=== PATIENT | male | born 1955 | race Caucasian/White ===

== ENCOUNTER 2018-01-20 14:50 | Inpatient (IN) | payer BC ==
[2018-01-20] MEDS ORDERED: Diatrizoate Meglumine/Diatri 30 mL Sol ONE (16:25)
[2018-01-20 17:00] LABS: % BASOPHILS 3.2 % (0.0-2.0); % EOSINOPHILS 1.3 % (0.0-5.0); % LYMPHOCYTES 7.3 % (20.0-50.0); % MONOCYTES 4.5 % (2.0-10.0); % NEUTROPHILS 83.7 % (40.0-80.0); BASOPHILE ABSOLUTE 0.5 Th/cumm (0-0.2); EOSINOPHILE ABSOLUTE 0.2 Th/cmm (0.1-0.4); HEMATOCRIT 27.6 % (41.0-60); HEMOGLOBIN 9.4 gm/dL (12-16); LYMPHOCYTE ABSOLUTE 1.1 Th/cmm (1.5-3.0); MEAN CELL VOLUME 89.1 fl (80-99); MEAN CORPUSCULAR HEMOGLOBIN 30.3 pg (26.0-30.0); MEAN PLATELET VOLUME 8.5 fl; MONOCYTE ABSOLUTE 0.7 Th/cmm (0.3-1.0); NEUTROPHILE ABSOLUTE 13.1 Th/cmm (1.8-8.0); PLATELET COUNT 320 Th/cmm (150-400); RED BLOOD COUNT 3.09 Mil/cmm (4.30-5.70); RED CELL DISTRIBUTION WIDTH 14.7 % (11.5-20.0)
[2018-01-20 17:07] LABS: ALB/GLOB RATIO 1.1 (1.0-1.8); ALBUMIN 3.3 gm/dL (4.2-5.5); ALKALINE PHOSPHATASE 104 U/L (34-104); ANION GAP 10.9 (7.0-16.0); BILIRUBIN,TOTAL 0.4 mg/dL (0.3-1.0); BUN - UREA NITROGEN 15 mg/dL (7-25); CALCIUM SERUM 8.9 mg/dL (8.6-10.3); CARBON DIOXIDE 26.5 mEq/L (21.0-31.0); CHLORIDE 105 mEq/L (98-107); CREATININE - SERUM 0.9 mg/dL (0.7-1.3); CREATININE KINASE 32 U/L (30-223); GFR AFRICAN-AMERICAN > 60.0 ml/min (>90); GFR NON AFRICAN-AMERICAN > 60.0 ml/min; GLUCOSE 123 mg/dL (70-105); POTASSIUM SERUM 3.4 mEq/L (3.5-5.1); SGOT 9 U/L (13-39); SGPT/ALT 12 U/L (7-52); SODIUM SERUM 139 mEq/L (136-145); TOTAL PROTEIN,SERUM 6.3 gm/dL (6.0-8.3); WHITE BLOOD COUNT 15.6 Th/cmm (4.8-10.8)
[2018-01-20 17:09] LABS: TROP I 0.01 ng/mL (0.01-0.05)
[2018-01-20 17:21] LABS: INR 1.4 (0.5-1.4); PROTHROMBIN TIME (TEST) 14.8 SECONDS (9.5-11.5)
[2018-01-20] MEDS ORDERED: Levofloxacin 500mg/100mL 500 MG/100 ML BAG IV ONE ×2 (17:39→19:21)
--- NOTE | 2018-01-20 17:39 | ED Physician Chart ---
ED Chief Complaint/HPI - Patient Information Date Seen:: 01/20/18 Time Seen:: 15:15 Chief Complaint:: Cough History of Present Illness:: onset x 2 days of fever, cough, and congestion; pt denies trauma, H/As, S/T, neck pain, C/P, SOB, Abd. Pain, A/N/V/D/C, chills, or urinary s/s Allergies:: Allergies Allergy/AdvReac Type Severity Reaction Status Date / Time No Known Allergies Allergy Verified 01/20/18 15:03 Vitals:: Vital Signs - 8 hr 01/20/18 01/20/18 15:18 16:45 Temp 98.2 F HR 84 80 RR 17 20 BP 103/69 O2 Sat % 98 98 Historian:: Patient Review:: Nurse's Note Reviewed ED Review of Systems - Review of Systems General/Constitutional: Fever, No chills, No weight loss, No weakness, No diaphoresis, No edema, No loss of appetite Skin: No skin lesions, No rash, No bruising Head: No headache, No light-headedness Eyes: No loss of vision, No pain, No diplopia ENT: No earache, Nasal drainage, No sore throat, No tinnitus Neck: No neck pain, No swelling, No thyromegaly, No stiffness, No mass noted Cardio Vascular: No chest pain, No palpitations, No PND, No orthopnea, No edema Pulmonary: No SOB, Cough, No sputum, No wheezing GI: No nausea, No vomiting, No diarrhea, No pain, No melena, No hematochezia, No constipation, No hematemesis G/U: No dysuria, No frequency, No hematuria, No nacturia Musculoskeletal: No bone or joint pain, No back pain, No muscle pain Endocrine: No polyuria, No polydipsia Psychiatric: No prior psych history, No depression, No anxiety, No suicidal ideation, No homicidal ideation, No auditory hallucination, No visual hallucination Hematopoietic: No bruising, No lymphadenopathy Allergic/Immuno: No urticaria, No angioedema Neurological: No syncope, No focal symptoms, No weakness, No paresthesia, No headache, No seizure, No dizziness, No confusion, No vertigo ED Past Medical History - Past Medical History Obtainable: Yes Past Medical History: HTN, Dyslipidemia, ESRD Family History: HTN Social History: Non Smoker, No Alcohol, No Drug Use, , Care Facility Surgical History: PEG/GTube, other (Aneurysm Repair Surgery) Psychiatricy History: None Medication: Reviewed ED Physical Exam - Physical Examination General/Constitutional: Awake, Well-developed, well-nourished, Alert, No distress, GCS 15, Non-toxic appearing, Ambulatory Head: Atraumatic Eyes: Lids, conjuctiva normal, PERRL, EOMI Skin: Nl inspection, No rash, No skin lesions, No ecchymosis, Well hydrated, No lymphadenopathy ENMT: External ears, nose nl, TM canals nl, Nasal exam nl, Lips, teeth, gums nl , Oropharynx nl, Tonsils nl Neck: Nontender, Full ROM w/o pain, No JVD, No nuchal rigidity, No bruit, No mass, No stridor Respiratory: Nl effort/Exclusion Other Respiratory comments:: Lungs: + Rales and Rhonchi Cardio Vascular: RRR, No murmur, gallop, rubs, NL S1 S2, Carotid/Femoral/Distal pulses equal bilaterally GI: No tenderness/rebounding/guarding, No organomegaly, No hernia, Normal BS's, Nondistended, No mass/bruits, No McBurney tenderness : No CVA tenderness Extremities: No tenderness or effusion, Full ROM, normal strength in all extremities, No edema, Normal digits & nails Neuro/Psych: Alert/oriented, DTR's symmetric, Normal sensory exam, Normal motor strength, Judgement/insight normal, Mood normal, Normal gait, No focal deficits Misc: Normal back, No paraspinal tenderness ED Labs/Radiology/EKG Results - Lab Results Results: Laboratory Tests 01/20/18 01/20/18 01/20/18 16:40 16:40 16:40 WBC 15.6 H RBC 3.09 L Hgb 9.4 L Hct 27.6 L MCV 89.1 MCH 30.3 H MCHC Differential 34.0 RDW 14.7 Plt Count 320 MPV 8.5 Neutrophils % 83.7 H Lymphocytes % 7.3 L Monocytes % 4.5 Eosinophils % 1.3 Basophils % 3.2 H PT 14.8 H INR 1.40 PTT (Actin FS) 32.5 Sodium 139 Potassium 3.4 L Chloride 105 Carbon Dioxide 26.5 Anion Gap 10.9 BUN 15 Creatinine 0.9 Est GFR ( Amer) > 60.0 Est GFR (Non-Af Amer) > 60.0 BUN/Creatinine Ratio 16.7 Glucose 123 H Whole Bld Lactic Acid Calcium 8.9 Total Bilirubin 0.4 AST 9 L ALT 12 Alkaline Phosphatase 104 Creatine Kinase 32 Troponin I Total Protein 6.3 Albumin 3.3 L Globulin 3.0 Albumin/Globulin Ratio 1.1 01/20/18 16:40 WBC RBC Hgb Hct MCV MCH MCHC Differential RDW Plt Count MPV Neutrophils % Lymphocytes % Monocytes % Eosinophils % Basophils % PT INR PTT (Actin FS) Sodium Potassium Chloride Carbon Dioxide Anion Gap BUN Creatinine Est GFR ( Amer) Est GFR (Non-Af Amer) BUN/Creatinine Ratio Glucose Whole Bld Lactic Acid 1.32 Calcium Total Bilirubin AST ALT Alkaline Phosphatase Creatine Kinase Troponin I 0.01 Total Protein Albumin Globulin Albumin/Globulin Ratio Comments:: H/H: 9.4/27.6; WBC: 15.6; K+: 3.4 - Radiology Results Comments:: + Infiltrate - EKG Interpretations EKG Time:: 17:24 Rate & Rhythm: 76; NSR Comments:: st-t depression in V4, V5, and V6 ED Septic Shock - . Is Septic Shock (SBP<90, OR Lactate>4 mmol\L) present?: No - <6hrs of presentation: Vital Signs: Vital Signs - 8 hr 18 01/20/18 15:18 16:45 Temp 98.2 F HR 84 80 RR 17 20 BP 103/69 O2 Sat % 98 98 ED Reassessment (Disposition) - Reassessment Reassessment Condition:: Improved - Diagnosis Diagnosis:: Dx: Myocardial Ischemia; Leukocytosis; Anemia; Hypokalemia; PNA - Aftercare/Follow up Instructions Aftercare/Follow-Up Instructions:: Counseled pt regarding lab results/diagnosis & need follow up, Counseled pt & family regarding lab results/diagnosis & need follow up - Patient Disposition Discharge/Transfer:: Acute Care w/in this hosp Accepting Physician:: Dr. Claudio Time Called:: 1700 Time Responded:: 17:00 Admitted to:: Telemetry Spoke to:: Dr. Claudio Admitting Medical Physician:: Dr. Claudio Condition at Disposition:: Stable, Improved
[2018-01-20] MEDS ORDERED: Potassium Chloride 20 mEq ER Tab PO ONE ×2 (17:40→19:21)
[2018-01-20] MEDS ORDERED: Potassium Chloride 40 MEQ, Lidocaine 1% 20mL Vial 25 MG in Sodium Chloride 0.9% 250 ML IV PRN (19:08)
[2018-01-20] MEDS ORDERED: Mag Sulfate 2gm/50mL Premix 2 GM/50 ML BAG IV PRN (19:08)
[2018-01-20] MEDS: Albuterol/Ipratropium Neb 3 ML AERS HHN SCH ×2 (20:00→22:30)
[2018-01-20] MEDS ORDERED: Non-Formulary Item 1 EA (Atorvastatin Calcium [Lipitor] 40 MG) GT SCH (21:00)
[2018-01-20 21:05] LABS: URINE MICROSCOPIC INDICATED? YES; URINE SOURCE MIDSTREAM
[2018-01-20 21:06] LABS: URINE BILIRUBIN NEGATIVE (NEGATIVE); URINE BLOOD SMALL (NEGATIVE); URINE GLUCOSE (UA) NEGATIVE (NEGATIVE); URINE KETONE NEGATIVE (NEGATIVE); URINE LEUKOCYTE ESTERASE SMALL (NEGATIVE); URINE NITRATE NEGATIVE (NEGATIVE); URINE PH 5.5 (4.6 - 8.0); URINE PROTEIN NEGATIVE (NEGATIVE); URINE UROBILINOGEN 0.2 E.U./dL (0.2 - 1.0)
[2018-01-20 21:11] LABS: URINE CLARITY HAZY (CLEAR); URINE COLOR YELLOW
[2018-01-20 21:23] LABS: URINE BACTERIA NONE SEEN /hpf (NONE SEEN); URINE EPITHELIAL CELLS NONE SEEN /lpf (FEW)
[2018-01-20] MEDS ORDERED: Piperacillin Sodium/Tazobact 3.375 gm Vial IV ONE (23:07)
[2018-01-21] MEDS: Albuterol/Ipratropium Neb 3 ML AERS HHN SCH ×6 (02:09→23:00)
[2018-01-21] MEDS ORDERED: Piperacillin Sodium/Tazobact 3.375 gm Vial IV ONE (03:47)
[2018-01-21 06:38] LABS: EOSINOPHILE ABSOLUTE 0.1 Th/cmm (0.1-0.4); HEMATOCRIT 27.8 % (41.0-60); HEMOGLOBIN 9.8 gm/dL (12-16); LYMPHOCYTE ABSOLUTE 1.9 Th/cmm (1.5-3.0); MANUAL DIFF REQUIRED? YES; MEAN CELL VOLUME 89.5 fl (80-99); MEAN CORPUSCULAR HEMOGLOBIN 31.6 pg (26.0-30.0); MEAN CORPUSCULAR HGB CONC 35.3 pg (28.0-36.0); MEAN PLATELET VOLUME 8.1 fl; MONOCYTE ABSOLUTE 1.3 Th/cmm (0.3-1.0); NEUTROPHILE ABSOLUTE 17.5 Th/cmm (1.8-8.0); PLATELET COUNT 350 Th/cmm (150-400); RED CELL DISTRIBUTION WIDTH 14.8 % (11.5-20.0)
[2018-01-21 06:55] LABS: WHITE BLOOD COUNT 20.8 Th/cmm (4.8-10.8)
[2018-01-21 07:14] LABS: BAND NEUTROPHILE 7 % (0-10); LYMPHOCYTE 8 % (20-50); MONOCYTE 2 % (2-10); NEUTROPHILS 83 % (40-80); TOTAL CELLS COUNTED 100
[2018-01-21 07:30] LABS: ANION GAP 11.6 (7.0-16.0); BUN - UREA NITROGEN 11 mg/dL (7-25); CALCIUM SERUM 8.9 mg/dL (8.6-10.3); CARBON DIOXIDE 26.2 mEq/L (21.0-31.0); CHLORIDE 106 mEq/L (98-107); CREATININE - SERUM 0.8 mg/dL (0.7-1.3); GFR AFRICAN-AMERICAN > 60.0 ml/min (>90); GFR NON AFRICAN-AMERICAN > 60.0 ml/min; GLUCOSE 98 mg/dL (70-105); POTASSIUM SERUM 3.8 mEq/L (3.5-5.1); SODIUM SERUM 140 mEq/L (136-145)
--- NOTE | 2018-01-21 07:36 | Diagnostic Imaging Report ---
Upper GI with Gastrografin HISTORY: G-tube confirmation COMPARISON: None FINDINGS: Bladder Trimmer view demonstrates diffuse postsurgical changes. Moderate stool is noted with nonspecific gas-filled loops of bowel. A percutaneous gastric feeding tube is noted. The second image demonstrates contrast opacification of the stomach and small bowel loops. IMPRESSION: Intraluminal confirmation of patient's percutaneous gastric feeding tube. Diffuse postsurgical changes.
--- NOTE | 2018-01-21 07:39 | Diagnostic Imaging Report ---
CHEST X-RAY: AP view INDICATION: Cough COMPARISON: None FINDINGS: Left dialysis catheter is seen with tip in the SVC. Postsurgical changes are seen with evidence of median sternotomy and aortic stent placement. There is elevation of the right hemidiaphragm with increased right basal lung markings. Left basal pleural thickening is suspected. Mild cardiomegaly is noted. Degenerative changes of the spine are noted. IMPRESSION: Elevation of the right hemidiaphragm increased right basal lung markings which may be due to atelectasis versus infiltrate. Mild cardiomegaly Diffuse postsurgical changes.
[2018-01-21] MEDS ORDERED: AZELASTINE HCL 0.1% NS SCH (09:00)
[2018-01-21 09:25] LABS: INR 1.53 (0.5-1.4); PROTHROMBIN TIME (TEST) 16.2 SECONDS (9.5-11.5)
[2018-01-21] MEDS: Aspirin 81mg Chewable Tab GT SCH (09:50)
[2018-01-21] MEDS ORDERED: Probiotic Screen MC PRN (10:00)
--- NOTE | 2018-01-21 10:03 | Diagnostic Imaging Report ---
Bilateral lower extremity Doppler venous ultrasound exam HISTORY: Pain/swelling Sonographic sector images were obtained through the deep venous systems of both legs. Associated Doppler data was obtained. The exam demonstrates patency of the common femoral, superficial femoral, popliteal, and posterior tibial veins bilaterally. Specifically, no thrombus is seen. There are normal compressibility and augmentation responses. IMPRESSION: Negative exam for deep vein thrombophlebitis.
--- NOTE | 2018-01-21 11:14 | History & Physical ---
ADMIT DATE: 01/20/2018 CHIEF COMPLAINT: Removal of dialysis access and G-tube. HISTORY OF PRESENT ILLNESS: The patient is a pleasant 61-year-old male. He has an extensive history. In 10/2017, he was found to have aortic dissection. He is status post repair [facility] that was complicated by cardiac tamponade, acute renal failure requiring dialysis. He has been off the dialysis for about a month now. He was also found to have dysphagia, right axillary and right internal jugular DVT along with respiratory failure as well. After that, he was transferred to [facility]. He presents to the ER for the removal of G-tube and dialysis access. He has been eating for a month without any issues. He is taking all his pills orally as well. He is also not required dialysis for a month. Renal function is normal; however, in the ER, he was found to have sepsis and aspiration pneumonia. He was admitted for further workup and treatment. PAST MEDICAL HISTORY: See above. PAST SURGICAL HISTORY: As mentioned above, he has history of cardiac tamponade, status post surgery. He has a history of aortic dissection, after which his stay was complicated with cardiac tamponade. ALLERGIES: No known drug allergies. SOCIAL HISTORY: The patient denies any alcohol, tobacco, or drug abuse. FAMILY HISTORY: Noncontributory. MEDICATIONS: All medications reviewed. REVIEW OF SYSTEMS: GENERAL: Positive recent fatigue and a slightly decreased appetite. HEENT: No recent head trauma, change in vision, taste, hearing, or smell. HEME/ONC: Positive for right axillary and right internal jugular vein DVT and hematoma and history of drainage as well. ABDOMEN: No recent pain or distention. GASTROINTESTINAL: Denies any nausea, vomiting. RESPIRATORY: Positive for respiratory failure and he is status post extubation. NEPHRO: He has history of end-stage renal disease. His renal function has normalized. CARDIOVASCULAR: Positive for aortic dissection and cardiac tamponade, status post surgery in 10/2017 as mentioned above. MUSCULOSKELETAL: Positive for muscle weakness. PSYCHIATRIC: No history of psychosis or hallucinations. NEUROLOGIC: No history of stroke or seizure. PHYSICAL EXAMINATION: VITAL SIGNS: Temperature 97.9 degrees, heart rate is 80, respirations 14, blood pressure 113/65. Currently, no pain. GENERAL: No acute distress, awake, alert, pleasant. HEENT: No acute issues. NECK: Trachea is midline. CARDIOVASCULAR: Regular rate and rhythm. ABDOMEN: Nontender, nondistended. SKIN: No rashes. RESPIRATORY: Decreased breath sounds bilaterally with some rales and congestion. EXTREMITIES: No edema. He does have mild edema in the right upper extremity, but no edema in the lower extremities. NEUROLOGIC: Stable. GENITOURINARY: No hematuria is noted. LABORATORY DATA: Sodium 139, potassium 3.4, chloride 105, bicarbonate 26.5, BUN 15, creatinine 0.9, albumin is 3.3. White count is 20.8, hemoglobin is 9.8, platelet count 350,000. Chest x-ray shows infiltrates. Lower extremity venous Doppler ultrasound is negative. Upper GI study was done in the ER as well, which shows an intraluminal confirmation of the patient's percutaneous gastric feeding tube. ASSESSMENT: 1. Sepsis. 2. Aspiration pneumonia. 3. Right upper extremity deep vein thrombosis/right axillary and internal jugular vein deep vein thrombosis. 4. Atrial fibrillation. 5. Anemia of chronic illness. 6. Moderate malnutrition. 7. Hyponatremia. PLAN: The patient is on IV Zosyn. The white count is still trending up. ID has been consulted. Also, he has a cardiac arrhythmia on the telemetry. Cardiology has been consulted. We will continue the warfarin. Pharmacy will be dosing it. He will have a followup ultrasound of the bilateral upper extremities to evaluate for the DVT. It was diagnosed originally in 10/2017. Also, Dr. Parks has been consulted for surgery for removal of dialysis access and G-tube removal as well. I have discussed care plan with the patient in detail. JOB# [id number]
--- NOTE | 2018-01-21 11:35 | General Progress Note ---
Subjective - Review of Systems Service Date: 01/21/18 Events since last encounter: for removal of permcath and gastrostomy in AM Objective - Results Result Diagrams: 01/21/18 06:24 01/21/18 06:24 Recent Labs: Laboratory Last Values WBC 20.8 Th/cmm (4.8-10.8) H* 01/21/18 06:24 RBC 3.10 Mil/cmm (4.30-5.70) L 01/21/18 06:24 Hgb 9.8 gm/dL (12-16) L 01/21/18 06:24 Hct 27.8 % (41.0-60) L 01/21/18 06:24 MCV 89.5 fl (80-99) 01/21/18 06:24 MCH 31.6 pg (26.0-30.0) H 01/21/18 06:24 MCHC Differential 35.3 pg (28.0-36.0) 01/21/18 06:24 RDW 14.8 % (11.5-20.0) 01/21/18 06:24 Plt Count 350 Th/cmm (150-400) 01/21/18 06:24 MPV 8.1 fl 01/21/18 06:24 Neutrophils % 83.7 % (40.0-80.0) H 01/20/18 16:40 Band Neutrophils % 7 % (0-10) 01/21/18 06:24 Lymphocytes % 7.3 % (20.0-50.0) L 01/20/18 16:40 Monocytes % 4.5 % (2.0-10.0) 01/20/18 16:40 Eosinophils % 1.3 % (0.0-5.0) 01/20/18 16:40 Basophils % 3.2 % (0.0-2.0) H 01/20/18 16:40 Neutrophils (Manual) 83 % (40-80) H 01/21/18 06:24 Lymphocytes 8 % (20-50) L 01/21/18 06:24 Monocytes 2 % (2-10) 01/21/18 06:24 PT 16.2 SECONDS (9.5-11.5) H 01/21/18 06:24 INR 1.53 (0.5-1.4) H 01/21/18 06:24 PTT (Actin FS) 32.5 SECONDS (26.0-38.0) 01/20/18 16:40 Sodium 140 mEq/L (136-145) 01/21/18 06:24 Potassium 3.8 mEq/L (3.5-5.1) 01/21/18 06:24 Chloride 106 mEq/L (98-107) 01/21/18 06:24 Carbon Dioxide 26.2 mEq/L (21.0-31.0) 01/21/18 06:24 Anion Gap 11.6 (7.0-16.0) 01/21/18 06:24 BUN 11 mg/dL (7-25) 01/21/18 06:24 Creatinine 0.8 mg/dL (0.7-1.3) 01/21/18 06:24 Est GFR ( Amer) > 60.0 ml/min (>90) 01/21/18 06:24 Est GFR (Non-Af Amer) > 60.0 ml/min 01/21/18 06:24 BUN/Creatinine Ratio 13.8 01/21/18 06:24 Glucose 98 mg/dL (70-105) 01/21/18 06:24 Whole Bld Lactic Acid 1.32 mmol/L (0.60-1.99) 01/20/18 16:40 Calcium 8.9 mg/dL (8.6-10.3) 01/21/18 06:24 Total Bilirubin 0.4 mg/dL (0.3-1.0) 01/20/18 16:40 AST 9 U/L (13-39) L 01/20/18 16:40 ALT 12 U/L (7-52) 01/20/18 16:40 Alkaline Phosphatase 104 U/L (34-104) 01/20/18 16:40 Creatine Kinase 32 U/L (30-223) 01/20/18 16:40 Troponin I 0.01 ng/mL (0.01-0.05) 01/20/18 16:40 Total Protein 6.3 gm/dL (6.0-8.3) 01/20/18 16:40 Albumin 3.3 gm/dL (4.2-5.5) L 01/20/18 16:40 Globulin 3.0 gm/dL 01/20/18 16:40 Albumin/Globulin Ratio 1.1 (1.0-1.8) 01/20/18 16:40 Urine Source MIDSTREAM 01/20/18 20:20 Urine Color YELLOW 01/20/18 20:20 Urine Clarity HAZY (CLEAR) 01/20/18 20:20 Urine pH 5.5 (4.6 - 8.0) 01/20/18 20:20 Ur Specific [place] 1.020 (1.005-1.030) 01/20/18 20:20 Urine Protein NEGATIVE mg/dL (NEGATIVE) 01/20/18 20:20 Urine Glucose (UA) NEGATIVE mg/dL (NEGATIVE) 01/20/18 20:20 Urine Ketones NEGATIVE mg/dL (NEGATIVE) 01/20/18 20:20 Urine Blood SMALL (NEGATIVE) H 01/20/18 20:20 Urine Nitrate NEGATIVE (NEGATIVE) 01/20/18 20:20 Urine Bilirubin NEGATIVE (NEGATIVE) 01/20/18 20:20 Urine Urobilinogen 0.2 E.U./dL (0.2 - 1.0) 01/20/18 20:20 Ur Leukocyte Esterase SMALL (NEGATIVE) H 01/20/18 20:20 Urine RBC 5-10 /hpf (0-5) H 01/20/18 20:20 Urine WBC 10-25 /hpf (0-5) H 01/20/18 20:20 Ur Epithelial Cells NONE SEEN /lpf (FEW) 01/20/18 20:20 Urine Bacteria NONE SEEN /hpf (NONE SEEN) 01/20/18 20:20 - Physical Exam Vitals and I&O: Vital Signs Temp 97.9 F 01/21/18 08:00 Pulse 78 01/21/18 10:59 Resp 18 01/21/18 10:59 BP 113/65 01/21/18 09:52 Pulse Ox 98 01/21/18 10:59 Intake & Output 01/20/18 01/21/18 01/21/18 18:59 06:59 18:59 Intake Total 200 Balance 200 Intake: Intake, IV Amount 200 Piperacillin Sodium/ 200 Tazobact 3.375 gm In Dextrose 5% 100 ml @ 200 mls/hr IV Q6H [facility] Rx#: [id number] Active Medications: Current Medications Acetaminophen (Tylenol) 650 mg PO Q6H PRN PRN Reason: HEADACHE/TEMP ABOVE 100F Stop: 03/21/18 19:07 Last Admin: 01/20/18 23:17 Dose: 650 mg Acetaminophen/Hydrocodone Bitart ([place] 10 Mg/325 Mg) 1 tab PO Q6H PRN PRN Reason: mod pain Stop: 03/22/18 10:31 Albuterol/Ipratropium (Duoneb Neb) 3 ml HHN Q4HRT [facility] Stop: 03/21/18 19:59 Last Admin: 01/21/18 10:59 Dose: Not Given Amiodarone HCl (Cordarone) 100 mg GT DAILY [facility] Stop: 03/22/18 08:59 Last Admin: 01/21/18 09:48 Dose: 100 mg Amlodipine Besylate (Norvasc) 10 mg GT DAILY [facility] Stop: 03/22/18 08:59 Last Admin: 01/21/18 09:52 Dose: 10 mg Aspirin (Aspirin Chewable) 81 mg GT DAILY [facility] Stop: 03/22/18 08:59 Last Admin: 01/21/18 09:50 Dose: 81 mg Atorvastatin Calcium (Lipitor) 40 mg GT HS [facility] Stop: 03/21/18 20:59 Docusate Sodium (Colace) 100 mg PO BID PRN PRN Reason: Constipation Stop: 03/21/18 19:07 Potassium Chloride 40 meq/Lidocaine HCl 25 mg/ Sodium Chloride 272.5 mls @ 68 mls/hr IV DAILY PRN PRN Reason: k level less than 3.2 Stop: 03/21/18 19:07 Magnesium Sulfate (Magnesium Sulfate Premix) 2 gm in 50 mls @ 25 mls/hr IV DAILY PRN PRN Reason: Magnesium level less than 1.6 Stop: 03/21/18 19:07 Piperacillin Sod/Tazobactam (Sod 4.5 gm/ Sodium Chloride) 100 mls @ 100 mls/hr IV Q8H [facility] Stop: 03/22/18 08:59 Last Admin: 01/21/18 10:49 Dose: 100 mls/hr Lactobacillus Rhamnosus (Culturelle 15b) 1 each PO DAILY [facility] Stop: 03/23/18 08:59 Lorazepam (Ativan) 1 mg IVP Q4H PRN; Protocol PRN Reason: Anxiety Stop: 03/21/18 19:07 Magnesium Oxide (Mag-Oxide) 400 mg PO BID PRN PRN Reason: Mg less than 1.9 Stop: 03/21/18 19:07 Metoprolol Tartrate (Lopressor) 50 mg GT Q8H [facility] Stop: 03/21/18 19:14 Last Admin: 01/21/18 02:52 Dose: Not Given Miscellaneous (Zosyn Iv Per Pharmacy) 1 [facility] PRN PRN PRN Reason: PROTOCOL Stop: 03/21/18 19:03 Miscellaneous (Azelastine Hcl [Azelastine Hcl]) 0.1 % NS BID [facility] Stop: 03/22/18 08:59 Miscellaneous (Probiotic Screen) 1 [facility] PRN PRN PRN Reason: PROTOCOL Stop: 03/22/18 09:59 Morphine Sulfate (Morphine) 1 mg IVP Q4HR PRN PRN Reason: Severe Pain Stop: 03/21/18 19:07 Ondansetron HCl (Zofran) 4 mg IVP Q6H PRN PRN Reason: Nausea / Vomiting Stop: 03/21/18 19:07 Potassium Chloride (Klor-Con) 40 meq PO DAILY PRN PRN Reason: k level less than 3.5 Stop: 03/21/18 19:07 Warfarin Sodium (Coumadin Per Pharmacy) 1 [facility] PRN PRN; Protocol PRN Reason: RX MONITORING Stop: 03/21/18 19:10 Warfarin Sodium (Coumadin) 2.5 mg PO 1300 ONE Stop: 01/21/18 13:01 Zolpidem Tartrate (Ambien) 10 mg PO HS PRN PRN Reason: Insomnia Stop: 03/21/18 19:07 Assessment/Plan - Problem List Patient Problems: All Active Problems GASTRIC TUBE AND CORAL REMOVAL (Acute)
--- NOTE | 2018-01-21 12:42 | Diagnostic Imaging Report ---
Bilateral upper extremity Doppler venous ultrasound exam HISTORY: Pain, swelling Sonographic sector images were obtained through the venous systems of both arms. Associated Doppler data was obtained. The exam demonstrates patency of the right internal jugular, subclavian, brachial, basilic, cephalic veins. No thrombus is seen. Normal compressibility and augmentation responses. Exam the left arm demonstrates eighth CVA of the left internal jugular, axillary, brachial, basilic, cephalic veins. No thrombus. There is suboptimal visualization of the left subclavian vein due to the presence of an indwelling vascular catheter. IMPRESSION: 1. Suboptimal visualization of the left subclavian vein due to an intraluminal vascular catheter. No other definite abnormalities or evidence of thrombophlebitis.
[2018-01-21] MEDS: Hydrocodone/APAP 10 mg/325 mg Tab PO PRN ×2 (13:12→19:53)
[2018-01-21 18:47] LABS: A1C % 4.9 % (4.0-6.0)
[2018-01-21] MEDS: Atorvastatin Calcium 10 MG TAB GT SCH (20:11)
--- NOTE | 2018-01-21 21:59 | Consultation ---
Consult Note - Consult Note Service Date: 01/21/18 Referring Physician: Fito Claudio Consult Note: PHYSICIAN Consultation Note: Date of Admission: 01/20/18 Purpose of Consultation: Sepsis. UTI. Chief Complaint: Patient GWEN RAMIREZ was admitted to [facility] with ASPIRATION PNEUMONIA. History of Present Illness: 62-year-old male with a past medical history of hypertension, hyperlipidemia, aortic dissection which was repaired at [facility]. He was complicated by acute renal failure requiring hemodialysis. He developed dysphagia suggestive was placed in. Currently he is doing well. He was transferred to [place] . He was doing well. When he came to the ER for the removal of G-tube and dialysis access. On initial evaluation patient was afebrile, his WBC count of 15,000. Sepsis workup was performed, lactic acid was 1.32. Chest x-ray right lower lobe infiltrate versus atelectasis. Urinalysis showed pyuria and bacteriuria. Patient was admitted with diagnosis of aspiration pneumonia and sepsis. Zosyn was started. His WC count went up to 20,000. ID consult for further antibiotic. Past Medical History: Hypertension, hyperlipidemia, aortic dissection, repair of aortic dissection recently at [facility]. Acute renal failure requiring hemodialysis. Currently, he is off hemodialysis for almost one month. His dysphagia is resolved. Diagnoses HYPERLIPIDEMIA, UNSPECIFIED (01/20/18) ESSENTIAL (PRIMARY) HYPERTENSION (01/20/18) HYP CHR KIDNEY DISEASE W STAGE 5 CHR KIDNEY DISEASE OR ESRD (01/20/18) END STAGE RENAL DISEASE (01/20/18) COUGH (01/20/18) Allergies Allergy/AdvReac Type Severity Reaction Status Date / Time No Known Allergies Allergy Verified 01/20/18 15:03 Vital Signs Temp 97.4 F 01/21/18 16:00 Pulse 72 01/21/18 20:12 Resp 18 01/21/18 16:00 BP 121/71 01/21/18 20:12 Pulse Ox 97 01/21/18 16:00 Intake & Output 01/21/18 01/21/18 01/22/18 06:59 18:59 06:59 Intake Total 200 100 850 Output Total 950 Balance 200 100 -100 Weight (lbs) 88.451 kg Intake: Intake, IV Amount 200 100 100 Piperacillin Sodium/ 200 Tazobact 3.375 gm In Dextrose 5% 100 ml @ 200 mls/hr IV Q6H [facility] Rx#: [id number] Piperacillin Sodium/ 100 100 Tazobact 4.5 gm In Sodium Chloride 0.9% 100 ml @ 100 mls/hr IV Q8H [facility] Rx# :[id number] Oral 750 Output: Urine 950 Stool 0 Other: Stool Characteristics Soft Brown Weight Source [facility] Laboratory Results - last 24 hr 01/21/18 01/21/18 01/21/18 06:24 06:24 06:24 WBC 20.8 H* RBC 3.10 L Hgb 9.8 L Hct 27.8 L MCV 89.5 MCH 31.6 H MCHC Differential 35.3 RDW 14.8 Plt Count 350 MPV 8.1 Band Neutrophils % 7 Neutrophils (Manual) 83 H Lymphocytes 8 L Monocytes 2 PT 16.2 H INR 1.53 H Sodium 140 Potassium 3.8 Chloride 106 Carbon Dioxide 26.2 Anion Gap 11.6 BUN 11 Creatinine 0.8 Est GFR ( Amer) > 60.0 Est GFR (Non-Af Amer) > 60.0 BUN/Creatinine Ratio 13.8 Glucose 98 Calcium 8.9 Home Medication Medication Instructions Recorded Type Albuterol/Ipratropium Neb [Duoneb 3 ml HHN Q4HR 01/20/18 History Neb] Amiodarone HCl [Amiodarone HCl*] 100 mg GT DAILY 01/20/18 History Amlodipine Besylate 10 mg GT DAILY 01/20/18 History Aspirin [Aspirin Chewable] 81 mg GT DAILY 01/20/18 History Atorvastatin Calcium [Lipitor] 40 mg GT HS 01/20/18 History Azelastine HCl 0.1 % NS BID 01/20/18 History Bisacodyl 10 mg RC Q24H PRN 01/20/18 History Bismuth Subsalicylate 15 ml PO Q8H PRN 01/20/18 History [Pepto-Bismol] Dronabinol 2.5 mg GT BID 01/20/18 History Hydrocodone/APAP 5mg/325mg [[place] 1 tab GT Q4H PRN 01/20/18 History 5mg/325mg] Hydrocodone/APAP 5mg/325mg [[place] 2 tab GT Q6H PRN 01/20/18 History 5mg/325mg] Metoprolol Tartrate 50 mg GT Q8H 01/20/18 History Multivitamin w/ Minerals 1 tab GT DAILY 01/20/18 History [Theragran M] Pantoprazole [Protonix] 40 mg PO DAILY 01/20/18 History Scopolamine [Transderm-Scop] 1 each TD Q72H 01/20/18 History Sertraline [Zoloft] 50 mg GT DAILY 01/20/18 History Simethicone [Mylicon] 80 mg GT Q8H PRN 01/20/18 History Tamsulosin HCl [Flomax] 0.8 mg PO HS 01/20/18 History Temazepam [Restoril*] 7.5 mg GT Q24H PRN 01/20/18 History Warfarin Sodium [Coumadin*] 2.5 mg GT DAILY 01/20/18 History Warfarin Sodium [Coumadin] 2.5 mg GT DAILY 01/20/18 History Current Medications Generic Name Dose Route Start Last Admin Trade Name Freq PRN Reason Stop Dose Admin Acetaminophen 650 mg 01/20/18 19:08 01/20/18 23:17 Tylenol PO 03/21/18 19:07 650 mg Q6H PRN Administration HEADACHE/TEMP ABOVE 100F Acetaminophen/Hydrocodone Bitart 1 tab 01/21/18 10:32 01/21/18 19:53 [place] 10 Mg/325 Mg PO 03/22/18 10:31 1 tab Q6H PRN Administration mod pain Albuterol/Ipratropium 3 ml 01/20/18 20:00 01/21/18 15:09 Duoneb Neb HHN 03/21/18 19:59 Not Given Q4HRT [facility] Amiodarone HCl 100 mg 01/21/18 09:00 01/21/18 09:48 Cordarone GT 03/22/18 08:59 100 mg DAILY SH[facility]E Administration Amlodipine Besylate 10 mg 01/21/18 09:00 01/21/18 09:52 Norvasc GT 03/22/18 08:59 10 mg DAILY [facility]E Administration Aspirin 81 mg 01/21/18 09:00 01/21/18 09:50 Aspirin Chewable GT 03/22/18 08:59 81 mg DAILY [facility] Administration Atorvastatin Calcium 40 mg 01/21/18 08:10 01/21/18 20:11 Lipitor GT 03/21/18 20:59 40 mg HS [facility] Administration Docusate Sodium 100 mg 01/20/18 19:08 Colace PO 03/21/18 19:07 BID PRN Constipation Potassium Chloride 40 meq/ 272.5 mls @ 68 mls/hr 01/20/18 19:08 Lidocaine HCl 25 mg/ Sodium IV 03/21/18 19:07 Chloride DAILY PRN k level less than 3.2 Magnesium Sulfate 2 gm in 50 mls @ 25 mls/hr 01/20/18 19:08 Magnesium Sulfate Premix IV 03/21/18 19:07 DAILY PRN Magnesium level less than 1.6 Piperacillin Sod/Tazobactam 100 mls @ 100 mls/hr 01/21/18 09:00 01/21/18 19: 37 Sod 4.5 gm/ Sodium Chloride IV 03/22/18 08:59 Infused Q8H [facility] Infusion Lactobacillus Rhamnosus 1 each 01/22/18 09:00 Culturelle 15b PO 03/23/18 08:59 DAILY [facility] Lorazepam 1 mg 01/20/18 19:08 Ativan IVP 03/21/18 19:07 Q4H PRN Anxiety Protocol Magnesium Oxide 400 mg 01/20/18 19:08 Mag-Oxide PO 03/21/18 19:07 BID PRN Mg less than 1.9 Metoprolol Tartrate 50 mg 01/20/18 19:15 01/21/18 20:12 Lopressor GT 03/21/18 19:14 50 mg Q8H [facility] Administration Miscellaneous 1 ea 01/20/18 19:04 Zosyn Iv Per Pharmacy 03/21/18 19:03 PRN PRN PROTOCOL Miscellaneous 0.1 % 01/21/18 09:00 Azelastine Hcl [Azelastine Hcl] NS 03/22/18 08:59 BID [facility] Miscellaneous 1 ea 01/21/18 10:00 Probiotic Screen 03/22/18 09:59 PRN PRN PROTOCOL Morphine Sulfate 1 mg 01/20/18 19:08 Morphine IVP 03/21/18 19:07 Q4HR PRN Severe Pain Mupirocin 1 appl 01/22/18 09:00 Bactroban Oint NS 01/26/18 17:01 BID [facility] Ondansetron HCl 4 mg 01/20/18 19:08 01/21/18 16:40 Zofran IVP 03/21/18 19:07 4 mg Q6H PRN Administration Nausea / Vomiting Potassium Chloride 40 meq 01/20/18 19:08 Klor-Con PO 03/21/18 19:07 DAILY PRN k level less than 3.5 Warfarin Sodium 1 ea 01/20/18 19:11 Coumadin Per Pharmacy 03/21/18 19:10 PRN PRN RX MONITORING Protocol Zolpidem Tartrate 10 mg 01/20/18 19:08 Ambien PO 03/21/18 19:07 HS PRN Insomnia Review of Systems: A 12 point ROS was reviewed with the pertinent positive and negatives noted in the HPI. Social History Smoking Status Never smoker Drug Use No Alcohol Use No Family Medical History Unknown. Physical Exam: General: Comfortable, well-nourished well-developed. Not in acute distress. HEENT: Head: Normocytic, atraumatic. Oral cavity: Moist, pink tongue. Eyes: No pallor and icterus. PERRLA. EOMI. Neck: Supple, no JVD no cavity. No use of accessory neck muscles. Cardio: S1 and S2 within normal limits regular rhythm no murmur no gallop. Respiratory: Vesicular breath sound no crackles no wheezing. Chest: Patient has a surgical incision and middle chest has healed completely. Face and other transverse surgical incision healed completely on her right upper chest. These permacath on left upper chest. Site is clean. Abdominal: Soft, nontender nondistended bowel sounds present. G-tube site is clear. Genital/Urinary: Deferred. Extremities: No cyanosis, no clubbing, no edema. Neurological: Alert and awake oriented 3. No focal neuro deficits. Assessment: 1. Leukocytosis suspect sepsis. 2. Right lower lobe infiltrate, suspect aspiration pneumonia. 3. UTI. 4. MRSA colonization. 5. Hypertension. 6. Hyperlipidemia. 7. Aortic dissection, repair of aortic dissection at [facility]. 8. Acute kidney injury. Resolved. 9. Dysphagia resolved. He is taking his medication by mouth. Plan: Continue Zosyn. Start vancomycin IV. Discussed with the patient in detail. Discussed with RN. Thank you, Dr. Claudio, for involving me in taking care of this patient. Signed, Caesar Elias M.D. [id number]
--- NOTE | 2018-01-21 23:17 | Consultation ---
DATE OF CONSULTATION: 01/20/[address] Claudio. HISTORY AND PHYSICAL: This is a 62-year-old male patient who had a dissection of the ascending aorta, which was repaired at [facility]. The patient also had complication with cardiac tamponade, acute renal failure with dialysis. The patient was admitted to [facility] at the present time, the patient is off dialysis. The patient has a PEG placement. The patient apparently is eating and has PEG as well as Perm-A-Cath needs to be removed. The patient had chest x-ray consistent with aspiration pneumonia and hence the patient is admitted. PAST MEDICAL HISTORY: The patient has a history of DVT of the right upper extremity, atrial fibrillation, iron deficiency anemia, hyponatremia. FAMILY HISTORY: Unremarkable. SOCIAL HISTORY: No history of smoking, alcohol abuse. ALLERGIES: None. PHYSICAL EXAMINATION: VITAL SIGNS: Blood pressure 142/80, pulse 70, respirations 20. HEAD: Normocephalic. No lumps or bumps. EYES: Pupils equal, reactive to light. Fundi show AV nicking, sclerae white, conjunctivae pink. NECK: Carotid 2+. Normal upstroke. JVD flat. Thyroid not palpable. Lymph nodes not palpable. CHEST: Shows increased AP diameter. No kyphosis, scoliosis. LUNGS: Bilateral bronchovesicular breath sounds. HEART: PMI fifth intercostal space with lateral to midclavicular line. S1, S2, S3, S4. S1 irregular. Systolic murmur. ABDOMEN: Soft. Liver, spleen not palpable. The patient has a PEG in place. NEUROLOGIC: Unremarkable. EXTREMITIES: Peripheral pulses 2+. No pedal edema. CLINICAL IMPRESSION: Atrial fibrillation, aspiration pneumonia, sepsis, DVT of the right upper extremity, iron deficiency anemia, hyponatremia. PLAN: We will continue present management. We will hold anticoagulation in view of removal of Perm-A-Cath as well as PEG. Following this, the patient will be continued on IV antibiotics for sepsis as well as pneumonia. JOB# [id number]
[2018-01-22] MEDS: Albuterol/Ipratropium Neb 3 ML AERS HHN SCH ×7 (03:00→23:01)
--- NOTE | 2018-01-22 07:28 | General Progress Note ---
Subjective - Review of Systems Service Date: 01/22/18 Subjective: Pt seen and eval. Has some congestion. No fevers or chills. Now on Vanco and Zosyn. Seen by ID, Cardio, and Sx. Scheduled to have Perm-A-Cath and GT removed today by Dr. Parks. No n,v,d or cp. Feels weak. Objective - Results Result Diagrams: 01/21/18 06:24 01/21/18 06:24 Recent Labs: Laboratory Last Values WBC 20.8 Th/cmm (4.8-10.8) H* 01/21/18 06:24 RBC 3.10 Mil/cmm (4.30-5.70) L 01/21/18 06:24 Hgb 9.8 gm/dL (12-16) L 01/21/18 06:24 Hct 27.8 % (41.0-60) L 01/21/18 06:24 MCV 89.5 fl (80-99) 01/21/18 06:24 MCH 31.6 pg (26.0-30.0) H 01/21/18 06:24 MCHC Differential 35.3 pg (28.0-36.0) 01/21/18 06:24 RDW 14.8 % (11.5-20.0) 01/21/18 06:24 Plt Count 350 Th/cmm (150-400) 01/21/18 06:24 MPV 8.1 fl 01/21/18 06:24 Neutrophils % 83.7 % (40.0-80.0) H 01/20/18 16:40 Band Neutrophils % 7 % (0-10) 01/21/18 06:24 Lymphocytes % 7.3 % (20.0-50.0) L 01/20/18 16:40 Monocytes % 4.5 % (2.0-10.0) 01/20/18 16:40 Eosinophils % 1.3 % (0.0-5.0) 01/20/18 16:40 Basophils % 3.2 % (0.0-2.0) H 01/20/18 16:40 Neutrophils (Manual) 83 % (40-80) H 01/21/18 06:24 Lymphocytes 8 % (20-50) L 01/21/18 06:24 Monocytes 2 % (2-10) 01/21/18 06:24 PT 16.2 SECONDS (9.5-11.5) H 01/21/18 06:24 INR 1.53 (0.5-1.4) H 01/21/18 06:24 PTT (Actin FS) 32.5 SECONDS (26.0-38.0) 01/20/18 16:40 Sodium 140 mEq/L (136-145) 01/21/18 06:24 Potassium 3.8 mEq/L (3.5-5.1) 01/21/18 06:24 Chloride 106 mEq/L (98-107) 01/21/18 06:24 Carbon Dioxide 26.2 mEq/L (21.0-31.0) 01/21/18 06:24 Anion Gap 11.6 (7.0-16.0) 01/21/18 06:24 BUN 11 mg/dL (7-25) 01/21/18 06:24 Creatinine 0.8 mg/dL (0.7-1.3) 01/21/18 06:24 Est GFR ( Amer) > 60.0 ml/min (>90) 01/21/18 06:24 Est GFR (Non-Af Amer) > 60.0 ml/min 01/21/18 06:24 BUN/Creatinine Ratio 13.8 01/21/18 06:24 Glucose 98 mg/dL (70-105) 01/21/18 06:24 POC Glucose 87 MG/DL (70 - 105) 01/22/18 06:17 Hemoglobin A1c % 4.9 % (4.0-6.0) 01/20/18 16:40 Whole Bld Lactic Acid 1.32 mmol/L (0.60-1.99) 01/20/18 16:40 Calcium 8.9 mg/dL (8.6-10.3) 01/21/18 06:24 Total Bilirubin 0.4 mg/dL (0.3-1.0) 01/20/18 16:40 AST 9 U/L (13-39) L 01/20/18 16:40 ALT 12 U/L (7-52) 01/20/18 16:40 Alkaline Phosphatase 104 U/L (34-104) 01/20/18 16:40 Creatine Kinase 32 U/L (30-223) 01/20/18 16:40 Troponin I 0.01 ng/mL (0.01-0.05) 01/20/18 16:40 Total Protein 6.3 gm/dL (6.0-8.3) 01/20/18 16:40 Albumin 3.3 gm/dL (4.2-5.5) L 01/20/18 16:40 Globulin 3.0 gm/dL 01/20/18 16:40 Albumin/Globulin Ratio 1.1 (1.0-1.8) 01/20/18 16:40 Urine Source MIDSTREAM 01/20/18 20:20 Urine Color YELLOW 01/20/18 20:20 Urine Clarity HAZY (CLEAR) 01/20/18 20:20 Urine pH 5.5 (4.6 - 8.0) 01/20/18 20:20 Ur Specific Mineral 1.020 (1.005-1.030) 01/20/18 20:20 Urine Protein NEGATIVE mg/dL (NEGATIVE) 01/20/18 20:20 Urine Glucose (UA) NEGATIVE mg/dL (NEGATIVE) 01/20/18 20:20 Urine Ketones NEGATIVE mg/dL (NEGATIVE) 01/20/18 20:20 Urine Blood SMALL (NEGATIVE) H 01/20/18 20:20 Urine Nitrate NEGATIVE (NEGATIVE) 01/20/18 20:20 Urine Bilirubin NEGATIVE (NEGATIVE) 01/20/18 20:20 Urine Urobilinogen 0.2 E.U./dL (0.2 - 1.0) 01/20/18 20:20 Ur Leukocyte Esterase SMALL (NEGATIVE) H 01/20/18 20:20 Urine RBC 5-10 /hpf (0-5) H 01/20/18 20:20 Urine WBC 10-25 /hpf (0-5) H 01/20/18 20:20 Ur Epithelial Cells NONE SEEN /lpf (FEW) 01/20/18 20:20 Urine Bacteria NONE SEEN /hpf (NONE SEEN) 01/20/18 20:20 - Physical Exam Vitals and I&O: Vital Signs Temp 97.1 F 01/22/18 04:00 Pulse 70 01/22/18 06:12 Resp 19 01/22/18 04:00 BP 95/62 01/22/18 06:12 Pulse Ox 95 01/22/18 04:00 Intake & Output 01/21/18 01/22/18 01/22/18 18:59 06:59 18:59 Intake Total 100 1310 Output Total 1330 Balance 100 -20 Weight (lbs) 90.718 kg Intake: Intake, IV Amount 100 200 Piperacillin Sodium/ 100 200 Tazobact 4.5 gm In Sodium Chloride 0.9% 100 ml @ 100 mls/hr IV Q8H [facility] Rx# :[id number] Oral 1110 Output: Urine 1330 Stool 0 Other: Stool Characteristics Soft Brown Weight Source Bedscale Active Medications: Current Medications Acetaminophen (Tylenol) 650 mg PO Q6H PRN PRN Reason: HEADACHE/TEMP ABOVE 100F Stop: 03/21/18 19:07 Last Admin: 01/20/18 23:17 Dose: 650 mg Acetaminophen/Hydrocodone Bitart ([place] 10 Mg/325 Mg) 1 tab PO Q6H PRN PRN Reason: mod pain Stop: 03/22/18 10:31 Last Admin: 01/21/18 19:53 Dose: 1 tab Albuterol/Ipratropium (Duoneb Neb) 3 ml HHN Q4HRT [facility] Stop: 03/21/18 19:59 Last Admin: 01/22/18 03:00 Dose: Not Given Amiodarone HCl (Cordarone) 100 mg GT DAILY [facility] Stop: 03/22/18 08:59 Last Admin: 01/21/18 09:48 Dose: 100 mg Amlodipine Besylate (Norvasc) 10 mg GT DAILY [facility] Stop: 03/22/18 08:59 Last Admin: 01/21/18 09:52 Dose: 10 mg Aspirin (Aspirin Chewable) 81 mg GT DAILY [facility] Stop: 03/22/18 08:59 Last Admin: 01/21/18 09:50 Dose: 81 mg Atorvastatin Calcium (Lipitor) 40 mg GT HS [facility] Stop: 03/21/18 20:59 Last Admin: 01/21/18 20:11 Dose: 40 mg Docusate Sodium (Colace) 100 mg PO BID PRN PRN Reason: Constipation Stop: 03/21/18 19:07 Potassium Chloride 40 meq/Lidocaine HCl 25 mg/ Sodium Chloride 272.5 mls @ 68 mls/hr IV DAILY PRN PRN Reason: k level less than 3.2 Stop: 03/21/18 19:07 Magnesium Sulfate (Magnesium Sulfate Premix) 2 gm in 50 mls @ 25 mls/hr IV DAILY PRN PRN Reason: Magnesium level less than 1.6 Stop: 03/21/18 19:07 Piperacillin Sod/Tazobactam (Sod 4.5 gm/ Sodium Chloride) 100 mls @ 100 mls/hr IV Q8H [facility] Stop: 03/22/18 08:59 Last Infusion: 01/22/18 01:25 Dose: Infused Lactobacillus Rhamnosus (Culturelle 15b) 1 each PO DAILY [facility] Stop: 03/23/18 08:59 Lorazepam (Ativan) 1 mg IVP Q4H PRN; Protocol PRN Reason: Anxiety Stop: 03/21/18 19:07 Last Admin: 01/22/18 00:32 Dose: 1 mg Magnesium Oxide (Mag-Oxide) 400 mg PO BID PRN PRN Reason: Mg less than 1.9 Stop: 03/21/18 19:07 Metoprolol Tartrate (Lopressor) 50 mg GT Q8H [facility] Stop: 03/21/18 19:14 Last Admin: 01/22/18 06:12 Dose: Not Given Miscellaneous (Zosyn Iv Per Pharmacy) 1 ea PRN PRN PRN Reason: PROTOCOL Stop: 03/21/18 19:03 Miscellaneous (Azelastine Hcl [Azelastine Hcl]) 0.1 % NS BID [facility] Stop: 03/22/18 08:59 Miscellaneous (Probiotic Screen) 1 ea PRN PRN PRN Reason: PROTOCOL Stop: 03/22/18 09:59 Morphine Sulfate (Morphine) 1 mg IVP Q4HR PRN PRN Reason: Severe Pain Stop: 03/21/18 19:07 Mupirocin (Bactroban Oint) 1 appl NS BID [facility] Stop: 01/26/18 17:01 Ondansetron HCl (Zofran) 4 mg IVP Q6H PRN PRN Reason: Nausea / Vomiting Stop: 03/21/18 19:07 Last Admin: 01/21/18 16:40 Dose: 4 mg Potassium Chloride (Klor-Con) 40 meq PO DAILY PRN PRN Reason: k level less than 3.5 Stop: 03/21/18 19:07 Warfarin Sodium (Coumadin Per Pharmacy) 1 ea PRN PRN; Protocol PRN Reason: RX MONITORING Stop: 03/21/18 19:10 Zolpidem Tartrate (Ambien) 10 mg PO HS PRN PRN Reason: Insomnia Stop: 03/21/18 19:07 General: Alert, Oriented x3, Cooperative HEENT: Atraumatic, PERRLA, EOMI Neck: Supple, no JVD Cardiovascular: Regular rate Lungs: Other (has rales and congestion) Abdomen: Bowel sounds, Soft Extremities: no Cyanosis Neurological: Normal speech Skin: no Rash Assessment/Plan - Problem List Patient Problems: All Active Problems GASTRIC TUBE AND CORAL REMOVAL (Acute) - Assessment Assessment: Sepsis Asp PNA Hx of RUE DVT (now resolved) Dysphagia (resolved) A Fib Anemia of Ch Ill Mod [place] Hyponatremia Hx of Aortic Dissection and Cardiac Tamponade-s/p sx at [facility] in October 2017 - Plan Plan: Pt's venous doppler US or LE and UE is negative. Warfarin held by Cardio in light of procedures scheduled for this am. Dr. Parks to remove GT and Perm-A-Cath today. On tele. On Zosyn and Vanco. Afebrile. FU on cbc and chem 7.
[2018-01-22 07:35] LABS: INR 1.7 (0.5-1.4); PROTHROMBIN TIME (TEST) 18.2 SECONDS (9.5-11.5)
[2018-01-22] MEDS ORDERED: fentaNYL Citrate 100 mcg/2mL Vial ONE (07:36)
[2018-01-22 07:41] LABS: ANION GAP 12.5 (7.0-16.0); BUN - UREA NITROGEN 11 mg/dL (7-25); CALCIUM SERUM 8.5 mg/dL (8.6-10.3); CHLORIDE 103 mEq/L (98-107); GFR AFRICAN-AMERICAN > 60.0 ml/min (>90); GFR NON AFRICAN-AMERICAN > 60.0 ml/min; GLUCOSE 78 mg/dL (70-105); POTASSIUM SERUM 3.5 mEq/L (3.5-5.1); SODIUM SERUM 140 mEq/L (136-145)
[2018-01-22] MEDS ORDERED: Midazolam 1mg/ml 2 ml vial IV ONE (07:41)
[2018-01-22 07:50] LABS: % BASOPHILS 0.7 % (0.0-2.0); % EOSINOPHILS 3.1 % (0.0-5.0); % LYMPHOCYTES 13.4 % (20.0-50.0); % MONOCYTES 9.8 % (2.0-10.0); BASOPHILE ABSOLUTE 0.1 Th/cumm (0-0.2); EOSINOPHILE ABSOLUTE 0.5 Th/cmm (0.1-0.4); HEMATOCRIT 25.8 % (41.0-60); HEMOGLOBIN 9.2 gm/dL (12-16); LYMPHOCYTE ABSOLUTE 2.1 Th/cmm (1.5-3.0); MEAN CELL VOLUME 91.9 fl (80-99); MEAN CORPUSCULAR HEMOGLOBIN 32.9 pg (26.0-30.0); MEAN CORPUSCULAR HGB CONC 35.8 pg (28.0-36.0); MONOCYTE ABSOLUTE 1.5 Th/cmm (0.3-1.0); NEUTROPHILE ABSOLUTE 11.4 Th/cmm (1.8-8.0); PLATELET COUNT 310 Th/cmm (150-400); RED CELL DISTRIBUTION WIDTH 14.6 % (11.5-20.0)
[2018-01-22 07:59] LABS: WHITE BLOOD COUNT 15.6 Th/cmm (4.8-10.8)
[2018-01-22] MEDS ORDERED: Propofol **SURGERY USE ONLY** 20 ML IV ONE (08:07)
[2018-01-22] MEDS: Aspirin 81mg Chewable Tab GT SCH (08:18)
[2018-01-22] MEDS: Lactobacillus Rhamnosus GG 15 Billion CFU CAP.SPRINK PO SCH (08:24)
[2018-01-22] MEDS: Hydrocodone/APAP 10 mg/325 mg Tab PO PRN ×3 (09:32→21:21)
[2018-01-22] MEDS: Vancomycin HCl 1.5 GM in Sodium Chloride 0.9% 500 ML IV SCH ×2 (11:27→22:53)
--- NOTE | 2018-01-22 11:43 | Operative Report ---
DATE OF SURGERY: 01/22/2018 PREOPERATIVE DIAGNOSES: 1. Leukocytosis, etiology? 2. Status post repair of dissecting ascending aortic aneurysm. POSTOPERATIVE DIAGNOSES: 1. Leukocytosis, etiology? 2. Status post repair of dissecting ascending aortic aneurysm. OPERATION DONE: 1. Removal of Perm-A-Cath, left internal jugular vein. 2. Removal of gastrostomy tube. 3. Culture and sensitivity of Perm-A-Cath catheter tip. SURGEON: Jairon Parks MD. ANESTHESIA: MAC. ANESTHESIOLOGIST: Dr. Roa. ESTIMATED BLOOD LOSS: None. DESCRIPTION OF PROCEDURE: The patient was given IV sedation. The chest and abdomen at the exit site of the catheter were prepped with Betadine and draped. A 1% lidocaine was used to infiltrate the exit site of the Perm-A-Cath in the left chest. An incision was made and with blunt and sharp dissection with scissors, the cuff of the catheter was freed from its surrounding attachments. The catheter was then removed and the tip cultured for possible source of infection. The gastrostomy tube balloon was deflated and following infiltration of the exit site with 1% lidocaine. The catheter was pulled out without difficulty. The sutures in the right upper chest were removed. Sterile dressing was placed over these. The patient tolerated the procedure well. [facility]# [id number]
--- NOTE | 2018-01-22 12:17 | Consultation ---
DATE OF CONSULTATION: 01/22/2018 REFERRING PHYSICIAN: Fito Claudio D.O. REASON FOR CONSULTATION: Leukocytosis. Thank you for referring this patient to me. HISTORY OF PRESENT ILLNESS: This is a 62-year-old male who underwent repair of thoracic ascending aortic aneurysm at [facility] 2 months ago. Thoracotomy was done and subsequently patient did well. Cardiac ___. He was on dialysis for about a month and has been discontinued a month ago. He has atrial fibrillation and was on medication for this. He continued to have leukocytosis for which he was admitted and question of infected source of the Perm-A-Cath is raised and removal of this has been recommended. He also has a G-tube in place, which has not been used since the patient has been eating normally. LABORATORY STUDIES: Showed the WBC 20,800 with 83% neutrophils. PT is 16.2 seconds and vitamin K has been ordered. PHYSICAL EXAMINATION: Large incision in the mid sternum, which is healed. Sutures in the right upper chest. The G-tube is in place and a Perm-A-Cath in the left subclavian location. PLAN: We will remove both Perm-A-Cath and G-tube. Informed consent discussed with the patient about possible complications. JOB# [id number]
--- NOTE | 2018-01-22 14:25 | Pathology Report ---
[id number] Collection date: 01/22/2018 Surgeon: Dr. Miguelina Parks Specimen Description: Perm-A-Cath tip Gross Description: Received in formalin is a 3.1 cm in length x 0.4 cm in diameter white plastic catheter tip. There are no tissue fragments attached to the catheter. Gross description only. Gross Pathologic Diagnosis: Tip of Perm-A-Cath, for gross identification. [facility]# [id number] [facility]
--- NOTE | 2018-01-22 16:16 | Infectious Disease Prog Note ---
Infectious Disease Subjective - Review of Systems Service Date: 01/22/18 Events since last encounter: permacath and G tube were removed. Subjective: Doing well, no fever. Infectious Disease Objective - Results Result Diagrams: 01/22/18 06:06 01/22/18 06:56 Recent Labs: Laboratory Last Values WBC 15.6 Th/cmm (4.8-10.8) H D 01/22/18 06:06 RBC 2.80 Mil/cmm (4.30-5.70) L 01/22/18 06:06 Hgb 9.2 gm/dL (12-16) L 01/22/18 06:06 Hct 25.8 % (41.0-60) L 01/22/18 06:06 MCV 91.9 fl (80-99) 01/22/18 06:06 MCH 32.9 pg (26.0-30.0) H 01/22/18 06:06 MCHC Differential 35.8 pg (28.0-36.0) 01/22/18 06:06 RDW 14.6 % (11.5-20.0) 01/22/18 06:06 Plt Count 310 Th/cmm (150-400) 01/22/18 06:06 MPV 9.0 fl 01/22/18 06:06 Neutrophils % 73.0 % (40.0-80.0) 01/22/18 06:06 Band Neutrophils % 7 % (0-10) 01/21/18 06:24 Lymphocytes % 13.4 % (20.0-50.0) L 01/22/18 06:06 Monocytes % 9.8 % (2.0-10.0) 01/22/18 06:06 Eosinophils % 3.1 % (0.0-5.0) 01/22/18 06:06 Basophils % 0.7 % (0.0-2.0) 01/22/18 06:06 Neutrophils (Manual) 83 % (40-80) H 01/21/18 06:24 Lymphocytes 8 % (20-50) L 01/21/18 06:24 Monocytes 2 % (2-10) 01/21/18 06:24 PT 18.2 SECONDS (9.5-11.5) H 01/22/18 06:06 INR 1.70 (0.5-1.4) H 01/22/18 06:06 PTT (Actin FS) 38.3 SECONDS (26.0-38.0) H 01/22/18 06:06 Sodium 140 mEq/L (136-145) 01/22/18 06:56 Potassium 3.5 mEq/L (3.5-5.1) 01/22/18 06:56 Chloride 103 mEq/L (98-107) 01/22/18 06:56 Carbon Dioxide 28.0 mEq/L (21.0-31.0) 01/22/18 06:56 Anion Gap 12.5 (7.0-16.0) 01/22/18 06:56 BUN 11 mg/dL (7-25) 01/22/18 06:56 Creatinine 1.0 mg/dL (0.7-1.3) 01/22/18 06:56 Est GFR ( Amer) > 60.0 ml/min (>90) 01/22/18 06:56 Est GFR (Non-Af Amer) > 60.0 ml/min 01/22/18 06:56 BUN/Creatinine Ratio 11.0 01/22/18 06:56 Glucose 78 mg/dL (70-105) 01/22/18 06:56 POC Glucose 87 MG/DL (70 - 105) 01/22/18 06:17 Hemoglobin A1c % 4.9 % (4.0-6.0) 01/20/18 16:40 Whole Bld Lactic Acid 1.32 mmol/L (0.60-1.99) 01/20/18 16:40 Calcium 8.5 mg/dL (8.6-10.3) L 01/22/18 06:56 Total Bilirubin 0.4 mg/dL (0.3-1.0) 01/20/18 16:40 AST 9 U/L (13-39) L 01/20/18 16:40 ALT 12 U/L (7-52) 01/20/18 16:40 Alkaline Phosphatase 104 U/L (34-104) 01/20/18 16:40 Creatine Kinase 32 U/L (30-223) 01/20/18 16:40 Troponin I 0.01 ng/mL (0.01-0.05) 01/20/18 16:40 Total Protein 6.3 gm/dL (6.0-8.3) 01/20/18 16:40 Albumin 3.3 gm/dL (4.2-5.5) L 01/20/18 16:40 Globulin 3.0 gm/dL 01/20/18 16:40 Albumin/Globulin Ratio 1.1 (1.0-1.8) 01/20/18 16:40 Urine Source MIDSTREAM 01/20/18 20:20 Urine Color YELLOW 01/20/18 20:20 Urine Clarity HAZY (CLEAR) 01/20/18 20:20 Urine pH 5.5 (4.6 - 8.0) 01/20/18 20:20 Ur Specific [place] 1.020 (1.005-1.030) 01/20/18 20:20 Urine Protein NEGATIVE mg/dL (NEGATIVE) 01/20/18 20:20 Urine Glucose (UA) NEGATIVE mg/dL (NEGATIVE) 01/20/18 20:20 Urine Ketones NEGATIVE mg/dL (NEGATIVE) 01/20/18 20:20 Urine Blood SMALL (NEGATIVE) H 01/20/18 20:20 Urine Nitrate NEGATIVE (NEGATIVE) 01/20/18 20:20 Urine Bilirubin NEGATIVE (NEGATIVE) 01/20/18 20:20 Urine Urobilinogen 0.2 E.U./dL (0.2 - 1.0) 01/20/18 20:20 Ur Leukocyte Esterase SMALL (NEGATIVE) H 01/20/18 20:20 Urine RBC 5-10 /hpf (0-5) H 01/20/18 20:20 Urine WBC 10-25 /hpf (0-5) H 01/20/18 20:20 Ur Epithelial Cells NONE SEEN /lpf (FEW) 01/20/18 20:20 Urine Bacteria NONE SEEN /hpf (NONE SEEN) 01/20/18 20:20 - Physical Exam Vitals and I&O: Vital Signs Temp 98.0 F 01/22/18 11:48 Pulse 84 01/22/18 15:21 Resp 18 01/22/18 15:21 BP 120/69 01/22/18 13:48 Pulse Ox 97 01/22/18 15:21 Intake & Output 01/21/18 01/22/18 01/22/18 18:59 06:59 18:59 Intake Total 100 1310 Output Total 1330 Balance 100 -20 Weight (lbs) 90.718 kg Intake: Intake, IV Amount 100 200 Piperacillin Sodium/ 100 200 Tazobact 4.5 gm In Sodium Chloride 0.9% 100 ml @ 100 mls/hr IV Q8H [facility] Rx# :[id number] Oral 1110 Output: Urine 1330 Stool 0 Other: Stool Characteristics Soft Brown Weight Source Bedscale Active Medications: Current Medications Acetaminophen (Tylenol) 650 mg PO Q6H PRN PRN Reason: HEADACHE/TEMP ABOVE 100F Stop: 03/21/18 19:07 Last Admin: 01/20/18 23:17 Dose: 650 mg Acetaminophen/Hydrocodone Bitart ([place] 10 Mg/325 Mg) 1 tab PO Q6H PRN PRN Reason: mod pain Stop: 03/22/18 10:31 Last Admin: 01/22/18 15:06 Dose: 1 tab Albuterol/Ipratropium (Duoneb Neb) 3 ml HHN Q4HRT [facility] Stop: 03/21/18 19:59 Last Admin: 01/22/18 15:21 Dose: Not Given Amiodarone HCl (Cordarone) 100 mg GT DAILY [facility] Stop: 03/22/18 08:59 Last Admin: 01/22/18 08:18 Dose: Not Given Amlodipine Besylate (Norvasc) 10 mg GT DAILY [facility] Stop: 03/22/18 08:59 Last Admin: 01/22/18 08:18 Dose: Not Given Aspirin (Aspirin Chewable) 81 mg GT DAILY [facility] Stop: 03/22/18 08:59 Last Admin: 01/22/18 08:18 Dose: Not Given Atorvastatin Calcium (Lipitor) 40 mg GT HS [facility] Stop: 03/21/18 20:59 Last Admin: 01/21/18 20:11 Dose: 40 mg Docusate Sodium (Colace) 100 mg PO BID PRN PRN Reason: Constipation Stop: 03/21/18 19:07 Potassium Chloride 40 meq/Lidocaine HCl 25 mg/ Sodium Chloride 272.5 mls @ 68 mls/hr IV DAILY PRN PRN Reason: k level less than 3.2 Stop: 03/21/18 19:07 Magnesium Sulfate (Magnesium Sulfate Premix) 2 gm in 50 mls @ 25 mls/hr IV DAILY PRN PRN Reason: Magnesium level less than 1.6 Stop: 03/21/18 19:07 Piperacillin Sod/Tazobactam (Sod 4.5 gm/ Sodium Chloride) 100 mls @ 100 mls/hr IV Q8H [facility] Stop: 03/22/18 08:59 Last Admin: 01/22/18 09:32 Dose: 100 mls/hr Vancomycin HCl 1.5 gm/ Sodium (Chloride) 500 mls @ 250 mls/hr IV Q12H [facility] Stop: 03/23/18 09:59 Last Admin: 01/22/18 11:27 Dose: 250 mls/hr Lactobacillus Rhamnosus (Culturelle 15b) 1 each PO DAILY [facility] Stop: 03/23/18 08:59 Last Admin: 01/22/18 08:24 Dose: Not Given Lorazepam (Ativan) 1 mg IVP Q4H PRN; Protocol PRN Reason: Anxiety Stop: 03/21/18 19:07 Last Admin: 01/22/18 00:32 Dose: 1 mg Magnesium Oxide (Mag-Oxide) 400 mg PO BID PRN PRN Reason: Mg less than 1.9 Stop: 03/21/18 19:07 Metoprolol Tartrate (Lopressor) 50 mg GT Q8H [facility] Stop: 03/21/18 19:14 Last Admin: 01/22/18 13:48 Dose: 50 mg Miscellaneous (Zosyn Iv Per Pharmacy) 1 ea MC PRN PRN PRN Reason: PROTOCOL Stop: 03/21/18 19:03 Miscellaneous (Azelastine Hcl [Azelastine Hcl]) 0.1 % NS BID [facility] Stop: 03/22/18 08:59 Miscellaneous (Probiotic Screen) 1 ea MC PRN PRN PRN Reason: PROTOCOL Stop: 03/22/18 09:59 Miscellaneous (Vancomycin Iv Per Pharmacy) 1 ea PRN PRN PRN Reason: PROTOCOL Stop: 03/23/18 07:29 Morphine Sulfate (Morphine) 1 mg IVP Q4HR PRN PRN Reason: Severe Pain Stop: 03/21/18 19:07 Mupirocin (Bactroban Oint) 1 appl NS BID [facility] Stop: 01/26/18 17:01 Last Admin: 01/22/18 08:23 Dose: Not Given Ondansetron HCl (Zofran) 4 mg IVP Q6H PRN PRN Reason: Nausea / Vomiting Stop: 03/21/18 19:07 Last Admin: 01/21/18 16:40 Dose: 4 mg Potassium Chloride (Klor-Con) 40 meq PO DAILY PRN PRN Reason: k level less than 3.5 Stop: 03/21/18 19:07 Warfarin Sodium (Coumadin Per Pharmacy) 1 ea MC PRN PRN; Protocol PRN Reason: RX MONITORING Stop: 03/21/18 19:10 Zolpidem Tartrate (Ambien) 10 mg PO HS PRN PRN Reason: Insomnia Stop: 03/21/18 19:07 General: no acute distress, well developed, well nourished HEENT: atraumatic, normocephalic, PERRLA Neck: supple, no thyromegaly, no lymphadenopathy Cardiovascular: S1S2, regular Lungs: clear to auscultation bilaterally, clear to percussion Abdomen: soft, no tender, no distended, no mass, no hepatomegaly, no splenomegaly Extremities: no cyanosis, no clubbing, no edema Neurological: awake, alert, oriented Skin: intact Infectious Disease Assmt/Plan - Problem List Patient Problems: All Active Problems GASTRIC TUBE AND CORAL REMOVAL (Acute) - Assessment Assessment: 1. Leukocytosis suspect sepsis. 2. Right lower lobe infiltrate, suspect aspiration pneumonia. 3. UTI. 4. MRSA colonization. 5. Hypertension. 6. Hyperlipidemia. 7. Aortic dissection, repair of aortic dissection at [facility]. 8. Acute kidney injury. Resolved. 9. Dysphagia resolved. He is taking his medication by mouth. - Plan Plan: cpm.
[2018-01-22] MEDS: Atorvastatin Calcium 10 MG TAB GT SCH (21:20)
[2018-01-23] MEDS: Albuterol/Ipratropium Neb 3 ML AERS HHN SCH ×5 (07:45→23:45)
--- NOTE | 2018-01-23 08:16 | General Progress Note ---
Subjective - Review of Systems Service Date: 01/23/18 Subjective: Pt seen and eval. Has some congestion. No fevers or chills. Now on Vanco and Zosyn. Seen by ID, Cardio, and Sx. Status post removal of Perm-A-Cath and GT by Dr. Parks on 01/22/18. No n,v,d or cp. Feels weak. WBC trending back down today. Objective - Results Result Diagrams: 01/22/18 06:06 01/22/18 06:56 Recent Labs: Laboratory Last Values WBC 15.6 Th/cmm (4.8-10.8) H D 01/22/18 06:06 RBC 2.80 Mil/cmm (4.30-5.70) L 01/22/18 06:06 Hgb 9.2 gm/dL (12-16) L 01/22/18 06:06 Hct 25.8 % (41.0-60) L 01/22/18 06:06 MCV 91.9 fl (80-99) 01/22/18 06:06 MCH 32.9 pg (26.0-30.0) H 01/22/18 06:06 MCHC Differential 35.8 pg (28.0-36.0) 01/22/18 06:06 RDW 14.6 % (11.5-20.0) 01/22/18 06:06 Plt Count 310 Th/cmm (150-400) 01/22/18 06:06 MPV 9.0 fl 01/22/18 06:06 Neutrophils % 73.0 % (40.0-80.0) 01/22/18 06:06 Band Neutrophils % 7 % (0-10) 01/21/18 06:24 Lymphocytes % 13.4 % (20.0-50.0) L 01/22/18 06:06 Monocytes % 9.8 % (2.0-10.0) 01/22/18 06:06 Eosinophils % 3.1 % (0.0-5.0) 01/22/18 06:06 Basophils % 0.7 % (0.0-2.0) 01/22/18 06:06 Neutrophils (Manual) 83 % (40-80) H 01/21/18 06:24 Lymphocytes 8 % (20-50) L 01/21/18 06:24 Monocytes 2 % (2-10) 01/21/18 06:24 PT 18.2 SECONDS (9.5-11.5) H 01/22/18 06:06 INR 1.70 (0.5-1.4) H 01/22/18 06:06 PTT (Actin FS) 38.3 SECONDS (26.0-38.0) H 01/22/18 06:06 Sodium 140 mEq/L (136-145) 01/22/18 06:56 Potassium 3.5 mEq/L (3.5-5.1) 01/22/18 06:56 Chloride 103 mEq/L (98-107) 01/22/18 06:56 Carbon Dioxide 28.0 mEq/L (21.0-31.0) 01/22/18 06:56 Anion Gap 12.5 (7.0-16.0) 01/22/18 06:56 BUN 11 mg/dL (7-25) 01/22/18 06:56 Creatinine 1.0 mg/dL (0.7-1.3) 01/22/18 06:56 Est GFR ( Amer) > 60.0 ml/min (>90) 01/22/18 06:56 Est GFR (Non-Af Amer) > 60.0 ml/min 01/22/18 06:56 BUN/Creatinine Ratio 11.0 01/22/18 06:56 Glucose 78 mg/dL (70-105) 01/22/18 06:56 POC Glucose 87 MG/DL (70 - 105) 01/22/18 06:17 Hemoglobin A1c % 4.9 % (4.0-6.0) 01/20/18 16:40 Whole Bld Lactic Acid 1.32 mmol/L (0.60-1.99) 01/20/18 16:40 Calcium 8.5 mg/dL (8.6-10.3) L 01/22/18 06:56 Total Bilirubin 0.4 mg/dL (0.3-1.0) 01/20/18 16:40 AST 9 U/L (13-39) L 01/20/18 16:40 ALT 12 U/L (7-52) 01/20/18 16:40 Alkaline Phosphatase 104 U/L (34-104) 01/20/18 16:40 Creatine Kinase 32 U/L (30-223) 01/20/18 16:40 Troponin I 0.01 ng/mL (0.01-0.05) 01/20/18 16:40 Total Protein 6.3 gm/dL (6.0-8.3) 01/20/18 16:40 Albumin 3.3 gm/dL (4.2-5.5) L 01/20/18 16:40 Globulin 3.0 gm/dL 01/20/18 16:40 Albumin/Globulin Ratio 1.1 (1.0-1.8) 01/20/18 16:40 Urine Source MIDSTREAM 01/20/18 20:20 Urine Color YELLOW 01/20/18 20:20 Urine Clarity HAZY (CLEAR) 01/20/18 20:20 Urine pH 5.5 (4.6 - 8.0) 01/20/18 20:20 Ur Specific [place] 1.020 (1.005-1.030) 01/20/18 20:20 Urine Protein NEGATIVE mg/dL (NEGATIVE) 01/20/18 20:20 Urine Glucose (UA) NEGATIVE mg/dL (NEGATIVE) 01/20/18 20:20 Urine Ketones NEGATIVE mg/dL (NEGATIVE) 01/20/18 20:20 Urine Blood SMALL (NEGATIVE) H 01/20/18 20:20 Urine Nitrate NEGATIVE (NEGATIVE) 01/20/18 20:20 Urine Bilirubin NEGATIVE (NEGATIVE) 01/20/18 20:20 Urine Urobilinogen 0.2 E.U./dL (0.2 - 1.0) 01/20/18 20:20 Ur Leukocyte Esterase SMALL (NEGATIVE) H 01/20/18 20:20 Urine RBC 5-10 /hpf (0-5) H 01/20/18 20:20 Urine WBC 10-25 /hpf (0-5) H 01/20/18 20:20 Ur Epithelial Cells NONE SEEN /lpf (FEW) 01/20/18 20:20 Urine Bacteria NONE SEEN /hpf (NONE SEEN) 01/20/18 20:20 - Physical Exam Vitals and I&O: Vital Signs Temp 97 F 01/23/18 00:00 Pulse 65 01/23/18 04:40 Resp 18 01/23/18 03:28 BP 107/33 01/23/18 04:40 Pulse Ox 95 01/23/18 03:28 Intake & Output 01/22/18 01/23/18 01/23/18 18:59 06:59 18:59 Intake Total 1100 Output Total 750 1100 Balance 350 -1100 Weight (lbs) 90.718 kg 90.265 kg Intake: Intake, IV Amount 700 Piperacillin Sodium/ 200 Tazobact 4.5 gm In Sodium Chloride 0.9% 100 ml @ 100 mls/hr IV Q8H [facility] Rx# :[id number] Vancomycin HCl 1.5 gm In 500 Sodium Chloride 0.9% 500 ml @ 250 mls/hr IV Q12H [facility] Rx#:[id number] Oral 400 Output: Urine 750 1100 Other: # Bowel Movements 2 0 Weight Source Bedscale Bedscale Active Medications: Current Medications Acetaminophen (Tylenol) 650 mg PO Q6H PRN PRN Reason: HEADACHE/TEMP ABOVE 100F Stop: 03/21/18 19:07 Last Admin: 01/20/18 23:17 Dose: 650 mg Acetaminophen/Hydrocodone Bitart ([place] 10 Mg/325 Mg) 1 tab PO Q6H PRN PRN Reason: mod pain Stop: 03/22/18 10:31 Last Admin: 01/22/18 21:21 Dose: 1 tab Albuterol/Ipratropium (Duoneb Neb) 3 ml HHN Q4HRT [facility] Stop: 03/21/18 19:59 Last Admin: 01/23/18 07:45 Dose: Not Given Amiodarone HCl (Cordarone) 100 mg GT DAILY [facility] Stop: 03/22/18 08:59 Last Admin: 01/22/18 08:18 Dose: Not Given Amlodipine Besylate (Norvasc) 10 mg GT DAILY [facility] Stop: 03/22/18 08:59 Last Admin: 01/22/18 08:18 Dose: Not Given Aspirin (Aspirin Chewable) 81 mg GT DAILY [facility] Stop: 03/22/18 08:59 Last Admin: 01/22/18 08:18 Dose: Not Given Atorvastatin Calcium (Lipitor) 40 mg GT HS [facility] Stop: 03/21/18 20:59 Last Admin: 01/22/18 21:20 Dose: 40 mg Docusate Sodium (Colace) 100 mg PO BID PRN PRN Reason: Constipation Stop: 03/21/18 19:07 Potassium Chloride 40 meq/Lidocaine HCl 25 mg/ Sodium Chloride 272.5 mls @ 68 mls/hr IV DAILY PRN PRN Reason: k level less than 3.2 Stop: 03/21/18 19:07 Magnesium Sulfate (Magnesium Sulfate Premix) 2 gm in 50 mls @ 25 mls/hr IV DAILY PRN PRN Reason: Magnesium level less than 1.6 Stop: 03/21/18 19:07 Piperacillin Sod/Tazobactam (Sod 4.5 gm/ Sodium Chloride) 100 mls @ 100 mls/hr IV Q8H [facility] Stop: 03/22/18 08:59 Last Admin: 01/23/18 02:36 Dose: 100 mls/hr Vancomycin HCl 1.5 gm/ Sodium (Chloride) 500 mls @ 250 mls/hr IV Q12H [facility] Stop: 03/23/18 09:59 Last Admin: 01/22/18 22:53 Dose: 250 mls/hr Lactobacillus Rhamnosus (Culturelle 15b) 1 each PO DAILY [facility] Stop: 03/23/18 08:59 Last Admin: 01/22/18 08:24 Dose: Not Given Lorazepam (Ativan) 1 mg IVP Q4H PRN; Protocol PRN Reason: Anxiety Stop: 03/21/18 19:07 Last Admin: 01/22/18 23:03 Dose: 1 mg Magnesium Oxide (Mag-Oxide) 400 mg PO BID PRN PRN Reason: Mg less than 1.9 Stop: 03/21/18 19:07 Metoprolol Tartrate (Lopressor) 50 mg GT Q8H [facility] Stop: 03/21/18 19:14 Last Admin: 01/23/18 04:40 Dose: Not Given Miscellaneous (Zosyn Iv Per Pharmacy) 1 ea PRN PRN PRN Reason: PROTOCOL Stop: 03/21/18 19:03 Miscellaneous (Azelastine Hcl [Azelastine Hcl]) 0.1 % NS BID [facility] Stop: 03/22/18 08:59 Miscellaneous (Probiotic Screen) 1 ea PRN PRN PRN Reason: PROTOCOL Stop: 03/22/18 09:59 Miscellaneous (Vancomycin Iv Per Pharmacy) 1 ea PRN PRN PRN Reason: PROTOCOL Stop: 03/23/18 07:29 Morphine Sulfate (Morphine) 1 mg IVP Q4HR PRN PRN Reason: Severe Pain Stop: 03/21/18 19:07 Mupirocin (Bactroban Oint) 1 appl NS BID [facility] Stop: 01/26/18 17:01 Last Admin: 01/22/18 16:52 Dose: Not Given Ondansetron HCl (Zofran) 4 mg IVP Q6H PRN PRN Reason: Nausea / Vomiting Stop: 03/21/18 19:07 Last Admin: 01/21/18 16:40 Dose: 4 mg Potassium Chloride (Klor-Con) 40 meq PO DAILY PRN PRN Reason: k level less than 3.5 Stop: 03/21/18 19:07 Warfarin Sodium (Coumadin Per Pharmacy) 1 ea MC PRN PRN; Protocol PRN Reason: RX MONITORING Stop: 03/21/18 19:10 Zolpidem Tartrate (Ambien) 10 mg PO HS PRN PRN Reason: Insomnia Stop: 03/21/18 19:07 General: Alert, Oriented x3, Cooperative HEENT: Atraumatic, PERRLA, EOMI Neck: Supple, no JVD Cardiovascular: Regular rate Lungs: Other (has rales and congestion) Abdomen: Bowel sounds, Soft Extremities: no Cyanosis Neurological: Normal speech Skin: no Rash Assessment/Plan - Problem List Patient Problems: All Active Problems GASTRIC TUBE AND CORAL REMOVAL (Acute) - Assessment Assessment: Sepsis Asp PNA Hx of RUE DVT (now resolved) Dysphagia (resolved) A Fib Anemia of Ch Ill Mod [place] Hyponatremia Hx of Aortic Dissection and Cardiac Tamponade-s/p sx at [facility] in October 2017 - Plan Plan: Pt's venous doppler US or LE and UE is negative. Warfarin held by Cardio in light of procedures scheduled on 01/22/18. Dr. Parks removed GT and Perm-A-Cath on 01/22/18. On tele. On Zosyn and Vanco. Afebrile. FU on cbc and chem 7. WBC trending down. 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
[2018-01-23 08:52] LABS: % BASOPHILS 0.4 % (0.0-2.0); % EOSINOPHILS 3.1 % (0.0-5.0); % LYMPHOCYTES 12.3 % (20.0-50.0); % MONOCYTES 9.7 % (2.0-10.0); % NEUTROPHILS 74.5 % (40.0-80.0); BASOPHILE ABSOLUTE 0.1 Th/cumm (0-0.2); EOSINOPHILE ABSOLUTE 0.4 Th/cmm (0.1-0.4); HEMATOCRIT 31.6 % (41.0-60); HEMOGLOBIN 10.6 gm/dL (12-16); LYMPHOCYTE ABSOLUTE 1.6 Th/cmm (1.5-3.0); MEAN CELL VOLUME 90.5 fl (80-99); MEAN CORPUSCULAR HEMOGLOBIN 30.4 pg (26.0-30.0); MEAN CORPUSCULAR HGB CONC 33.6 pg (28.0-36.0); MEAN PLATELET VOLUME 8.4 fl; MONOCYTE ABSOLUTE 1.3 Th/cmm (0.3-1.0); NEUTROPHILE ABSOLUTE 9.9 Th/cmm (1.8-8.0); PLATELET COUNT 355 Th/cmm (150-400); RED BLOOD COUNT 3.49 Mil/cmm (4.30-5.70); RED CELL DISTRIBUTION WIDTH 15.1 % (11.5-20.0)
[2018-01-23 08:55] LABS: INR 1.97 (0.5-1.4); PROTHROMBIN TIME (TEST) 21.2 SECONDS (9.5-11.5)
[2018-01-23 09:03] LABS: WHITE BLOOD COUNT 13.3 Th/cmm (4.8-10.8)
[2018-01-23 09:04] LABS: ANION GAP 11.8 (7.0-16.0); BUN - UREA NITROGEN 10 mg/dL (7-25); CALCIUM SERUM 8.9 mg/dL (8.6-10.3); CARBON DIOXIDE 26.1 mEq/L (21.0-31.0); CHLORIDE 106 mEq/L (98-107); GFR AFRICAN-AMERICAN > 60.0 ml/min (>90); GFR NON AFRICAN-AMERICAN > 60.0 ml/min; GLUCOSE 82 mg/dL (70-105); POTASSIUM SERUM 3.9 mEq/L (3.5-5.1); SODIUM SERUM 140 mEq/L (136-145)
[2018-01-23] MEDS: Aspirin 81mg Chewable Tab GT SCH (10:22)
[2018-01-23] MEDS: Lactobacillus Rhamnosus GG 15 Billion CFU CAP.SPRINK PO SCH (10:23)
[2018-01-23] MEDS: Atorvastatin Calcium 10 MG TAB GT SCH (20:16)
--- NOTE | 2018-01-23 23:33 | Infectious Disease Prog Note ---
Infectious Disease Subjective - Review of Systems Service Date: 01/23/18 Subjective: Doing well, no fever. Infectious Disease Objective - Results Result Diagrams: 01/23/18 08:30 01/23/18 08:30 Recent Labs: Laboratory Last Values WBC 13.3 Th/cmm (4.8-10.8) H 01/23/18 08:30 RBC 3.49 Mil/cmm (4.30-5.70) L 01/23/18 08:30 Hgb 10.6 gm/dL (12-16) L 01/23/18 08:30 Hct 31.6 % (41.0-60) L 01/23/18 08:30 MCV 90.5 fl (80-99) 01/23/18 08:30 MCH 30.4 pg (26.0-30.0) H 01/23/18 08:30 MCHC Differential 33.6 pg (28.0-36.0) 01/23/18 08:30 RDW 15.1 % (11.5-20.0) 01/23/18 08:30 Plt Count 355 Th/cmm (150-400) 01/23/18 08:30 MPV 8.4 fl 01/23/18 08:30 Neutrophils % 74.5 % (40.0-80.0) 01/23/18 08:30 Band Neutrophils % 7 % (0-10) 01/21/18 06:24 Lymphocytes % 12.3 % (20.0-50.0) L 01/23/18 08:30 Monocytes % 9.7 % (2.0-10.0) 01/23/18 08:30 Eosinophils % 3.1 % (0.0-5.0) 01/23/18 08:30 Basophils % 0.4 % (0.0-2.0) 01/23/18 08:30 Neutrophils (Manual) 83 % (40-80) H 01/21/18:24 Lymphocytes 8 % (20-50) L 01/21/18 06:24 Monocytes 2 % (2-10) 01/21/18 06:24 PT 21.2 SECONDS (9.5-11.5) H 01/23/18 08:30 INR 1.97 (0.5-1.4) H 01/23/18 08:30 PTT (Actin FS) 38.3 SECONDS (26.0-38.0) H 01/22/18 06:06 Sodium 140 mEq/L (136-145) 01/23/18 08:30 Potassium 3.9 mEq/L (3.5-5.1) 01/23/18 08:30 Chloride 106 mEq/L (98-107) 01/23/18 08:30 Carbon Dioxide 26.1 mEq/L (21.0-31.0) 01/23/18 08:30 Anion Gap 11.8 (7.0-16.0) 01/23/18 08:30 BUN 10 mg/dL (7-25) 01/23/18 08:30 Creatinine 1.0 mg/dL (0.7-1.3) 01/23/18 08:30 Est GFR ( Amer) > 60.0 ml/min (>90) 01/23/18 08:30 Est GFR (Non-Af Amer) > 60.0 ml/min 01/23/18 08:30 BUN/Creatinine Ratio 10.0 01/23/18 08:30 Glucose 82 mg/dL (70-105) 01/23/18 08:30 POC Glucose 87 MG/DL (70 - 105) 01/22/18 06:17 Hemoglobin A1c % 4.9 % (4.0-6.0) 01/20/18 16:40 Whole Bld Lactic Acid 1.32 mmol/L (0.60-1.99) 01/20/18 16:40 Calcium 8.9 mg/dL (8.6-10.3) 01/23/18 08:30 Total Bilirubin 0.4 mg/dL (0.3-1.0) 01/20/18 16:40 AST 9 U/L (13-39) L 01/20/18 16:40 ALT 12 U/L (7-52) 01/20/18 16:40 Alkaline Phosphatase 104 U/L (34-104) 01/20/18 16:40 Creatine Kinase 32 U/L (30-223) 01/20/18 16:40 Troponin I 0.01 ng/mL (0.01-0.05) 01/20/18 16:40 Total Protein 6.3 gm/dL (6.0-8.3) 01/20/18 16:40 Albumin 3.3 gm/dL (4.2-5.5) L 01/20/18 16:40 Globulin 3.0 gm/dL 01/20/18 16:40 Albumin/Globulin Ratio 1.1 (1.0-1.8) 01/20/18 16:40 Urine Source MIDSTREAM 01/20/18 20:20 Urine Color YELLOW 01/20/18 20:20 Urine Clarity HAZY (CLEAR) 01/20/18 20:20 Urine pH 5.5 (4.6 - 8.0) 01/20/18 20:20 Ur Specific [place] 1.020 (1.005-1.030) 01/20/18 20:20 Urine Protein NEGATIVE mg/dL (NEGATIVE) 01/20/18 20:20 Urine Glucose (UA) NEGATIVE mg/dL (NEGATIVE) 01/20/18 20:20 Urine Ketones NEGATIVE mg/dL (NEGATIVE) 01/20/18 20:20 Urine Blood SMALL (NEGATIVE) H 01/20/18 20:20 Urine Nitrate NEGATIVE (NEGATIVE) 01/20/18 20:20 Urine Bilirubin NEGATIVE (NEGATIVE) 01/20/18 20:20 Urine Urobilinogen 0.2 E.U./dL (0.2 - 1.0) 01/20/18 20:20 Ur Leukocyte Esterase SMALL (NEGATIVE) H 01/20/18 20:20 Urine RBC 5-10 /hpf (0-5) H 01/20/18 20:20 Urine WBC 10-25 /hpf (0-5) H 01/20/18 20:20 Ur Epithelial Cells NONE SEEN /lpf (FEW) 01/20/18 20:20 Urine Bacteria NONE SEEN /hpf (NONE SEEN) 01/20/18 20:20 Vancomycin Trough 23.5 ug/mL (5-10) H 01/23/18 08:30 - Physical Exam Vitals and I&O: Vital Signs Temp 98.2 F 01/23/18 20:00 Pulse 71 01/23/18 20:16 Resp 18 01/23/18 21:00 BP 109/48 01/23/18 20:16 Pulse Ox 96 01/23/18 20:00 Intake & Output 01/23/18 01/23/18 01/24/18 06:59 18:59 06:59 Intake Total 850 800 Output Total 1100 1850 Balance -250 -1050 Weight (lbs) 90.265 kg 90.265 kg Intake: Intake, IV Amount 600 350 Piperacillin Sodium/ 100 100 Tazobact 4.5 gm In Sodium Chloride 0.9% 100 ml @ 100 mls/hr IV Q8H [facility] Rx# :[id number] Vancomycin HCl 1.25 gm In 250 Sodium Chloride 0.9% 250 ml @ 165 mls/hr IV Q12H [facility] Rx#:[id number] Vancomycin HCl 1.5 gm In 500 Sodium Chloride 0.9% 500 ml @ 250 mls/hr IV Q12H [facility] Rx#:[id number] Oral 250 450 Output: Urine 1100 1850 Other: # Bowel Movements 0 2 Weight Source Bedscale Bedscale Active Medications: Current Medications Acetaminophen (Tylenol) 650 mg PO Q6H PRN PRN Reason: HEADACHE/TEMP ABOVE 100F Stop: 03/21/18 19:07 Last Admin: 01/20/18 23:17 Dose: 650 mg Acetaminophen/Hydrocodone Bitart ([place] 10 Mg/325 Mg) 1 tab PO Q6H PRN PRN Reason: mod pain Stop: 03/22/18 10:31 Last Admin: 01/22/18 21:21 Dose: 1 tab Albuterol/Ipratropium (Duoneb Neb) 3 ml HHN Q4HRT [facility] Stop: 03/21/18 19:59 Last Admin: 01/23/18 19:30 Dose: Not Given Amiodarone HCl (Cordarone) 100 mg GT DAILY [facility] Stop: 03/22/18 08:59 Last Admin: 01/23/18 10:22 Dose: 100 mg Amlodipine Besylate (Norvasc) 10 mg GT DAILY [facility] Stop: 03/22/18 08:59 Last Admin: 01/23/18 10:21 Dose: 10 mg Aspirin (Aspirin Chewable) 81 mg GT DAILY [facility] Stop: 03/22/18 08:59 Last Admin: 01/23/18 10:22 Dose: 81 mg Atorvastatin Calcium (Lipitor) 40 mg GT HS [facility] Stop: 03/21/18 20:59 Last Admin: 01/23/18 20:16 Dose: 40 mg Docusate Sodium (Colace) 100 mg PO BID PRN PRN Reason: Constipation Stop: 03/21/18 19:07 Last Admin: 01/23/18 10:21 Dose: 100 mg Potassium Chloride 40 meq/Lidocaine HCl 25 mg/ Sodium Chloride 272.5 mls @ 68 mls/hr IV DAILY PRN PRN Reason: k level less than 3.2 Stop: 03/21/18 19:07 Magnesium Sulfate (Magnesium Sulfate Premix) 2 gm in 50 mls @ 25 mls/hr IV DAILY PRN PRN Reason: Magnesium level less than 1.6 Stop: 03/21/18 19:07 Piperacillin Sod/Tazobactam (Sod 4.5 gm/ Sodium Chloride) 100 mls @ 100 mls/hr IV Q8H [facility] Stop: 03/22/18 08:59 Last Admin: 01/23/18 16:47 Dose: 100 mls/hr Vancomycin HCl 1.25 gm/ Sodium (Chloride) 250 mls @ 165 mls/hr IV Q12H [facility] Stop: 03/24/18 09:59 Last Admin: 01/23/18 21:02 Dose: 165 mls/hr Lactobacillus Rhamnosus (Culturelle 15b) 1 each PO DAILY [facility] Stop: 03/23/18 08:59 Last Admin: 01/23/18 10:23 Dose: 1 each Lorazepam (Ativan) 1 mg IVP Q4H PRN; Protocol PRN Reason: Anxiety Stop: 03/21/18 19:07 Last Admin: 01/22/18 23:03 Dose: 1 mg Magnesium Oxide (Mag-Oxide) 400 mg PO BID PRN PRN Reason: Mg less than 1.9 Stop: 03/21/18 19:07 Metoprolol Tartrate (Lopressor) 50 mg GT Q8H [facility] Stop: 03/21/18 19:14 Last Admin: 01/23/18 20:16 Dose: 50 mg Miscellaneous (Zosyn Iv Per Pharmacy) 1 ea MC PRN PRN PRN Reason: PROTOCOL Stop: 03/21/18 19:03 Miscellaneous (Azelastine Hcl [Azelastine Hcl]) 0.1 % NS BID [facility] Stop: 03/22/18 08:59 Miscellaneous (Probiotic Screen) 1 ea PRN PRN PRN Reason: PROTOCOL Stop: 03/22/18 09:59 Miscellaneous (Vancomycin Iv Per Pharmacy) 1 ea PRN PRN PRN Reason: PROTOCOL Stop: 03/23/18 07:29 Morphine Sulfate (Morphine) 1 mg IVP Q4HR PRN PRN Reason: Severe Pain Stop: 03/21/18 19:07 Mupirocin (Bactroban Oint) 1 appl NS BID [facility] Stop: 01/26/18 17:01 Last Admin: 01/23/18 16:47 Dose: 1 appl Ondansetron HCl (Zofran) 4 mg IVP Q6H PRN PRN Reason: Nausea / Vomiting Stop: 03/21/18 19:07 Last Admin: 01/23/18 21:48 Dose: 4 mg Potassium Chloride (Klor-Con) 40 meq PO DAILY PRN PRN Reason: k level less than 3.5 Stop: 03/21/18 19:07 Rivaroxaban (Xarelto) 20 mg PO DAILY [facility] Stop: 03/25/18 08:59 Zolpidem Tartrate (Ambien) 10 mg PO HS PRN PRN Reason: Insomnia Stop: 03/21/18 19:07 General: no acute distress, well developed, well nourished HEENT: atraumatic, normocephalic, PERRLA, EOMI Neck: supple, no thyromegaly Cardiovascular: S1S2, regular Lungs: clear to auscultation bilaterally, clear to percussion Abdomen: soft, no tender, no distended, no rebound Extremities: no cyanosis, no clubbing, no edema Neurological: awake, alert, oriented Skin: intact Infectious Disease Assmt/Plan - Problem List Patient Problems: All Active Problems GASTRIC TUBE AND CORAL REMOVAL (Acute) - Assessment Assessment: 1. Leukocytosis suspect sepsis. Improving. 2. Right lower lobe infiltrate, suspect aspiration pneumonia. 3. UTI. 4. MRSA colonization. 5. Hypertension. 6. Hyperlipidemia. 7. Aortic dissection, repair of aortic dissection at [facility]. 8. Acute kidney injury. Resolved. 9. Dysphagia resolved. He is taking his medication by mouth. - Plan Plan: cpm.
[2018-01-24] MEDS: Hydrocodone/APAP 10 mg/325 mg Tab PO PRN ×4 (00:40→21:56)
[2018-01-24] MEDS: Albuterol/Ipratropium Neb 3 ML AERS HHN SCH ×6 (02:35→22:32)
[2018-01-24 06:39] LABS: % BASOPHILS 0.7 % (0.0-2.0); % EOSINOPHILS 1.9 % (0.0-5.0); % LYMPHOCYTES 6.9 % (20.0-50.0); % MONOCYTES 8.6 % (2.0-10.0); % NEUTROPHILS 81.9 % (40.0-80.0); BASOPHILE ABSOLUTE 0.1 Th/cumm (0-0.2); EOSINOPHILE ABSOLUTE 0.4 Th/cmm (0.1-0.4); HEMATOCRIT 27.9 % (41.0-60); HEMOGLOBIN 9.6 gm/dL (12-16); LYMPHOCYTE ABSOLUTE 1.3 Th/cmm (1.5-3.0); MEAN CELL VOLUME 89.8 fl (80-99); MEAN CORPUSCULAR HGB CONC 34.5 pg (28.0-36.0); MEAN PLATELET VOLUME 9.4 fl; MONOCYTE ABSOLUTE 1.6 Th/cmm (0.3-1.0); NEUTROPHILE ABSOLUTE 15.3 Th/cmm (1.8-8.0); RED BLOOD COUNT 3.11 Mil/cmm (4.30-5.70); RED CELL DISTRIBUTION WIDTH 15.2 % (11.5-20.0)
[2018-01-24 06:41] LABS: WHITE BLOOD COUNT 18.7 Th/cmm (4.8-10.8)
[2018-01-24 06:42] LABS: PLATELET COUNT 268 Th/cmm (150-400)
[2018-01-24 06:43] LABS: BUN - UREA NITROGEN 7 mg/dL (7-25); CALCIUM SERUM 8.4 mg/dL (8.6-10.3); CARBON DIOXIDE 22.5 mEq/L (21.0-31.0); CHLORIDE 108 mEq/L (98-107); GFR AFRICAN-AMERICAN > 60.0 ml/min (>90); GFR NON AFRICAN-AMERICAN > 60.0 ml/min; GLUCOSE 76 mg/dL (70-105); POTASSIUM SERUM 3.5 mEq/L (3.5-5.1); SODIUM SERUM 141 mEq/L (136-145)
[2018-01-24 08:57] LABS: INR 1.71 (0.5-1.4); PROTHROMBIN TIME (TEST) 18.3 SECONDS (9.5-11.5)
--- NOTE | 2018-01-24 09:05 | Progress Notes ---
DATE: 01/24/2018 SUBJECTIVE: The patient is resting comfortably in bed. He does not complain of any pain at this time. He is status post removal of Perm-A-Cath from the left internal jugular vein, removal of the gastrostomy tube and a culture and sensitivity of Perm-A-Cath was sent to the lab for analysis. The patient complains of diarrhea since having the G-tube removed and is requesting Imodium and Pepto-Bismol at this time. He is tolerating oral intake without abdominal pain, nausea or vomiting. OBJECTIVE: VITAL SIGNS: 97.2, 72, 135/66, and 18. GENERAL: NAD. HEENT: PERRLA, EOMI. NECK: Supple. Trachea midline. CARDIOVASCULAR: Regular rate and rhythm. RESPIRATORY: CTA bilaterally. No wheeze, rales or rhonchi. ABDOMEN: Soft, nontender, nondistended. The gastrostomy tube site is nonerythematous and there is no drainage. Bowel sounds positive in all 4 quadrants. SKIN: No rashes or open wounds. MUSCULOSKELETAL: Muscle strength testing in bilateral upper and lower extremities is 4/5. LABORATORY DATA: White blood cell count 18.7, hemoglobin is 9.6. Sodium is 141, potassium is 3.5, calcium is 8.4. ASSESSMENT: Sepsis; aspiration pneumonia; history of right upper extremity deep venous thrombosis, resolved; dysphagia, resolved; atrial fibrillation; anemia of chronic illness; moderate malnutrition; hyponatremia; history of aortic dissection and cardiac tamponade status post surgery at [facility] in 10/2017. PLAN: Continue Zosyn and vancomycin. Dr. Parks had successfully removed the G-tube and Perm-A-Cath on 01/22/2018 without complication. The patient complains of loose stools and has requested Pepto-Bismol and Imodium at this time. White blood cell count continues to trend down, Tylenol as needed for mild pain or fever. Zofran as needed for nausea or vomiting. JOB# [id number]
[2018-01-24] MEDS: Lactobacillus Rhamnosus GG 15 Billion CFU CAP.SPRINK PO SCH (09:47)
[2018-01-24] MEDS: Aspirin 81mg Chewable Tab GT SCH (09:48)
--- NOTE | 2018-01-24 14:04 | Infectious Disease Prog Note ---
Infectious Disease Subjective - Review of Systems Service Date: 01/24/18 Subjective: Doing well, no fever. Diarrhea last night. Infectious Disease Objective - Results Result Diagrams: 01/24/18 05:00 01/24/18 05:00 Recent Labs: Laboratory Last Values WBC 18.7 Th/cmm (4.8-10.8) H D 01/24/18 05:00 RBC 3.11 Mil/cmm (4.30-5.70) L 01/24/18 05:00 Hgb 9.6 gm/dL (12-16) L 01/24/18 05:00 Hct 27.9 % (41.0-60) L 01/24/18 05:00 MCV 89.8 fl (80-99) 01/24/18 05:00 MCH 31.0 pg (26.0-30.0) H 01/24/18 05:00 MCHC Differential 34.5 pg (28.0-36.0) 01/24/18 05:00 RDW 15.2 % (11.5-20.0) 01/24/18 05:00 Plt Count 268 Th/cmm (150-400) D 01/24/18 05:00 MPV 9.4 fl 01/24/18 05:00 Neutrophils % 81.9 % (40.0-80.0) H 01/24/18 05:00 Band Neutrophils % 7 % (0-10) 01/21/18 06:24 Lymphocytes % 6.9 % (20.0-50.0) L 01/24/18 05:00 Monocytes % 8.6 % (2.0-10.0) 01/24/18 05:00 Eosinophils % 1.9 % (0.0-5.0) 01/24/18 05:00 Basophils % 0.7 % (0.0-2.0) 01/24/18 05:00 Neutrophils (Manual) 83 % (40-80) H 01/21/18 06:24 Lymphocytes 8 % (20-50) L 01/21/18 06:24 Monocytes 2 % (2-10) 01/21/18 06:24 PT 18.3 SECONDS (9.5-11.5) H 01/24/18 08:35 INR 1.71 (0.5-1.4) H 01/24/18 08:35 PTT (Actin FS) 38.3 SECONDS (26.0-38.0) H 01/22/18 06:06 Sodium 141 mEq/L (136-145) 01/24/18 05:00 Potassium 3.5 mEq/L (3.5-5.1) 01/24/18 05:00 Chloride 108 mEq/L (98-107) H 01/24/18 05:00 Carbon Dioxide 22.5 mEq/L (21.0-31.0) 01/24/18 05:00 Anion Gap 14.0 (7.0-16.0) 01/24/18 05:00 BUN 7 mg/dL (7-25) 01/24/18 05:00 Creatinine 1.0 mg/dL (0.7-1.3) 01/24/18 05:00 Est GFR ( Amer) > 60.0 ml/min (>90) 01/24/18 05:00 Est GFR (Non-Af Amer) > 60.0 ml/min 01/24/18 05:00 BUN/Creatinine Ratio 7.0 01/24/18 05:00 Glucose 76 mg/dL (70-105) 01/24/18 05:00 POC Glucose 87 MG/DL (70 - 105) 01/22/18 06:17 Hemoglobin A1c % 4.9 % (4.0-6.0) 01/20/18 16:40 Whole Bld Lactic Acid 1.32 mmol/L (0.60-1.99) 01/20/18 16:40 Calcium 8.4 mg/dL (8.6-10.3) L 01/24/18 05:00 Total Bilirubin 0.4 mg/dL (0.3-1.0) 01/20/18 16:40 AST 9 U/L (13-39) L 01/20/18 16:40 ALT 12 U/L (7-52) 01/20/18 16:40 Alkaline Phosphatase 104 U/L (34-104) 01/20/18 16:40 Creatine Kinase 32 U/L (30-223) 01/20/18 16:40 Troponin I 0.01 ng/mL (0.01-0.05) 01/20/18 16:40 Total Protein 6.3 gm/dL (6.0-8.3) 01/20/18 16:40 Albumin 3.3 gm/dL (4.2-5.5) L 01/20/18 16:40 Globulin 3.0 gm/dL 01/20/18 16:40 Albumin/Globulin Ratio 1.1 (1.0-1.8) 01/20/18 16:40 Urine Source MIDSTREAM 01/20/18 20:20 Urine Color YELLOW 01/20/18 20:20 Urine Clarity HAZY (CLEAR) 01/20/18 20:20 Urine pH 5.5 (4.6 - 8.0) 01/20/18 20:20 Ur Specific [place] 1.020 (1.005-1.030) 01/20/18 20:20 Urine Protein NEGATIVE mg/dL (NEGATIVE) 01/20/18 20:20 Urine Glucose (UA) NEGATIVE mg/dL (NEGATIVE) 01/20/18 20:20 Urine Ketones NEGATIVE mg/dL (NEGATIVE) 01/20/18 20:20 Urine Blood SMALL (NEGATIVE) H 01/20/18 20:20 Urine Nitrate NEGATIVE (NEGATIVE) 01/20/18 20:20 Urine Bilirubin NEGATIVE (NEGATIVE) 01/20/18 20:20 Urine Urobilinogen 0.2 E.U./dL (0.2 - 1.0) 01/20/18 20:20 Ur Leukocyte Esterase SMALL (NEGATIVE) H 01/20/18 20:20 Urine RBC 5-10 /hpf (0-5) H 01/20/18 20:20 Urine WBC 10-25 /hpf (0-5) H 01/20/18 20:20 Ur Epithelial Cells NONE SEEN /lpf (FEW) 01/20/18 20:20 Urine Bacteria NONE SEEN /hpf (NONE SEEN) 01/20/18 20:20 Vancomycin Trough 23.5 ug/mL (5-10) H 01/23/18 08:30 - Physical Exam Vitals and I&O: Vital Signs Temp 97 F 01/24/18 11:00 Pulse 70 01/24/18 12:05 Resp 17 01/24/18 13:00 BP 110/58 01/24/18 12:05 Pulse Ox 98 01/24/18 11:22 Intake & Output 01/23/18 01/24/18 01/24/18 18:59 06:59 18:59 Intake Total 900 350 350 Output Total 1850 1650 Balance -950 -1300 350 Weight (lbs) 90.265 kg 91.989 kg Intake: Intake, IV Amount 450 350 350 Piperacillin Sodium/ 200 100 100 Tazobact 4.5 gm In Sodium Chloride 0.9% 100 ml @ 100 mls/hr IV Q8H [facility] Rx# :[id number] Vancomycin HCl 1.25 gm In 250 250 250 Sodium Chloride 0.9% 250 ml @ 165 mls/hr IV Q12H [facility] Rx#:[id number] Oral 450 Output: Urine 1850 1650 Other: # Bowel Movements 2 1 Stool Characteristics Liquid Brown Weight Source Bedscale Bedscale Active Medications: Current Medications Acetaminophen (Tylenol) 650 mg PO Q6H PRN PRN Reason: HEADACHE/TEMP ABOVE 100F Stop: 03/21/18 19:07 Last Admin: 01/20/18 23:17 Dose: 650 mg Acetaminophen/Hydrocodone Bitart ([place] 10 Mg/325 Mg) 1 tab PO Q6H PRN PRN Reason: mod pain Stop: 03/22/18 10:31 Last Admin: 01/24/18 09:54 Dose: 1 tab Albuterol/Ipratropium (Duoneb Neb) 3 ml HHN Q4HRT [facility] Stop: 03/21/18 19:59 Last Admin: 01/24/18 11:21 Dose: Not Given Amiodarone HCl (Cordarone) 100 mg GT DAILY [facility] Stop: 03/22/18 08:59 Last Admin: 01/24/18 09:47 Dose: 100 mg Amlodipine Besylate (Norvasc) 10 mg GT DAILY [facility] Stop: 03/22/18 08:59 Last Admin: 01/24/18 09:47 Dose: 10 mg Aspirin (Aspirin Chewable) 81 mg GT DAILY [facility] Stop: 03/22/18 08:59 Last Admin: 01/24/18 09:48 Dose: 81 mg Atorvastatin Calcium (Lipitor) 40 mg GT HS [facility] Stop: 03/25/18 20:59 Docusate Sodium (Colace) 100 mg PO BID PRN PRN Reason: Constipation Stop: 03/21/18 19:07 Last Admin: 01/23/18 10:21 Dose: 100 mg Potassium Chloride 40 meq/Lidocaine HCl 25 mg/ Sodium Chloride 272.5 mls @ 68 mls/hr IV DAILY PRN PRN Reason: k level less than 3.2 Stop: 03/21/18 19:07 Magnesium Sulfate (Magnesium Sulfate Premix) 2 gm in 50 mls @ 25 mls/hr IV DAILY PRN PRN Reason: Magnesium level less than 1.6 Stop: 03/21/18 19:07 Piperacillin Sod/Tazobactam (Sod 4.5 gm/ Sodium Chloride) 100 mls @ 100 mls/hr IV Q8H [facility] Stop: 03/22/18 08:59 Last Infusion: 01/24/18 10:00 Dose: Infused Vancomycin HCl 1.25 gm/ Sodium (Chloride) 250 mls @ 165 mls/hr IV Q12H [facility] Stop: 03/24/18 09:59 Last Infusion: 01/24/18 11:20 Dose: Infused Lactobacillus Rhamnosus (Culturelle 15b) 1 each PO DAILY [facility] Stop: 03/23/18 08:59 Last Admin: 01/24/18 09:47 Dose: 1 each Loperamide HCl (Imodium) 2 mg GT DAILY [facility] Stop: 03/25/18 08:59 Last Admin: 01/24/18 09:54 Dose: 2 mg Lorazepam (Ativan) 1 mg IVP Q4H PRN; Protocol PRN Reason: Anxiety Stop: 03/21/18 19:07 Last Admin: 01/22/18 23:03 Dose: 1 mg Magnesium Oxide (Mag-Oxide) 400 mg PO BID PRN PRN Reason: Mg less than 1.9 Stop: 03/21/18 19:07 Metoprolol Tartrate (Lopressor) 50 mg GT Q8H [facility] Stop: 03/21/18 19:14 Last Admin: 01/24/18 12:05 Dose: Not Given Miscellaneous (Zosyn Iv Per Pharmacy) 1 ea MC PRN PRN PRN Reason: PROTOCOL Stop: 03/21/18 19:03 Miscellaneous (Azelastine Hcl [Azelastine Hcl]) 0.1 % NS BID [facility] Stop: 03/22/18 08:59 Miscellaneous (Probiotic Screen) 1 ea MC PRN PRN PRN Reason: PROTOCOL Stop: 03/22/18 09:59 Miscellaneous (Vancomycin Iv Per Pharmacy) 1 ea MC PRN PRN PRN Reason: PROTOCOL Stop: 07/22/18 07:29 Morphine Sulfate (Morphine) 1 mg IVP Q4HR PRN PRN Reason: Severe Pain Stop: 03/21/18 19:07 Mupirocin (Bactroban Oint) 1 appl NS BID [facility] Stop: 01/26/18 17:01 Last Admin: 01/24/18 09:47 Dose: 1 appl Ondansetron HCl (Zofran) 4 mg IVP Q6H PRN PRN Reason: Nausea / Vomiting Stop: 03/21/18 19:07 Last Admin: 01/23/18 21:48 Dose: 4 mg Potassium Chloride (Klor-Con) 40 meq PO DAILY PRN PRN Reason: k level less than 3.5 Stop: 03/21/18 19:07 Rivaroxaban (Xarelto) 20 mg PO DAILY [facility] Stop: 03/25/18 08:59 Last Admin: 01/24/18 09:47 Dose: 20 mg Zolpidem Tartrate (Ambien) 10 mg PO HS PRN PRN Reason: Insomnia Stop: 03/21/18 19:07 General: no acute distress, well developed, well nourished HEENT: atraumatic, normocephalic, PERRLA Neck: supple, no thyromegaly Cardiovascular: S1S2, regular Lungs: clear to auscultation bilaterally, clear to percussion Abdomen: soft, no tender, no distended, no mass Extremities: no cyanosis, no clubbing, no edema Neurological: awake, alert, oriented Skin: intact Infectious Disease Assmt/Plan - Problem List Patient Problems: All Active Problems GASTRIC TUBE AND CORAL REMOVAL (Acute) - Assessment Assessment: 1. Leukocytosis suspect sepsis. Improving. 2. Right lower lobe infiltrate, suspect aspiration pneumonia. 3. UTI. 4. MRSA colonization. 5. Hypertension. 6. Hyperlipidemia. 7. Aortic dissection, repair of aortic dissection at [facility]. 8. Acute kidney injury. Resolved. 9. Dysphagia resolved. He is taking his medication by mouth. - Plan Plan: start flagyl. continue zosyn and vancomycin.
[2018-01-25] MEDS: Albuterol/Ipratropium Neb 3 ML AERS HHN SCH ×6 (03:08→23:19)
[2018-01-25 06:43] LABS: BASOPHILE ABSOLUTE 0.1 Th/cumm (0-0.2); EOSINOPHILE ABSOLUTE 0.3 Th/cmm (0.1-0.4); HEMATOCRIT 29.1 % (41.0-60); HEMOGLOBIN 9.9 gm/dL (12-16); LYMPHOCYTE ABSOLUTE 0.8 Th/cmm (1.5-3.0); MANUAL DIFF REQUIRED? YES; MEAN CELL VOLUME 89.5 fl (80-99); MEAN CORPUSCULAR HEMOGLOBIN 30.3 pg (26.0-30.0); MEAN CORPUSCULAR HGB CONC 33.8 pg (28.0-36.0); MONOCYTE ABSOLUTE 1.6 Th/cmm (0.3-1.0); NEUTROPHILE ABSOLUTE 20.2 Th/cmm (1.8-8.0); PLATELET COUNT 311 Th/cmm (150-400); RED BLOOD COUNT 3.25 Mil/cmm (4.30-5.70); RED CELL DISTRIBUTION WIDTH 14.7 % (11.5-20.0)
[2018-01-25 07:25] LABS: ANION GAP 10.8 (7.0-16.0); BUN - UREA NITROGEN 6 mg/dL (7-25); CALCIUM SERUM 8.3 mg/dL (8.6-10.3); CARBON DIOXIDE 27.3 mEq/L (21.0-31.0); CHLORIDE 107 mEq/L (98-107); CREATININE - SERUM 0.9 mg/dL (0.7-1.3); GFR AFRICAN-AMERICAN > 60.0 ml/min (>90); GFR NON AFRICAN-AMERICAN > 60.0 ml/min; POTASSIUM SERUM 3.1 mEq/L (3.5-5.1); SODIUM SERUM 142 mEq/L (136-145)
[2018-01-25 07:38] LABS: INR 2.23 (0.5-1.4); PROTHROMBIN TIME (TEST) 24.2 SECONDS (9.5-11.5)
[2018-01-25 08:27] LABS: TOTAL CELLS COUNTED 100
[2018-01-25 08:28] LABS: ANISOCYTOSIS 1+; BAND NEUTROPHILE 7 % (0-10); EOSINOPHIL 1 % (0-5); LYMPHOCYTE 2 % (20-50); MONOCYTE 7 % (2-10); NEUTROPHILS 83 % (40-80); PLATELET ESTIMATE ADEQUATE (NORMAL); POIKILOCYTOSIS 1+
[2018-01-25] MEDS ORDERED: Sodium Chloride 0.9% 1,000 ML IV SCH (09:00)
[2018-01-25 09:10] LABS: GLUCOSE 93 mg/dL (70-105)
[2018-01-25] MEDS: Lactobacillus Rhamnosus GG 15 Billion CFU CAP.SPRINK PO SCH (10:29)
[2018-01-25] MEDS: Aspirin 81mg Chewable Tab GT SCH (11:49)
[2018-01-25] MEDS ORDERED: Vancomycin HCl 1.5 GM in Sodium Chloride 0.9% 500 ML IV SCH (14:00)
[2018-01-25] MEDS: Sodium Chloride 0.9% 1,000 ML IV SCH (18:59)
--- NOTE | 2018-01-25 20:37 | Progress Notes ---
DATE: 01/25/2018 SUBJECTIVE: The patient is resting comfortably in bed. He does not appear in any acute pain or distress. The patient is currently experiencing nausea and vomiting and vomited at bedside. We are awaiting stool culture. The patient admits he has not had a bowel movement since last night. Pain is currently well controlled. OBJECTIVE: VITAL SIGNS: 98.6, 68, 111/58, and 18. GENERAL: The patient is usually vomiting. HEENT: PERRLA, EOMI. NECK: Supple. Trachea midline. CARDIOVASCULAR: Regular rate and rhythm. RESPIRATORY: CTA bilaterally. No wheezes, rales or rhonchi. ABDOMEN: Soft, nontender. Hypoactive bowel sounds. SKIN: Warm and dry. No rash. MUSCULOSKELETAL: Muscle strength testing, bilateral upper and lower extremities 4/5. LABORATORY DATA: White blood cell count is 23, hemoglobin is 9.9. Potassium is 3.1. ASSESSMENT AND PLAN: Sepsis; aspiration pneumonia; history of right upper extremity deep venous thrombosis, resolved; dysphagia, resolved; atrial fibrillation; anemia of chronic illness; moderate malnutrition; hyponatremia, resolved; history of aortic dissection, cardiac tamponade status post surgery at in [facility] in 10/2017; hypokalemia, status post G-tube removal, status post Perm-A-Cath removal. PLAN: Continue Zosyn. Dr. Parks successfully removed G-tube and PermCath without complication. The patient's pain is currently well controlled. He has been experiencing more nausea and vomiting. KUB has been ordered. Continue IV fluids for hydration, Zofran as needed for nausea and vomiting and Tylenol as needed for mild pain or fevers. JOB# [id number]
[2018-01-25] MEDS: Morphine Sulfate 4 mg/mL 1mL Syr IVP PRN (21:58)
--- NOTE | 2018-01-26 02:43 | Infectious Disease Prog Note ---
Infectious Disease Subjective - Review of Systems Service Date: 01/26/18 Subjective: Doing well, no fever. had nausea and vomiting. Infectious Disease Objective - Results Result Diagrams: 01/25/18 05:57 01/25/18 05:57 Recent Labs: Laboratory Last Values WBC 23.0 Th/cmm (4.8-10.8) H* 01/25/18 05:57 RBC 3.25 Mil/cmm (4.30-5.70) L 01/25/18 05:57 Hgb 9.9 gm/dL (12-16) L 01/25/18 05:57 Hct 29.1 % (41.0-60) L 01/25/18 05:57 MCV 89.5 fl (80-99) 01/25/18 05:57 MCH 30.3 pg (26.0-30.0) H 01/25/18 05:57 MCHC Differential 33.8 pg (28.0-36.0) 01/25/18 05:57 RDW 14.7 % (11.5-20.0) 01/25/18 05:57 Plt Count 311 Th/cmm (150-400) 01/25/18 05:57 MPV 9.0 fl 01/25/18 05:57 Neutrophils % 81.9 % (40.0-80.0) H 01/24/18 05:00 Band Neutrophils % 7 % (0-10) 01/25/18 05:57 Lymphocytes % 6.9 % (20.0-50.0) L 01/24/18 05:00 Monocytes % 8.6 % (2.0-10.0) 01/24/18 05:00 Eosinophils % 1.9 % (0.0-5.0) 01/24/18 05:00 Basophils % 0.7 % (0.0-2.0) 01/24/18 05:00 Neutrophils (Manual) 83 % (40-80) H 01/25/18 05:57 Lymphocytes 2 % (20-50) L 01/25/18 05:57 Monocytes 7 % (2-10) 01/25/18 05:57 Eosinophils 1 % (0-5) 01/25/18 05:57 Platelet Estimate ADEQUATE (NORMAL) 01/25/18 05:57 Poikilocytosis 1+ 01/25/18 05:57 Anisocytosis 1+ 01/25/18 05:57 PT 24.2 SECONDS (9.5-11.5) H 01/25/18 05:57 INR 2.23 (0.5-1.4) H 01/25/18 05:57 PTT (Actin FS) 38.3 SECONDS (26.0-38.0) H 01/22/18 06:06 Sodium 142 mEq/L (136-145) 01/25/18 05:57 Potassium 3.1 mEq/L (3.5-5.1) L 01/25/18 05:57 Chloride 107 mEq/L (98-107) 01/25/18 05:57 Carbon Dioxide 27.3 mEq/L (21.0-31.0) 01/25/18 05:57 Anion Gap 10.8 (7.0-16.0) 01/25/18 05:57 BUN 6 mg/dL (7-25) L 01/25/18 05:57 Creatinine 0.9 mg/dL (0.7-1.3) 01/25/18 05:57 Est GFR ( Amer) > 60.0 ml/min (>90) 01/25/18 05:57 Est GFR (Non-Af Amer) > 60.0 ml/min 01/25/18 05:57 BUN/Creatinine Ratio 6.7 01/25/18 05:57 Glucose 93 mg/dL (70-105) 01/25/18 05:57 POC Glucose 87 MG/DL (70 - 105) 01/22/18 06:17 Hemoglobin A1c % 4.9 % (4.0-6.0) 01/20/18 16:40 Whole Bld Lactic Acid 1.32 mmol/L (0.60-1.99) 01/20/18 16:40 Calcium 8.3 mg/dL (8.6-10.3) L 01/25/18 05:57 Total Bilirubin 0.4 mg/dL (0.3-1.0) 01/20/18 16:40 AST 9 U/L (13-39) L 01/20/18 16:40 ALT 12 U/L (7-52) 01/20/18 16:40 Alkaline Phosphatase 104 U/L (34-104) 05/21/18 16:40 Creatine Kinase 32 U/L (30-223) 01/20/18 16:40 Troponin I 0.01 ng/mL (0.01-0.05) 01/20/18 16:40 Total Protein 6.3 gm/dL (6.0-8.3) 01/20/18 16:40 Albumin 3.3 gm/dL (4.2-5.5) L 01/20/18 16:40 Globulin 3.0 gm/dL 01/20/18 16:40 Albumin/Globulin Ratio 1.1 (1.0-1.8) 01/20/18 16:40 Urine Source MIDSTREAM 01/20/18 20:20 Urine Color YELLOW 01/20/18 20:20 Urine Clarity HAZY (CLEAR) 01/20/18 20:20 Urine pH 5.5 (4.6 - 8.0) 01/20/18 20:20 Ur Specific [place] 1.020 (1.005-1.030) 01/20/18 20:20 Urine Protein NEGATIVE mg/dL (NEGATIVE) 01/20/18 20:20 Urine Glucose (UA) NEGATIVE mg/dL (NEGATIVE) 01/20/18 20:20 Urine Ketones NEGATIVE mg/dL (NEGATIVE) 01/20/18 20:20 Urine Blood SMALL (NEGATIVE) H 01/20/18 20:20 Urine Nitrate NEGATIVE (NEGATIVE) 01/20/18 20:20 Urine Bilirubin NEGATIVE (NEGATIVE) 01/20/18 20:20 Urine Urobilinogen 0.2 E.U./dL (0.2 - 1.0) 01/20/18 20:20 Ur Leukocyte Esterase SMALL (NEGATIVE) H 01/20/18 20:20 Urine RBC 5-10 /hpf (0-5) H 01/20/18 20:20 Urine WBC 10-25 /hpf (0-5) H 01/20/18 20:20 Ur Epithelial Cells NONE SEEN /lpf (FEW) 01/20/18 20:20 Urine Bacteria NONE SEEN /hpf (NONE SEEN) 01/20/18 20:20 Vancomycin Trough 28.2 ug/mL (5-10) H 01/25/18 09:00 - Physical Exam Vitals and I&O: Vital Signs Temp 98 F 01/26/18 00:00 Pulse 81 01/26/18 00:00 Resp 18 01/26/18 00:00 BP 111/60 01/26/18 00:00 Pulse Ox 97 01/26/18 00:00 Intake & Output 01/25/18 01/25/18 01/26/18 06:59 18:59 06:59 Intake Total 300 1000 546 Output Total 1700 951 Balance -1400 49 546 Weight (lbs) 93.894 kg 93.894 kg Intake: Intake, IV Amount 100 700 546 Piperacillin Sodium/ 100 200 Tazobact 4.5 gm In Sodium Chloride 0.9% 100 ml @ 100 mls/hr IV Q8H [facility] Rx# :[id number] Sodium Chloride 0.9% 1, 546 000 ml @ 120 mls/hr IV . Q8H20M [facility] Rx#:[id number] Vancomycin HCl 1.5 gm In 500 Sodium Chloride 0.9% 500 ml @ 250 mls/hr IV Q24H [facility] Rx#:[id number] Oral 200 300 Output: Urine 1700 950 Stool 1 Other: # Bowel Movements 0 1 Weight Source Bedscale Bedscale Active Medications: Current Medications Acetaminophen (Tylenol) 650 mg PO Q6H PRN PRN Reason: HEADACHE/TEMP ABOVE 100F Stop: 03/21/18 19:07 Last Admin: 01/20/18 23:17 Dose: 650 mg Acetaminophen/Hydrocodone Bitart ([place] 10 Mg/325 Mg) 1 tab PO Q6H PRN PRN Reason: mod pain Stop: 03/22/18 10:31 Last Admin: 01/24/18 21:56 Dose: 1 tab Albuterol/Ipratropium (Duoneb Neb) 3 ml HHN Q4HRT [facility] Stop: 03/21/18 19:59 Last Admin: 01/25/18 23:19 Dose: Not Given Amiodarone HCl (Cordarone) 100 mg GT DAILY [facility] Stop: 03/22/18 08:59 Last Admin: 01/25/18 10:28 Dose: 100 mg Amlodipine Besylate (Norvasc) 10 mg GT DAILY [facility] Stop: 03/22/18 08:59 Last Admin: 01/25/18 10:27 Dose: 10 mg Aspirin (Aspirin Chewable) 81 mg GT DAILY [facility] Stop: 03/22/18 08:59 Last Admin: 01/25/18 11:49 Dose: 81 mg Atorvastatin Calcium (Lipitor) 40 mg GT HS [facility] Stop: 03/25/18 20:59 Last Admin: 01/25/18 23:55 Dose: Not Given Docusate Sodium (Colace) 100 mg PO BID PRN PRN Reason: Constipation Stop: 03/21/18 19:07 Last Admin: 01/23/18 10:21 Dose: 100 mg Potassium Chloride 40 meq/Lidocaine HCl 25 mg/ Sodium Chloride 272.5 mls @ 68 mls/hr IV DAILY PRN PRN Reason: k level less than 3.2 Stop: 03/21/18 19:07 Magnesium Sulfate (Magnesium Sulfate Premix) 2 gm in 50 mls @ 25 mls/hr IV DAILY PRN PRN Reason: Magnesium level less than 1.6 Stop: 03/21/18 19:07 Piperacillin Sod/Tazobactam (Sod 4.5 gm/ Sodium Chloride) 100 mls @ 100 mls/hr IV Q8H [facility] Stop: 03/22/18 08:59 Last Admin: 01/26/18 02:17 Dose: 100 mls/hr Vancomycin HCl 1.5 gm/ Sodium (Chloride) 500 mls @ 250 mls/hr IV Q24H [facility] Stop: 03/26/18 13:59 Last Infusion: 01/25/18 17:02 Dose: Infused Sodium Chloride (Nacl 0.9%) 1,000 mls @ 120 mls/hr IV .Q8H20M [facility] Stop: 03/26/18 17:29 Last Infusion: 01/25/18 23:32 Dose: 120 mls/hr Lactobacillus Rhamnosus (Culturelle 15b) 1 each PO DAILY [facility] Stop: 03/23/18 08:59 Last Admin: 01/25/18 10:29 Dose: 1 each Loperamide HCl (Imodium) 2 mg GT DAILY [facility] Stop: 03/25/18 08:59 Last Admin: 01/25/18 11:22 Dose: Not Given Lorazepam (Ativan) 1 mg IVP Q4H PRN; Protocol PRN Reason: Anxiety Stop: 03/21/18 19:07 Last Admin: 01/22/18 23:03 Dose: 1 mg Magnesium Oxide (Mag-Oxide) 400 mg PO BID PRN PRN Reason: Mg less than 1.9 Stop: 03/21/18 19:07 Metoprolol Tartrate (Lopressor) 50 mg GT Q8H [facility] Stop: 03/21/18 19:14 Last Admin: 01/25/18 11:49 Dose: 50 mg Metronidazole (Flagyl) 500 mg PO TID [facility] Stop: 01/31/18 09:01 Last Admin: 01/25/18 23:56 Dose: Not Given Miscellaneous (Zosyn Iv Per Pharmacy) 1 ea PRN PRN PRN Reason: PROTOCOL Stop: 03/21/18 19:03 Miscellaneous (Probiotic Screen) 1 ea PRN PRN PRN Reason: PROTOCOL Stop: 03/22/18 09:59 Miscellaneous (Vancomycin Iv Per Pharmacy) 1 ea PRN PRN PRN Reason: PROTOCOL Stop: 03/23/18 07:29 Morphine Sulfate (Morphine) 1 mg IVP Q4HR PRN PRN Reason: Severe Pain Stop: 03/21/18 19:07 Last Admin: 01/25/18 21:58 Dose: 1 mg Mupirocin (Bactroban Oint) 1 appl NS BID [facility] Stop: 01/26/18 17:01 Last Admin: 01/25/18 18:58 Dose: 1 appl Ondansetron HCl (Zofran) 4 mg IVP Q6H PRN PRN Reason: Nausea / Vomiting Stop: 03/21/18 19:07 Last Admin: 01/25/18 23:31 Dose: 4 mg Potassium Chloride (Klor-Con) 40 meq PO DAILY PRN PRN Reason: k level less than 3.5 Stop: 03/21/18 19:07 Rivaroxaban (Xarelto) 20 mg PO DAILY [facility] Stop: 03/25/18 08:59 Last Admin: 01/25/18 10:26 Dose: 20 mg Tamsulosin HCl (Flomax) 0.4 mg PO HS [facility] Stop: 03/25/18 20:59 Last Admin: 01/25/18 23:56 Dose: Not Given Zolpidem Tartrate (Ambien) 10 mg PO HS PRN PRN Reason: Insomnia Stop: 03/21/18 19:07 General: no acute distress, well developed, well nourished HEENT: atraumatic, normocephalic, PERRLA Neck: supple, no thyromegaly, no lymphadenopathy Cardiovascular: S1S2, regular Lungs: clear to auscultation bilaterally, clear to percussion Abdomen: soft, no tender Extremities: no cyanosis, no clubbing, no edema Neurological: awake, alert, oriented Skin: intact Infectious Disease Assmt/Plan - Problem List Patient Problems: All Active Problems GASTRIC TUBE AND CORAL REMOVAL (Acute) - Assessment Assessment: 1. Leukocytosis suspect sepsis. Worse for last two days. 2. Right lower lobe infiltrate, suspect aspiration pneumonia. 3. UTI. 4. MRSA colonization. 5. Hypertension. 6. Hyperlipidemia. 7. Aortic dissection, repair of aortic dissection at [email or web address] 8. Acute kidney injury. Resolved. 9. Dysphagia resolved. He is taking his medication by mouth. - Plan Plan: Continue flagyl. dc zosyn and vancomycin. Start levaquin. Nutritional Asmnt/Malnutr-PDOC - Dietary Evaluation Malnutrition Findings (Please click <Entered> for more info): Nutritional Asmnt/Malnutrition Start: 01/24/18 17: 29 Text: Status: Complete Freq: Document 01/24/18 17:29 [email or web address] (Rec: 01/24/18 17:38 [facility] [email or web address]) Nutritional Asmnt/Malnutrition Patient General Information Nutritional Screening Moderate Risk Diagnosis aspiration PNA Pertinent Medical Hx/Surgical Hx cardiac tampondade s/p surgery , aortic dissection, Gtube ( now removed) Subjective Information Per H&P pt had Gtube removed and started oral diet for about one month. Pt stated he still have some stomach issue, vomiting. Pt consumed cream of wheat and ceream for breakfast this morning, not very comfortable with solid food at this time.Per nurse note, pt had loose stool last night. Per EMR, PO intake 50- 75%. Current Diet Order/ Nutrition Support cardiac Pertinent Medications colace, culturelle, zofran, piperacillin, vancomycin Pertinent Labs 01/24 cl 108, glucose 76 01/20 A1c 4.9 Nutritional Hx/Data Height 1.91 m Height (Calculated Centimeters) 190.5 Current Weight (lbs) 92.079 kg Weight (Calculated Kilograms) 92.1 Weight (Calculated Grams) 47110.3 [place] Body Weight 196 Body Mass Index (BMI) 25.3 Weight Status Overweight GI Symptoms GI Symptoms None Last BM 01/24 Difficult in: None Skin Integrity/Comment: intact Current %PO Fair (50-74%) Estimated Nutritional Goals BEE in Kcals: Using Current wt Calories/Kcals/Kg 25-30 Kcals Calculated 5455-8754 Protein: Using Current wt Protein g/k Protein Calculated 92 Fluid: ml 2300-2760ml (1ml/kcal) Nutritional Problem No current Nutrition Prob Problem N/A Malnutrition Alert Is there a minimum of two criteria No selected? Query Text:Check all the applicable criteria. A minimum of two criteria are recommended for diagnosis of either severe or non-severe malnutrition. Malnutrition Related to Morbid Obesity Malnutrition related to morbid obesity No Intervention/Recommendation Comments 1. Continue with current diet as ordered. Offered food alternatives if pt not able to take his meals. 2. Monitor PO intake, GI function, wt, labs and skin integrity 3. F/U as moderate risk in 3-5 days, 01/27-01/29 Expected Outcomes/Goals Expected Outcomes/Goals 1. PO intake to meet at least 75% of nutritional needs. 2. Wt stability, GI function to improve, skin to remain intact, labs to approach WNL.
--- NOTE | 2018-01-26 02:54 | Infectious Disease Prog Note ---
Infectious Disease Subjective - Review of Systems Service Date: 01/25/18 Subjective: Doing well, no fever. had nausea and vomiting. Infectious Disease Objective - Results Result Diagrams: 01/25/18 05:57 01/25/18 05:57 Recent Labs: Laboratory Last Values WBC 23.0 Th/cmm (4.8-10.8) H* 01/25/18 05:57 RBC 3.25 Mil/cmm (4.30-5.70) L 01/25/18 05:57 Hgb 9.9 gm/dL (12-16) L 01/25/18 05:57 Hct 29.1 % (41.0-60) L 01/25/18 05:57 MCV 89.5 fl (80-99) 01/25/18 05:57 MCH 30.3 pg (26.0-30.0) H 01/25/18 05:57 MCHC Differential 33.8 pg (28.0-36.0) 01/25/18 05:57 RDW 14.7 % (11.5-20.0) 01/25/18 05:57 Plt Count 311 Th/cmm (150-400) 01/25/18 05:57 MPV 9.0 fl 01/25/18 05:57 Neutrophils % 81.9 % (40.0-80.0) H 01/24/18 05:00 Band Neutrophils % 7 % (0-10) 01/25/18 05:57 Lymphocytes % 6.9 % (20.0-50.0) L 01/24/18 05:00 Monocytes % 8.6 % (2.0-10.0) 01/24/18 05:00 Eosinophils % 1.9 % (0.0-5.0) 01/24/18 05:00 Basophils % 0.7 % (0.0-2.0) 01/24/18 05:00 Neutrophils (Manual) 83 % (40-80) H 01/25/18 05:57 Lymphocytes 2 % (20-50) L 01/25/18 05:57 Monocytes 7 % (2-10) 01/25/18 05:57 Eosinophils 1 % (0-5) 01/25/18 05:57 Platelet Estimate ADEQUATE (NORMAL) 01/25/18 05:57 Poikilocytosis 1+ 01/25/18 05:57 Anisocytosis 1+ 01/25/18 05:57 PT 24.2 SECONDS (9.5-11.5) H 01/25/18 05:57 INR 2.23 (0.5-1.4) H 01/25/18 05:57 PTT (Actin FS) 38.3 SECONDS (26.0-38.0) H 01/22/18 06:06 Sodium 142 mEq/L (136-145) 01/25/18 05:57 Potassium 3.1 mEq/L (3.5-5.1) L 01/25/18 05:57 Chloride 107 mEq/L (98-107) 01/25/18 05:57 Carbon Dioxide 27.3 mEq/L (21.0-31.0) 01/25/18 05:57 Anion Gap 10.8 (7.0-16.0) 01/25/18 05:57 BUN 6 mg/dL (7-25) L 01/25/18 05:57 Creatinine 0.9 mg/dL (0.7-1.3) 01/25/18 05:57 Est GFR ( Amer) > 60.0 ml/min (>90) 01/25/18 05:57 Est GFR (Non-Af Amer) > 60.0 ml/min 01/25/18 05:57 BUN/Creatinine Ratio 6.7 01/25/18 05:57 Glucose 93 mg/dL (70-105) 01/25/18 05:57 POC Glucose 87 MG/DL (70 - 105) 01/22/18 06:17 Hemoglobin A1c % 4.9 % (4.0-6.0) 01/20/18 16:40 Whole Bld Lactic Acid 1.32 mmol/L (0.60-1.99) 01/20/18 16:40 Calcium 8.3 mg/dL (8.6-10.3) L 01/25/18 05:57 Total Bilirubin 0.4 mg/dL (0.3-1.0) 01/20/18 16:40 AST 9 U/L (13-39) L 01/20/18 16:40 ALT 12 U/L (7-52) 01/20/18 16:40 Alkaline Phosphatase 104 U/L (34-104) 05/21/18 16:40 Creatine Kinase 32 U/L (30-223) 01/20/18 16:40 Troponin I 0.01 ng/mL (0.01-0.05) 01/20/18 16:40 Total Protein 6.3 gm/dL (6.0-8.3) 01/20/18 16:40 Albumin 3.3 gm/dL (4.2-5.5) L 01/20/18 16:40 Globulin 3.0 gm/dL 01/20/18 16:40 Albumin/Globulin Ratio 1.1 (1.0-1.8) 01/20/18 16:40 Urine Source MIDSTREAM 01/20/18 20:20 Urine Color YELLOW 01/20/18 20:20 Urine Clarity HAZY (CLEAR) 01/20/18 20:20 Urine pH 5.5 (4.6 - 8.0) 01/20/18 20:20 Ur Specific [place] 1.020 (1.005-1.030) 01/20/18 20:20 Urine Protein NEGATIVE mg/dL (NEGATIVE) 01/20/18 20:20 Urine Glucose (UA) NEGATIVE mg/dL (NEGATIVE) 01/20/18 20:20 Urine Ketones NEGATIVE mg/dL (NEGATIVE) 01/20/18 20:20 Urine Blood SMALL (NEGATIVE) H 01/20/18 20:20 Urine Nitrate NEGATIVE (NEGATIVE) 01/20/18 20:20 Urine Bilirubin NEGATIVE (NEGATIVE) 01/20/18 20:20 Urine Urobilinogen 0.2 E.U./dL (0.2 - 1.0) 01/20/18 20:20 Ur Leukocyte Esterase SMALL (NEGATIVE) H 01/20/18 20:20 Urine RBC 5-10 /hpf (0-5) H 01/20/18 20:20 Urine WBC 10-25 /hpf (0-5) H 01/20/18 20:20 Ur Epithelial Cells NONE SEEN /lpf (FEW) 01/20/18 20:20 Urine Bacteria NONE SEEN /hpf (NONE SEEN) 01/20/18 20:20 Vancomycin Trough 28.2 ug/mL (5-10) H 01/25/18 09:00 - Physical Exam Vitals and I&O: Vital Signs Temp 98 F 01/26/18 00:00 Pulse 81 01/26/18 00:00 Resp 18 01/26/18 00:00 BP 111/60 01/26/18 00:00 Pulse Ox 97 01/26/18 00:00 Intake & Output 01/25/18 01/25/18 01/26/18 06:59 18:59 06:59 Intake Total 300 1000 546 Output Total 1700 951 Balance -1400 49 546 Weight (lbs) 93.894 kg 93.894 kg Intake: Intake, IV Amount 100 700 546 Piperacillin Sodium/ 100 200 Tazobact 4.5 gm In Sodium Chloride 0.9% 100 ml @ 100 mls/hr IV Q8H [facility] Rx# :[id number] Sodium Chloride 0.9% 1, 546 000 ml @ 120 mls/hr IV . Q8H20M [facility] Rx#:[id number] Vancomycin HCl 1.5 gm In 500 Sodium Chloride 0.9% 500 ml @ 250 mls/hr IV Q24H [facility] Rx#:[id number] Oral 200 300 Output: Urine 1700 950 Stool 1 Other: # Bowel Movements 0 1 Weight Source Bedscale Bedscale Active Medications: Current Medications Acetaminophen (Tylenol) 650 mg PO Q6H PRN PRN Reason: HEADACHE/TEMP ABOVE 100F Stop: 03/21/18 19:07 Last Admin: 01/20/18 23:17 Dose: 650 mg Acetaminophen/Hydrocodone Bitart ([place] 10 Mg/325 Mg) 1 tab PO Q6H PRN PRN Reason: mod pain Stop: 03/22/18 10:31 Last Admin: 01/24/18 21:56 Dose: 1 tab Albuterol/Ipratropium (Duoneb Neb) 3 ml HHN Q4HRT [facility] Stop: 03/21/18 19:59 Last Admin: 01/25/18 23:19 Dose: Not Given Amiodarone HCl (Cordarone) 100 mg GT DAILY [facility] Stop: 03/22/18 08:59 Last Admin: 01/25/18 10:28 Dose: 100 mg Amlodipine Besylate (Norvasc) 10 mg GT DAILY [facility] Stop: 03/22/18 08:59 Last Admin: 01/25/18 10:27 Dose: 10 mg Aspirin (Aspirin Chewable) 81 mg GT DAILY [facility] Stop: 03/22/18 08:59 Last Admin: 01/25/18 11:49 Dose: 81 mg Atorvastatin Calcium (Lipitor) 40 mg GT HS [facility] Stop: 03/25/18 20:59 Last Admin: 01/25/18 23:55 Dose: Not Given Docusate Sodium (Colace) 100 mg PO BID PRN PRN Reason: Constipation Stop: 03/21/18 19:07 Last Admin: 01/23/18 10:21 Dose: 100 mg Potassium Chloride 40 meq/Lidocaine HCl 25 mg/ Sodium Chloride 272.5 mls @ 68 mls/hr IV DAILY PRN PRN Reason: k level less than 3.2 Stop: 03/21/18 19:07 Magnesium Sulfate (Magnesium Sulfate Premix) 2 gm in 50 mls @ 25 mls/hr IV DAILY PRN PRN Reason: Magnesium level less than 1.6 Stop: 03/21/18 19:07 Piperacillin Sod/Tazobactam (Sod 4.5 gm/ Sodium Chloride) 100 mls @ 100 mls/hr IV Q8H [facility] Stop: 03/22/18 08:59 Last Admin: 01/26/18 02:17 Dose: 100 mls/hr Sodium Chloride (Nacl 0.9%) 1,000 mls @ 120 mls/hr IV .Q8H20M [facility] Stop: 03/26/18 17:29 Last Infusion: 01/25/18 23:32 Dose: 120 mls/hr Levofloxacin (Levaquin Pb) 500 mg in 100 mls @ 100 mls/hr IV Q24HR [facility] Stop: 03/27/18 02:59 Lactobacillus Rhamnosus (Culturelle 15b) 1 each PO DAILY [facility] Stop: 03/23/18 08:59 Last Admin: 01/25/18 10:29 Dose: 1 each Loperamide HCl (Imodium) 2 mg GT DAILY [facility] Stop: 03/25/18 08:59 Last Admin: 01/25/18 11:22 Dose: Not Given Lorazepam (Ativan) 1 mg IVP Q4H PRN; Protocol PRN Reason: Anxiety Stop: 03/21/18 19:07 Last Admin: 01/22/18 23:03 Dose: 1 mg Magnesium Oxide (Mag-Oxide) 400 mg PO BID PRN PRN Reason: Mg less than 1.9 Stop: 03/21/18 19:07 Metoprolol Tartrate (Lopressor) 50 mg GT Q8H [facility] Stop: 03/21/18 19:14 Last Admin: 01/25/18 11:49 Dose: 50 mg Metronidazole (Flagyl) 500 mg PO TID [facility] Stop: 01/31/18 09:01 Last Admin: 01/25/18 23:56 Dose: Not Given Miscellaneous (Probiotic Screen) 1 ea PRN PRN PRN Reason: PROTOCOL Stop: 03/22/18 09:59 Miscellaneous (Vancomycin Iv Per Pharmacy) 1 ea PRN PRN PRN Reason: PROTOCOL Stop: 03/23/18 07:29 Morphine Sulfate (Morphine) 1 mg IVP Q4HR PRN PRN Reason: Severe Pain Stop: 03/21/18 19:07 Last Admin: 01/25/18 21:58 Dose: 1 mg Mupirocin (Bactroban Oint) 1 appl NS BID [facility] Stop: 01/26/18 17:01 Last Admin: 01/25/18 18:58 Dose: 1 appl Ondansetron HCl (Zofran) 4 mg IVP Q6H PRN PRN Reason: Nausea / Vomiting Stop: 03/21/18 19:07 Last Admin: 01/25/18 23:31 Dose: 4 mg Potassium Chloride (Klor-Con) 40 meq PO DAILY PRN PRN Reason: k level less than 3.5 Stop: 03/21/18 19:07 Rivaroxaban (Xarelto) 20 mg PO DAILY [facility] Stop: 03/25/18 08:59 Last Admin: 01/25/18 10:26 Dose: 20 mg Tamsulosin HCl (Flomax) 0.4 mg PO HS [facility] Stop: 03/25/18 20:59 Last Admin: 01/25/18 23:56 Dose: Not Given Zolpidem Tartrate (Ambien) 10 mg PO HS PRN PRN Reason: Insomnia Stop: 03/21/18 19:07 General: no acute distress, well developed, well nourished HEENT: atraumatic, normocephalic, PERRLA, EOMI Neck: supple, no thyromegaly Cardiovascular: S1S2, regular Lungs: clear to auscultation bilaterally, clear to percussion, no crackles Abdomen: soft, no tender, no distended Extremities: no cyanosis, no clubbing, no edema Neurological: awake, alert, oriented Skin: intact Infectious Disease Assmt/Plan - Problem List Patient Problems: All Active Problems GASTRIC TUBE AND CORAL REMOVAL (Acute) - Assessment Assessment: 1. Leukocytosis suspect sepsis. Worse for last two days. 2. Right lower lobe infiltrate, suspect aspiration pneumonia. 3. UTI. 4. MRSA colonization. 5. Hypertension. 6. Hyperlipidemia. 7. Aortic dissection, repair of aortic dissection at [facility]. 8. Acute kidney injury. Resolved. 9. Dysphagia resolved. He is taking his medication by mouth. - Plan Plan: Continue flagyl. dc zosyn and vancomycin. Start levaquin. Nutritional Asmnt/Malnutr-PDOC - Dietary Evaluation Malnutrition Findings (Please click <Entered> for more info): Nutritional Asmnt/Malnutrition Start: 01/24/18 17: 29 Text: Status: Complete Freq: Document 01/24/18 17:29 [facility] (Rec: 01/24/18 17:38 [facility] [id number]) Nutritional Asmnt/Malnutrition Patient General Information Nutritional Screening Moderate Risk Diagnosis aspiration PNA Pertinent Medical Hx/Surgical Hx cardiac tampondade s/p surgery , aortic dissection, Gtube ( now removed) Subjective Information Per H&P pt had Gtube removed and started oral diet for about one month. Pt stated he still have some stomach issue, vomiting. Pt consumed cream of wheat and ceream for breakfast this morning, not very comfortable with solid food at this time.Per nurse note, pt had loose stool last night. Per EMR, PO intake 50- 75%. Current Diet Order/ Nutrition Support cardiac Pertinent Medications colace, culturelle, zofran, piperacillin, vancomycin Pertinent Labs 01/24 cl 108, glucose 76 01/20 A1c 4.9 Nutritional Hx/Data Height 1.91 m Height (Calculated Centimeters) 190.5 Current Weight (lbs) 92.079 kg Weight (Calculated Kilograms) 92.1 Weight (Calculated Grams) 38670.3 [place] Body Weight 196 Body Mass Index (BMI) 25.3 Weight Status Overweight GI Symptoms GI Symptoms None Last BM 01/24 Difficult in: None Skin Integrity/Comment: intact Current %PO Fair (50-74%) Estimated Nutritional Goals BEE in Kcals: Using Current wt Calories/Kcals/Kg 25-30 Kcals Calculated 8625-7614 Protein: Using Current wt Protein g/k Protein Calculated 92 Fluid: ml 2300-2760ml (1ml/kcal) Nutritional Problem No current Nutrition Prob Problem N/A Malnutrition Alert Is there a minimum of two criteria No selected? Query Text:Check all the applicable criteria. A minimum of two criteria are recommended for diagnosis of either severe or non-severe malnutrition. Malnutrition Related to Morbid Obesity Malnutrition related to morbid obesity No Intervention/Recommendation Comments 1. Continue with current diet as ordered. Offered food alternatives if pt not able to take his meals. 2. Monitor PO intake, GI function, wt, labs and skin integrity 3. F/U as moderate risk in 3-5 days, 01/27-01/29 Expected Outcomes/Goals Expected Outcomes/Goals 1. PO intake to meet at least 75% of nutritional needs. 2. Wt stability, GI function to improve, skin to remain intact, labs to approach WNL.
[2018-01-26] MEDS: Levofloxacin 500mg/100mL 500 MG/100 ML BAG IV SCH (03:25)
[2018-01-26] MEDS: Morphine Sulfate 4 mg/mL 1mL Syr IVP PRN ×4 (04:58→20:33)
[2018-01-26 06:52] LABS: BASOPHILE ABSOLUTE 0.2 Th/cumm (0-0.2); EOSINOPHILE ABSOLUTE 0.1 Th/cmm (0.1-0.4); HEMATOCRIT 30.9 % (41.0-60); HEMOGLOBIN 10.9 gm/dL (12-16); LYMPHOCYTE ABSOLUTE 1.5 Th/cmm (1.5-3.0); MANUAL DIFF REQUIRED? YES; MEAN CELL VOLUME 92.8 fl (80-99); MEAN CORPUSCULAR HEMOGLOBIN 32.6 pg (26.0-30.0); MEAN CORPUSCULAR HGB CONC 35.2 pg (28.0-36.0); MONOCYTE ABSOLUTE 1.8 Th/cmm (0.3-1.0); NEUTROPHILE ABSOLUTE 19.8 Th/cmm (1.8-8.0); PLATELET COUNT 355 Th/cmm (150-400); RED BLOOD COUNT 3.33 Mil/cmm (4.30-5.70); RED CELL DISTRIBUTION WIDTH 15.7 % (11.5-20.0)
[2018-01-26 07:05] LABS: CALCIUM SERUM 8.9 mg/dL (8.6-10.3); CREATININE - SERUM 1.7 mg/dL (0.7-1.3); GFR NON AFRICAN-AMERICAN 43.8 ml/min
[2018-01-26 07:06] LABS: WHITE BLOOD COUNT 23.4 Th/cmm (4.8-10.8)
[2018-01-26] MEDS: Albuterol/Ipratropium Neb 3 ML AERS HHN SCH ×5 (07:45→22:32)
[2018-01-26 08:17] LABS: BAND NEUTROPHILE 2 % (0-10); LYMPHOCYTE 10 % (20-50); MONOCYTE 5 % (2-10); NEUTROPHILS 83 % (40-80); PLATELET ESTIMATE ADEQUATE (NORMAL); TOTAL CELLS COUNTED 100
--- NOTE | 2018-01-26 08:48 | Diagnostic Imaging Report ---
CT scan of the chest without intravenous contrast HISTORY: Shortness of breath Total DLP equals 926 CTDI equals 11.8 Axial sections were obtained from a level above the clavicles down to level below the diaphragm. Exam demonstrates asymmetric increased soft tissue density within the tissues anterior to the right clavicle and along the upper right anterior chest. Significance and etiology uncertain. Clinical correlation and correlation with physical examination needed. Findings may be related to prior surgery. Surgical clips noted near the right axillary area. An intravascular stent is noted within the thoracic aorta. No abnormal mediastinal masses. Mild pleural thickening noted in the right left lower hemithoracic regions along with nonspecific parenchymal changes which appear chronic. No free pleural fluid. Atherosclerotic vascular changes noted. IMPRESSION: 1. Asymmetric increased density within the soft tissues anterior to the right clavicle along the right upper anterior chest. Significance and etiology uncertain. The finding should be correlated clinically and with physical examination. Changes may be associated with prior surgery. 2. Vascular stent within the thoracic aorta 3. Mild pleural thickening a nonspecific parenchymal changes within the lower lobes of the lung probably chronic.
--- NOTE | 2018-01-26 08:50 | Diagnostic Imaging Report ---
CT scan abdomen and pelvis without intravenous contrast HISTORY: Pain Total DLP equals 637 CTDI equals 11.3 Axial sections were obtained from the xiphoid process down to the pubic symphysis. The liver exhibits a homogeneous parenchyma. No focal lesions. The spleen appears normal. Vascular calcification noted. No focal abnormality seen within the pancreas. Intraluminal hyperdensity seen in the gallbladder consistent with cholelithiasis. Multiple left renal cysts are noted. No significant bowel dilatation. The exam of the pelvis demonstrates preservation of normal fat planes. No abnormal soft tissue masses or abnormal fluid collections. Colonic diverticula are seen. No definite evidence of inflammatory change. A Partida catheter is noted within a contracted urinary bladder. IMPRESSION: 1. No definite acute abnormalities 2. Cholelithiasis 3. Diverticulosis 4. Atherosclerotic vascular changes
[2018-01-26] MEDS: Sodium Chloride 0.9% 1,000 ML IV SCH ×2 (10:10→18:44)
[2018-01-26] MEDS: Aspirin 81mg Chewable Tab GT SCH (11:20)
[2018-01-26] MEDS: Lactobacillus Rhamnosus GG 15 Billion CFU CAP.SPRINK PO SCH (11:20)
[2018-01-26 11:53] LABS: ALB/GLOB RATIO 1.1 (1.0-1.8); ALBUMIN 3.5 gm/dL (4.2-5.5); BILIRUBIN,TOTAL 0.6 mg/dL (0.3-1.0); CALCIUM SERUM 8.9 mg/dL (8.6-10.3); CREATININE - SERUM 1.8 mg/dL (0.7-1.3); GFR AFRICAN-AMERICAN 49.6 ml/min (>90); TOTAL PROTEIN,SERUM 6.7 gm/dL (6.0-8.3)
[2018-01-26] MEDS ORDERED: metroNIDAZOLE 500mg/NS 100mL 500 MG/100 ML BAG IV SCH (13:00)
[2018-01-26] MEDS: KCL 20mEq/100mL Premix Bag IV SCH ×2 (13:11→15:31)
--- NOTE | 2018-01-26 14:11 | Infectious Disease Prog Note ---
Infectious Disease Subjective - Review of Systems Service Date: 01/26/18 Subjective: Doing well, no fever. had nausea and vomiting. Infectious Disease Objective - Results Result Diagrams: 01/26/18 06:04 01/26/18 06:32 Recent Labs: Laboratory Last Values WBC 23.4 Th/cmm (4.8-10.8) H* 01/26/18 06:04 RBC 3.33 Mil/cmm (4.30-5.70) L 01/26/18 06:04 Hgb 10.9 gm/dL (12-16) L 01/26/18 06:04 Hct 30.9 % (41.0-60) L 01/26/18 06:04 MCV 92.8 fl (80-99) 01/26/18 06:04 MCH 32.6 pg (26.0-30.0) H 01/26/18 06:04 MCHC Differential 35.2 pg (28.0-36.0) 01/26/18 06:04 RDW 15.7 % (11.5-20.0) 01/26/18 06:04 Plt Count 355 Th/cmm (150-400) 01/26/18 06:04 MPV 9.0 fl 01/26/18 06:04 Neutrophils % 81.9 % (40.0-80.0) H 01/24/18 05:00 Band Neutrophils % 2 % (0-10) 01/26/18 06:04 Lymphocytes % 6.9 % (20.0-50.0) L 01/24/18 05:00 Monocytes % 8.6 % (2.0-10.0) 01/24/18 05:00 Eosinophils % 1.9 % (0.0-5.0) 01/24/18 05:00 Basophils % 0.7 % (0.0-2.0) 01/24/18 05:00 Neutrophils (Manual) 83 % (40-80) H 01/26/18 06:04 Lymphocytes 10 % (20-50) L 01/26/18 06:04 Monocytes 5 % (2-10) 01/26/18 06:04 Eosinophils 1 % (0-5) 01/25/18 05:57 Platelet Estimate ADEQUATE (NORMAL) 01/26/18 06:04 Poikilocytosis 1+ 01/25/18 05:57 Anisocytosis 1+ 01/25/18 05:57 PT 24.2 SECONDS (9.5-11.5) H 01/25/18 05:57 INR 2.23 (0.5-1.4) H 01/25/18 05:57 PTT (Actin FS) 38.3 SECONDS (26.0-38.0) H 01/22/18 06:06 Sodium 142 mEq/L (136-145) 01/26/18 06:32 Potassium 3.0 mEq/L (3.5-5.1) L 01/26/18 06:32 Chloride 104 mEq/L (98-107) 01/26/18 06:32 Carbon Dioxide 23.0 mEq/L (21.0-31.0) 01/26/18 06:32 Anion Gap 18.0 (7.0-16.0) H 01/26/18 06:32 BUN 10 mg/dL (7-25) 01/26/18 06:32 Creatinine 1.8 mg/dL (0.7-1.3) H 01/26/18 06:32 Est GFR ( Amer) 49.6 ml/min (>90) 01/26/18 06:32 Est GFR (Non-Af Amer) 41.0 ml/min 01/26/18 06:32 BUN/Creatinine Ratio 5.6 01/26/18 06:32 Glucose 103 mg/dL (70-105) 01/26/18 06:32 POC Glucose 87 MG/DL (70 - 105) 01/22/18 06:17 Hemoglobin A1c % 4.9 % (4.0-6.0) 01/20/18 16:40 Whole Bld Lactic Acid 1.32 mmol/L (0.60-1.99) 01/20/18 16:40 Calcium 8.9 mg/dL (8.6-10.3) 01/26/18 06:32 Total Bilirubin 0.6 mg/dL (0.3-1.0) 01/26/18 06:32 AST 14 U/L (13-39) 01/26/18 06:32 ALT 15 U/L (7-52) 01/26/18 06:32 Alkaline Phosphatase 96 U/L (34-104) 01/26/18 06:32 Creatine Kinase 32 U/L (30-223) 01/20/18 16:40 Troponin I 0.01 ng/mL (0.01-0.05) 01/20/18 16:40 Total Protein 6.7 gm/dL (6.0-8.3) 01/26/18 06:32 Albumin 3.5 gm/dL (4.2-5.5) L 01/26/18 06:32 Globulin 3.2 gm/dL 01/26/18 06:32 Albumin/Globulin Ratio 1.1 (1.0-1.8) 01/26/18 06:32 Urine Source MIDSTREAM 01/20/18 20:20 Urine Color YELLOW 01/20/18 20:20 Urine Clarity HAZY (CLEAR) 01/20/18 20:20 Urine pH 5.5 (4.6 - 8.0) 01/20/18 20:20 Ur Specific [place] 1.020 (1.005-1.030) 01/20/18 20:20 Urine Protein NEGATIVE mg/dL (NEGATIVE) 01/20/18 20:20 Urine Glucose (UA) NEGATIVE mg/dL (NEGATIVE) 01/20/18 20:20 Urine Ketones NEGATIVE mg/dL (NEGATIVE) 01/20/18 20:20 Urine Blood SMALL (NEGATIVE) H 01/20/18 20:20 Urine Nitrate NEGATIVE (NEGATIVE) 01/20/18 20:20 Urine Bilirubin NEGATIVE (NEGATIVE) 01/20/18 20:20 Urine Urobilinogen 0.2 E.U./dL (0.2 - 1.0) 01/20/18 20:20 Ur Leukocyte Esterase SMALL (NEGATIVE) H 01/20/18 20:20 Urine RBC 5-10 /hpf (0-5) H 01/20/18 20:20 Urine WBC 10-25 /hpf (0-5) H 01/20/18 20:20 Ur Epithelial Cells NONE SEEN /lpf (FEW) 01/20/18 20:20 Urine Bacteria NONE SEEN /hpf (NONE SEEN) 01/20/18 20:20 Vancomycin Trough 28.2 ug/mL (5-10) H 01/25/18 09:00 Random Vancomycin 30.6 ug/mL (5.0-40.0) 01/26/18 06:00 - Physical Exam Vitals and I&O: Vital Signs Temp 97.0 F 01/26/18 11:48 Pulse 76 01/26/18 11:48 Resp 20 01/26/18 11:48 BP 132/67 01/26/18 11:48 Pulse Ox 98 01/26/18 11:48 Intake & Output 01/25/18 01/26/18 01/26/18 18:59 06:59 18:59 Intake Total 1000 1000 Output Total 951 1000 Balance 49 0 Weight (lbs) 93.894 kg 93.894 kg Intake: Intake, IV Amount 700 1000 Piperacillin Sodium/ 200 Tazobact 4.5 gm In Sodium Chloride 0.9% 100 ml @ 100 mls/hr IV Q8H [facility] Rx# :[id number] Sodium Chloride 0.9% 1, 1000 000 ml @ 120 mls/hr IV . Q8H20M [facility] Rx#:[id number] Vancomycin HCl 1.5 gm In 500 Sodium Chloride 0.9% 500 ml @ 250 mls/hr IV Q24H [facility] Rx#:[id number] Oral 300 Output: Urine 950 1000 Stool 1 Other: # Bowel Movements 1 Weight Source Bedscale Bedscale Active Medications: Current Medications Acetaminophen (Tylenol) 650 mg PO Q6H PRN PRN Reason: HEADACHE/TEMP ABOVE 100F Stop: 03/21/18 19:07 Last Admin: 01/20/18 23:17 Dose: 650 mg Acetaminophen/Hydrocodone Bitart (Mchenry 10 Mg/325 Mg) 1 tab PO Q6H PRN PRN Reason: mod pain Stop: 03/22/18 10:31 Last Admin: 01/24/18 21:56 Dose: 1 tab Albuterol/Ipratropium (Duoneb Neb) 3 ml HHN Q4HRT [facility] Stop: 03/21/18 19:59 Last Admin: 01/26/18 11:33 Dose: 3 ml Amiodarone HCl (Cordarone) 100 mg GT DAILY [facility] Stop: 03/22/18 08:59 Last Admin: 01/25/18 10:28 Dose: 100 mg Amlodipine Besylate (Norvasc) 10 mg GT DAILY [facility] Stop: 03/22/18 08:59 Last Admin: 01/25/18 10:27 Dose: 10 mg Aspirin (Aspirin Chewable) 81 mg GT DAILY [facility] Stop: 03/22/18 08:59 Last Admin: 01/26/18 11:20 Dose: Not Given Atorvastatin Calcium (Lipitor) 40 mg GT HS [facility] Stop: 03/25/18 20:59 Last Admin: 01/25/18 23:55 Dose: Not Given Docusate Sodium (Colace) 100 mg PO BID PRN PRN Reason: Constipation Stop: 03/21/18 19:07 Last Admin: 01/23/18 10:21 Dose: 100 mg Potassium Chloride 40 meq/Lidocaine HCl 25 mg/ Sodium Chloride 272.5 mls @ 68 mls/hr IV DAILY PRN PRN Reason: k level less than 3.2 Stop: 03/21/18 19:07 Magnesium Sulfate (Magnesium Sulfate Premix) 2 gm in 50 mls @ 25 mls/hr IV DAILY PRN PRN Reason: Magnesium level less than 1.6 Stop: 03/21/18 19:07 Sodium Chloride (Nacl 0.9%) 1,000 mls @ 120 mls/hr IV .Q8H20M [facility] Stop: 03/26/18 17:29 Last Admin: 01/26/18 10:10 Dose: 120 mls/hr Levofloxacin (Levaquin Pb) 500 mg in 100 mls @ 100 mls/hr IV Q24HR [facility] Stop: 03/27/18 02:59 Last Admin: 01/26/18 03:25 Dose: 100 mls/hr Metronidazole (Flagyl) 500 mg in 100 mls @ 100 mls/hr IV Q8HR [facility] Stop: 03/27/18 12:59 Potassium Chloride (Potassium Chloride) 20 meq in 100 mls @ 50 mls/hr IV Q2H [facility] Stop: 01/26/18 16:59 Last Admin: 01/26/18 13:11 Dose: 50 mls/hr Lactobacillus Rhamnosus (Culturelle 15b) 1 each PO DAILY [facility] Stop: 03/23/18 08:59 Last Admin: 01/26/18 11:20 Dose: Not Given Lorazepam (Ativan) 1 mg IVP Q4H PRN; Protocol PRN Reason: Anxiety Stop: 03/21/18 19:07 Last Admin: 01/22/18 23:03 Dose: 1 mg Magnesium Oxide (Mag-Oxide) 400 mg PO BID PRN PRN Reason: Mg less than 1.9 Stop: 03/21/18 19:07 Metoprolol Tartrate (Lopressor) 50 mg GT Q8H [facility] Stop: 03/21/18 19:14 Last Admin: 01/26/18 03:17 Dose: Not Given Miscellaneous (Probiotic Screen) 1 ea MC PRN PRN PRN Reason: PROTOCOL Stop: 03/22/18 09:59 Morphine Sulfate (Morphine) 1 mg IVP Q4HR PRN PRN Reason: Severe Pain Stop: 03/21/18 19:07 Last Admin: 01/26/18 11:10 Dose: 1 mg Mupirocin (Bactroban Oint) 1 appl NS BID [facility] Stop: 01/26/18 17:01 Last Admin: 01/26/18 11:15 Dose: 1 appl Ondansetron HCl (Zofran) 4 mg IV Q4H PRN PRN Reason: Nausea / Vomiting Stop: 03/27/18 09:59 Potassium Chloride (Klor-Con) 40 meq PO DAILY PRN PRN Reason: k level less than 3.5 Stop: 03/21/18 19:07 Rivaroxaban (Xarelto) 20 mg PO DAILY [facility] Stop: 03/25/18 08:59 Last Admin: 01/25/18 10:26 Dose: 20 mg Simethicone (Mylicon) 80 mg PO Q8H [facility] Stop: 03/27/18 10:14 Last Admin: 01/26/18 13:31 Dose: 80 mg Tamsulosin HCl (Flomax) 0.4 mg PO HS [facility] Stop: 03/25/18 20:59 Last Admin: 01/25/18 23:56 Dose: Not Given Tamsulosin HCl (Flomax) 0.4 mg PO DAILY [facility] Stop: 03/28/18 08:59 Zolpidem Tartrate (Ambien) 10 mg PO HS PRN PRN Reason: Insomnia Stop: 03/21/18 19:07 General: no acute distress, well developed, well nourished HEENT: atraumatic, normocephalic, PERRLA Neck: supple, no thyromegaly Cardiovascular: S1S2, regular Lungs: clear to auscultation bilaterally, clear to percussion Abdomen: soft, no tender, no distended Extremities: no cyanosis, no clubbing, no edema Neurological: awake, alert, oriented Skin: intact Infectious Disease Assmt/Plan - Problem List Patient Problems: All Active Problems GASTRIC TUBE AND CORAL REMOVAL (Acute) - Assessment Assessment: 1. Leukocytosis suspect sepsis. Worse for last two days. 2. Right lower lobe infiltrate, suspect aspiration pneumonia. 3. UTI. 4. MRSA colonization. 5. Hypertension. 6. Hyperlipidemia. 7. Aortic dissection, repair of aortic dissection at [facility]. 8. Acute kidney injury. Resolved. 9. Dysphagia resolved. He is taking his medication by mouth. 10. Vomiting. 11. Cholelithiasis. - Plan Plan: Change flagyl 500 mg iv twice/day, Continue levaquin. Nutritional Asmnt/Malnutr-PDOC - Dietary Evaluation Malnutrition Findings (Please click <Entered> for more info): Nutritional Asmnt/Malnutrition Start: 01/24/18 17: 29 Text: Status: Complete Freq: Document 01/24/18 17:29 [email or web address] (Rec: 01/24/18 17:38 [id number] [id number]) Nutritional Asmnt/Malnutrition Patient General Information Nutritional Screening Moderate Risk Diagnosis aspiration PNA Pertinent Medical Hx/Surgical Hx cardiac tampondade s/p surgery , aortic dissection, Gtube ( now removed) Subjective Information Per H&P pt had Gtube removed and started oral diet for about one month. Pt stated he still have some stomach issue, vomiting. Pt consumed cream of wheat and ceream for breakfast this morning, not very comfortable with solid food at this time.Per nurse note, pt had loose stool last night. Per EMR, PO intake 50- 75%. Current Diet Order/ Nutrition Support cardiac Pertinent Medications colace, culturelle, zofran, piperacillin, vancomycin Pertinent Labs 01/24 cl 108, glucose 76 01/20 A1c 4.9 Nutritional Hx/Data Height 1.91 m Height (Calculated Centimeters) 190.5 Current Weight (lbs) 92.079 kg Weight (Calculated Kilograms) 92.1 Weight (Calculated Grams) 45933.3 [place] Body Weight 196 Body Mass Index (BMI) 25.3 Weight Status Overweight GI Symptoms GI Symptoms None Last BM 01/24 Difficult in: None Skin Integrity/Comment: intact Current %PO Fair (50-74%) Estimated Nutritional Goals BEE in Kcals: Using Current wt Calories/Kcals/Kg 25-30 Kcals Calculated 1150-9703 Protein: Using Current wt Protein g/k Protein Calculated 92 Fluid: ml 2300-2760ml (1ml/kcal) Nutritional Problem No current Nutrition Prob Problem N/A Malnutrition Alert Is there a minimum of two criteria No selected? Query Text:Check all the applicable criteria. A minimum of two criteria are recommended for diagnosis of either severe or non-severe malnutrition. Malnutrition Related to Morbid Obesity Malnutrition related to morbid obesity No Intervention/Recommendation Comments 1. Continue with current diet as ordered. Offered food alternatives if pt not able to take his meals. 2. Monitor PO intake, GI function, wt, labs and skin integrity 3. F/U as moderate risk in 3-5 days, 01/27-01/29 Expected Outcomes/Goals Expected Outcomes/Goals 1. PO intake to meet at least 75% of nutritional needs. 2. Wt stability, GI function to improve, skin to remain intact, labs to approach WNL.
[2018-01-26] MEDS: metroNIDAZOLE 500mg/NS 100mL 500 MG/100 ML BAG IV SCH (14:41)
--- NOTE | 2018-01-26 22:19 | Progress Notes ---
DATE: 01/26/2018 INTERVAL HISTORY: The patient is complaining of continued abdominal pain, nausea and vomiting. A CT of the abdomen and pelvis was performed and revealed cholelithiasis. An ultrasound of the abdomen was ordered to rule out acute cholecystitis. Pending the results, Dr. Parks will be consulted. He is continuing to have urinary retention and Partida had to be replaced and the patient was started on Flomax again. PHYSICAL EXAMINATION: VITAL SIGNS: Temperature 97.7, 81, 133/72, and 18. GENERAL: The patient appears to be in pain. HEENT: PERRLA, EOMI. NECK: Supple. Trachea midline. CARDIOVASCULAR: Regular rate and rhythm. RESPIRATORY: CTA bilaterally. No wheezes or rhonchi. ABDOMEN: Soft, tender to palpation diffusely, is nondistended. Bowel sounds are normoactive. G-tube site is clean, dry. There is no drainage. SKIN: Warm and dry. No open wounds. LABORATORY DATA: White blood cell count is 22.4, hemoglobin is 10.9, potassium is 3.0. Sodium is 143. ASSESSMENT AND PLAN: Sepsis, aspiration pneumonia, history of right upper extremity DVT, resolved; dysphagia, improving; AFib, anemia of chronic illness, moderate malnutrition, hyponatremia, history of aortic dissection, chronic pain and cardiac status post surgery at [facility] in 10/2017, hypokalemia, status post G-tube removal, status post Perm-A-Cath removal. Continue IV antibiotics. Infectious disease is following. An ultrasound of the abdomen was ordered due to cholelithiasis to rule out acute cholecystitis. The patient has a lot of nausea and vomiting. Denies abdominal pain at this time. He is refusing to take all of his medications. He wants to wait until he stops vomiting to take his meds. Zofran as needed for nausea or vomiting and Tylenol as needed for mild pain or fevers. Follow up ultrasound abdomen results. JOB# [id number]
[2018-01-27] MEDS: Levofloxacin 500mg/100mL 500 MG/100 ML BAG IV SCH (02:42)
[2018-01-27] MEDS: Albuterol/Ipratropium Neb 3 ML AERS HHN SCH ×5 (02:49→19:15)
[2018-01-27] MEDS: Sodium Chloride 0.9% 1,000 ML IV SCH ×2 (02:49→18:47)
[2018-01-27] MEDS: metroNIDAZOLE 500mg/NS 100mL 500 MG/100 ML BAG IV SCH ×2 (03:52→15:16)
[2018-01-27 06:07] LABS: % BASOPHILS 0.3 % (0.0-2.0); % LYMPHOCYTES 7.5 % (20.0-50.0); % MONOCYTES 11.4 % (2.0-10.0); % NEUTROPHILS 78.8 % (40.0-80.0); BASOPHILE ABSOLUTE 0.1 Th/cumm (0-0.2); EOSINOPHILE ABSOLUTE 0.4 Th/cmm (0.1-0.4); HEMATOCRIT 27.4 % (41.0-60); HEMOGLOBIN 9.1 gm/dL (12-16); LYMPHOCYTE ABSOLUTE 1.3 Th/cmm (1.5-3.0); MEAN CELL VOLUME 87.8 fl (80-99); MEAN CORPUSCULAR HGB CONC 33.1 pg (28.0-36.0); MEAN PLATELET VOLUME 8.5 fl; NEUTROPHILE ABSOLUTE 13.9 Th/cmm (1.8-8.0); RED BLOOD COUNT 3.12 Mil/cmm (4.30-5.70); RED CELL DISTRIBUTION WIDTH 15.6 % (11.5-20.0)
[2018-01-27 06:14] LABS: ANION GAP 11.1 (7.0-16.0); CARBON DIOXIDE 23.6 mEq/L (21.0-31.0); CREATININE - SERUM 2.2 mg/dL (0.7-1.3); GFR AFRICAN-AMERICAN 39.3 ml/min (>90); GFR NON AFRICAN-AMERICAN 32.5 ml/min
[2018-01-27 06:19] LABS: WHITE BLOOD COUNT 17.7 Th/cmm (4.8-10.8)
[2018-01-27 06:22] LABS: PLATELET COUNT 280 Th/cmm (150-400); POTASSIUM SERUM 2.7 mEq/L (3.5-5.1)
[2018-01-27] MEDS: Aspirin 81mg Chewable Tab GT SCH (09:40)
[2018-01-27] MEDS: Lactobacillus Rhamnosus GG 15 Billion CFU CAP.SPRINK PO SCH (09:40)
[2018-01-27] MEDS: KCL 20mEq/100mL Premix 20 MEQ/100 ML PIGGYBACK IV SCH ×2 (09:41→12:20)
--- NOTE | 2018-01-27 10:28 | General Progress Note ---
Subjective - Review of Systems Service Date: 01/27/18 Events since last encounter: has abdominal pain and vomiting CT shows cholelithiasis, LFT normal US awaited Plan: julieta [place], labs in AM discussed cholecystectomy with patient and brother, likely open due to multiple midline incisions recheck labs in AM Objective - Results Result Diagrams: 01/27/18 05:45 01/27/18 05:45 Recent Labs: Laboratory Last Values WBC 17.7 Th/cmm (4.8-10.8) H D 01/27/18 05:45 RBC 3.12 Mil/cmm (4.30-5.70) L 01/27/18 05:45 Hgb 9.1 gm/dL (12-16) L 01/27/18 05:45 Hct 27.4 % (41.0-60) L 01/27/18 05:45 MCV 87.8 fl (80-99) 01/27/18 05:45 MCH 29.0 pg (26.0-30.0) 01/27/18 05:45 MCHC Differential 33.1 pg (28.0-36.0) 01/27/18 05:45 RDW 15.6 % (11.5-20.0) 01/27/18 05:45 Plt Count 280 Th/cmm (150-400) D 01/27/18 05:45 MPV 8.5 fl 01/27/18 05:45 Neutrophils % 78.8 % (40.0-80.0) 01/27/18 05:45 Band Neutrophils % 2 % (0-10) 01/26/18 06:04 Lymphocytes % 7.5 % (20.0-50.0) L 01/27/18 05:45 Monocytes % 11.4 % (2.0-10.0) H 01/27/18 05:45 Eosinophils % 2.0 % (0.0-5.0) 01/27/18 05:45 Basophils % 0.3 % (0.0-2.0) 01/27/18 05:45 Neutrophils (Manual) 83 % (40-80) H 01/26/18 06:04 Lymphocytes 10 % (20-50) L 01/26/18 06:04 Monocytes 5 % (2-10) 01/26/18 06:04 Eosinophils 1 % (0-5) 01/25/18 05:57 Platelet Estimate ADEQUATE (NORMAL) 01/26/18 06:04 Poikilocytosis 1+ 01/25/18 05:57 Anisocytosis 1+ 01/25/18 05:57 PT 24.2 SECONDS (9.5-11.5) H 01/25/18 05:57 INR 2.23 (0.5-1.4) H 01/25/18 05:57 PTT (Actin FS) 38.3 SECONDS (26.0-38.0) H 01/22/18 06:06 Sodium 144 mEq/L (136-145) 01/27/18 05:45 Potassium 2.7 mEq/L (3.5-5.1) L* 01/27/18 05:45 Chloride 112 mEq/L (98-107) H 01/27/18 05:45 Carbon Dioxide 23.6 mEq/L (21.0-31.0) 01/27/18 05:45 Anion Gap 11.1 (7.0-16.0) 01/27/18 05:45 BUN 10 mg/dL (7-25) 01/27/18 05:45 Creatinine 2.2 mg/dL (0.7-1.3) H 01/27/18 05:45 Est GFR ( Amer) 39.3 ml/min (>90) 01/27/18 05:45 Est GFR (Non-Af Amer) 32.5 ml/min 01/27/18 05:45 BUN/Creatinine Ratio 4.5 01/27/18 05:45 Glucose 98 mg/dL (70-105) 01/27/18 05:45 POC Glucose 87 MG/DL (70 - 105) 01/22/18 06:17 Hemoglobin A1c % 4.9 % (4.0-6.0) 01/20/18 16:40 Whole Bld Lactic Acid 1.32 mmol/L (0.60-1.99) 01/20/18 16:40 Calcium 8.0 mg/dL (8.6-10.3) L 01/27/18 05:45 Total Bilirubin 0.6 mg/dL (0.3-1.0) 01/26/18 06:32 AST 14 U/L (13-39) 01/26/18 06:32 ALT 15 U/L (7-52) 01/26/18 06:32 Alkaline Phosphatase 96 U/L (34-104) 01/26/18 06:32 Creatine Kinase 32 U/L (30-223) 01/20/18 16:40 Troponin I 0.01 ng/mL (0.01-0.05) 01/20/18 16:40 Total Protein 6.7 gm/dL (6.0-8.3) 01/26/18 06:32 Albumin 3.5 gm/dL (4.2-5.5) L 01/26/18 06:32 Globulin 3.2 gm/dL 01/26/18 06:32 Albumin/Globulin Ratio 1.1 (1.0-1.8) 01/26/18 06:32 Urine Source MIDSTREAM 01/20/18 20:20 Urine Color YELLOW 01/20/18 20:20 Urine Clarity HAZY (CLEAR) 01/20/18 20:20 Urine pH 5.5 (4.6 - 8.0) 01/20/18 20:20 Ur Specific [place] 1.020 (1.005-1.030) 01/20/18 20:20 Urine Protein NEGATIVE mg/dL (NEGATIVE) 01/20/18 20:20 Urine Glucose (UA) NEGATIVE mg/dL (NEGATIVE) 01/20/18 20:20 Urine Ketones NEGATIVE mg/dL (NEGATIVE) 01/20/18 20:20 Urine Blood SMALL (NEGATIVE) H 01/20/18 20:20 Urine Nitrate NEGATIVE (NEGATIVE) 01/20/18 20:20 Urine Bilirubin NEGATIVE (NEGATIVE) 01/20/18 20:20 Urine Urobilinogen 0.2 E.U./dL (0.2 - 1.0) 01/20/18 20:20 Ur Leukocyte Esterase SMALL (NEGATIVE) H 01/20/18 20:20 Urine RBC 5-10 /hpf (0-5) H 01/20/18 20:20 Urine WBC 10-25 /hpf (0-5) H 01/20/18 20:20 Ur Epithelial Cells NONE SEEN /lpf (FEW) 01/20/18 20:20 Urine Bacteria NONE SEEN /hpf (NONE SEEN) 01/20/18 20:20 Vancomycin Trough 28.2 ug/mL (5-10) H 01/25/18 09:00 Random Vancomycin 30.6 ug/mL (5.0-40.0) 01/26/18 06:00 - Physical Exam Vitals and I&O: Vital Signs Temp 97.5 F 01/27/18 07:58 Pulse 86 01/27/18 09:38 Resp 18 01/27/18 09:46 BP 100/47 01/27/18 09:22 Pulse Ox 98 01/27/18 07:58 Intake & Output 01/26/18 01/27/18 01/27/18 18:59 06:59 18:59 Intake Total 1300 1520 Output Total 2610 Balance 1300 -1090 Weight (lbs) 93.894 kg 91.263 kg Intake: Intake, IV Amount 1200 970 KCL 20mEq/100mL Premix 20 100 meq In 100 ml @ 50 mls/ hr IV Q2H [facility] Rx#: [id number] Sodium Chloride 0.9% 1, 1000 970 000 ml @ 120 mls/hr IV . Q8H20M [facility] Rx#:[id number] metroNIDAZOLE 500mg/NS 100 100mL 500 mg In 100 ml @ 100 mls/hr IV Q12H [facility] Rx #:[id number] Oral 100 550 Output: Urine 2609 Stool 1 Other: # Bowel Movements 1 Weight Source Bedscale Bedscale Active Medications: Current Medications Acetaminophen (Tylenol) 650 mg PO Q6H PRN PRN Reason: HEADACHE/TEMP ABOVE 100F Stop: 03/21/18 19:07 Last Admin: 01/20/18 23:17 Dose: 650 mg Acetaminophen/Hydrocodone Bitart ([place] 10 Mg/325 Mg) 1 tab PO Q6H PRN PRN Reason: mod pain Stop: 03/22/18 10:31 Last Admin: 01/24/18 21:56 Dose: 1 tab Albuterol/Ipratropium (Duoneb Neb) 3 ml HHN Q4HRT [facility] Stop: 03/21/18 19:59 Last Admin: 01/27/18 07:45 Dose: 3 ml Amiodarone HCl (Cordarone) 100 mg GT DAILY [facility] Stop: 03/22/18 08:59 Last Admin: 01/27/18 09:38 Dose: Not Given Amlodipine Besylate (Norvasc) 10 mg GT DAILY [facility] Stop: 03/22/18 08:59 Last Admin: 01/27/18 09:22 Dose: Not Given Aspirin (Aspirin Chewable) 81 mg GT DAILY [facility] Stop: 03/22/18 08:59 Last Admin: 01/27/18 09:40 Dose: Not Given Atorvastatin Calcium (Lipitor) 40 mg GT HS [facility] Stop: 03/25/18 20:59 Last Admin: 01/26/18 21:24 Dose: 40 mg Docusate Sodium (Colace) 100 mg PO BID PRN PRN Reason: Constipation Stop: 03/21/18 19:07 Last Admin: 01/23/18 10:21 Dose: 100 mg Potassium Chloride 40 meq/Lidocaine HCl 25 mg/ Sodium Chloride 272.5 mls @ 68 mls/hr IV DAILY PRN PRN Reason: k level less than 3.2 Stop: 03/21/18 19:07 Magnesium Sulfate (Magnesium Sulfate Premix) 2 gm in 50 mls @ 25 mls/hr IV DAILY PRN PRN Reason: Magnesium level less than 1.6 Stop: 03/21/18 19:07 Sodium Chloride (Nacl 0.9%) 1,000 mls @ 120 mls/hr IV .Q8H20M [facility] Stop: 03/26/18 17:29 Last Admin: 01/27/18 02:49 Dose: 120 mls/hr Levofloxacin (Levaquin Pb) 500 mg in 100 mls @ 100 mls/hr IV Q24HR [facility] Stop: 03/27/18 02:59 Last Admin: 01/27/18 02:42 Dose: 100 mls/hr Metronidazole (Flagyl) 500 mg in 100 mls @ 100 mls/hr IV Q12H [facility] Stop: 03/27/18 14:59 Last Admin: 01/27/18 03:52 Dose: 100 mls/hr Potassium Chloride (Potassium Chloride) 20 meq in 100 mls @ 50 mls/hr IV Q2H [facility] Stop: 01/27/18 12:14 Last Admin: 01/27/18 09:41 Dose: 50 mls/hr Lactobacillus Rhamnosus (Culturelle 15b) 1 each PO DAILY [facility] Stop: 03/23/18 08:59 Last Admin: 01/27/18 09:40 Dose: Not Given Lorazepam (Ativan) 1 mg IVP Q4H PRN; Protocol PRN Reason: Anxiety Stop: 03/21/18 19:07 Last Admin: 01/22/18 23:03 Dose: 1 mg Magnesium Oxide (Mag-Oxide) 400 mg PO BID PRN PRN Reason: Mg less than 1.9 Stop: 03/21/18 19:07 Metoprolol Tartrate (Lopressor) 50 mg GT Q8H [facility] Stop: 03/21/18 19:14 Last Admin: 01/27/18 04:50 Dose: Not Given Miscellaneous (Probiotic Screen) 1 ea MC PRN PRN PRN Reason: PROTOCOL Stop: 03/22/18 09:59 Morphine Sulfate (Morphine) 1 mg IVP Q4HR PRN PRN Reason: Severe Pain Stop: 03/21/18 19:07 Last Admin: 01/26/18 20:33 Dose: 1 mg Ondansetron HCl (Zofran) 4 mg IV Q4H PRN PRN Reason: Nausea / Vomiting Stop: 03/27/18 09:59 Last Admin: 01/27/18 09:42 Dose: 4 mg Potassium Chloride (Klor-Con) 40 meq PO DAILY PRN PRN Reason: k level less than 3.5 Stop: 03/21/18 19:07 Rivaroxaban (Xarelto) 20 mg PO DAILY [facility] Stop: 03/25/18 08:59 Last Admin: 01/26/18 14:53 Dose: 20 mg Simethicone (Mylicon) 80 mg PO Q8H [facility] Stop: 03/27/18 10:14 Last Admin: 01/27/18 02:42 Dose: 80 mg Tamsulosin HCl (Flomax) 0.4 mg PO HS [facility] Stop: 03/25/18 20:59 Last Admin: 01/26/18 21:25 Dose: 0.4 mg Tamsulosin HCl (Flomax) 0.4 mg PO DAILY [facility] Stop: 03/28/18 08:59 Last Admin: 01/27/18 09:40 Dose: Not Given Zolpidem Tartrate (Ambien) 10 mg PO HS PRN PRN Reason: Insomnia Stop: 03/21/18 19:07 General: Alert, Oriented x3, Cooperative HEENT: Atraumatic, PERRLA, EOMI Neck: Supple, no JVD Cardiovascular: Regular rate Lungs: Other (has rales and congestion) Abdomen: Bowel sounds, Soft Extremities: no Cyanosis Neurological: Normal speech Skin: no Rash Assessment/Plan - Problem List Patient Problems: All Active Problems GASTRIC TUBE AND CORAL REMOVAL (Acute) Nutritional Asmnt/Malnutr-PDOC - Dietary Evaluation Malnutrition Findings (Please click <Entered> for more info): Nutritional Asmnt/Malnutrition Start: 01/24/18 17: 29 Text: Status: Complete Freq: Document 01/24/18 17:29 LCHENG (Rec: 01/24/18 17:38 [id number]) Nutritional Asmnt/Malnutrition Patient General Information Nutritional Screening Moderate Risk Diagnosis aspiration PNA Pertinent Medical Hx/Surgical Hx cardiac tampondade s/p surgery , aortic dissection, Gtube ( now removed) Subjective Information Per H&P pt had Gtube removed and started oral diet for about one month. Pt stated he still have some stomach issue, vomiting. Pt consumed cream of wheat and ceream for breakfast this morning, not very comfortable with solid food at this time.Per nurse note, pt had loose stool last night. Per EMR, PO intake 50- 75%. Current Diet Order/ Nutrition Support cardiac Pertinent Medications colace, culturelle, zofran, piperacillin, vancomycin Pertinent Labs 01/24 cl 108, glucose 76 01/20 A1c 4.9 Nutritional Hx/Data Height 1.91 m Height (Calculated Centimeters) 190.5 Current Weight (lbs) 92.079 kg Weight (Calculated Kilograms) 92.1 Weight (Calculated Grams) 67067.3 [place] Body Weight 196 Body Mass Index (BMI) 25.3 Weight Status Overweight GI Symptoms GI Symptoms None Last BM 01/24 Difficult in: None Skin Integrity/Comment: intact Current %PO Fair (50-74%) Estimated Nutritional Goals BEE in Kcals: Using Current wt Calories/Kcals/Kg 25-30 Kcals Calculated 9520-3147 Protein: Using Current wt Protein g/k Protein Calculated 92 Fluid: ml 2300-2760ml (1ml/kcal) Nutritional Problem No current Nutrition Prob Problem N/A Malnutrition Alert Is there a minimum of two criteria No selected? Query Text:Check all the applicable criteria. A minimum of two criteria are recommended for diagnosis of either severe or non-severe malnutrition. Malnutrition Related to Morbid Obesity Malnutrition related to morbid obesity No Intervention/Recommendation Comments 1. Continue with current diet as ordered. Offered food alternatives if pt not able to take his meals. 2. Monitor PO intake, GI function, wt, labs and skin integrity 3. F/U as moderate risk in 3-5 days, 01/27-01/29 Expected Outcomes/Goals Expected Outcomes/Goals 1. PO intake to meet at least 75% of nutritional needs. 2. Wt stability, GI function to improve, skin to remain intact, labs to approach WNL.
--- NOTE | 2018-01-27 10:36 | Diagnostic Imaging Report ---
Exam: Ultrasound summation abdomen. HISTORY: Cholelithiasis. Findings: Real-time ultrasound examination abdomen performed multiple planes. The study was correlated with CT examination of the abdomen 01/25/2018 The study demonstrates hepatomegaly. The gallbladder demonstrates small calculi consistent cholelithiasis. The common bile duct measures 5 mm. The pancreas is not seen. There is no evidence of obstructive uropathy or nephrolithiasis. Left renal cysts appreciated. The spleen is not seen. No free fluid is noted. IMPRESSION: Cholelithiasis.
[2018-01-27 10:47] LABS: CHOLESTEROL 79 mg/dL (<200); HDL -HIGH DENSITY LIPOPROTEIN 32 mg/dL (23-92); TRIGLYCERIDES 69 mg/dL (<150)
[2018-01-27] MEDS: Morphine Sulfate 4 mg/mL 1mL Syr IVP PRN (11:26)
[2018-01-27] MEDS: HYDROmorphone 2 mg/mL 1mL Vial IVP PRN ×2 (15:12→20:08)
[2018-01-27] MEDS: Phytonadione **Oral Compound** 10mg/10mL Soln PO SCH (17:45)
--- NOTE | 2018-01-27 20:11 | Progress Notes ---
DATE: SUBJECTIVE: The patient is lying comfortably in bed. The patient appears to be in pain. He is actively vomiting. Ultrasound revealed cholelithiasis without cholecystitis. Dr. Parks was consulted due to the severe abdominal pain, nausea, vomiting and his white count trended upwards. Dr. Parks will go ahead and perform an attempted laparoscopic cholecystectomy tomorrow; however, the patient has had multiple surgeries in the past and it could potentially have to be converted from laparoscopic to open procedure, so the patient can tolerate it. OBJECTIVE: VITAL SIGNS: 97.7, 80, 115/71, and 18. GENERAL: The patient appears to be in pain. He is actually vomiting. HEENT: PERRLA, EOMI. NECK: Supple. Trachea midline. CARDIOVASCULAR: Regular rate and rhythm. RESPIRATORY: CTA bilaterally. ABDOMEN: Soft, diffusely tender to palpation, nondistended. SKIN: No rashes or open wounds. MUSCULOSKELETAL: Muscle strength testing bilaterally upper and lower extremities 4/5. LABORATORY DATA: White blood cell count is 17.7, hemoglobin is 9.1. The potassium is 2.7 and sodium is 144. Albumin was 3.5. ASSESSMENT AND PLAN: Sepsis, aspiration pneumonia, history of right upper extremity deep venous thrombosis resolved, dysphagia improving, atrial fibrillation, anemia of chronic illness, moderate malnutrition, hyponatremia, history of aortic dissection, chronic pain, hypokalemia, status post gastric tube removal, status post Perm-A-Cath removal. Continue intravenous antibiotics. Zofran for nausea and vomiting, intravenous fluids, clear liquid diet as tolerated. The patient will be n.p.o. in the morning for likely surgery with Dr. Parks. The risks and benefits of the procedure have been discussed with the patient and he is aware that due to his past history of having multiple abdominal surgeries. It is possible that the procedure may have to convert from laparoscopic to an open cholecystectomy. Xarelto has been held due to increased risk of bleeding during the surgical procedure. Continue amlodipine, amiodarone, aspirin, atorvastatin, Levaquin, Flagyl, metoprolol. JOB# [id number]
[2018-01-28] MEDS: Phytonadione **Oral Compound** 10mg/10mL Soln PO SCH ×2 (01:22→13:25)
[2018-01-28] MEDS: Sodium Chloride 0.9% 1,000 ML IV SCH ×3 (01:25→22:02)
[2018-01-28] MEDS: Levofloxacin 500mg/100mL 500 MG/100 ML BAG IV SCH (02:19)
[2018-01-28] MEDS: metroNIDAZOLE 500mg/NS 100mL 500 MG/100 ML BAG IV SCH ×2 (02:20→16:38)
[2018-01-28 04:52] LABS: % BASOPHILS 0.3 % (0.0-2.0); % EOSINOPHILS 2.2 % (0.0-5.0); % LYMPHOCYTES 8.4 % (20.0-50.0); % MONOCYTES 12.2 % (2.0-10.0); % NEUTROPHILS 76.9 % (40.0-80.0); BASOPHILE ABSOLUTE 0.1 Th/cumm (0-0.2); EOSINOPHILE ABSOLUTE 0.4 Th/cmm (0.1-0.4); HEMATOCRIT 26.5 % (41.0-60); LYMPHOCYTE ABSOLUTE 1.5 Th/cmm (1.5-3.0); MEAN CELL VOLUME 89.2 fl (80-99); MEAN CORPUSCULAR HEMOGLOBIN 30.3 pg (26.0-30.0); MEAN CORPUSCULAR HGB CONC 33.9 pg (28.0-36.0); MEAN PLATELET VOLUME 8.6 fl; MONOCYTE ABSOLUTE 2.1 Th/cmm (0.3-1.0); NEUTROPHILE ABSOLUTE 13.3 Th/cmm (1.8-8.0); PLATELET COUNT 284 Th/cmm (150-400); RED BLOOD COUNT 2.97 Mil/cmm (4.30-5.70); RED CELL DISTRIBUTION WIDTH 15.2 % (11.5-20.0)
[2018-01-28 04:58] LABS: WHITE BLOOD COUNT 17.4 Th/cmm (4.8-10.8)
[2018-01-28 05:02] LABS: INR 1.66 (0.5-1.4); PROTHROMBIN TIME (TEST) 17.8 SECONDS (9.5-11.5)
[2018-01-28 05:58] LABS: ALBUMIN 2.8 gm/dL (4.2-5.5); ANION GAP 12.3 (7.0-16.0); BILIRUBIN,TOTAL 0.4 mg/dL (0.3-1.0); CALCIUM SERUM 8.2 mg/dL (8.6-10.3); CARBON DIOXIDE 23.6 mEq/L (21.0-31.0); CREATININE - SERUM 2.3 mg/dL (0.7-1.3); GFR AFRICAN-AMERICAN 37.4 ml/min (>90); GFR NON AFRICAN-AMERICAN 30.9 ml/min; TOTAL PROTEIN,SERUM 5.5 gm/dL (6.0-8.3)
[2018-01-28 05:59] LABS: POTASSIUM SERUM 2.9 mEq/L (3.5-5.1)
[2018-01-28] MEDS ORDERED: KCL 20mEq/100mL Premix 40 MEQ/200 ML PIGGYBACK IV ONE (06:19)
[2018-01-28] MEDS: Albuterol/Ipratropium Neb 3 ML AERS HHN SCH ×5 (07:30→22:24)
[2018-01-28] MEDS ORDERED: Propofol **SURGERY USE ONLY** 20 ML IV ONE ×2 (07:44→08:05)
[2018-01-28] MEDS ORDERED: KCL 20mEq/100mL Premix Bag IV SCH (08:00)
[2018-01-28] MEDS ORDERED: Neostigmine 10mg/10mL Vial ONE (08:28)
[2018-01-28] MEDS ORDERED: HYDROmorphone 2 mg/mL 1mL Vial ONE (08:29)
[2018-01-28] MEDS ORDERED: Metoclopramide 5 mg/mL 2mL Vial ONE (08:43)
[2018-01-28] MEDS ORDERED: HYDROmorphone 1 mg/mL 1mL Syr IVP PRN (09:39)
--- NOTE | 2018-01-28 09:51 | General Progress Note ---
Subjective - Review of Systems Service Date: 01/28/18 Subjective: Pt seen and eval. Has some congestion. No fevers or chills. Now on Levaquin and Flagyl. Seen by ID, Cardio, and Sx. Status post removal of Perm-A-Cath and GT by Dr. Parks on 01/22/18. No n,v,d or cp. Feels weak. WBC trending down overall. Pt is POD # 0 for open cholecystectomy today on 01/28/18. Objective - Results Result Diagrams: 01/28/18 04:20 01/28/18 04:20 Recent Labs: Laboratory Last Values WBC 17.4 Th/cmm (4.8-10.8) H 01/28/18 04:20 RBC 2.97 Mil/cmm (4.30-5.70) L 01/28/18 04:20 Hgb 9.0 gm/dL (12-16) L 01/28/18 04:20 Hct 26.5 % (41.0-60) L 01/28/18 04:20 MCV 89.2 fl (80-99) 01/28/18 04:20 MCH 30.3 pg (26.0-30.0) H 01/28/18 04:20 MCHC Differential 33.9 pg (28.0-36.0) 01/28/18 04:20 RDW 15.2 % (11.5-20.0) 01/28/18 04:20 Plt Count 284 Th/cmm (150-400) 01/28/18 04:20 MPV 8.6 fl 01/28/18 04:20 Neutrophils % 76.9 % (40.0-80.0) 01/28/18 04:20 Band Neutrophils % 2 % (0-10) 01/26/18 06:04 Lymphocytes % 8.4 % (20.0-50.0) L 01/28/18 04:20 Monocytes % 12.2 % (2.0-10.0) H 01/28/18 04:20 Eosinophils % 2.2 % (0.0-5.0) 01/28/18 04:20 Basophils % 0.3 % (0.0-2.0) 01/28/18 04:20 Neutrophils (Manual) 83 % (40-80) H 01/26/18 06:04 Lymphocytes 10 % (20-50) L 01/26/18 06:04 Monocytes 5 % (2-10) 01/26/18 06:04 Eosinophils 1 % (0-5) 01/25/18 05:57 Platelet Estimate ADEQUATE (NORMAL) 01/26/18 06:04 Poikilocytosis 1+ 01/25/18 05:57 Anisocytosis 1+ 01/25/18 05:57 PT 17.8 SECONDS (9.5-11.5) H 01/28/18 04:20 INR 1.66 (0.5-1.4) H 01/28/18 04:20 PTT (Actin FS) 45.6 SECONDS (26.0-38.0) H 01/28/18 04:20 Sodium 145 mEq/L (136-145) 01/28/18 04:20 Potassium 2.9 mEq/L (3.5-5.1) L* 01/28/18 04:20 Chloride 112 mEq/L (98-107) H 01/28/18 04:20 Carbon Dioxide 23.6 mEq/L (21.0-31.0) 01/28/18 04:20 Anion Gap 12.3 (7.0-16.0) 01/28/18 04:20 BUN 9 mg/dL (7-25) 01/28/18 04:20 Creatinine 2.3 mg/dL (0.7-1.3) H 01/28/18 04:20 Est GFR ( Amer) 37.4 ml/min (>90) 01/28/18 04:20 Est GFR (Non-Af Amer) 30.9 ml/min 01/28/18 04:20 BUN/Creatinine Ratio 3.9 01/28/18 04:20 Glucose 94 mg/dL (70-105) 01/28/18 04:20 POC Glucose 87 MG/DL (70 - 105) 01/28/18 05:32 Hemoglobin A1c % 4.9 % (4.0-6.0) 01/20/18 16:40 Whole Bld Lactic Acid 1.32 mmol/L (0.60-1.99) 01/20/18 16:40 Calcium 8.2 mg/dL (8.6-10.3) L 01/28/18 04:20 Total Bilirubin 0.4 mg/dL (0.3-1.0) 01/28/18 04:20 AST 15 U/L (13-39) 01/28/18 04:20 ALT 13 U/L (7-52) 01/28/18 04:20 Alkaline Phosphatase 72 U/L (34-104) 01/28/18 04:20 Creatine Kinase 32 U/L (30-223) 01/20/18 16:40 Troponin I 0.01 ng/mL (0.01-0.05) 01/20/18 16:40 Total Protein 5.5 gm/dL (6.0-8.3) L 01/28/18 04:20 Albumin 2.8 gm/dL (4.2-5.5) L 01/28/18 04:20 Globulin 2.7 gm/dL 01/28/18 04:20 Albumin/Globulin Ratio 1.0 (1.0-1.8) 01/28/18 04:20 Triglycerides 69 mg/dL (<150) 01/27/18 05:45 Cholesterol 79 mg/dL (<200) 01/27/18 05:45 LDL Cholesterol Direct 37 mg/dL (75-193) L 01/27/18 05:45 HDL Cholesterol 32 mg/dL (23-92) 01/27/18 05:45 Urine Source MIDSTREAM 01/20/18 20:20 Urine Color YELLOW 01/20/18 20:20 Urine Clarity HAZY (CLEAR) 01/20/18 20:20 Urine pH 5.5 (4.6 - 8.0) 01/20/18 20:20 Ur Specific [place] 1.020 (1.005-1.030) 01/20/18 20:20 Urine Protein NEGATIVE mg/dL (NEGATIVE) 01/20/18 20:20 Urine Glucose (UA) NEGATIVE mg/dL (NEGATIVE) 01/20/18 20:20 Urine Ketones NEGATIVE mg/dL (NEGATIVE) 01/20/18 20:20 Urine Blood SMALL (NEGATIVE) H 01/20/18 20:20 Urine Nitrate NEGATIVE (NEGATIVE) 01/20/18 20:20 Urine Bilirubin NEGATIVE (NEGATIVE) 01/20/18 20:20 Urine Urobilinogen 0.2 E.U./dL (0.2 - 1.0) 01/20/18 20:20 Ur Leukocyte Esterase SMALL (NEGATIVE) H 01/20/18 20:20 Urine RBC 5-10 /hpf (0-5) H 01/20/18 20:20 Urine WBC 10-25 /hpf (0-5) H 01/20/18 20:20 Ur Epithelial Cells NONE SEEN /lpf (FEW) 01/20/18 20:20 Urine Bacteria NONE SEEN /hpf (NONE SEEN) 01/20/18 20:20 Vancomycin Trough 28.2 ug/mL (5-10) H 01/25/18 09:00 Random Vancomycin 30.6 ug/mL (5.0-40.0) 01/26/18 06:00 - Physical Exam Vitals and I&O: Vital Signs Temp 98.6 F 01/28/18 08:00 Pulse 87 01/28/18 08:00 Resp 18 01/28/18 08:00 BP 136/49 01/28/18 08:00 Pulse Ox 100 01/28/18 08:00 Intake & Output 01/27/18 01/28/18 01/28/18 18:59 06:59 18:59 Intake Total 1920 1356 Output Total 1400 800 Balance 520 556 Weight (lbs) 91.263 kg 91.172 kg Intake: Intake, IV Amount 1200 996 KCL 20mEq/100mL Premix 20 100 meq In 100 ml @ 50 mls/ hr IV Q2H [facility] Rx#: [id number] Levofloxacin 500mg/100mL 100 500 mg In 100 ml @ 100 mls/hr IV Q24HR [facility] Rx#: [id number] Sodium Chloride 0.9% 1, 1000 796 000 ml @ 120 mls/hr IV . Q8H20M [facility] Rx#:[id number] metroNIDAZOLE 500mg/NS 100 100 100mL 500 mg In 100 ml @ 100 mls/hr IV Q12H [facility] Rx #:[id number] Oral 720 360 Output: Urine 1400 800 Other: # Bowel Movements 2 1 Weight Source Estimated Bedscale Active Medications: Current Medications Acetaminophen (Tylenol) 650 mg PO Q6H PRN PRN Reason: HEADACHE/TEMP ABOVE 100F Stop: 03/21/18 19:07 Last Admin: 01/20/18 23:17 Dose: 650 mg Acetaminophen/Hydrocodone Bitart ([place] 10 Mg/325 Mg) 1 tab PO Q6H PRN PRN Reason: mod pain Stop: 03/22/18 10:31 Last Admin: 01/24/18 21:56 Dose: 1 tab Albuterol/Ipratropium (Duoneb Neb) 3 ml HHN Q4HRT [facility] Stop: 03/21/18 19:59 Last Admin: 01/28/18 07:30 Dose: 3 ml Amiodarone HCl (Cordarone) 100 mg GT DAILY [facility] Stop: 03/22/18 08:59 Last Admin: 01/27/18 09:38 Dose: Not Given Amlodipine Besylate (Norvasc) 10 mg GT DAILY [facility] Stop: 03/22/18 08:59 Last Admin: 01/27/18 09:22 Dose: Not Given Aspirin (Aspirin Chewable) 81 mg GT DAILY [facility] Stop: 03/22/18 08:59 Last Admin: 01/27/18 09:40 Dose: Not Given Atorvastatin Calcium (Lipitor) 40 mg GT HS [facility] Stop: 03/25/18 20:59 Last Admin: 01/27/18 20:09 Dose: 40 mg Docusate Sodium (Colace) 100 mg PO BID PRN PRN Reason: Constipation Stop: 03/21/18 19:07 Last Admin: 01/23/18 10:21 Dose: 100 mg Hydromorphone HCl (Dilaudid) 1 mg IVP Q4HR PRN PRN Reason: Pain (Severe) Stop: 03/28/18 12:54 Last Admin: 01/27/18 20:08 Dose: 1 mg Hydromorphone HCl (Dilaudid) 1 mg IVP Q4HR PRN PRN Reason: Pain (Moderate) Stop: 01/29/18 09:38 Potassium Chloride 40 meq/Lidocaine HCl 25 mg/ Sodium Chloride 272.5 mls @ 68 mls/hr IV DAILY PRN PRN Reason: k level less than 3.2 Stop: 03/21/18 19:07 Last Admin: 01/28/18 06:25 Dose: 68 mls/hr Magnesium Sulfate (Magnesium Sulfate Premix) 2 gm in 50 mls @ 25 mls/hr IV DAILY PRN PRN Reason: Magnesium level less than 1.6 Stop: 03/21/18 19:07 Sodium Chloride (Nacl 0.9%) 1,000 mls @ 120 mls/hr IV .Q8H20M [facility] Stop: 03/26/18 17:29 Last Admin: 01/28/18 01:25 Dose: 120 mls/hr Levofloxacin (Levaquin Pb) 500 mg in 100 mls @ 100 mls/hr IV Q24HR [facility] Stop: 03/27/18 02:59 Last Infusion: 01/28/18 03:19 Dose: Infused Metronidazole (Flagyl) 500 mg in 100 mls @ 100 mls/hr IV Q12H [facility] Stop: 03/27/18 14:59 Last Infusion: 01/28/18 03:20 Dose: Infused Lactobacillus Rhamnosus (Culturelle 15b) 1 each PO DAILY [facility] Stop: 03/23/18 08:59 Last Admin: 01/27/18 09:40 Dose: Not Given Lorazepam (Ativan) 1 mg IVP Q4H PRN; Protocol PRN Reason: Anxiety Stop: 03/21/18 19:07 Last Admin: 01/27/18 21:46 Dose: 1 mg Magnesium Oxide (Mag-Oxide) 400 mg PO BID PRN PRN Reason: Mg less than 1.9 Stop: 03/21/18 19:07 Metoprolol Tartrate (Lopressor) 50 mg GT Q8H [facility] Stop: 03/21/18 19:14 Last Admin: 01/28/18 02:21 Dose: Not Given Miscellaneous (Probiotic Screen) 1 ea MC PRN PRN PRN Reason: PROTOCOL Stop: 03/22/18 09:59 Ondansetron HCl (Zofran) 4 mg IV Q4H PRN PRN Reason: Nausea / Vomiting Stop: 03/27/18 09:59 Last Admin: 01/27/18 09:42 Dose: 4 mg Phytonadione (Vitamin K1 Oral Compound) 10 mg PO Q8H [facility] Stop: 01/28/18 16:59 Last Admin: 01/28/18 01:22 Dose: 10 mg Potassium Chloride (Klor-Con) 40 meq PO DAILY PRN PRN Reason: k level less than 3.5 Stop: 03/21/18 19:07 Potassium Chloride (Klor-Con) 40 meq PO DAILY [facility] Stop: 03/29/18 08:59 Simethicone (Mylicon) 80 mg PO Q8H [facility] Stop: 03/27/18 10:14 Last Admin: 01/28/18 02:21 Dose: Not Given Tamsulosin HCl (Flomax) 0.4 mg PO HS [facility] Stop: 03/25/18 20:59 Last Admin: 01/27/18 20:09 Dose: 0.4 mg Tamsulosin HCl (Flomax) 0.4 mg PO DAILY [facility] Stop: 03/28/18 08:59 Last Admin: 01/27/18 09:40 Dose: Not Given Zolpidem Tartrate (Ambien) 10 mg PO HS PRN PRN Reason: Insomnia Stop: 03/21/18 19:07 General: Alert, Oriented x3, Cooperative HEENT: Atraumatic, PERRLA, EOMI Neck: Supple, no JVD Cardiovascular: Regular rate Lungs: Other (has rales and congestion) Abdomen: Bowel sounds, Soft, Tender Extremities: no Cyanosis Neurological: Normal speech Skin: no Rash Assessment/Plan - Problem List Patient Problems: All Active Problems GASTRIC TUBE AND CORAL REMOVAL (Acute) - Assessment Assessment: Symptomatic Cholelithiasis with possible cholecystitis. Sepsis Asp PNA Hypokalemia Hx of RUE DVT (now resolved) Dysphagia (resolved) A Fib Anemia of Ch Ill Mod [place] Hyponatremia Hx of Aortic Dissection and Cardiac Tamponade-s/p sx at [facility] in October 2017 - Plan Plan: Pt is POD # 0 for open cholecystectomy by Dr. Parks. Pt's venous doppler US or LE and UE is negative. Warfarin held by Cardio in light of procedures scheduled on 01/22/18. Dr. Parks removed GT and Perm-A-Cath on 01/22/18. On tele. Now on Levaquin and Flagyl. Afebrile. FU on cbc and chem 7. WBC trending down. Dr. Elias to evaluate need for termite helper anticoagulation. Nutritional Asmnt/Malnutr-PDOC - Dietary Evaluation Malnutrition Findings (Please click <Entered> for more info): Nutritional Asmnt/Malnutrition Start: 01/24/18 17: 29 Text: Status: Complete Freq: Document 01/24/18 17:29 [email or web address] (Rec: 01/24/18 17:38 [id number]) Nutritional Asmnt/Malnutrition Patient General Information Nutritional Screening Moderate Risk Diagnosis aspiration PNA Pertinent Medical Hx/Surgical Hx cardiac tampondade s/p surgery , aortic dissection, Gtube ( now removed) Subjective Information Per H&P pt had Gtube removed and started oral diet for about one month. Pt stated he still have some stomach issue, vomiting. Pt consumed cream of wheat and ceream for breakfast this morning, not very comfortable with solid food at this time.Per nurse note, pt had loose stool last night. Per EMR, PO intake 50- 75%. Current Diet Order/ Nutrition Support cardiac Pertinent Medications colace, culturelle, zofran, piperacillin, vancomycin Pertinent Labs 01/24 cl 108, glucose 76 01/20 A1c 4.9 Nutritional Hx/Data Height 1.91 m Height (Calculated Centimeters) 190.5 Current Weight (lbs) 92.079 kg Weight (Calculated Kilograms) 92.1 Weight (Calculated Grams) 85155.3 [place] Body Weight 196 Body Mass Index (BMI) 25.3 Weight Status Overweight GI Symptoms GI Symptoms None Last BM 01/24 Difficult in: None Skin Integrity/Comment: intact Current %PO Fair (50-74%) Estimated Nutritional Goals BEE in Kcals: Using Current wt Calories/Kcals/Kg 25-30 Kcals Calculated 3141-6753 Protein: Using Current wt Protein g/k Protein Calculated 92 Fluid: ml 2300-2760ml (1ml/kcal) Nutritional Problem No current Nutrition Prob Problem N/A Malnutrition Alert Is there a minimum of two criteria No selected? Query Text:Check all the applicable criteria. A minimum of two criteria are recommended for diagnosis of either severe or non-severe malnutrition. Malnutrition Related to Morbid Obesity Malnutrition related to morbid obesity No Intervention/Recommendation Comments 1. Continue with current diet as ordered. Offered food alternatives if pt not able to take his meals. 2. Monitor PO intake, GI function, wt, labs and skin integrity 3. F/U as moderate risk in 3-5 days, 01/27-01/29 Expected Outcomes/Goals Expected Outcomes/Goals 1. PO intake to meet at least 75% of nutritional needs. 2. Wt stability, GI function to improve, skin to remain intact, labs to approach WNL.
--- NOTE | 2018-01-28 09:54 | Consultation ---
DATE OF CONSULTATION: 01/27/2018 SURGICAL CONSULTATION REFERRING PHYSICIAN: Dr. Mg. REASON FOR CONSULTATION: Abdominal pain with gallstones. Thank you for referring this patient to me. 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 The patient was admitted then because of a PEG tube and a Perm-A-Cath. Perm-A-Cath has not been used for 1 month as the patient recovered from his acute renal failure following the surgery at [facility]. PEG tube also has not been used for feedings as the patient is able to eat well. Two days ago, he started having nausea and vomiting and abdominal pain. CT scan of the abdomen showed gallstones. Ultrasound was ordered and confirmed this with no common bile duct dilatation. Liver function tests are within normal limits. The CBC as high at 17,700. Potassium slightly low at 2.9. The patient was on Xarelto because of atrial fibrillation, this was stopped and slight elevation of the prothrombin time was corrected with vitamin K administered orally. In view of the two surgical procedures in the midline abdomen, possibility of a laparoscopic procedures is decreased and likely an open procedure may have to be done. Informed consent discussed with the patient and the brother and they understand the risks and complications. JOB# [id number]
--- NOTE | 2018-01-28 10:31 | Operative Report ---
DATE OF SURGERY: 01/28/2018 PREOPERATIVE DIAGNOSES: 1. Calculous cholecystitis. 2. Status post repair of dissecting thoracic aneurysm. 3. Hyperlipidemia. POSTOPERATIVE DIAGNOSES: 1. Calculous cholecystitis. 2. Status post repair of dissecting thoracic aneurysm. 3. Hyperlipidemia. OPERATION DONE: 1. Laparoscopic conversion to open cholecystectomy. 2. Lysis of adhesions. SURGEON: Jairon Parks MD CHAIRMAN PRESIDENT AND CHIEF EXECUTIVE OFFICER: Dr. Moreira. ANESTHESIA: General. ANESTHESIOLOGIST: Angel. ESTIMATED BLOOD LOSS: 20 mL. INDICATIONS FOR SURGERY: The patient with onset of abdominal pain and vomiting. CT scan showing gallstones. Liver function tests were normal. Xarelto was stopped and the patient was given a vitamin K orally prior to surgery. OPERATIVE FINDINGS: Attempt to do laparoscopic procedure by going into the infraumbilical scar was made. The mesh in this area from the umbilical hernia repair was incised, but there were dense adhesions and the procedure was abandoned. Repair of the incision was made with running suture of #1 Ethilon and subcutaneous tissues were closed with 3-0 Vicryl and the skin with 4-0 Vicryl. The incision was treated with Dermabond prior to making a Benito incision. A Benito incision was made in the right upper abdomen. Bleeders were coagulated. Anterior fascia was incised. The muscles were transected. The posterior fascia was opened and the abdominal cavity entered. Adhesions were lysed sharply and bluntly. The gallbladder was finally identified and this was found to be distended. Dissection was carried in the cholecystoduodenal area and the cystic duct and cystic arteries, which were together lump at the infundibulum was clamped, transected, and ligated with 2-0 silk. The retrograde removal of the gallbladder was then done with electrocautery for hemostasis. Reggie was then applied at the liver bed following the procedure. A Gerber drain was placed at the subhepatic space. The abdominal incision was closed with running suture of #1 PDS for the posterior and anterior fascia. Subcutaneous tissues were closed with 3-0 Vicryl and the skin with 4-0 Vicryl. Sterile dressing was placed over this. The patient tolerated the procedure well. JOB# [id number]
[2018-01-28] MEDS: Lactobacillus Rhamnosus GG 15 Billion CFU CAP.SPRINK PO SCH (12:01)
[2018-01-28] MEDS: Aspirin 81mg Chewable Tab GT SCH (12:01)
[2018-01-28] MEDS: Hydrocodone/APAP 10 mg/325 mg Tab PO PRN ×2 (12:27→20:30)
[2018-01-28] MEDS: HYDROmorphone 2 mg/mL 1mL Vial IVP PRN ×3 (12:51→23:04)
--- NOTE | 2018-01-28 13:27 | Infectious Disease Prog Note ---
Infectious Disease Subjective - Review of Systems Service Date: 01/28/18 Events since last encounter: Open cholecystectomy performed today. Subjective: c/o pain at the surgical site.. Infectious Disease Objective - Results Result Diagrams: 01/28/18 04:20 01/28/18 04:20 Recent Labs: Laboratory Last Values WBC 17.4 Th/cmm (4.8-10.8) H 01/28/18 04:20 RBC 2.97 Mil/cmm (4.30-5.70) L 01/28/18 04:20 Hgb 9.0 gm/dL (12-16) L 01/28/18 04:20 Hct 26.5 % (41.0-60) L 01/28/18 04:20 MCV 89.2 fl (80-99) 01/28/18 04:20 MCH 30.3 pg (26.0-30.0) H 01/28/18 04:20 MCHC Differential 33.9 pg (28.0-36.0) 01/28/18 04:20 RDW 15.2 % (11.5-20.0) 01/28/18 04:20 Plt Count 284 Th/cmm (150-400) 01/28/18 04:20 MPV 8.6 fl 01/28/18 04:20 Neutrophils % 76.9 % (40.0-80.0) 01/28/18 04:20 Band Neutrophils % 2 % (0-10) 01/26/18 06:04 Lymphocytes % 8.4 % (20.0-50.0) L 01/28/18 04:20 Monocytes % 12.2 % (2.0-10.0) H 01/28/18 04:20 Eosinophils % 2.2 % (0.0-5.0) 01/28/18 04:20 Basophils % 0.3 % (0.0-2.0) 01/28/18 04:20 Neutrophils (Manual) 83 % (40-80) H 01/26/18 06:04 Lymphocytes 10 % (20-50) L 01/26/18 06:04 Monocytes 5 % (2-10) 01/26/18 06:04 Eosinophils 1 % (0-5) 01/25/18 05:57 Platelet Estimate ADEQUATE (NORMAL) 01/26/18 06:04 Poikilocytosis 1+ 05/26/18 05:57 Anisocytosis 1+ 01/25/18 05:57 PT 17.8 SECONDS (9.5-11.5) H 01/28/18 04:20 INR 1.66 (0.5-1.4) H 01/28/18 04:20 PTT (Actin FS) 45.6 SECONDS (26.0-38.0) H 01/28/18 04:20 Plt Function Studies 106 01/28/18 08:05 Sodium 145 mEq/L (136-145) 01/28/18 04:20 Potassium 2.9 mEq/L (3.5-5.1) L* 01/28/18 04:20 Chloride 112 mEq/L (98-107) H 01/28/18 04:20 Carbon Dioxide 23.6 mEq/L (21.0-31.0) 01/28/18 04:20 Anion Gap 12.3 (7.0-16.0) 01/28/18 04:20 BUN 9 mg/dL (7-25) 01/28/18 04:20 Creatinine 2.3 mg/dL (0.7-1.3) H 01/28/18 04:20 Est GFR ( Amer) 37.4 ml/min (>90) 01/28/18 04:20 Est GFR (Non-Af Amer) 30.9 ml/min 01/28/18 04:20 BUN/Creatinine Ratio 3.9 01/28/18 04:20 Glucose 94 mg/dL (70-105) 01/28/18 04:20 POC Glucose 87 MG/DL (70 - 105) 01/28/18 05:32 Hemoglobin A1c % 4.9 % (4.0-6.0) 01/20/18 16:40 Whole Bld Lactic Acid 1.32 mmol/L (0.60-1.99) 01/20/18 16:40 Calcium 8.2 mg/dL (8.6-10.3) L 01/28/18 04:20 Total Bilirubin 0.4 mg/dL (0.3-1.0) 01/28/18 04:20 AST 15 U/L (13-39) 01/28/18 04:20 ALT 13 U/L (7-52) 01/28/18 04:20 Alkaline Phosphatase 72 U/L (34-104) 01/28/18 04:20 Creatine Kinase 32 U/L (30-223) 01/20/18 16:40 Troponin I 0.01 ng/mL (0.01-0.05) 01/20/18 16:40 Total Protein 5.5 gm/dL (6.0-8.3) L 01/28/18 04:20 Albumin 2.8 gm/dL (4.2-5.5) L 01/28/18 04:20 Globulin 2.7 gm/dL 01/28/18 04:20 Albumin/Globulin Ratio 1.0 (1.0-1.8) 01/28/18 04:20 Triglycerides 69 mg/dL (<150) 01/27/18 05:45 Cholesterol 79 mg/dL (<200) 01/27/18 05:45 LDL Cholesterol Direct 37 mg/dL (75-193) L 01/27/18 05:45 HDL Cholesterol 32 mg/dL (23-92) 01/27/18 05:45 Urine Source MIDSTREAM 01/20/18 20:20 Urine Color YELLOW 01/20/18 20:20 Urine Clarity HAZY (CLEAR) 01/20/18 20:20 Urine pH 5.5 (4.6 - 8.0) 01/20/18 20:20 Ur Specific [place] 1.020 (1.005-1.030) 01/20/18 20:20 Urine Protein NEGATIVE mg/dL (NEGATIVE) 01/20/18 20:20 Urine Glucose (UA) NEGATIVE mg/dL (NEGATIVE) 01/20/18 20:20 Urine Ketones NEGATIVE mg/dL (NEGATIVE) 01/20/18 20:20 Urine Blood SMALL (NEGATIVE) H 01/20/18 20:20 Urine Nitrate NEGATIVE (NEGATIVE) 01/20/18 20:20 Urine Bilirubin NEGATIVE (NEGATIVE) 01/20/18 20:20 Urine Urobilinogen 0.2 E.U./dL (0.2 - 1.0) 01/20/18 20:20 Ur Leukocyte Esterase SMALL (NEGATIVE) H 01/20/18 20:20 Urine RBC 5-10 /hpf (0-5) H 01/20/18 20:20 Urine WBC 10-25 /hpf (0-5) H 01/20/18 20:20 Ur Epithelial Cells NONE SEEN /lpf (FEW) 01/20/18 20:20 Urine Bacteria NONE SEEN /hpf (NONE SEEN) 01/20/18 20:20 Vancomycin Trough 28.2 ug/mL (5-10) H 01/25/18 09:00 Random Vancomycin 30.6 ug/mL (5.0-40.0) 01/26/18 06:00 - Physical Exam Vitals and I&O: Vital Signs Temp 98.9 F 01/28/18 12:00 Pulse 87 01/28/18 12:01 Resp 18 01/28/18 12:00 BP 136/49 01/28/18 12:01 Pulse Ox 91 01/28/18 12:00 Intake & Output 01/27/18 01/28/18 01/28/18 18:59 06:59 18:59 Intake Total 1920 1356 1000 Output Total 1400 800 Balance 814 074 0816 Weight (lbs) 91.263 kg 91.172 kg Intake: Intake, IV Amount 4730 880 4110 KCL 20mEq/100mL Premix 20 100 meq In 100 ml @ 50 mls/ hr IV Q2H [facility] Rx#: [id number] Levofloxacin 500mg/100mL 100 500 mg In 100 ml @ 100 mls/hr IV Q24HR [facility] Rx#: [id number] Sodium Chloride 0.9% 1, 5438 454 3274 000 ml @ 120 mls/hr IV . Q8H20M [facility] Rx#:[id number] metroNIDAZOLE 500mg/NS 100 100 100mL 500 mg In 100 ml @ 100 mls/hr IV Q12H [facility] Rx #:[id number] Oral 720 360 Output: Urine 1400 800 Other: # Bowel Movements 2 1 Weight Source Estimated Bedscale Active Medications: Current Medications Acetaminophen (Tylenol) 650 mg PO Q6H PRN PRN Reason: HEADACHE/TEMP ABOVE 100F Stop: 03/21/18 19:07 Last Admin: 01/20/18 23:17 Dose: 650 mg Acetaminophen/Hydrocodone Bitart ([place] 10 Mg/325 Mg) 1 tab PO Q6H PRN PRN Reason: mod pain Stop: 03/22/18 10:31 Last Admin: 01/28/18 12:27 Dose: 1 tab Albuterol/Ipratropium (Duoneb Neb) 3 ml HHN Q4HRT [facility] Stop: 03/21/18 19:59 Last Admin: 01/28/18 10:00 Dose: 3 ml Amiodarone HCl (Cordarone) 100 mg GT DAILY [facility] Stop: 03/22/18 08:59 Last Admin: 01/28/18 11:59 Dose: Not Given Amlodipine Besylate (Norvasc) 10 mg GT DAILY [facility] Stop: 03/22/18 08:59 Last Admin: 01/28/18 12:01 Dose: Not Given Aspirin (Aspirin Chewable) 81 mg GT DAILY [facility] Stop: 03/22/18 08:59 Last Admin: 01/28/18 12:01 Dose: Not Given Atorvastatin Calcium (Lipitor) 40 mg GT HS [facility] Stop: 03/25/18 20:59 Last Admin: 01/27/18 20:09 Dose: 40 mg Docusate Sodium (Colace) 100 mg PO BID PRN PRN Reason: Constipation Stop: 03/21/18 19:07 Last Admin: 01/23/18 10:21 Dose: 100 mg Hydromorphone HCl (Dilaudid) 1 mg IVP Q4HR PRN PRN Reason: Pain (Moderate) Stop: 01/29/18 09:38 Last Admin: 01/28/18 11:01 Dose: 1 mg Hydromorphone HCl (Dilaudid) 4 mg IVP Q4HR PRN PRN Reason: Severe Pain Stop: 03/29/18 12:35 Last Admin: 01/28/18 12:51 Dose: 4 mg Potassium Chloride 40 meq/Lidocaine HCl 25 mg/ Sodium Chloride 272.5 mls @ 68 mls/hr IV DAILY PRN PRN Reason: k level less than 3.2 Stop: 03/21/18 19:07 Last Admin: 01/28/18 06:25 Dose: 68 mls/hr Magnesium Sulfate (Magnesium Sulfate Premix) 2 gm in 50 mls @ 25 mls/hr IV DAILY PRN PRN Reason: Magnesium level less than 1.6 Stop: 03/21/18 19:07 Sodium Chloride (Nacl 0.9%) 1,000 mls @ 120 mls/hr IV .Q8H20M [facility] Stop: 03/26/18 17:29 Last Admin: 01/28/18 11:02 Dose: 120 mls/hr Levofloxacin (Levaquin Pb) 500 mg in 100 mls @ 100 mls/hr IV Q24HR [facility] Stop: 03/27/18 02:59 Last Infusion: 01/28/18 03:19 Dose: Infused Metronidazole (Flagyl) 500 mg in 100 mls @ 100 mls/hr IV Q12H [facility] Stop: 03/27/18 14:59 Last Infusion: 01/28/18 03:20 Dose: Infused Lactobacillus Rhamnosus (Culturelle 15b) 1 each PO DAILY [facility] Stop: 03/23/18 08:59 Last Admin: 01/28/18 12:01 Dose: Not Given Lorazepam (Ativan) 1 mg IVP Q4H PRN; Protocol PRN Reason: Anxiety Stop: 03/21/18 19:07 Last Admin: 01/27/18 21:46 Dose: 1 mg Magnesium Oxide (Mag-Oxide) 400 mg PO BID PRN PRN Reason: Mg less than 1.9 Stop: 03/21/18 19:07 Metoprolol Tartrate (Lopressor) 50 mg GT Q8H [facility] Stop: 03/21/18 19:14 Last Admin: 01/28/18 02:21 Dose: Not Given Miscellaneous (Probiotic Screen) 1 ea MC PRN PRN PRN Reason: PROTOCOL Stop: 03/22/18 09:59 Ondansetron HCl (Zofran) 4 mg IV Q4H PRN PRN Reason: Nausea / Vomiting Stop: 03/27/18 09:59 Last Admin: 01/27/18 09:42 Dose: 4 mg Phytonadione (Vitamin K1 Oral Compound) 10 mg PO Q8H [facility] Stop: 01/28/18 16:59 Last Admin: 01/28/18 01:22 Dose: 10 mg Potassium Chloride (Klor-Con) 40 meq PO DAILY PRN PRN Reason: k level less than 3.5 Stop: 03/21/18 19:07 Potassium Chloride (Klor-Con) 40 meq PO DAILY [facility] Stop: 03/29/18 08:59 Simethicone (Mylicon) 80 mg PO Q8H [facility] Stop: 03/27/18 10:14 Last Admin: 01/28/18 12:02 Dose: Not Given Tamsulosin HCl (Flomax) 0.4 mg PO HS [facility] Stop: 03/25/18 20:59 Last Admin: 01/27/18 20:09 Dose: 0.4 mg Tamsulosin HCl (Flomax) 0.4 mg PO DAILY [facility] Stop: 03/28/18 08:59 Last Admin: 01/28/18 12:01 Dose: Not Given Zolpidem Tartrate (Ambien) 10 mg PO HS PRN PRN Reason: Insomnia Stop: 03/21/18 19:07 General: no acute distress, well developed, well nourished HEENT: atraumatic, normocephalic, PERRLA, EOMI Neck: supple, no thyromegaly Cardiovascular: S1S2, regular Lungs: clear to auscultation bilaterally, clear to percussion Abdomen: soft, tender, no distended Extremities: no cyanosis, no clubbing, no edema Neurological: awake, alert, oriented Skin: intact - Procedures Procedures: Procedures Procedure Code Date INSPECTION OF GALLBLADDER, PERCUTANEOUS ENDOSCOPIC APPROACH [id number] 01/20/18 RELEASE OMENTUM, OPEN APPROACH [id number] 01/20/18 RESECTION OF GALLBLADDER, OPEN APPROACH [id number] 01/20/18 Infectious Disease Assmt/Plan - Problem List Patient Problems: All Active Problems GASTRIC TUBE AND CORAL REMOVAL (Acute) - Assessment Assessment: 1. Leukocytosis suspect sepsis. improving. 2. Right lower lobe infiltrate, suspect aspiration pneumonia. 3. UTI. 4. MRSA colonization. 5. Hypertension. 6. Hyperlipidemia. 7. Aortic dissection, repair of aortic dissection at [facility]. 8. Acute kidney injury. Resolved. 9. Dysphagia resolved. He is taking his medication by mouth. 10. Vomiting. 11. Cholelithiasis. 12. Status post open cholecystectomy, POD#0. - Plan Plan: Change flagyl 500 mg iv twice/day, Continue levaquin. When stable, we discharged the patient on Levaquin 500 mg by mouth daily for 7 days from now. Nutritional Asmnt/Malnutr-PDOC - Dietary Evaluation Malnutrition Findings (Please click <Entered> for more info): Nutritional Asmnt/Malnutrition Start: 01/24/18 17: 29 Text: Status: Complete Freq: Document 01/24/18 17:29 [facility] (Rec: 01/24/18 17:38 [facility] [id number]) Nutritional Asmnt/Malnutrition Patient General Information Nutritional Screening Moderate Risk Diagnosis aspiration PNA Pertinent Medical Hx/Surgical Hx cardiac tampondade s/p surgery , aortic dissection, Gtube ( now removed) Subjective Information Per H&P pt had Gtube removed and started oral diet for about one month. Pt stated he still have some stomach issue, vomiting. Pt consumed cream of wheat and ceream for breakfast this morning, not very comfortable with solid food at this time.Per nurse note, pt had loose stool last night. Per EMR, PO intake 50- 75%. Current Diet Order/ Nutrition Support cardiac Pertinent Medications colace, culturelle, zofran, piperacillin, vancomycin Pertinent Labs 01/24 cl 108, glucose 76 01/20 A1c 4.9 Nutritional Hx/Data Height 1.91 m Height (Calculated Centimeters) 190.5 Current Weight (lbs) 92.079 kg Weight (Calculated Kilograms) 92.1 Weight (Calculated Grams) 74054.3 [place] Body Weight 196 Body Mass Index (BMI) 25.3 Weight Status Overweight GI Symptoms GI Symptoms None Last BM 01/24 Difficult in: None Skin Integrity/Comment: intact Current %PO Fair (50-74%) Estimated Nutritional Goals BEE in Kcals: Using Current wt Calories/Kcals/Kg 25-30 Kcals Calculated 8927-8042 Protein: Using Current wt Protein g/k Protein Calculated 92 Fluid: ml 2300-2760ml (1ml/kcal) Nutritional Problem No current Nutrition Prob Problem N/A Malnutrition Alert Is there a minimum of two criteria No selected? Query Text:Check all the applicable criteria. A minimum of two criteria are recommended for diagnosis of either severe or non-severe malnutrition. Malnutrition Related to Morbid Obesity Malnutrition related to morbid obesity No Intervention/Recommendation Comments 1. Continue with current diet as ordered. Offered food alternatives if pt not able to take his meals. 2. Monitor PO intake, GI function, wt, labs and skin integrity 3. F/U as moderate risk in 3-5 days, 01/27-01/29 Expected Outcomes/Goals Expected Outcomes/Goals 1. PO intake to meet at least 75% of nutritional needs. 2. Wt stability, GI function to improve, skin to remain intact, labs to approach WNL.
[2018-01-28] MEDS ORDERED: KCL 20mEq/100mL Premix 40 MEQ/200 ML PIGGYBACK IV PRN (15:00)
[2018-01-28] MEDS: Potassium Chloride 20 mEq ER Tab PO SCH (17:20)
[2018-01-29] MEDS: Albuterol/Ipratropium Neb 3 ML AERS HHN SCH ×6 (03:20→22:21)
[2018-01-29] MEDS: HYDROmorphone 2 mg/mL 1mL Vial IVP PRN ×4 (05:45→21:04)
[2018-01-29 05:55] LABS: HEMATOCRIT 28.6 % (41.0-60); HEMOGLOBIN 9.8 gm/dL (12-16); MANUAL DIFF REQUIRED? YES; MEAN CELL VOLUME 87.7 fl (80-99); MEAN CORPUSCULAR HGB CONC 34.2 pg (28.0-36.0); MEAN PLATELET VOLUME 9.4 fl; PLATELET COUNT 285 Th/cmm (150-400); RED BLOOD COUNT 3.26 Mil/cmm (4.30-5.70); RED CELL DISTRIBUTION WIDTH 15.5 % (11.5-20.0)
[2018-01-29 05:58] LABS: ANION GAP 17.1 (7.0-16.0); BILIRUBIN,TOTAL 0.6 mg/dL (0.3-1.0); CALCIUM SERUM 8.1 mg/dL (8.6-10.3); CARBON DIOXIDE 18.4 mEq/L (21.0-31.0); CREATININE - SERUM 2.6 mg/dL (0.7-1.3); GFR AFRICAN-AMERICAN 32.4 ml/min (>90); GFR NON AFRICAN-AMERICAN 26.8 ml/min; POTASSIUM SERUM 4.5 mEq/L (3.5-5.1)
[2018-01-29 06:04] LABS: WHITE BLOOD COUNT 44.3 Th/cmm (4.8-10.8)
[2018-01-29 07:23] LABS: BAND NEUTROPHILE 10 % (0-10); EOSINOPHIL 2 % (0-5); LYMPHOCYTE 5 % (20-50); MONOCYTE 4 % (2-10); NEUTROPHILS 79 % (40-80); TOTAL CELLS COUNTED 100
[2018-01-29] MEDS: Lactobacillus Rhamnosus GG 15 Billion CFU CAP.SPRINK PO SCH (08:22)
[2018-01-29] MEDS: Aspirin 81mg Chewable Tab GT SCH (08:23)
[2018-01-29] MEDS: Potassium Chloride 20 mEq ER Tab PO SCH (08:23)
[2018-01-29] MEDS: Sodium Chloride 0.9% 1,000 ML IV SCH (08:32)
--- NOTE | 2018-01-29 08:40 | General Progress Note ---
Subjective - Review of Systems Service Date: 01/29/18 Subjective: Pt seen and eval. Has some congestion. No fevers or chills. Now on Levaquin and Flagyl. Seen by ID, Cardio, and Sx. Status post removal of Perm-A-Cath and GT by Dr. Parks on 01/22/18. No n,v,d or cp. Feels weak. WBC sig elevated today. Pt is POD # 2 for open cholecystectomy today on 01/28/18. Objective - Results Result Diagrams: 01/29/18 04:20 01/29/18 04:20 Recent Labs: Laboratory Last Values WBC 44.3 Th/cmm (4.8-10.8) H* D 01/29/18 04:20 RBC 3.26 Mil/cmm (4.30-5.70) L 01/29/18 04:20 Hgb 9.8 gm/dL (12-16) L 01/29/18 04:20 Hct 28.6 % (41.0-60) L 01/29/18 04:20 MCV 87.7 fl (80-99) 01/29/18 04:20 MCH 30.0 pg (26.0-30.0) 01/29/18 04:20 MCHC Differential 34.2 pg (28.0-36.0) 01/29/18 04:20 RDW 15.5 % (11.5-20.0) 01/29/18 04:20 Plt Count 285 Th/cmm (150-400) 01/29/18 04:20 MPV 9.4 fl 01/29/18 04:20 Neutrophils % 76.9 % (40.0-80.0) 01/28/18 04:20 Band Neutrophils % 10 % (0-10) 01/29/18 04:20 Lymphocytes % 8.4 % (20.0-50.0) L 01/28/18 04:20 Monocytes % 12.2 % (2.0-10.0) H 01/28/18 04:20 Eosinophils % 2.2 % (0.0-5.0) 01/28/18 04:20 Basophils % 0.3 % (0.0-2.0) 01/28/18 04:20 Neutrophils (Manual) 79 % (40-80) 01/29/18 04:20 Lymphocytes 5 % (20-50) L 01/29/18 04:20 Monocytes 4 % (2-10) 01/29/18 04:20 Eosinophils 2 % (0-5) 01/29/18 04:20 Platelet Estimate ADEQUATE (NORMAL) 01/26/18 06:04 Poikilocytosis 1+ 01/25/18 05:57 Anisocytosis 1+ 01/25/18 05:57 PT 17.8 SECONDS (9.5-11.5) H 01/28/18 04:20 INR 1.66 (0.5-1.4) H 01/28/18 04:20 PTT (Actin FS) 45.6 SECONDS (26.0-38.0) H 01/28/18 04:20 Plt Function Studies 106 01/28/18 08:05 Sodium 144 mEq/L (136-145) 01/29/18 04:20 Potassium 4.5 mEq/L (3.5-5.1) 01/29/18 04:20 Chloride 113 mEq/L (98-107) H 01/29/18 04:20 Carbon Dioxide 18.4 mEq/L (21.0-31.0) L 01/29/18 04:20 Anion Gap 17.1 (7.0-16.0) H 01/29/18 04:20 BUN 15 mg/dL (7-25) 01/29/18 04:20 Creatinine 2.6 mg/dL (0.7-1.3) H 01/29/18 04:20 Est GFR ( Amer) 32.4 ml/min (>90) 01/29/18 04:20 Est GFR (Non-Af Amer) 26.8 ml/min 01/29/18 04:20 BUN/Creatinine Ratio 5.8 01/29/18 04:20 Glucose 85 mg/dL (70-105) 01/29/18 04:20 POC Glucose 87 MG/DL (70 - 105) 01/28/18 05:32 Hemoglobin A1c % 4.9 % (4.0-6.0) 01/20/18 16:40 Whole Bld Lactic Acid 1.32 mmol/L (0.60-1.99) 01/20/18 16:40 Calcium 8.1 mg/dL (8.6-10.3) L 01/29/18 04:20 Total Bilirubin 0.6 mg/dL (0.3-1.0) 01/29/18 04:20 AST 36 U/L (13-39) 01/29/18 04:20 ALT 17 U/L (7-52) 01/29/18 04:20 Alkaline Phosphatase 82 U/L (34-104) 01/29/18 04:20 Creatine Kinase 32 U/L (30-223) 01/20/18 16:40 Troponin I 0.01 ng/mL (0.01-0.05) 01/20/18 16:40 Total Protein 6.0 gm/dL (6.0-8.3) 01/29/18 04:20 Albumin 3.0 gm/dL (4.2-5.5) L 01/29/18 04:20 Globulin 3.0 gm/dL 01/29/18 04:20 Albumin/Globulin Ratio 1.0 (1.0-1.8) 01/29/18 04:20 Triglycerides 69 mg/dL (<150) 01/27/18 05:45 Cholesterol 79 mg/dL (<200) 01/27/18 05:45 LDL Cholesterol Direct 37 mg/dL (75-193) L 01/27/18 05:45 HDL Cholesterol 32 mg/dL (23-92) 01/27/18 05:45 Urine Source MIDSTREAM 01/20/18 20:20 Urine Color YELLOW 01/20/18 20:20 Urine Clarity HAZY (CLEAR) 01/20/18 20:20 Urine pH 5.5 (4.6 - 8.0) 01/20/18 20:20 Ur Specific [place] 1.020 (1.005-1.030) 01/20/18 20:20 Urine Protein NEGATIVE mg/dL (NEGATIVE) 01/20/18 20:20 Urine Glucose (UA) NEGATIVE mg/dL (NEGATIVE) 01/20/18 20:20 Urine Ketones NEGATIVE mg/dL (NEGATIVE) 01/20/18 20:20 Urine Blood SMALL (NEGATIVE) H 01/20/18 20:20 Urine Nitrate NEGATIVE (NEGATIVE) 01/20/18 20:20 Urine Bilirubin NEGATIVE (NEGATIVE) 01/20/18 20:20 Urine Urobilinogen 0.2 E.U./dL (0.2 - 1.0) 01/20/18 20:20 Ur Leukocyte Esterase SMALL (NEGATIVE) H 01/20/18 20:20 Urine RBC 5-10 /hpf (0-5) H 01/20/18 20:20 Urine WBC 10-25 /hpf (0-5) H 01/20/18 20:20 Ur Epithelial Cells NONE SEEN /lpf (FEW) 01/20/18 20:20 Urine Bacteria NONE SEEN /hpf (NONE SEEN) 01/20/18 20:20 Vancomycin Trough 28.2 ug/mL (5-10) H 01/25/18 09:00 Random Vancomycin 30.6 ug/mL (5.0-40.0) 01/26/18 06:00 - Physical Exam Vitals and I&O: Vital Signs Temp 97.0 F 01/29/18 07:46 Pulse 99 01/29/18 08:24 Resp 20 01/29/18 07:46 BP 124/54 01/29/18 08:22 Pulse Ox 97 01/29/18 07:46 Intake & Output 01/28/18 01/29/18 01/29/18 18:59 06:59 18:59 Intake Total 1000 2200 Output Total 410 Balance 1000 1790 Weight (lbs) 91.172 kg Intake: Intake, IV Amount 1000 2000 Sodium Chloride 0.9% 1, 1000 2000 000 ml @ 120 mls/hr IV . Q8H20M [facility] Rx#:[id number] Oral 200 Output: Gastric Drainage 60 Urine 350 Other: Weight Source Bedscale Active Medications: Current Medications Acetaminophen (Tylenol) 650 mg PO Q6H PRN PRN Reason: HEADACHE/TEMP ABOVE 100F Stop: 03/21/18 19:07 Last Admin: 01/20/18 23:17 Dose: 650 mg Acetaminophen/Hydrocodone Bitart ([place] 10 Mg/325 Mg) 1 tab PO Q6H PRN PRN Reason: mod pain Stop: 03/22/18 10:31 Last Admin: 01/28/18 20:30 Dose: 1 tab Albuterol/Ipratropium (Duoneb Neb) 3 ml HHN Q4HRT [facility] Stop: 03/21/18 19:59 Last Admin: 01/29/18 06:45 Dose: 3 ml Amiodarone HCl (Cordarone) 100 mg GT DAILY [facility] Stop: 03/22/18 08:59 Last Admin: 01/29/18 08:24 Dose: 100 mg Amlodipine Besylate (Norvasc) 10 mg GT DAILY [facility] Stop: 03/22/18 08:59 Last Admin: 01/29/18 08:22 Dose: 10 mg Aspirin (Aspirin Chewable) 81 mg GT DAILY [facility] Stop: 03/22/18 08:59 Last Admin: 01/29/18 08:23 Dose: 81 mg Atorvastatin Calcium (Lipitor) 40 mg GT HS [facility] Stop: 03/25/18 20:59 Last Admin: 01/28/18 21:04 Dose: 40 mg Docusate Sodium (Colace) 100 mg PO BID PRN PRN Reason: Constipation Stop: 03/21/18 19:07 Last Admin: 01/23/18 10:21 Dose: 100 mg Hydromorphone HCl (Dilaudid) 1 mg IVP Q4HR PRN PRN Reason: Pain (Moderate) Stop: 01/29/18 09:38 Last Admin: 01/28/18 11:01 Dose: 1 mg Hydromorphone HCl (Dilaudid) 4 mg IVP Q4HR PRN PRN Reason: Severe Pain Stop: 03/29/18 12:35 Last Admin: 01/29/18 05:45 Dose: 4 mg Magnesium Sulfate (Magnesium Sulfate Premix) 2 gm in 50 mls @ 25 mls/hr IV DAILY PRN PRN Reason: Magnesium level less than 1.6 Stop: 03/21/18 19:07 Sodium Chloride (Nacl 0.9%) 1,000 mls @ 120 mls/hr IV .Q8H20M [facility] Stop: 03/26/18 17:29 Last Admin: 01/29/18 08:32 Dose: 120 mls/hr Levofloxacin (Levaquin Pb) 500 mg in 100 mls @ 100 mls/hr IV Q24HR [facility] Stop: 03/27/18 02:59 Last Infusion: 01/28/18 03:19 Dose: Infused Metronidazole (Flagyl) 500 mg in 100 mls @ 100 mls/hr IV Q12H [facility] Stop: 03/27/18 14:59 Last Admin: 01/28/18 16:38 Dose: 100 mls/hr Potassium Chloride (Potassium Chloride) 40 meq in 200 mls @ 50 mls/hr IV DAILY PRN PRN Reason: IF K < 3.2 Stop: 03/29/18 14:59 Levofloxacin (Levaquin Pb) 500 mg in 100 mls @ 100 mls/hr IV Q24HR [facility] Stop: 03/30/18 08:44 Lactobacillus Rhamnosus (Culturelle 15b) 1 each PO DAILY [facility] Stop: 03/23/18 08:59 Last Admin: 01/29/18 08:22 Dose: 1 each Lorazepam (Ativan) 1 mg IVP Q4H PRN; Protocol PRN Reason: Anxiety Stop: 03/21/18 19:07 Last Admin: 01/28/18 16:26 Dose: 1 mg Magnesium Oxide (Mag-Oxide) 400 mg PO BID PRN PRN Reason: Mg less than 1.9 Stop: 03/21/18 19:07 Metoprolol Tartrate (Lopressor) 50 mg GT Q8H [facility] Stop: 03/21/18 19:14 Last Admin: 01/29/18 00:17 Dose: 50 mg Miscellaneous (Probiotic Screen) 1 ea MC PRN PRN PRN Reason: PROTOCOL Stop: 03/22/18 09:59 Ondansetron HCl (Zofran) 4 mg IV Q4H PRN PRN Reason: Nausea / Vomiting Stop: 03/27/18 09:59 Last Admin: 01/27/18 09:42 Dose: 4 mg Potassium Chloride (Klor-Con) 40 meq PO DAILY PRN PRN Reason: k level less than 3.5 Stop: 03/21/18 19:07 Potassium Chloride (Klor-Con) 40 meq PO DAILY [facility] Stop: 03/29/18 08:59 Last Admin: 01/29/18 08:23 Dose: 40 meq Simethicone (Mylicon) 80 mg PO Q8H [facility] Stop: 03/27/18 10:14 Last Admin: 01/29/18 08:23 Dose: 80 mg Tamsulosin HCl (Flomax) 0.4 mg PO HS [facility] Stop: 03/25/18 20:59 Last Admin: 01/28/18 21:04 Dose: 0.4 mg Tamsulosin HCl (Flomax) 0.4 mg PO DAILY [facility] Stop: 03/28/18 08:59 Last Admin: 01/29/18 08:24 Dose: 0.4 mg Zolpidem Tartrate (Ambien) 10 mg PO HS PRN PRN Reason: Insomnia Stop: 03/21/18 19:07 General: Alert, Oriented x3, Cooperative HEENT: Atraumatic, PERRLA, EOMI Neck: Supple, no JVD Cardiovascular: Regular rate Lungs: Other (has rales and congestion) Abdomen: Bowel sounds, Soft, Tender Extremities: no Cyanosis Neurological: Normal speech Skin: no Rash - Procedures Procedures: Procedures Procedure Code Date INSPECTION OF GALLBLADDER, PERCUTANEOUS ENDOSCOPIC APPROACH [id number] 01/20/18 RELEASE OMENTUM, OPEN APPROACH [id number] 01/20/18 RESECTION OF GALLBLADDER, OPEN APPROACH [id number] 01/20/18 Assessment/Plan - Problem List Patient Problems: All Active Problems GASTRIC TUBE AND CORAL REMOVAL (Acute) - Assessment Assessment: Symptomatic Cholelithiasis with possible cholecystitis. Sepsis Asp PNA Hypokalemia Hx of RUE DVT (now resolved) Dysphagia (resolved) A Fib Anemia of Ch Ill Mod [place] Hyponatremia Hx of Aortic Dissection and Cardiac Tamponade-s/p sx at [facility] in October 2017 - Plan Plan: Pt is POD # 1 for open cholecystectomy by Dr. Parks. Pt's venous doppler US or LE and UE is negative. Warfarin held by Cardio in light of procedures scheduled on 01/22/18. Dr. Parks removed GT and Perm-A-Cath on 01/22/18. On tele. Now on Levaquin and Flagyl. Afebrile. FU on cbc and chem 7. WBC elevated. Dr. Elias to evaluate need for long-term anticoagulation. Nutritional Asmnt/Malnutr-PDOC - Dietary Evaluation Malnutrition Findings (Please click <Entered> for more info): Nutritional Asmnt/Malnutrition Start: 01/24/18 17: 29 Text: Status: Complete Freq: Protocol: Document 01/24/18 17:29 LCHENG (Rec: 01/24/18 17:38 [id number]) Nutritional Asmnt/Malnutrition Patient General Information Nutritional Screening Moderate Risk Diagnosis aspiration PNA Pertinent Medical Hx/Surgical Hx cardiac tampondade s/p surgery , aortic dissection, Gtube ( now removed) Subjective Information Per H&P pt had Gtube removed and started oral diet for about one month. Pt stated he still have some stomach issue, vomiting. Pt consumed cream of wheat and ceream for breakfast this morning, not very comfortable with solid food at this time.Per nurse note, pt had loose stool last night. Per EMR, PO intake 50- 75%. Current Diet Order/ Nutrition Support cardiac Pertinent Medications colace, culturelle, zofran, piperacillin, vancomycin Pertinent Labs 01/24 cl 108, glucose 76 01/20 A1c 4.9 Nutritional Hx/Data Height 1.91 m Height (Calculated Centimeters) 190.5 Current Weight (lbs) 92.079 kg Weight (Calculated Kilograms) 92.1 Weight (Calculated Grams) 34189.3 [place] Body Weight 196 Body Mass Index (BMI) 25.3 Weight Status Overweight GI Symptoms GI Symptoms None Last BM 01/24 Difficult in: None Skin Integrity/Comment: intact Current %PO Fair (50-74%) Estimated Nutritional Goals BEE in Kcals: Using Current wt Calories/Kcals/Kg 25-30 Kcals Calculated 3639-9823 Protein: Using Current wt Protein g/k Protein Calculated 92 Fluid: ml 2300-2760ml (1ml/kcal) Nutritional Problem No current Nutrition Prob Problem N/A Malnutrition Alert Is there a minimum of two criteria No selected? Query Text:Check all the applicable criteria. A minimum of two criteria are recommended for diagnosis of either severe or non-severe malnutrition. Malnutrition Related to Morbid Obesity Malnutrition related to morbid obesity No Intervention/Recommendation Comments 1. Continue with current diet as ordered. Offered food alternatives if pt not able to take his meals. 2. Monitor PO intake, GI function, wt, labs and skin integrity 3. F/U as moderate risk in 3-5 days, 01/27-01/29 Expected Outcomes/Goals Expected Outcomes/Goals 1. PO intake to meet at least 75% of nutritional needs. 2. Wt stability, GI function to improve, skin to remain intact, labs to approach WNL.
[2018-01-29] MEDS ORDERED: Levofloxacin 500mg/100mL 500 MG/100 ML BAG IV SCH (09:00)
[2018-01-29 09:03] LABS: HEMOGLOBIN 11.5 gm/dL (12-16); MEAN CELL VOLUME 87.8 fl (80-99); MEAN CORPUSCULAR HEMOGLOBIN 29.6 pg (26.0-30.0); MEAN CORPUSCULAR HGB CONC 33.8 pg (28.0-36.0); MEAN PLATELET VOLUME 8.5 fl; PLATELET COUNT 301 Th/cmm (150-400); RED BLOOD COUNT 3.89 Mil/cmm (4.30-5.70); RED CELL DISTRIBUTION WIDTH 15.8 % (11.5-20.0)
[2018-01-29 09:05] LABS: HEMATOCRIT 34.1 % (41.0-60); WHITE BLOOD COUNT 44.8 Th/cmm (4.8-10.8)
[2018-01-29 09:06] LABS: LYMPHOCYTE ABSOLUTE 1.7 Th/cmm (1.5-3.0); MONOCYTE ABSOLUTE 2.8 Th/cmm (0.3-1.0); NEUTROPHILE ABSOLUTE 40.3 Th/cmm (1.8-8.0)
[2018-01-29] MEDS: Hydrocodone/APAP 10 mg/325 mg Tab PO PRN (09:09)
[2018-01-29] MEDS: Levofloxacin 500mg/100mL 500 MG/100 ML BAG IV SCH (10:20)
--- NOTE | 2018-01-29 11:41 | General Progress Note ---
Subjective - Review of Systems Service Date: 01/29/18 Events since last encounter: persistent leukocytosis minimal Gerber drainage LFT ok tolerating oral intake Objective - Results Result Diagrams: 01/29/18 08:40 01/29/18 04:20 Recent Labs: Laboratory Last Values WBC 44.8 Th/cmm (4.8-10.8) H* 01/29/18 08:40 RBC 3.89 Mil/cmm (4.30-5.70) L 01/29/18 08:40 Hgb 11.5 gm/dL (12-16) L 01/29/18 08:40 Hct 34.1 % (41.0-60) L D 01/29/18 08:40 MCV 87.8 fl (80-99) 01/29/18 08:40 MCH 29.6 pg (26.0-30.0) 01/29/18 08:40 MCHC Differential 33.8 pg (28.0-36.0) 01/29/18 08:40 RDW 15.8 % (11.5-20.0) 01/29/18 08:40 Plt Count 301 Th/cmm (150-400) 01/29/18 08:40 MPV 8.5 fl 01/29/18 08:40 Neutrophils % 76.9 % (40.0-80.0) 01/28/18 04:20 Band Neutrophils % 10 % (0-10) 01/29/18 04:20 Lymphocytes % 8.4 % (20.0-50.0) L 01/28/18 04:20 Monocytes % 12.2 % (2.0-10.0) H 01/28/18 04:20 Eosinophils % 2.2 % (0.0-5.0) 01/28/18 04:20 Basophils % 0.3 % (0.0-2.0) 01/28/18 04:20 Neutrophils (Manual) 79 % (40-80) 01/29/18 04:20 Lymphocytes 5 % (20-50) L 01/29/18 04:20 Monocytes 4 % (2-10) 01/29/18 04:20 Eosinophils 2 % (0-5) 01/29/18 04:20 Platelet Estimate ADEQUATE (NORMAL) 01/26/18 06:04 Poikilocytosis 1+ 01/25/18 05:57 Anisocytosis 1+ 01/25/18 05:57 PT 17.8 SECONDS (9.5-11.5) H 01/28/18 04:20 INR 1.66 (0.5-1.4) H 01/28/18 04:20 PTT (Actin FS) 45.6 SECONDS (26.0-38.0) H 01/28/18 04:20 Plt Function Studies 106 01/28/18 08:05 Sodium 144 mEq/L (136-145) 01/29/18 04:20 Potassium 4.5 mEq/L (3.5-5.1) 01/29/18 04:20 Chloride 113 mEq/L (98-107) H 01/29/18 04:20 Carbon Dioxide 18.4 mEq/L (21.0-31.0) L 01/29/18 04:20 Anion Gap 17.1 (7.0-16.0) H 01/29/18 04:20 BUN 15 mg/dL (7-25) 01/29/18 04:20 Creatinine 2.6 mg/dL (0.7-1.3) H 01/29/18 04:20 Est GFR ( Amer) 32.4 ml/min (>90) 01/29/18 04:20 Est GFR (Non-Af Amer) 26.8 ml/min 01/29/18 04:20 BUN/Creatinine Ratio 5.8 01/29/18 04:20 Glucose 85 mg/dL (70-105) 01/29/18 04:20 POC Glucose 87 MG/DL (70 - 105) 01/28/18 05:32 Hemoglobin A1c % 4.9 % (4.0-6.0) 01/20/18 16:40 Whole Bld Lactic Acid 1.32 mmol/L (0.60-1.99) 01/20/18 16:40 Calcium 8.1 mg/dL (8.6-10.3) L 01/29/18 04:20 Total Bilirubin 0.6 mg/dL (0.3-1.0) 01/29/18 04:20 AST 36 U/L (13-39) 01/29/18 04:20 ALT 17 U/L (7-52) 01/29/18 04:20 Alkaline Phosphatase 82 U/L (34-104) 01/29/18 04:20 Creatine Kinase 32 U/L (30-223) 01/20/18 16:40 Troponin I 0.01 ng/mL (0.01-0.05) 01/20/18 16:40 Total Protein 6.0 gm/dL (6.0-8.3) 01/29/18 04:20 Albumin 3.0 gm/dL (4.2-5.5) L 01/29/18 04:20 Globulin 3.0 gm/dL 01/29/18 04:20 Albumin/Globulin Ratio 1.0 (1.0-1.8) 01/29/18 04:20 Triglycerides 69 mg/dL (<150) 01/27/18 05:45 Cholesterol 79 mg/dL (<200) 01/27/18 05:45 LDL Cholesterol Direct 37 mg/dL (75-193) L 01/27/18 05:45 HDL Cholesterol 32 mg/dL (23-92) 01/27/18 05:45 Urine Source MIDSTREAM 01/20/18 20:20 Urine Color YELLOW 01/20/18 20:20 Urine Clarity HAZY (CLEAR) 01/20/18 20:20 Urine pH 5.5 (4.6 - 8.0) 01/20/18 20:20 Ur Specific [place] 1.020 (1.005-1.030) 01/20/18 20:20 Urine Protein NEGATIVE mg/dL (NEGATIVE) 01/20/18 20:20 Urine Glucose (UA) NEGATIVE mg/dL (NEGATIVE) 01/20/18 20:20 Urine Ketones NEGATIVE mg/dL (NEGATIVE) 01/20/18 20:20 Urine Blood SMALL (NEGATIVE) H 01/20/18 20:20 Urine Nitrate NEGATIVE (NEGATIVE) 01/20/18 20:20 Urine Bilirubin NEGATIVE (NEGATIVE) 01/20/18 20:20 Urine Urobilinogen 0.2 E.U./dL (0.2 - 1.0) 01/20/18 20:20 Ur Leukocyte Esterase SMALL (NEGATIVE) H 01/20/18 20:20 Urine RBC 5-10 /hpf (0-5) H 01/20/18 20:20 Urine WBC 10-25 /hpf (0-5) H 01/20/18 20:20 Ur Epithelial Cells NONE SEEN /lpf (FEW) 01/20/18 20:20 Urine Bacteria NONE SEEN /hpf (NONE SEEN) 01/20/18 20:20 Vancomycin Trough 28.2 ug/mL (5-10) H 01/25/18 09:00 Random Vancomycin 30.6 ug/mL (5.0-40.0) 01/26/18 06:00 - Physical Exam Vitals and I&O: Vital Signs Temp 97.0 F 01/29/18 07:46 Pulse 99 01/29/18 10:30 Resp 18 01/29/18 10:30 BP 126/73 01/29/18 10:16 Pulse Ox 98 01/29/18 10:30 Intake & Output 01/28/18 01/29/18 01/29/18 18:59 06:59 18:59 Intake Total 1000 2200 Output Total 410 Balance 1000 1790 Weight (lbs) 91.172 kg Intake: Intake, IV Amount 1000 2000 Sodium Chloride 0.9% 1, 1000 2000 000 ml @ 120 mls/hr IV . Q8H20M [facility] Rx#:[id number] Oral 200 Output: Gastric Drainage 60 Urine 350 Other: Weight Source Bedscale Active Medications: Current Medications Acetaminophen (Tylenol) 650 mg PO Q6H PRN PRN Reason: HEADACHE/TEMP ABOVE 100F Stop: 03/21/18 19:07 Last Admin: 01/20/18 23:17 Dose: 650 mg Acetaminophen/Hydrocodone Bitart ([place] 10 Mg/325 Mg) 1 tab PO Q6H PRN PRN Reason: mod pain Stop: 03/22/18 10:31 Last Admin: 01/29/18 09:09 Dose: 1 tab Albuterol/Ipratropium (Duoneb Neb) 3 ml HHN Q4HRT [facility] Stop: 03/21/18 19:59 Last Admin: 01/29/18 10:28 Dose: 3 ml Amiodarone HCl (Cordarone) 100 mg GT DAILY [facility] Stop: 03/22/18 08:59 Last Admin: 01/29/18 08:24 Dose: 100 mg Amlodipine Besylate (Norvasc) 10 mg GT DAILY [facility] Stop: 03/22/18 08:59 Last Admin: 01/29/18 08:22 Dose: 10 mg Aspirin (Aspirin Chewable) 81 mg GT DAILY [facility] Stop: 03/22/18 08:59 Last Admin: 01/29/18 08:23 Dose: 81 mg Atorvastatin Calcium (Lipitor) 40 mg GT HS [facility] Stop: 03/25/18 20:59 Last Admin: 01/28/18 21:04 Dose: 40 mg Diphenhydramine HCl (Benadryl 50 Mg/Ml) 50 mg IVP Q8H PRN PRN Reason: rash, itchiness Stop: 03/30/18 08:49 Docusate Sodium (Colace) 100 mg PO BID PRN PRN Reason: Constipation Stop: 03/21/18 19:07 Last Admin: 01/23/18 10:21 Dose: 100 mg Famotidine (Pepcid) 40 mg PO DAILY [facility] Stop: 03/30/18 08:59 Hydromorphone HCl (Dilaudid) 4 mg IVP Q4HR PRN PRN Reason: Severe Pain Stop: 03/29/18 12:35 Last Admin: 01/29/18 10:16 Dose: 4 mg Magnesium Sulfate (Magnesium Sulfate Premix) 2 gm in 50 mls @ 25 mls/hr IV DAILY PRN PRN Reason: Magnesium level less than 1.6 Stop: 03/21/18 19:07 Sodium Chloride (Nacl 0.9%) 1,000 mls @ 120 mls/hr IV .Q8H20M [facility] Stop: 03/26/18 17:29 Last Admin: 01/29/18 08:32 Dose: 120 mls/hr Metronidazole (Flagyl) 500 mg in 100 mls @ 100 mls/hr IV Q12H [facility] Stop: 03/27/18 14:59 Last Admin: 01/28/18 16:38 Dose: 100 mls/hr Potassium Chloride (Potassium Chloride) 40 meq in 200 mls @ 50 mls/hr IV DAILY PRN PRN Reason: IF K < 3.2 Stop: 03/29/18 14:59 Levofloxacin (Levaquin Pb) 500 mg in 100 mls @ 100 mls/hr IV Q24H [facility] Stop: 03/30/18 08:59 Last Admin: 01/29/18 10:31 Dose: 100 mls/hr Lactobacillus Rhamnosus (Culturelle 15b) 1 each PO DAILY [facility] Stop: 03/23/18 08:59 Last Admin: 01/29/18 08:22 Dose: 1 each Lorazepam (Ativan) 1 mg IVP Q4H PRN; Protocol PRN Reason: Anxiety Stop: 03/21/18 19:07 Last Admin: 01/28/18 16:26 Dose: 1 mg Magnesium Oxide (Mag-Oxide) 400 mg PO BID PRN PRN Reason: Mg less than 1.9 Stop: 03/21/18 19:07 Metoprolol Tartrate (Lopressor) 50 mg GT Q8H [facility] Stop: 03/21/18 19:14 Last Admin: 01/29/18 10:16 Dose: 50 mg Miscellaneous (Probiotic Screen) 1 ea MC PRN PRN PRN Reason: PROTOCOL Stop: 03/22/18 09:59 Ondansetron HCl (Zofran) 4 mg IV Q4H PRN PRN Reason: Nausea / Vomiting Stop: 03/27/18 09:59 Last Admin: 01/27/18 09:42 Dose: 4 mg Potassium Chloride (Klor-Con) 40 meq PO DAILY PRN PRN Reason: k level less than 3.5 Stop: 03/21/18 19:07 Potassium Chloride (Klor-Con) 40 meq PO DAILY [facility] Stop: 03/29/18 08:59 Last Admin: 01/29/18 08:23 Dose: 40 meq Simethicone (Mylicon) 80 mg PO Q8H [facility] Stop: 03/27/18 10:14 Last Admin: 01/29/18 08:23 Dose: 80 mg Tamsulosin HCl (Flomax) 0.4 mg PO HS [facility] Stop: 03/25/18 20:59 Last Admin: 01/28/18 21:04 Dose: 0.4 mg Tamsulosin HCl (Flomax) 0.4 mg PO DAILY [facility] Stop: 03/28/18 08:59 Last Admin: 01/29/18 08:24 Dose: 0.4 mg Zolpidem Tartrate (Ambien) 10 mg PO HS PRN PRN Reason: Insomnia Stop: 03/21/18 19:07 General: Alert, Oriented x3, Cooperative HEENT: Atraumatic, PERRLA, EOMI Neck: Supple, no JVD Cardiovascular: Regular rate Lungs: Other (has rales and congestion) Abdomen: Bowel sounds, Soft, Tender Extremities: no Cyanosis Neurological: Normal speech Skin: no Rash - Procedures Procedures: Procedures Procedure Code Date INSPECTION OF GALLBLADDER, PERCUTANEOUS ENDOSCOPIC APPROACH [id number] 01/20/18 RELEASE OMENTUM, OPEN APPROACH [id number] 01/20/18 RESECTION OF GALLBLADDER, OPEN APPROACH [id number] 01/20/18 Assessment/Plan - Problem List Patient Problems: All Active Problems GASTRIC TUBE AND CORAL REMOVAL (Acute) Nutritional Asmnt/Malnutr-PDOC - Dietary Evaluation Malnutrition Findings (Please click <Entered> for more info): Nutritional Asmnt/Malnutrition Start: 01/24/18 17: 29 Text: Status: Complete Freq: Protocol: Document 01/24/18 17:29 LCHENG (Rec: 01/24/18 17:38 [id number]) Nutritional Asmnt/Malnutrition Patient General Information Nutritional Screening Moderate Risk Diagnosis aspiration PNA Pertinent Medical Hx/Surgical Hx cardiac tampondade s/p surgery , aortic dissection, Gtube ( now removed) Subjective Information Per H&P pt had Gtube removed and started oral diet for about one month. Pt stated he still have some stomach issue, vomiting. Pt consumed cream of wheat and ceream for breakfast this morning, not very comfortable with solid food at this time.Per nurse note, pt had loose stool last night. Per EMR, PO intake 50- 75%. Current Diet Order/ Nutrition Support cardiac Pertinent Medications colace, culturelle, zofran, piperacillin, vancomycin Pertinent Labs 01/24 cl 108, glucose 76 01/20 A1c 4.9 Nutritional Hx/Data Height 1.91 m Height (Calculated Centimeters) 190.5 Current Weight (lbs) 92.079 kg Weight (Calculated Kilograms) 92.1 Weight (Calculated Grams) 84088.3 [place] Body Weight 196 Body Mass Index (BMI) 25.3 Weight Status Overweight GI Symptoms GI Symptoms None Last BM 01/24 Difficult in: None Skin Integrity/Comment: intact Current %PO Fair (50-74%) Estimated Nutritional Goals BEE in Kcals: Using Current wt Calories/Kcals/Kg 25-30 Kcals Calculated [id number] Protein: Using Current wt Protein g/k Protein Calculated 92 Fluid: ml 2300-2760ml (1ml/kcal) Nutritional Problem No current Nutrition Prob Problem N/A Malnutrition Alert Is there a minimum of two criteria No selected? Query Text:Check all the applicable criteria. A minimum of two criteria are recommended for diagnosis of either severe or non-severe malnutrition. Malnutrition Related to Morbid Obesity Malnutrition related to morbid obesity No Intervention/Recommendation Comments 1. Continue with current diet as ordered. Offered food alternatives if pt not able to take his meals. 2. Monitor PO intake, GI function, wt, labs and skin integrity 3. F/U as moderate risk in 3-5 days, 01/27-01/29 Expected Outcomes/Goals Expected Outcomes/Goals 1. PO intake to meet at least 75% of nutritional needs. 2. Wt stability, GI function to improve, skin to remain intact, labs to approach WNL.
--- NOTE | 2018-01-29 13:22 | Infectious Disease Prog Note ---
Infectious Disease Subjective - Review of Systems Service Date: 01/29/18 Events since last encounter: Increased leukocytosis. Developed a pinkish reticular rash all over the body. Subjective: c/o pain at the surgical site.. Infectious Disease Objective - Results Result Diagrams: 01/29/18 08:40 01/29/18 04:20 Recent Labs: Laboratory Last Values WBC 44.8 Th/cmm (4.8-10.8) H* 01/29/18 08:40 RBC 3.89 Mil/cmm (4.30-5.70) L 01/29/18 08:40 Hgb 11.5 gm/dL (12-16) L 01/29/18 08:40 Hct 34.1 % (41.0-60) L D 01/29/18 08:40 MCV 87.8 fl (80-99) 01/29/18 08:40 MCH 29.6 pg (26.0-30.0) 01/29/18 08:40 MCHC Differential 33.8 pg (28.0-36.0) 01/29/18 08:40 RDW 15.8 % (11.5-20.0) 01/29/18 08:40 Plt Count 301 Th/cmm (150-400) 01/29/18 08:40 MPV 8.5 fl 01/29/18 08:40 Neutrophils % 76.9 % (40.0-80.0) 01/28/18 04:20 Band Neutrophils % 10 % (0-10) 01/29/18 04:20 Lymphocytes % 8.4 % (20.0-50.0) L 01/28/18 04:20 Monocytes % 12.2 % (2.0-10.0) H 01/28/18 04:20 Eosinophils % 2.2 % (0.0-5.0) 01/28/18 04:20 Basophils % 0.3 % (0.0-2.0) 01/28/18 04:20 Neutrophils (Manual) 79 % (40-80) 01/29/18 04:20 Lymphocytes 5 % (20-50) L 01/29/18 04:20 Monocytes 4 % (2-10) 01/29/18 04:20 Eosinophils 2 % (0-5) 01/29/18 04:20 Platelet Estimate ADEQUATE (NORMAL) 01/26/18 06:04 Poikilocytosis 1+ 01/25/18 05:57 Anisocytosis 1+ 01/25/18 05:57 PT 17.8 SECONDS (9.5-11.5) H 01/28/18 04:20 INR 1.66 (0.5-1.4) H 01/28/18 04:20 PTT (Actin FS) 45.6 SECONDS (26.0-38.0) H 01/28/18 04:20 Plt Function Studies 106 01/28/18 08:05 Sodium 144 mEq/L (136-145) 01/29/18 04:20 Potassium 4.5 mEq/L (3.5-5.1) 01/29/18 04:20 Chloride 113 mEq/L (98-107) H 01/29/18 04:20 Carbon Dioxide 18.4 mEq/L (21.0-31.0) L 01/29/18 04:20 Anion Gap 17.1 (7.0-16.0) H 01/29/18 04:20 BUN 15 mg/dL (7-25) 01/29/18 04:20 Creatinine 2.6 mg/dL (0.7-1.3) H 01/29/18 04:20 Est GFR ( Amer) 32.4 ml/min (>90) 01/29/18 04:20 Est GFR (Non-Af Amer) 26.8 ml/min 01/29/18 04:20 BUN/Creatinine Ratio 5.8 01/29/18 04:20 Glucose 85 mg/dL (70-105) 01/29/18 04:20 POC Glucose 87 MG/DL (70 - 105) 01/28/18 05:32 Hemoglobin A1c % 4.9 % (4.0-6.0) 01/20/18 16:40 Whole Bld Lactic Acid 1.32 mmol/L (0.60-1.99) 01/20/18 16:40 Calcium 8.1 mg/dL (8.6-10.3) L 01/29/18 04:20 Total Bilirubin 0.6 mg/dL (0.3-1.0) 01/29/18 04:20 AST 36 U/L (13-39) 01/29/18 04:20 ALT 17 U/L (7-52) 01/29/18 04:20 Alkaline Phosphatase 82 U/L (34-104) 01/29/18 04:20 Creatine Kinase 32 U/L (30-223) 01/20/18 16:40 Troponin I 0.01 ng/mL (0.01-0.05) 01/20/18 16:40 Total Protein 6.0 gm/dL (6.0-8.3) 01/29/18 04:20 Albumin 3.0 gm/dL (4.2-5.5) L 01/29/18 04:20 Globulin 3.0 gm/dL 01/29/18 04:20 Albumin/Globulin Ratio 1.0 (1.0-1.8) 01/29/18 04:20 Triglycerides 69 mg/dL (<150) 01/27/18 05:45 Cholesterol 79 mg/dL (<200) 01/27/18 05:45 LDL Cholesterol Direct 37 mg/dL (75-193) L 01/27/18 05:45 HDL Cholesterol 32 mg/dL (23-92) 01/27/18 05:45 Urine Source MIDSTREAM 01/20/18 20:20 Urine Color YELLOW 01/20/18 20:20 Urine Clarity HAZY (CLEAR) 01/20/18 20:20 Urine pH 5.5 (4.6 - 8.0) 01/20/18 20:20 Ur Specific Walker 1.020 (1.005-1.030) 01/20/18 20:20 Urine Protein NEGATIVE mg/dL (NEGATIVE) 01/20/18 20:20 Urine Glucose (UA) NEGATIVE mg/dL (NEGATIVE) 01/20/18 20:20 Urine Ketones NEGATIVE mg/dL (NEGATIVE) 01/20/18 20:20 Urine Blood SMALL (NEGATIVE) H 01/20/18 20:20 Urine Nitrate NEGATIVE (NEGATIVE) 01/20/18 20:20 Urine Bilirubin NEGATIVE (NEGATIVE) 01/20/18 20:20 Urine Urobilinogen 0.2 E.U./dL (0.2 - 1.0) 01/20/18 20:20 Ur Leukocyte Esterase SMALL (NEGATIVE) H 01/20/18 20:20 Urine RBC 5-10 /hpf (0-5) H 01/20/18 20:20 Urine WBC 10-25 /hpf (0-5) H 01/20/18 20:20 Ur Epithelial Cells NONE SEEN /lpf (FEW) 01/20/18 20:20 Urine Bacteria NONE SEEN /hpf (NONE SEEN) 01/20/18 20:20 Vancomycin Trough 28.2 ug/mL (5-10) H 01/25/18 09:00 Random Vancomycin 30.6 ug/mL (5.0-40.0) 01/26/18 06:00 - Physical Exam Vitals and I&O: Vital Signs Temp 97.2 F 01/29/18 11:53 Pulse 96 01/29/18 11:53 Resp 20 01/29/18 11:53 BP 121/60 01/29/18 11:53 Pulse Ox 96 01/29/18 11:53 Intake & Output 01/28/18 01/29/18 01/29/18 18:59 06:59 18:59 Intake Total 1000 2200 100 Output Total 410 Balance 1000 1790 100 Weight (lbs) 91.172 kg Intake: Intake, IV Amount 1000 2000 100 Levofloxacin 500mg/100mL 100 500 mg In 100 ml @ 100 mls/hr IV Q24H [facility] Rx#: [id number] Sodium Chloride 0.9% 1, 1000 2000 000 ml @ 120 mls/hr IV . Q8H20M [facility] Rx#:[id number] Oral 200 Output: Gastric Drainage 60 Urine 350 Other: Weight Source Bedscale Active Medications: Current Medications Acetaminophen (Tylenol) 650 mg PO Q6H PRN PRN Reason: HEADACHE/TEMP ABOVE 100F Stop: 03/21/18 19:07 Last Admin: 01/20/18 23:17 Dose: 650 mg Acetaminophen/Hydrocodone Bitart ([place] 10 Mg/325 Mg) 1 tab PO Q6H PRN PRN Reason: mod pain Stop: 03/22/18 10:31 Last Admin: 01/29/18 09:09 Dose: 1 tab Albuterol/Ipratropium (Duoneb Neb) 3 ml HHN Q4HRT [facility] Stop: 03/21/18 19:59 Last Admin: 01/29/18 10:28 Dose: 3 ml Amiodarone HCl (Cordarone) 100 mg GT DAILY [facility] Stop: 03/22/18 08:59 Last Admin: 01/29/18 08:24 Dose: 100 mg Amlodipine Besylate (Norvasc) 10 mg GT DAILY [facility] Stop: 03/22/18 08:59 Last Admin: 01/29/18 08:22 Dose: 10 mg Aspirin (Aspirin Chewable) 81 mg GT DAILY [facility] Stop: 03/22/18 08:59 Last Admin: 01/29/18 08:23 Dose: 81 mg Atorvastatin Calcium (Lipitor) 40 mg GT HS [facility] Stop: 03/25/18 20:59 Last Admin: 01/28/18 21:04 Dose: 40 mg Diphenhydramine HCl (Benadryl 50 Mg/Ml) 50 mg IVP Q8H PRN PRN Reason: rash, itchiness Stop: 03/30/18 08:49 Docusate Sodium (Colace) 100 mg PO BID PRN PRN Reason: Constipation Stop: 03/21/18 19:07 Last Admin: 01/23/18 10:21 Dose: 100 mg Famotidine (Pepcid) 40 mg PO DAILY [facility] Stop: 03/30/18 08:59 Hydromorphone HCl (Dilaudid) 4 mg IVP Q4HR PRN PRN Reason: Severe Pain Stop: 03/29/18 12:35 Last Admin: 01/29/18 10:16 Dose: 4 mg Magnesium Sulfate (Magnesium Sulfate Premix) 2 gm in 50 mls @ 25 mls/hr IV DAILY PRN PRN Reason: Magnesium level less than 1.6 Stop: 03/21/18 19:07 Sodium Chloride (Nacl 0.9%) 1,000 mls @ 120 mls/hr IV .Q8H20M [facility] Stop: 03/26/18 17:29 Last Admin: 01/29/18 08:32 Dose: 120 mls/hr Metronidazole (Flagyl) 500 mg in 100 mls @ 100 mls/hr IV Q12H [facility] Stop: 03/27/18 14:59 Last Admin: 01/28/18 16:38 Dose: 100 mls/hr Potassium Chloride (Potassium Chloride) 40 meq in 200 mls @ 50 mls/hr IV DAILY PRN PRN Reason: IF K < 3.2 Stop: 03/29/18 14:59 Levofloxacin (Levaquin Pb) 500 mg in 100 mls @ 100 mls/hr IV Q24H [facility] Stop: 03/30/18 08:59 Last Infusion: 01/29/18 11:31 Dose: Infused Lactobacillus Rhamnosus (Culturelle 15b) 1 each PO DAILY [facility] Stop: 03/23/18 08:59 Last Admin: 01/29/18 08:22 Dose: 1 each Lorazepam (Ativan) 1 mg IVP Q4H PRN; Protocol PRN Reason: Anxiety Stop: 03/21/18 19:07 Last Admin: 01/28/18 16:26 Dose: 1 mg Magnesium Oxide (Mag-Oxide) 400 mg PO BID PRN PRN Reason: Mg less than 1.9 Stop: 03/21/18 19:07 Metoprolol Tartrate (Lopressor) 50 mg GT Q8H [facility] Stop: 03/21/18 19:14 Last Admin: 01/29/18 10:16 Dose: 50 mg Miscellaneous (Probiotic Screen) 1 ea MC PRN PRN PRN Reason: PROTOCOL Stop: 03/22/18 09:59 Ondansetron HCl (Zofran) 4 mg IV Q4H PRN PRN Reason: Nausea / Vomiting Stop: 03/27/18 09:59 Last Admin: 01/27/18 09:42 Dose: 4 mg Potassium Chloride (Klor-Con) 40 meq PO DAILY PRN PRN Reason: k level less than 3.5 Stop: 03/21/18 19:07 Potassium Chloride (Klor-Con) 40 meq PO DAILY [facility] Stop: 03/29/18 08:59 Last Admin: 01/29/18 08:23 Dose: 40 meq Simethicone (Mylicon) 80 mg PO Q8H [facility] Stop: 03/27/18 10:14 Last Admin: 01/29/18 08:23 Dose: 80 mg Tamsulosin HCl (Flomax) 0.4 mg PO HS [facility] Stop: 03/25/18 20:59 Last Admin: 01/28/18 21:04 Dose: 0.4 mg Tamsulosin HCl (Flomax) 0.4 mg PO DAILY [facility] Stop: 03/28/18 08:59 Last Admin: 01/29/18 08:24 Dose: 0.4 mg Zolpidem Tartrate (Ambien) 10 mg PO HS PRN PRN Reason: Insomnia Stop: 03/21/18 19:07 General: no acute distress, well developed, well nourished HEENT: atraumatic, normocephalic, PERRLA, EOMI Neck: supple, no thyromegaly Cardiovascular: S1S2, regular Lungs: clear to auscultation bilaterally, clear to percussion Abdomen: soft, tender, other (surgical incision right upper quadrant.), no distended, no mass Extremities: no cyanosis, no clubbing, no edema Neurological: awake, alert, oriented Skin: intact - Procedures Procedures: Procedures Procedure Code Date INSPECTION OF GALLBLADDER, PERCUTANEOUS ENDOSCOPIC APPROACH [id number] 01/20/18 RELEASE OMENTUM, OPEN APPROACH [id number] 01/20/18 RESECTION OF GALLBLADDER, OPEN APPROACH [id number] 01/20/18 Infectious Disease Assmt/Plan - Problem List Patient Problems: All Active Problems GASTRIC TUBE AND CORAL REMOVAL (Acute) - Assessment Assessment: 1. Leukocytosis worse, most likely postsurgical. If WBC count remains elevated , we will consider indium scan. 2. Right lower lobe infiltrate, suspect aspiration pneumonia. 3. UTI. 4. MRSA colonization. 5. Hypertension. 6. Hyperlipidemia. 7. Aortic dissection, repair of aortic dissection at [facility]. 8. Acute kidney injury. Resolved. 9. Dysphagia resolved. He is taking his medication by mouth. 10. Vomiting. 11. Cholelithiasis. 12. Status post open cholecystectomy, POD#1. - Plan Plan: Change flagyl 500 mg iv twice/day, DC levaquin. Start Rocephin. Continue Benadryl. If WBC count remains elevated, will consider indium scan. Meanwhile, perform sepsis workup. Nutritional Asmnt/Malnutr-PDOC - Dietary Evaluation Malnutrition Findings (Please click <Entered> for more info): Nutritional Asmnt/Malnutrition Start: 01/24/18 17: 29 Text: Status: Complete Freq: Protocol: Document 01/24/18 17:29 LCHENG (Rec: 01/24/18 17:38 [email or web address] [id number]) Nutritional Asmnt/Malnutrition Patient General Information Nutritional Screening Moderate Risk Diagnosis aspiration PNA Pertinent Medical Hx/Surgical Hx cardiac tampondade s/p surgery , aortic dissection, Gtube ( now removed) Subjective Information Per H&P pt had Gtube removed and started oral diet for about one month. Pt stated he still have some stomach issue, vomiting. Pt consumed cream of wheat and ceream for breakfast this morning, not very comfortable with solid food at this time.Per nurse note, pt had loose stool last night. Per EMR, PO intake 50- 75%. Current Diet Order/ Nutrition Support cardiac Pertinent Medications colace, culturelle, zofran, piperacillin, vancomycin Pertinent Labs 01/24 cl 108, glucose 76 01/20 A1c 4.9 Nutritional Hx/Data Height 1.91 m Height (Calculated Centimeters) 190.5 Current Weight (lbs) 92.079 kg Weight (Calculated Kilograms) 92.1 Weight (Calculated Grams) 85272.3 [place] Body Weight 196 Body Mass Index (BMI) 25.3 Weight Status Overweight GI Symptoms GI Symptoms None Last BM 01/24 Difficult in: None Skin Integrity/Comment: intact Current %PO Fair (50-74%) Estimated Nutritional Goals BEE in Kcals: Using Current wt Calories/Kcals/Kg 25-30 Kcals Calculated 1018-0165 Protein: Using Current wt Protein g/k Protein Calculated 92 Fluid: ml 2300-2760ml (1ml/kcal) Nutritional Problem No current Nutrition Prob Problem N/A Malnutrition Alert Is there a minimum of two criteria No selected? Query Text:Check all the applicable criteria. A minimum of two criteria are recommended for diagnosis of either severe or non-severe malnutrition. Malnutrition Related to Morbid Obesity Malnutrition related to morbid obesity No Intervention/Recommendation Comments 1. Continue with current diet as ordered. Offered food alternatives if pt not able to take his meals. 2. Monitor PO intake, GI function, wt, labs and skin integrity 3. F/U as moderate risk in 3-5 days, 01/27-01/29 Expected Outcomes/Goals Expected Outcomes/Goals 1. PO intake to meet at least 75% of nutritional needs. 2. Wt stability, GI function to improve, skin to remain intact, labs to approach WNL.
--- NOTE | 2018-01-29 13:30 | Diagnostic Imaging Report ---
Portable chest x-ray HISTORY: Shortness of breath The heart is enlarged. Intravascular stent noted in the aortic arch. Bilateral pleural effusions noted. Surgical suture material and clips noted over the mid chest. IMPRESSION: 1. Cardiomegaly 2. Bilateral pleural effusions. 3. Surgical changes
--- NOTE | 2018-01-29 13:59 | Infectious Disease Prog Note ---
Infectious Disease Subjective - Review of Systems Service Date: 01/29/18 Events since last encounter: Leukocytosis is worse. He had developed diffuse pinkish reticular erythematous rash all over her body including torso and extremities. Subjective: c/o pain at the surgical site.. Infectious Disease Objective - Results Result Diagrams: 01/29/18 08:40 01/29/18 04:20 Recent Labs: Laboratory Last Values WBC 44.8 Th/cmm (4.8-10.8) H* 01/29/18 08:40 RBC 3.89 Mil/cmm (4.30-5.70) L 01/29/18 08:40 Hgb 11.5 gm/dL (12-16) L 01/29/18 08:40 Hct 34.1 % (41.0-60) L D 01/29/18 08:40 MCV 87.8 fl (80-99) 01/29/18 08:40 MCH 29.6 pg (26.0-30.0) 01/29/18 08:40 MCHC Differential 33.8 pg (28.0-36.0) 01/29/18 08:40 RDW 15.8 % (11.5-20.0) 01/29/18 08:40 Plt Count 301 Th/cmm (150-400) 01/29/18 08:40 MPV 8.5 fl 01/29/18 08:40 Neutrophils % 76.9 % (40.0-80.0) 01/28/18 04:20 Band Neutrophils % 10 % (0-10) 01/29/18 04:20 Lymphocytes % 8.4 % (20.0-50.0) L 01/28/18 04:20 Monocytes % 12.2 % (2.0-10.0) H 01/28/18 04:20 Eosinophils % 2.2 % (0.0-5.0) 01/28/18 04:20 Basophils % 0.3 % (0.0-2.0) 01/28/18 04:20 Neutrophils (Manual) 79 % (40-80) 01/29/18 04:20 Lymphocytes 5 % (20-50) L 01/29/18 04:20 Monocytes 4 % (2-10) 01/29/18 04:20 Eosinophils 2 % (0-5) 01/29/18 04:20 Platelet Estimate ADEQUATE (NORMAL) 01/26/18 06:04 Poikilocytosis 1+ 01/25/18 05:57 Anisocytosis 1+ 01/25/18 05:57 PT 17.8 SECONDS (9.5-11.5) H 01/28/18 04:20 INR 1.66 (0.5-1.4) H 01/28/18 04:20 PTT (Actin FS) 45.6 SECONDS (26.0-38.0) H 01/28/18 04:20 Plt Function Studies 106 01/28/18 08:05 Sodium 144 mEq/L (136-145) 01/29/18 04:20 Potassium 4.5 mEq/L (3.5-5.1) 01/29/18 04:20 Chloride 113 mEq/L (98-107) H 01/29/18 04:20 Carbon Dioxide 18.4 mEq/L (21.0-31.0) L 01/29/18 04:20 Anion Gap 17.1 (7.0-16.0) H 01/29/18 04:20 BUN 15 mg/dL (7-25) 01/29/18 04:20 Creatinine 2.6 mg/dL (0.7-1.3) H 01/29/18 04:20 Est GFR ( Amer) 32.4 ml/min (>90) 01/29/18 04:20 Est GFR (Non-Af Amer) 26.8 ml/min 01/29/18 04:20 BUN/Creatinine Ratio 5.8 01/29/18 04:20 Glucose 85 mg/dL (70-105) 01/29/18 04:20 POC Glucose 87 MG/DL (70 - 105) 01/28/18 05:32 Hemoglobin A1c % 4.9 % (4.0-6.0) 01/20/18 16:40 Whole Bld Lactic Acid 1.32 mmol/L (0.60-1.99) 01/20/18 16:40 Calcium 8.1 mg/dL (8.6-10.3) L 01/29/18 04:20 Total Bilirubin 0.6 mg/dL (0.3-1.0) 01/29/18 04:20 AST 36 U/L (13-39) 01/29/18 04:20 ALT 17 U/L (7-52) 01/29/18 04:20 Alkaline Phosphatase 82 U/L (34-104) 01/29/18 04:20 Creatine Kinase 32 U/L (30-223) 01/20/18 16:40 Troponin I 0.01 ng/mL (0.01-0.05) 01/20/18 16:40 Total Protein 6.0 gm/dL (6.0-8.3) 01/29/18 04:20 Albumin 3.0 gm/dL (4.2-5.5) L 01/29/18 04:20 Globulin 3.0 gm/dL 01/29/18 04:20 Albumin/Globulin Ratio 1.0 (1.0-1.8) 01/29/18 04:20 Triglycerides 69 mg/dL (<150) 01/27/18 05:45 Cholesterol 79 mg/dL (<200) 01/27/18 05:45 LDL Cholesterol Direct 37 mg/dL (75-193) L 01/27/18 05:45 HDL Cholesterol 32 mg/dL (23-92) 01/27/18 05:45 Urine Source MIDSTREAM 01/20/18 20:20 Urine Color YELLOW 01/20/18 20:20 Urine Clarity HAZY (CLEAR) 01/20/18 20:20 Urine pH 5.5 (4.6 - 8.0) 01/20/18 20:20 Ur Specific [place] 1.020 (1.005-1.030) 01/20/18 20:20 Urine Protein NEGATIVE mg/dL (NEGATIVE) 01/20/18 20:20 Urine Glucose (UA) NEGATIVE mg/dL (NEGATIVE) 01/20/18 20:20 Urine Ketones NEGATIVE mg/dL (NEGATIVE) 01/20/18 20:20 Urine Blood SMALL (NEGATIVE) H 01/20/18 20:20 Urine Nitrate NEGATIVE (NEGATIVE) 01/20/18 20:20 Urine Bilirubin NEGATIVE (NEGATIVE) 01/20/18 20:20 Urine Urobilinogen 0.2 E.U./dL (0.2 - 1.0) 01/20/18 20:20 Ur Leukocyte Esterase SMALL (NEGATIVE) H 01/20/18 20:20 Urine RBC 5-10 /hpf (0-5) H 01/20/18 20:20 Urine WBC 10-25 /hpf (0-5) H 01/20/18 20:20 Ur Epithelial Cells NONE SEEN /lpf (FEW) 01/20/18 20:20 Urine Bacteria NONE SEEN /hpf (NONE SEEN) 01/20/18 20:20 Vancomycin Trough 28.2 ug/mL (5-10) H 01/25/18 09:00 Random Vancomycin 30.6 ug/mL (5.0-40.0) 01/26/18 06:00 - Physical Exam Vitals and I&O: Vital Signs Temp 97.2 F 01/29/18 11:53 Pulse 96 01/29/18 11:53 Resp 20 01/29/18 11:53 BP 121/60 01/29/18 11:53 Pulse Ox 96 01/29/18 11:53 Intake & Output 01/28/18 01/29/18 01/29/18 18:59 06:59 18:59 Intake Total 1000 2200 100 Output Total 410 Balance 1000 1790 100 Weight (lbs) 91.172 kg Intake: Intake, IV Amount 1000 2000 100 Levofloxacin 500mg/100mL 100 500 mg In 100 ml @ 100 mls/hr IV Q24H [facility] Rx#: [id number] Sodium Chloride 0.9% 1, 1000 2000 000 ml @ 120 mls/hr IV . Q8H20M [facility] Rx#:[id number] Oral 200 Output: Gastric Drainage 60 Urine 350 Other: Weight Source Bedscale Active Medications: Current Medications Acetaminophen (Tylenol) 650 mg PO Q6H PRN PRN Reason: HEADACHE/TEMP ABOVE 100F Stop: 03/21/18 19:07 Last Admin: 01/20/18 23:17 Dose: 650 mg Acetaminophen/Hydrocodone Bitart ([place] 10 Mg/325 Mg) 1 tab PO Q6H PRN PRN Reason: mod pain Stop: 03/22/18 10:31 Last Admin: 01/29/18 09:09 Dose: 1 tab Albuterol/Ipratropium (Duoneb Neb) 3 ml HHN Q4HRT [facility] Stop: 03/21/18 19:59 Last Admin: 01/29/18 10:28 Dose: 3 ml Amiodarone HCl (Cordarone) 100 mg GT DAILY [facility] Stop: 03/22/18 08:59 Last Admin: 01/29/18 08:24 Dose: 100 mg Amlodipine Besylate (Norvasc) 10 mg GT DAILY [facility] Stop: 03/22/18 08:59 Last Admin: 01/29/18 08:22 Dose: 10 mg Aspirin (Aspirin Chewable) 81 mg GT DAILY [facility] Stop: 03/22/18 08:59 Last Admin: 01/29/18 08:23 Dose: 81 mg Atorvastatin Calcium (Lipitor) 40 mg GT HS [facility] Stop: 03/25/18 20:59 Last Admin: 01/28/18 21:04 Dose: 40 mg Diphenhydramine HCl (Benadryl 50 Mg/Ml) 50 mg IVP Q8H PRN PRN Reason: rash, itchiness Stop: 03/30/18 08:49 Docusate Sodium (Colace) 100 mg PO BID PRN PRN Reason: Constipation Stop: 03/21/18 19:07 Last Admin: 01/23/18 10:21 Dose: 100 mg Famotidine (Pepcid) 40 mg PO DAILY [facility] Stop: 03/30/18 08:59 Hydromorphone HCl (Dilaudid) 4 mg IVP Q4HR PRN PRN Reason: Severe Pain Stop: 03/29/18 12:35 Last Admin: 01/29/18 10:16 Dose: 4 mg Magnesium Sulfate (Magnesium Sulfate Premix) 2 gm in 50 mls @ 25 mls/hr IV DAILY PRN PRN Reason: Magnesium level less than 1.6 Stop: 03/21/18 19:07 Sodium Chloride (Nacl 0.9%) 1,000 mls @ 120 mls/hr IV .Q8H20M [facility] Stop: 03/26/18 17:29 Last Admin: 01/29/18 08:32 Dose: 120 mls/hr Metronidazole (Flagyl) 500 mg in 100 mls @ 100 mls/hr IV Q12H [facility] Stop: 03/27/18 14:59 Last Admin: 01/28/18 16:38 Dose: 100 mls/hr Potassium Chloride (Potassium Chloride) 40 meq in 200 mls @ 50 mls/hr IV DAILY PRN PRN Reason: IF K < 3.2 Stop: 03/29/18 14:59 Ceftriaxone Sodium 1 gm/ (Dextrose) 50 mls @ 100 mls/hr IV Q24H [facility] Stop: 03/30/18 13:59 Lactobacillus Rhamnosus (Culturelle 15b) 1 each PO DAILY [facility] Stop: 03/23/18 08:59 Last Admin: 01/29/18 08:22 Dose: 1 each Lorazepam (Ativan) 1 mg IVP Q4H PRN; Protocol PRN Reason: Anxiety Stop: 03/21/18 19:07 Last Admin: 01/28/18 16:26 Dose: 1 mg Magnesium Oxide (Mag-Oxide) 400 mg PO BID PRN PRN Reason: Mg less than 1.9 Stop: 03/21/18 19:07 Metoprolol Tartrate (Lopressor) 50 mg GT Q8H [facility] Stop: 03/21/18 19:14 Last Admin: 01/29/18 10:16 Dose: 50 mg Miscellaneous (Probiotic Screen) 1 ea MC PRN PRN PRN Reason: PROTOCOL Stop: 03/22/18 09:59 Ondansetron HCl (Zofran) 4 mg IV Q4H PRN PRN Reason: Nausea / Vomiting Stop: 03/27/18 09:59 Last Admin: 01/27/18 09:42 Dose: 4 mg Potassium Chloride (Klor-Con) 40 meq PO DAILY PRN PRN Reason: k level less than 3.5 Stop: 03/21/18 19:07 Potassium Chloride (Klor-Con) 40 meq PO DAILY [facility] Stop: 03/29/18 08:59 Last Admin: 01/29/18 08:23 Dose: 40 meq Simethicone (Mylicon) 80 mg PO Q8H [facility] Stop: 03/27/18 10:14 Last Admin: 01/29/18 08:23 Dose: 80 mg Tamsulosin HCl (Flomax) 0.4 mg PO HS [facility] Stop: 03/25/18 20:59 Last Admin: 01/28/18 21:04 Dose: 0.4 mg Tamsulosin HCl (Flomax) 0.4 mg PO DAILY [facility] Stop: 03/28/18 08:59 Last Admin: 01/29/18 08:24 Dose: 0.4 mg Zolpidem Tartrate (Ambien) 10 mg PO HS PRN PRN Reason: Insomnia Stop: 03/21/18 19:07 General: no acute distress, well developed, well nourished HEENT: atraumatic, normocephalic, PERRLA, EOMI Neck: supple, no thyromegaly, no lymphadenopathy Cardiovascular: S1S2, regular Lungs: clear to auscultation bilaterally, clear to percussion Abdomen: soft, no tender, no distended, no rebound Extremities: no cyanosis, no clubbing, no edema Neurological: awake, alert, oriented Skin: intact, rash (diffuse pinkish non-itchy nontender erythematous Rash all over his body.) - Procedures Procedures: Procedures Procedure Code Date INSPECTION OF GALLBLADDER, PERCUTANEOUS ENDOSCOPIC APPROACH [id number] 01/20/18 RELEASE OMENTUM, OPEN APPROACH [id number] 01/20/18 RESECTION OF GALLBLADDER, OPEN APPROACH [id number] 01/20/18 Infectious Disease Assmt/Plan - Problem List Patient Problems: All Active Problems GASTRIC TUBE AND CORAL REMOVAL (Acute) - Assessment Assessment: 1. Leukocytosis worse, most likely postsurgical. If WBC count remains elevated , we will consider indium scan. 2. Right lower lobe infiltrate, suspect aspiration pneumonia. 3. UTI. 4. MRSA colonization. 5. Hypertension. 6. Hyperlipidemia. 7. Aortic dissection, repair of aortic dissection at [facility]. 8. Acute kidney injury. Resolved. 9. Dysphagia resolved. He is taking his medication by mouth. 10. Vomiting. 11. Cholelithiasis. 12. Status post open cholecystectomy, POD#1. 13. Rash, hypersensitivity reaction, unknown agent. - Plan Plan: Change flagyl 500 mg iv twice/day, DC levaquin. Start Rocephin. Continue Benadryl. If WBC count remains elevated, will consider indium scan. Meanwhile, perform sepsis workup. Nutritional Asmnt/Malnutr-PDOC - Dietary Evaluation Malnutrition Findings (Please click <Entered> for more info): Nutritional Asmnt/Malnutrition Start: 01/24/18 17: 29 Text: Status: Complete Freq: Protocol: Document 01/24/18 17:29 [email or web address] (Rec: 01/24/18 17:38 [id number]) Nutritional Asmnt/Malnutrition Patient General Information Nutritional Screening Moderate Risk Diagnosis aspiration PNA Pertinent Medical Hx/Surgical Hx cardiac tampondade s/p surgery , aortic dissection, Gtube ( now removed) Subjective Information Per H&P pt had Gtube removed and started oral diet for about one month. Pt stated he still have some stomach issue, vomiting. Pt consumed cream of wheat and ceream for breakfast this morning, not very comfortable with solid food at this time.Per nurse note, pt had loose stool last night. Per EMR, PO intake 50- 75%. Current Diet Order/ Nutrition Support cardiac Pertinent Medications colace, culturelle, zofran, piperacillin, vancomycin Pertinent Labs 01/24 cl 108, glucose 76 01/20 A1c 4.9 Nutritional Hx/Data Height 1.91 m Height (Calculated Centimeters) 190.5 Current Weight (lbs) 92.079 kg Weight (Calculated Kilograms) 92.1 Weight (Calculated Grams) 42462.3 Dwarf Body Weight 196 Body Mass Index (BMI) 25.3 Weight Status Overweight GI Symptoms GI Symptoms None Last BM 01/24 Difficult in: None Skin Integrity/Comment: intact Current %PO Fair (50-74%) Estimated Nutritional Goals BEE in Kcals: Using Current wt Calories/Kcals/Kg 25-30 Kcals Calculated [id number] Protein: Using Current wt Protein g/k Protein Calculated 92 Fluid: ml 2300-2760ml (1ml/kcal) Nutritional Problem No current Nutrition Prob Problem N/A Malnutrition Alert Is there a minimum of two criteria No selected? Query Text:Check all the applicable criteria. A minimum of two criteria are recommended for diagnosis of either severe or non-severe malnutrition. Malnutrition Related to Morbid Obesity Malnutrition related to morbid obesity No Intervention/Recommendation Comments 1. Continue with current diet as ordered. Offered food alternatives if pt not able to take his meals. 2. Monitor PO intake, GI function, wt, labs and skin integrity 3. F/U as moderate risk in 3-5 days, 01/27-01/29 Expected Outcomes/Goals Expected Outcomes/Goals 1. PO intake to meet at least 75% of nutritional needs. 2. Wt stability, GI function to improve, skin to remain intact, labs to approach WNL.
[2018-01-29] MEDS: metroNIDAZOLE 500mg/NS 100mL 500 MG/100 ML BAG IV SCH ×2 (15:48→17:21)
[2018-01-30] MEDS: HYDROmorphone 2 mg/mL 1mL Vial IVP PRN ×3 (01:59→12:27)
[2018-01-30] MEDS: Sodium Chloride 0.9% 1,000 ML IV SCH ×2 (01:59→12:26)
[2018-01-30] MEDS: Albuterol/Ipratropium Neb 3 ML AERS HHN SCH ×6 (03:19→22:32)
[2018-01-30 07:21] LABS: BASOPHILE ABSOLUTE 0.1 Th/cumm (0-0.2); EOSINOPHILE ABSOLUTE 0.1 Th/cmm (0.1-0.4); HEMATOCRIT 29.9 % (41.0-60); HEMOGLOBIN 10.1 gm/dL (12-16); LYMPHOCYTE ABSOLUTE 1.1 Th/cmm (1.5-3.0); MANUAL DIFF REQUIRED? YES; MEAN CELL VOLUME 88.1 fl (80-99); MEAN CORPUSCULAR HEMOGLOBIN 29.9 pg (26.0-30.0); MEAN CORPUSCULAR HGB CONC 33.9 pg (28.0-36.0); MEAN PLATELET VOLUME 9.1 fl; MONOCYTE ABSOLUTE 2.6 Th/cmm (0.3-1.0); NEUTROPHILE ABSOLUTE 29.8 Th/cmm (1.8-8.0); PLATELET COUNT 264 Th/cmm (150-400); RED BLOOD COUNT 3.39 Mil/cmm (4.30-5.70); RED CELL DISTRIBUTION WIDTH 15.7 % (11.5-20.0)
[2018-01-30 07:34] LABS: WHITE BLOOD COUNT 33.7 Th/cmm (4.8-10.8)
[2018-01-30 07:45] LABS: ALBUMIN 2.9 gm/dL (4.2-5.5); ANION GAP 14.4 (7.0-16.0); BILIRUBIN,TOTAL 0.4 mg/dL (0.3-1.0); CALCIUM SERUM 8.6 mg/dL (8.6-10.3); CARBON DIOXIDE 20.6 mEq/L (21.0-31.0); CREATININE - SERUM 3.2 mg/dL (0.7-1.3); GFR AFRICAN-AMERICAN 25.5 ml/min (>90); GFR NON AFRICAN-AMERICAN 21.1 ml/min; TOTAL PROTEIN,SERUM 5.8 gm/dL (6.0-8.3)
[2018-01-30] MEDS: metroNIDAZOLE 500mg/NS 100mL 500 MG/100 ML BAG IV SCH ×2 (07:58→15:35)
--- NOTE | 2018-01-30 08:37 | Diagnostic Imaging Report ---
CHEST X-RAY: AP view INDICATION: Pneumonia COMPARISON: 01/29/2018 FINDINGS: Mild improvement in congestive changes are noted. Bilateral effusions are again noted, right greater than left. Cardiomegaly is noted with postsurgical changes including aortic endovascular repair. Postsurgical changes of the upper abdomen are noted. IMPRESSION: Mild improvement in congestive changes. Bilateral effusions are again noted, right greater than left. Pneumonia of the right lung cannot be excluded. Cardiomegaly. Postsurgical changes.
--- NOTE | 2018-01-30 08:46 | General Progress Note ---
Subjective - Review of Systems Service Date: 01/30/18 Subjective: Pt seen and eval. Has some congestion. No fevers or chills. Now on Levaquin and Flagyl. Seen by ID, Cardio, and Sx. Status post removal of Perm-A-Cath and GT by Dr. Parks on 01/22/18. No n,v,d or cp. Feels weak. WBC improved now. He's now on Rocephin and Flagyl per ID. Rash improved significantly. He didn't require Benadryl last night. Pt is POD # 2 for open cholecystectomy on 01/28/18. Objective - Results Result Diagrams: 01/30/18 05:40 01/30/18 05:40 Recent Labs: Laboratory Last Values WBC 33.7 Th/cmm (4.8-10.8) H* D 01/30/18 05:40 RBC 3.39 Mil/cmm (4.30-5.70) L 01/30/18 05:40 Hgb 10.1 gm/dL (12-16) L 01/30/18 05:40 Hct 29.9 % (41.0-60) L 01/30/18 05:40 MCV 88.1 fl (80-99) 01/30/18 05:40 MCH 29.9 pg (26.0-30.0) 01/30/18 05:40 MCHC Differential 33.9 pg (28.0-36.0) 01/30/18 05:40 RDW 15.7 % (11.5-20.0) 01/30/18 05:40 Plt Count 264 Th/cmm (150-400) 01/30/18 05:40 MPV 9.1 fl 01/30/18 05:40 Neutrophils % 76.9 % (40.0-80.0) 01/28/18 04:20 Band Neutrophils % 10 % (0-10) 01/29/18 04:20 Lymphocytes % 8.4 % (20.0-50.0) L 01/28/18 04:20 Monocytes % 12.2 % (2.0-10.0) H 01/28/18 04:20 Eosinophils % 2.2 % (0.0-5.0) 01/28/18 04:20 Basophils % 0.3 % (0.0-2.0) 01/28/18 04:20 Neutrophils (Manual) 79 % (40-80) 01/29/18 04:20 Lymphocytes 5 % (20-50) L 01/29/18 04:20 Monocytes 4 % (2-10) 01/29/18 04:20 Eosinophils 2 % (0-5) 01/29/18 04:20 Platelet Estimate ADEQUATE (NORMAL) 01/26/18 06:04 Poikilocytosis 1+ 01/25/18 05:57 Anisocytosis 1+ 01/25/18 05:57 PT 17.8 SECONDS (9.5-11.5) H 01/28/18 04:20 INR 1.66 (0.5-1.4) H 01/28/18 04:20 PTT (Actin FS) 45.6 SECONDS (26.0-38.0) H 01/28/18 04:20 Plt Function Studies 106 01/28/18 08:05 Sodium 143 mEq/L (136-145) 01/30/18 05:40 Potassium 5.0 mEq/L (3.5-5.1) 01/30/18 05:40 Chloride 113 mEq/L (98-107) H 01/30/18 05:40 Carbon Dioxide 20.6 mEq/L (21.0-31.0) L 01/30/18 05:40 Anion Gap 14.4 (7.0-16.0) 01/30/18 05:40 BUN 32 mg/dL (7-25) H 01/30/18 05:40 Creatinine 3.2 mg/dL (0.7-1.3) H 01/30/18 05:40 Est GFR ( Amer) 25.5 ml/min (>90) 01/30/18 05:40 Est GFR (Non-Af Amer) 21.1 ml/min 01/30/18 05:40 BUN/Creatinine Ratio 10.0 01/30/18 05:40 Glucose 95 mg/dL (70-105) 01/30/18 05:40 POC Glucose 87 MG/DL (70 - 105) 01/28/18 05:32 Hemoglobin A1c % 4.9 % (4.0-6.0) 01/20/18 16:40 Whole Bld Lactic Acid 1.32 mmol/L (0.60-1.99) 01/20/18 16:40 Calcium 8.6 mg/dL (8.6-10.3) 01/30/18 05:40 Total Bilirubin 0.4 mg/dL (0.3-1.0) 01/30/18 05:40 AST 15 U/L (13-39) 01/30/18 05:40 ALT 15 U/L (7-52) 01/30/18 05:40 Alkaline Phosphatase 84 U/L (34-104) 01/30/18 05:40 Creatine Kinase 32 U/L (30-223) 01/20/18 16:40 Troponin I 0.01 ng/mL (0.01-0.05) 01/20/18 16:40 Total Protein 5.8 gm/dL (6.0-8.3) L 01/30/18 05:40 Albumin 2.9 gm/dL (4.2-5.5) L 01/30/18 05:40 Globulin 2.9 gm/dL 01/30/18 05:40 Albumin/Globulin Ratio 1.0 (1.0-1.8) 01/30/18 05:40 Triglycerides 69 mg/dL (<150) 01/27/18 05:45 Cholesterol 79 mg/dL (<200) 01/27/18 05:45 LDL Cholesterol Direct 37 mg/dL (75-193) L 01/27/18 05:45 HDL Cholesterol 32 mg/dL (23-92) 01/27/18 05:45 Urine Source MIDSTREAM 01/20/18 20:20 Urine Color YELLOW 01/20/18 20:20 Urine Clarity HAZY (CLEAR) 01/20/18 20:20 Urine pH 5.5 (4.6 - 8.0) 01/20/18 20:20 Ur Specific [place] 1.020 (1.005-1.030) 01/20/18 20:20 Urine Protein NEGATIVE mg/dL (NEGATIVE) 01/20/18 20:20 Urine Glucose (UA) NEGATIVE mg/dL (NEGATIVE) 01/20/18 20:20 Urine Ketones NEGATIVE mg/dL (NEGATIVE) 01/20/18 20:20 Urine Blood SMALL (NEGATIVE) H 01/20/18 20:20 Urine Nitrate NEGATIVE (NEGATIVE) 01/20/18 20:20 Urine Bilirubin NEGATIVE (NEGATIVE) 01/20/18 20:20 Urine Urobilinogen 0.2 E.U./dL (0.2 - 1.0) 01/20/18 20:20 Ur Leukocyte Esterase SMALL (NEGATIVE) H 01/20/18 20:20 Urine RBC 5-10 /hpf (0-5) H 01/20/18 20:20 Urine WBC 10-25 /hpf (0-5) H 01/20/18 20:20 Ur Epithelial Cells NONE SEEN /lpf (FEW) 01/20/18 20:20 Urine Bacteria NONE SEEN /hpf (NONE SEEN) 01/20/18 20:20 Vancomycin Trough 28.2 ug/mL (5-10) H 01/25/18 09:00 Random Vancomycin 30.6 ug/mL (5.0-40.0) 01/26/18 06:00 - Physical Exam Vitals and I&O: Vital Signs Temp 98.8 F 01/29/18 15:54 Pulse 90 01/30/18 07:19 Resp 18 01/30/18 07:19 BP 100/50 01/29/18 15:54 Pulse Ox 92 01/30/18 07:19 Intake & Output 01/29/18 01/30/18 01/30/18 18:59 06:59 18:59 Intake Total 1300 Output Total 25 Balance 1300 -25 Weight (lbs) 90.718 kg 90.718 kg Intake: Intake, IV Amount 1300 Levofloxacin 500mg/100mL 100 500 mg In 100 ml @ 100 mls/hr IV Q24H [facility] Rx#: [id number] Sodium Chloride 0.9% 1, 1000 000 ml @ 120 mls/hr IV . Q8H20M [facility] Rx#:[id number] metroNIDAZOLE 500mg/NS 200 100mL 500 mg In 100 ml @ 100 mls/hr IV Q12H [facility] Rx #:[id number] Output: Gastric Drainage 25 Other: Weight Source Bedscale Bedscale Active Medications: Current Medications Acetaminophen (Tylenol) 650 mg PO Q6H PRN PRN Reason: HEADACHE/TEMP ABOVE 100F Stop: 03/21/18 19:07 Last Admin: 01/20/18 23:17 Dose: 650 mg Acetaminophen/Hydrocodone Bitart ([place] 10 Mg/325 Mg) 1 tab PO Q6H PRN PRN Reason: mod pain Stop: 03/22/18 10:31 Last Admin: 01/29/18 09:09 Dose: 1 tab Albuterol/Ipratropium (Duoneb Neb) 3 ml HHN Q4HRT [facility] Stop: 03/21/18 19:59 Last Admin: 01/30/18 07:18 Dose: 3 ml Amiodarone HCl (Cordarone) 100 mg GT DAILY [facility] Stop: 03/22/18 08:59 Last Admin: 01/29/18 08:24 Dose: 100 mg Amlodipine Besylate (Norvasc) 10 mg GT DAILY [facility] Stop: 03/22/18 08:59 Last Admin: 01/29/18 08:22 Dose: 10 mg Aspirin (Aspirin Chewable) 81 mg GT DAILY [facility] Stop: 03/22/18 08:59 Last Admin: 01/29/18 08:23 Dose: 81 mg Atorvastatin Calcium (Lipitor) 40 mg GT HS [facility] Stop: 03/25/18 20:59 Last Admin: 01/29/18 21:06 Dose: 40 mg Diphenhydramine HCl (Benadryl 50 Mg/Ml) 50 mg IVP Q8H PRN PRN Reason: rash, itchiness Stop: 03/30/18 08:49 Docusate Sodium (Colace) 100 mg PO BID PRN PRN Reason: Constipation Stop: 03/21/18 19:07 Last Admin: 01/23/18 10:21 Dose: 100 mg Famotidine (Pepcid) 40 mg PO DAILY [facility] Stop: 03/30/18 08:59 Last Admin: 01/29/18 14:29 Dose: 40 mg Hydromorphone HCl (Dilaudid) 4 mg IVP Q4HR PRN PRN Reason: Severe Pain Stop: 03/29/18 12:35 Last Admin: 01/30/18 07:01 Dose: 4 mg Magnesium Sulfate (Magnesium Sulfate Premix) 2 gm in 50 mls @ 25 mls/hr IV DAILY PRN PRN Reason: Magnesium level less than 1.6 Stop: 03/21/18 19:07 Sodium Chloride (Nacl 0.9%) 1,000 mls @ 120 mls/hr IV .Q8H20M [facility] Stop: 03/26/18 17:29 Last Admin: 01/30/18 01:59 Dose: 120 mls/hr Metronidazole (Flagyl) 500 mg in 100 mls @ 100 mls/hr IV Q12H [facility] Stop: 03/27/18 14:59 Last Admin: 01/30/18 07:58 Dose: 100 mls/hr Potassium Chloride (Potassium Chloride) 40 meq in 200 mls @ 50 mls/hr IV DAILY PRN PRN Reason: IF K < 3.2 Stop: 03/29/18 14:59 Ceftriaxone Sodium 1 gm/ (Dextrose) 50 mls @ 100 mls/hr IV Q24H [facility] Stop: 03/30/18 14:59 Last Admin: 01/29/18 14:40 Dose: 100 mls/hr Lactobacillus Rhamnosus (Culturelle 15b) 1 each PO DAILY [facility] Stop: 03/23/18 08:59 Last Admin: 01/29/18 08:22 Dose: 1 each Lorazepam (Ativan) 1 mg IVP Q4H PRN; Protocol PRN Reason: Anxiety Stop: 03/21/18 19:07 Last Admin: 01/29/18 15:50 Dose: 1 mg Magnesium Oxide (Mag-Oxide) 400 mg PO BID PRN PRN Reason: Mg less than 1.9 Stop: 03/21/18 19:07 Metoprolol Tartrate (Lopressor) 50 mg GT Q8H [facility] Stop: 03/21/18 19:14 Last Admin: 01/29/18 10:16 Dose: 50 mg Miscellaneous (Probiotic Screen) 1 ea MC PRN PRN PRN Reason: PROTOCOL Stop: 03/22/18 09:59 Mupirocin (Bactroban Oint) 1 appl NS BID [facility] Stop: 02/03/18 17:01 Ondansetron HCl (Zofran) 4 mg IV Q4H PRN PRN Reason: Nausea / Vomiting Stop: 03/27/18 09:59 Last Admin: 01/27/18 09:42 Dose: 4 mg Potassium Chloride (Klor-Con) 40 meq PO DAILY PRN PRN Reason: k level less than 3.5 Stop: 03/21/18 19:07 Potassium Chloride (Klor-Con) 40 meq PO DAILY [facility] Stop: 03/29/18 08:59 Last Admin: 01/29/18 08:23 Dose: 40 meq Simethicone (Mylicon) 80 mg PO Q8H [facility] Stop: 03/27/18 10:14 Last Admin: 01/29/18 17:36 Dose: 80 mg Tamsulosin HCl (Flomax) 0.4 mg PO HS [facility] Stop: 03/25/18 20:59 Last Admin: 01/29/18 21:06 Dose: 0.4 mg Tamsulosin HCl (Flomax) 0.4 mg PO DAILY [facility] Stop: 03/28/18 08:59 Last Admin: 01/29/18 08:24 Dose: 0.4 mg Zolpidem Tartrate (Ambien) 10 mg PO HS PRN PRN Reason: Insomnia Stop: 03/21/18 19:07 General: Alert, Oriented x3, Cooperative HEENT: Atraumatic, PERRLA, EOMI Neck: Supple, no JVD Cardiovascular: Regular rate Lungs: Other (has rales and congestion) Abdomen: Bowel sounds, Soft, Tender Extremities: no Cyanosis Neurological: Normal speech Skin: no Rash - Procedures Procedures: Procedures Procedure Code Date INSPECTION OF GALLBLADDER, PERCUTANEOUS ENDOSCOPIC APPROACH [id number] 01/20/18 RELEASE OMENTUM, OPEN APPROACH [id number] 01/20/18 RESECTION OF GALLBLADDER, OPEN APPROACH [id number] 01/20/18 Assessment/Plan - Problem List Patient Problems: All Active Problems GASTRIC TUBE AND CORAL REMOVAL (Acute) - Assessment Assessment: Symptomatic Cholelithiasis with possible cholecystitis. Sepsis Asp PNA Hypokalemia Hx of RUE DVT (now resolved) Dysphagia (resolved) A Fib Anemia of Ch Ill Mod [place] Hyponatremia Hx of Aortic Dissection and Cardiac Tamponade-s/p sx at [facility] in October 2017 - Plan Plan: Pt is POD # 1 for open cholecystectomy by Dr. Parks. Pt's venous doppler US or LE and UE is negative. Warfarin held by Cardio in light of procedures scheduled on 01/22/18. Dr. Parks removed GT and Perm-A-Cath on 01/22/18. On tele. FU on cbc and chem 7. WBC improved now. He's now on Rocephin and Flagyl per ID. Rash improved significantly. He didn't require Benadryl last night. Pt is POD # 2 for open cholecystectomy on 01/28/18. Nutritional Asmnt/Malnutr-PDOC - Dietary Evaluation Malnutrition Findings (Please click <Entered> for more info): Nutritional Asmnt/Malnutrition Start: 01/24/18 17: 29 Text: Status: Complete Freq: Protocol: Document 01/24/18 17:29 LCHENG (Rec: 01/24/18 17:38 [email or web address] [email or web address]) Nutritional Asmnt/Malnutrition Patient General Information Nutritional Screening Moderate Risk Diagnosis aspiration PNA Pertinent Medical Hx/Surgical Hx cardiac tampondade s/p surgery , aortic dissection, Gtube ( now removed) Subjective Information Per H&P pt had Gtube removed and started oral diet for about one month. Pt stated he still have some stomach issue, vomiting. Pt consumed cream of wheat and ceream for breakfast this morning, not very comfortable with solid food at this time.Per nurse note, pt had loose stool last night. Per EMR, PO intake 50- 75%. Current Diet Order/ Nutrition Support cardiac Pertinent Medications colace, culturelle, zofran, piperacillin, vancomycin Pertinent Labs 01/24 cl 108, glucose 76 01/20 A1c 4.9 Nutritional Hx/Data Height 1.91 m Height (Calculated Centimeters) 190.5 Current Weight (lbs) 92.079 kg Weight (Calculated Kilograms) 92.1 Weight (Calculated Grams) 98128.3 [place] Body Weight 196 Body Mass Index (BMI) 25.3 Weight Status Overweight GI Symptoms GI Symptoms None Last BM 01/24 Difficult in: None Skin Integrity/Comment: intact Current %PO Fair (50-74%) Estimated Nutritional Goals BEE in Kcals: Using Current wt Calories/Kcals/Kg 25-30 Kcals Calculated 0992-4752 Protein: Using Current wt Protein g/k Protein Calculated 92 Fluid: ml 2300-2760ml (1ml/kcal) Nutritional Problem No current Nutrition Prob Problem N/A Malnutrition Alert Is there a minimum of two criteria No selected? Query Text:Check all the applicable criteria. A minimum of two criteria are recommended for diagnosis of either severe or non-severe malnutrition. Malnutrition Related to Morbid Obesity Malnutrition related to morbid obesity No Intervention/Recommendation Comments 1. Continue with current diet as ordered. Offered food alternatives if pt not able to take his meals. 2. Monitor PO intake, GI function, wt, labs and skin integrity 3. F/U as moderate risk in 3-5 days, 01/27-01/29 Expected Outcomes/Goals Expected Outcomes/Goals 1. PO intake to meet at least 75% of nutritional needs. 2. Wt stability, GI function to improve, skin to remain intact, labs to approach WNL.
[2018-01-30] MEDS: Lactobacillus Rhamnosus GG 15 Billion CFU CAP.SPRINK PO SCH (09:16)
[2018-01-30] MEDS: Aspirin 81mg Chewable Tab GT SCH (09:17)
--- NOTE | 2018-01-30 09:24 | General Progress Note ---
Subjective - Review of Systems Service Date: 01/30/18 Events since last encounter: leukocytosis trending down chemistry ok tolerating oral intake [place] 25 cc likely remove drain in AM and consider DC Objective - Results Result Diagrams: 01/30/18 05:40 01/30/18 05:40 Recent Labs: Laboratory Last Values WBC 33.7 Th/cmm (4.8-10.8) H* D 01/30/18 05:40 RBC 3.39 Mil/cmm (4.30-5.70) L 01/30/18 05:40 Hgb 10.1 gm/dL (12-16) L 01/30/18 05:40 Hct 29.9 % (41.0-60) L 01/30/18 05:40 MCV 88.1 fl (80-99) 01/30/18 05:40 MCH 29.9 pg (26.0-30.0) 01/30/18 05:40 MCHC Differential 33.9 pg (28.0-36.0) 01/30/18 05:40 RDW 15.7 % (11.5-20.0) 01/30/18 05:40 Plt Count 264 Th/cmm (150-400) 01/30/18 05:40 MPV 9.1 fl 01/30/18 05:40 Neutrophils % 76.9 % (40.0-80.0) 01/28/18 04:20 Band Neutrophils % 10 % (0-10) 01/29/18 04:20 Lymphocytes % 8.4 % (20.0-50.0) L 01/28/18 04:20 Monocytes % 12.2 % (2.0-10.0) H 01/28/18 04:20 Eosinophils % 2.2 % (0.0-5.0) 01/28/18 04:20 Basophils % 0.3 % (0.0-2.0) 01/28/18 04:20 Neutrophils (Manual) 79 % (40-80) 01/29/18 04:20 Lymphocytes 5 % (20-50) L 01/29/18 04:20 Monocytes 4 % (2-10) 01/29/18 04:20 Eosinophils 2 % (0-5) 01/29/18 04:20 Platelet Estimate ADEQUATE (NORMAL) 01/26/18 06:04 Poikilocytosis 1+ 01/25/18 05:57 Anisocytosis 1+ 01/25/18 05:57 PT 17.8 SECONDS (9.5-11.5) H 01/28/18 04:20 INR 1.66 (0.5-1.4) H 01/28/18 04:20 PTT (Actin FS) 45.6 SECONDS (26.0-38.0) H 01/28/18 04:20 Plt Function Studies 106 01/28/18 08:05 Sodium 143 mEq/L (136-145) 01/30/18 05:40 Potassium 5.0 mEq/L (3.5-5.1) 01/30/18 05:40 Chloride 113 mEq/L (98-107) H 01/30/18 05:40 Carbon Dioxide 20.6 mEq/L (21.0-31.0) L 01/30/18 05:40 Anion Gap 14.4 (7.0-16.0) 01/30/18 05:40 BUN 32 mg/dL (7-25) H 01/30/18 05:40 Creatinine 3.2 mg/dL (0.7-1.3) H 01/30/18 05:40 Est GFR ( Amer) 25.5 ml/min (>90) 01/30/18 05:40 Est GFR (Non-Af Amer) 21.1 ml/min 01/30/18 05:40 BUN/Creatinine Ratio 10.0 01/30/18 05:40 Glucose 95 mg/dL (70-105) 01/30/18 05:40 POC Glucose 87 MG/DL (70 - 105) 01/28/18 05:32 Hemoglobin A1c % 4.9 % (4.0-6.0) 01/20/18 16:40 Whole Bld Lactic Acid 1.32 mmol/L (0.60-1.99) 01/20/18 16:40 Calcium 8.6 mg/dL (8.6-10.3) 01/30/18 05:40 Total Bilirubin 0.4 mg/dL (0.3-1.0) 01/30/18 05:40 AST 15 U/L (13-39) 01/30/18 05:40 ALT 15 U/L (7-52) 01/30/18 05:40 Alkaline Phosphatase 84 U/L (34-104) 01/30/18 05:40 Creatine Kinase 32 U/L (30-223) 01/20/18 16:40 Troponin I 0.01 ng/mL (0.01-0.05) 01/20/18 16:40 Total Protein 5.8 gm/dL (6.0-8.3) L 01/30/18 05:40 Albumin 2.9 gm/dL (4.2-5.5) L 01/30/18 05:40 Globulin 2.9 gm/dL 01/30/18 05:40 Albumin/Globulin Ratio 1.0 (1.0-1.8) 01/30/18 05:40 Triglycerides 69 mg/dL (<150) 01/27/18 05:45 Cholesterol 79 mg/dL (<200) 01/27/18 05:45 LDL Cholesterol Direct 37 mg/dL (75-193) L 01/27/18 05:45 HDL Cholesterol 32 mg/dL (23-92) 01/27/18 05:45 Urine Source MIDSTREAM 01/20/18 20:20 Urine Color YELLOW 01/20/18 20:20 Urine Clarity HAZY (CLEAR) 01/20/18 20:20 Urine pH 5.5 (4.6 - 8.0) 01/20/18 20:20 Ur Specific [place] 1.020 (1.005-1.030) 01/20/18 20:20 Urine Protein NEGATIVE mg/dL (NEGATIVE) 01/20/18 20:20 Urine Glucose (UA) NEGATIVE mg/dL (NEGATIVE) 01/20/18 20:20 Urine Ketones NEGATIVE mg/dL (NEGATIVE) 01/20/18 20:20 Urine Blood SMALL (NEGATIVE) H 01/20/18 20:20 Urine Nitrate NEGATIVE (NEGATIVE) 01/20/18 20:20 Urine Bilirubin NEGATIVE (NEGATIVE) 01/20/18 20:20 Urine Urobilinogen 0.2 E.U./dL (0.2 - 1.0) 01/20/18 20:20 Ur Leukocyte Esterase SMALL (NEGATIVE) H 01/20/18 20:20 Urine RBC 5-10 /hpf (0-5) H 01/20/18 20:20 Urine WBC 10-25 /hpf (0-5) H 01/20/18 20:20 Ur Epithelial Cells NONE SEEN /lpf (FEW) 01/20/18 20:20 Urine Bacteria NONE SEEN /hpf (NONE SEEN) 01/20/18 20:20 Vancomycin Trough 28.2 ug/mL (5-10) H 01/25/18 09:00 Random Vancomycin 30.6 ug/mL (5.0-40.0) 01/26/18 06:00 - Physical Exam Vitals and I&O: Vital Signs Temp 99.5 F 01/29/18 19:00 Pulse 90 01/30/18 07:19 Resp 18 01/30/18 07:19 BP 129/82 01/29/18 19:00 Pulse Ox 92 01/30/18 07:19 Intake & Output 01/29/18 01/30/18 01/30/18 18:59 06:59 18:59 Intake Total 1300 Output Total 25 Balance 1300 -25 Weight (lbs) 90.718 kg 90.718 kg Intake: Intake, IV Amount 1300 Levofloxacin 500mg/100mL 100 500 mg In 100 ml @ 100 mls/hr IV Q24H [facility] Rx#: [id number] Sodium Chloride 0.9% 1, 1000 000 ml @ 120 mls/hr IV . Q8H20M [facility] Rx#:[id number] metroNIDAZOLE 500mg/NS 200 100mL 500 mg In 100 ml @ 100 mls/hr IV Q12H [facility] Rx #:[id number] Output: Gastric Drainage 25 Other: Weight Source Bedscale Bedscale Active Medications: Current Medications Acetaminophen (Tylenol) 650 mg PO Q6H PRN PRN Reason: HEADACHE/TEMP ABOVE 100F Stop: 03/21/18 19:07 Last Admin: 01/20/18 23:17 Dose: 650 mg Acetaminophen/Hydrocodone Bitart ([place] 10 Mg/325 Mg) 1 tab PO Q6H PRN PRN Reason: mod pain Stop: 03/22/18 10:31 Last Admin: 01/29/18 09:09 Dose: 1 tab Albuterol/Ipratropium (Duoneb Neb) 3 ml HHN Q4HRT [facility] Stop: 03/21/18 19:59 Last Admin: 01/30/18 07:18 Dose: 3 ml Amiodarone HCl (Cordarone) 100 mg GT DAILY [facility] Stop: 03/22/18 08:59 Last Admin: 01/30/18 09:20 Dose: Not Given Amlodipine Besylate (Norvasc) 10 mg GT DAILY [facility] Stop: 03/22/18 08:59 Last Admin: 01/30/18 09:20 Dose: Not Given Aspirin (Aspirin Chewable) 81 mg GT DAILY [facility] Stop: 03/22/18 08:59 Last Admin: 01/30/18 09:17 Dose: 81 mg Atorvastatin Calcium (Lipitor) 40 mg GT HS [facility] Stop: 03/25/18 20:59 Last Admin: 01/29/18 21:06 Dose: 40 mg Diphenhydramine HCl (Benadryl 50 Mg/Ml) 50 mg IVP Q8H PRN PRN Reason: rash, itchiness Stop: 03/30/18 08:49 Docusate Sodium (Colace) 100 mg PO BID PRN PRN Reason: Constipation Stop: 03/21/18 19:07 Last Admin: 01/23/18 10:21 Dose: 100 mg Famotidine (Pepcid) 40 mg PO DAILY [facility] Stop: 03/30/18 08:59 Last Admin: 01/30/18 09:17 Dose: 40 mg Hydromorphone HCl (Dilaudid) 4 mg IVP Q4HR PRN PRN Reason: Severe Pain Stop: 03/29/18 12:35 Last Admin: 01/30/18 07:01 Dose: 4 mg Magnesium Sulfate (Magnesium Sulfate Premix) 2 gm in 50 mls @ 25 mls/hr IV DAILY PRN PRN Reason: Magnesium level less than 1.6 Stop: 03/21/18 19:07 Sodium Chloride (Nacl 0.9%) 1,000 mls @ 120 mls/hr IV .Q8H20M [facility] Stop: 03/26/18 17:29 Last Admin: 01/30/18 01:59 Dose: 120 mls/hr Metronidazole (Flagyl) 500 mg in 100 mls @ 100 mls/hr IV Q12H [facility] Stop: 03/27/18 14:59 Last Admin: 01/30/18 07:58 Dose: 100 mls/hr Ceftriaxone Sodium 1 gm/ (Dextrose) 50 mls @ 100 mls/hr IV Q24H [facility] Stop: 03/30/18 14:59 Last Admin: 01/29/18 14:40 Dose: 100 mls/hr Lactobacillus Rhamnosus (Culturelle 15b) 1 each PO DAILY [facility] Stop: 03/23/18 08:59 Last Admin: 01/30/18 09:16 Dose: 1 each Lorazepam (Ativan) 1 mg IVP Q4H PRN; Protocol PRN Reason: Anxiety Stop: 03/21/18 19:07 Last Admin: 01/29/18 15:50 Dose: 1 mg Magnesium Oxide (Mag-Oxide) 400 mg PO BID PRN PRN Reason: Mg less than 1.9 Stop: 03/21/18 19:07 Metoprolol Tartrate (Lopressor) 50 mg GT Q8H [facility] Stop: 03/21/18 19:14 Last Admin: 01/29/18 10:16 Dose: 50 mg Miscellaneous (Probiotic Screen) 1 ea MC PRN PRN PRN Reason: PROTOCOL Stop: 03/22/18 09:59 Mupirocin (Bactroban Oint) 1 appl NS BID [facility] Stop: 02/03/18 17:01 Last Admin: 01/30/18 09:20 Dose: 1 appl Ondansetron HCl (Zofran) 4 mg IV Q4H PRN PRN Reason: Nausea / Vomiting Stop: 03/27/18 09:59 Last Admin: 01/27/18 09:42 Dose: 4 mg Potassium Chloride (Klor-Con) 40 meq PO DAILY PRN PRN Reason: k level less than 3.5 Stop: 03/21/18 19:07 Simethicone (Mylicon) 80 mg PO Q8H [facility] Stop: 03/27/18 10:14 Last Admin: 01/29/18 17:36 Dose: 80 mg Tamsulosin HCl (Flomax) 0.4 mg PO HS [facility] Stop: 03/25/18 20:59 Last Admin: 01/29/18 21:06 Dose: 0.4 mg Tamsulosin HCl (Flomax) 0.4 mg PO DAILY [facility] Stop: 03/28/18 08:59 Last Admin: 01/30/18 09:17 Dose: 0.4 mg Zolpidem Tartrate (Ambien) 10 mg PO HS PRN PRN Reason: Insomnia Stop: 03/21/18 19:07 General: Alert, Oriented x3, Cooperative HEENT: Atraumatic, PERRLA, EOMI Neck: Supple, no JVD Cardiovascular: Regular rate Lungs: Other (has rales and congestion) Abdomen: Bowel sounds, Soft, Tender Extremities: no Cyanosis Neurological: Normal speech Skin: no Rash - Procedures Procedures: Procedures Procedure Code Date INSPECTION OF GALLBLADDER, PERCUTANEOUS ENDOSCOPIC APPROACH [id number] 01/20/18 RELEASE OMENTUM, OPEN APPROACH [id number] 01/20/18 RESECTION OF GALLBLADDER, OPEN APPROACH [id number] 01/20/18 Assessment/Plan - Problem List Patient Problems: All Active Problems GASTRIC TUBE AND CORAL REMOVAL (Acute) Nutritional Asmnt/Malnutr-PDOC - Dietary Evaluation Malnutrition Findings (Please click <Entered> for more info): Nutritional Asmnt/Malnutrition Start: 01/24/18 17: 29 Text: Status: Complete Freq: Protocol: Document 01/24/18 17:29 HENG (Rec: 01/24/18 17:38 [id number] Nutritional Asmnt/Malnutrition Patient General Information Nutritional Screening Moderate Risk Diagnosis aspiration PNA Pertinent Medical Hx/Surgical Hx cardiac tampondade s/p surgery , aortic dissection, Gtube ( now removed) Subjective Information Per H&P pt had Gtube removed and started oral diet for about one month. Pt stated he still have some stomach issue, vomiting. Pt consumed cream of wheat and ceream for breakfast this morning, not very comfortable with solid food at this time.Per nurse note, pt had loose stool last night. Per EMR, PO intake 50- 75%. Current Diet Order/ Nutrition Support cardiac Pertinent Medications colace, culturelle, zofran, piperacillin, vancomycin Pertinent Labs 01/24 cl 108, glucose 76 01/20 A1c 4.9 Nutritional Hx/Data Height 1.91 m Height (Calculated Centimeters) 190.5 Current Weight (lbs) 92.079 kg Weight (Calculated Kilograms) 92.1 Weight (Calculated Grams) 46278.3 [place] Body Weight 196 Body Mass Index (BMI) 25.3 Weight Status Overweight GI Symptoms GI Symptoms None Last BM 01/24 Difficult in: None Skin Integrity/Comment: intact Current %PO Fair (50-74%) Estimated Nutritional Goals BEE in Kcals: Using Current wt Calories/Kcals/Kg 25-30 Kcals Calculated 0607-0522 Protein: Using Current wt Protein g/k Protein Calculated 92 Fluid: ml 2300-2760ml (1ml/kcal) Nutritional Problem No current Nutrition Prob Problem N/A Malnutrition Alert Is there a minimum of two criteria No selected? Query Text:Check all the applicable criteria. A minimum of two criteria are recommended for diagnosis of either severe or non-severe malnutrition. Malnutrition Related to Morbid Obesity Malnutrition related to morbid obesity No Intervention/Recommendation Comments 1. Continue with current diet as ordered. Offered food alternatives if pt not able to take his meals. 2. Monitor PO intake, GI function, wt, labs and skin integrity 3. F/U as moderate risk in 3-5 days, 01/27-01/29 Expected Outcomes/Goals Expected Outcomes/Goals 1. PO intake to meet at least 75% of nutritional needs. 2. Wt stability, GI function to improve, skin to remain intact, labs to approach WNL.
[2018-01-30 09:55] LABS: BAND NEUTROPHILE 9 % (0-10); LYMPHOCYTE 3 % (20-50); MONOCYTE 3 % (2-10); NEUTROPHILS 85 % (40-80); TOTAL CELLS COUNTED 100
[2018-01-30 09:56] LABS: PLATELET ESTIMATE ADEQUATE (NORMAL)
--- NOTE | 2018-01-30 10:12 | Infectious Disease Prog Note ---
Infectious Disease Subjective - Review of Systems Service Date: 01/30/18 Subjective: c/o pain at the surgical site.. Infectious Disease Objective - Results Result Diagrams: 01/31/18 05:30 01/31/18 05:30 Recent Labs: Laboratory Last Values WBC 33.7 Th/cmm (4.8-10.8) H* D 01/30/18 05:40 RBC 3.39 Mil/cmm (4.30-5.70) L 01/30/18 05:40 Hgb 10.1 gm/dL (12-16) L 01/30/18 05:40 Hct 29.9 % (41.0-60) L 01/30/18 05:40 MCV 88.1 fl (80-99) 01/30/18 05:40 MCH 29.9 pg (26.0-30.0) 01/30/18 05:40 MCHC Differential 33.9 pg (28.0-36.0) 01/30/18 05:40 RDW 15.7 % (11.5-20.0) 01/30/18 05:40 Plt Count 264 Th/cmm (150-400) 01/30/18 05:40 MPV 9.1 fl 01/30/18 05:40 Neutrophils % 76.9 % (40.0-80.0) 01/28/18 04:20 Band Neutrophils % 9 % (0-10) 01/30/18 05:40 Lymphocytes % 8.4 % (20.0-50.0) L 01/28/18 04:20 Monocytes % 12.2 % (2.0-10.0) H 01/28/18 04:20 Eosinophils % 2.2 % (0.0-5.0) 01/28/18 04:20 Basophils % 0.3 % (0.0-2.0) 01/28/18 04:20 Neutrophils (Manual) 85 % (40-80) H 01/30/18 05:40 Lymphocytes 3 % (20-50) L 01/30/18 05:40 Monocytes 3 % (2-10) 01/30/18 05:40 Eosinophils 2 % (0-5) 01/29/18 04:20 Platelet Estimate ADEQUATE (NORMAL) 01/30/18 05:40 Poikilocytosis 1+ 01/25/18 05:57 Anisocytosis 1+ 01/25/18 05:57 PT 17.8 SECONDS (9.5-11.5) H 01/28/18 04:20 INR 1.66 (0.5-1.4) H 01/28/18 04:20 PTT (Actin FS) 45.6 SECONDS (26.0-38.0) H 01/28/18 04:20 Plt Function Studies 106 01/28/18 08:05 Sodium 143 mEq/L (136-145) 01/30/18 05:40 Potassium 5.0 mEq/L (3.5-5.1) 01/30/18 05:40 Chloride 113 mEq/L (98-107) H 01/30/18 05:40 Carbon Dioxide 20.6 mEq/L (21.0-31.0) L 01/30/18 05:40 Anion Gap 14.4 (7.0-16.0) 01/30/18 05:40 BUN 32 mg/dL (7-25) H 01/30/18 05:40 Creatinine 3.2 mg/dL (0.7-1.3) H 01/30/18 05:40 Est GFR ( Amer) 25.5 ml/min (>90) 01/30/18 05:40 Est GFR (Non-Af Amer) 21.1 ml/min 01/30/18 05:40 BUN/Creatinine Ratio 10.0 01/30/18 05:40 Glucose 95 mg/dL (70-105) 01/30/18 05:40 POC Glucose 87 MG/DL (70 - 105) 01/28/18 05:32 Hemoglobin A1c % 4.9 % (4.0-6.0) 01/20/18 16:40 Whole Bld Lactic Acid 1.32 mmol/L (0.60-1.99) 01/20/18 16:40 Calcium 8.6 mg/dL (8.6-10.3) 01/30/18 05:40 Total Bilirubin 0.4 mg/dL (0.3-1.0) 01/30/18 05:40 AST 15 U/L (13-39) 01/30/18 05:40 ALT 15 U/L (7-52) 01/30/18 05:40 Alkaline Phosphatase 84 U/L (34-104) 01/30/18 05:40 Creatine Kinase 32 U/L (30-223) 01/20/18 16:40 Troponin I 0.01 ng/mL (0.01-0.05) 01/20/18 16:40 Total Protein 5.8 gm/dL (6.0-8.3) L 01/30/18 05:40 Albumin 2.9 gm/dL (4.2-5.5) L 01/30/18 05:40 Globulin 2.9 gm/dL 01/30/18 05:40 Albumin/Globulin Ratio 1.0 (1.0-1.8) 01/30/18 05:40 Triglycerides 69 mg/dL (<150) 01/27/18 05:45 Cholesterol 79 mg/dL (<200) 01/27/18 05:45 LDL Cholesterol Direct 37 mg/dL (75-193) L 01/27/18 05:45 HDL Cholesterol 32 mg/dL (23-92) 01/27/18 05:45 Urine Source MIDSTREAM 01/20/18 20:20 Urine Color YELLOW 01/20/18 20:20 Urine Clarity HAZY (CLEAR) 01/20/18 20:20 Urine pH 5.5 (4.6 - 8.0) 01/20/18 20:20 Ur Specific [place] 1.020 (1.005-1.030) 01/20/18 20:20 Urine Protein NEGATIVE mg/dL (NEGATIVE) 01/20/18 20:20 Urine Glucose (UA) NEGATIVE mg/dL (NEGATIVE) 01/20/18 20:20 Urine Ketones NEGATIVE mg/dL (NEGATIVE) 01/20/18 20:20 Urine Blood SMALL (NEGATIVE) H 01/20/18 20:20 Urine Nitrate NEGATIVE (NEGATIVE) 01/20/18 20:20 Urine Bilirubin NEGATIVE (NEGATIVE) 01/20/18 20:20 Urine Urobilinogen 0.2 E.U./dL (0.2 - 1.0) 01/20/18 20:20 Ur Leukocyte Esterase SMALL (NEGATIVE) H 01/20/18 20:20 Urine RBC 5-10 /hpf (0-5) H 01/20/18 20:20 Urine WBC 10-25 /hpf (0-5) H 01/20/18 20:20 Ur Epithelial Cells NONE SEEN /lpf (FEW) 01/20/18 20:20 Urine Bacteria NONE SEEN /hpf (NONE SEEN) 01/20/18 20:20 Vancomycin Trough 28.2 ug/mL (5-10) H 01/25/18 09:00 Random Vancomycin 30.6 ug/mL (5.0-40.0) 01/26/18 06:00 - Physical Exam Vitals and I&O: Vital Signs Temp 97.3 F 01/30/18 08:00 Pulse 94 01/30/18 08:00 Resp 18 01/30/18 08:00 BP 125/54 01/30/18 08:00 Pulse Ox 97 01/30/18 08:00 Intake & Output 01/29/18 01/30/18 01/30/18 18:59 06:59 18:59 Intake Total 1300 Output Total 25 Balance 1300 -25 Weight (lbs) 90.718 kg 90.718 kg Intake: Intake, IV Amount 1300 Levofloxacin 500mg/100mL 100 500 mg In 100 ml @ 100 mls/hr IV Q24H [facility] Rx#: [id number] Sodium Chloride 0.9% 1, 1000 000 ml @ 120 mls/hr IV . Q8H20M [facility] Rx#:[id number] metroNIDAZOLE 500mg/NS 200 100mL 500 mg In 100 ml @ 100 mls/hr IV Q12H [facility] Rx #:[id number] Output: Gastric Drainage 25 Other: Weight Source Bedscale Bedscale Active Medications: Current Medications Acetaminophen (Tylenol) 650 mg PO Q6H PRN PRN Reason: HEADACHE/TEMP ABOVE 100F Stop: 03/21/18 19:07 Last Admin: 01/20/18 23:17 Dose: 650 mg Acetaminophen/Hydrocodone Bitart ([place] 10 Mg/325 Mg) 1 tab PO Q6H PRN PRN Reason: mod pain Stop: 03/22/18 10:31 Last Admin: 01/29/18 09:09 Dose: 1 tab Albuterol/Ipratropium (Duoneb Neb) 3 ml HHN Q4HRT [facility] Stop: 03/21/18 19:59 Last Admin: 01/30/18 07:18 Dose: 3 ml Amiodarone HCl (Cordarone) 100 mg GT DAILY [facility] Stop: 03/22/18 08:59 Last Admin: 01/30/18 09:20 Dose: Not Given Amlodipine Besylate (Norvasc) 10 mg GT DAILY [facility] Stop: 03/22/18 08:59 Last Admin: 01/30/18 09:20 Dose: Not Given Aspirin (Aspirin Chewable) 81 mg GT DAILY [facility] Stop: 03/22/18 08:59 Last Admin: 01/30/18 09:17 Dose: 81 mg Atorvastatin Calcium (Lipitor) 40 mg GT HS [facility] Stop: 03/25/18 20:59 Last Admin: 01/29/18 21:06 Dose: 40 mg Diphenhydramine HCl (Benadryl 50 Mg/Ml) 50 mg IVP Q8H PRN PRN Reason: rash, itchiness Stop: 03/30/18 08:49 Docusate Sodium (Colace) 100 mg PO BID PRN PRN Reason: Constipation Stop: 03/21/18 19:07 Last Admin: 01/23/18 10:21 Dose: 100 mg Famotidine (Pepcid) 40 mg PO DAILY [facility] Stop: 03/30/18 08:59 Last Admin: 01/30/18 09:17 Dose: 40 mg Hydromorphone HCl (Dilaudid) 4 mg IVP Q4HR PRN PRN Reason: Severe Pain Stop: 03/29/18 12:35 Last Admin: 01/30/18 07:01 Dose: 4 mg Magnesium Sulfate (Magnesium Sulfate Premix) 2 gm in 50 mls @ 25 mls/hr IV DAILY PRN PRN Reason: Magnesium level less than 1.6 Stop: 03/21/18 19:07 Sodium Chloride (Nacl 0.9%) 1,000 mls @ 120 mls/hr IV .Q8H20M [facility] Stop: 03/26/18 17:29 Last Admin: 01/30/18 01:59 Dose: 120 mls/hr Metronidazole (Flagyl) 500 mg in 100 mls @ 100 mls/hr IV Q12H [facility] Stop: 03/27/18 14:59 Last Admin: 01/30/18 07:58 Dose: 100 mls/hr Ceftriaxone Sodium 1 gm/ (Dextrose) 50 mls @ 100 mls/hr IV Q24H [facility] Stop: 03/30/18 14:59 Last Admin: 01/29/18 14:40 Dose: 100 mls/hr Lactobacillus Rhamnosus (Culturelle 15b) 1 each PO DAILY [facility] Stop: 03/23/18 08:59 Last Admin: 01/30/18 09:16 Dose: 1 each Lorazepam (Ativan) 1 mg IVP Q4H PRN; Protocol PRN Reason: Anxiety Stop: 03/21/18 19:07 Last Admin: 01/29/18 15:50 Dose: 1 mg Magnesium Oxide (Mag-Oxide) 400 mg PO BID PRN PRN Reason: Mg less than 1.9 Stop: 03/21/18 19:07 Metoprolol Tartrate (Lopressor) 50 mg GT Q8H [facility] Stop: 03/21/18 19:14 Last Admin: 01/29/18 10:16 Dose: 50 mg Miscellaneous (Probiotic Screen) 1 ea MC PRN PRN PRN Reason: PROTOCOL Stop: 03/22/18 09:59 Mupirocin (Bactroban Oint) 1 appl NS BID [facility] Stop: 02/03/18 17:01 Last Admin: 01/30/18 09:20 Dose: 1 appl Ondansetron HCl (Zofran) 4 mg IV Q4H PRN PRN Reason: Nausea / Vomiting Stop: 03/27/18 09:59 Last Admin: 01/27/18 09:42 Dose: 4 mg Potassium Chloride (Klor-Con) 40 meq PO DAILY PRN PRN Reason: k level less than 3.5 Stop: 03/21/18 19:07 Simethicone (Mylicon) 80 mg PO Q8H [facility] Stop: 03/27/18 10:14 Last Admin: 01/29/18 17:36 Dose: 80 mg Tamsulosin HCl (Flomax) 0.4 mg PO HS [facility] Stop: 03/25/18 20:59 Last Admin: 01/29/18 21:06 Dose: 0.4 mg Tamsulosin HCl (Flomax) 0.4 mg PO DAILY [facility] Stop: 03/28/18 08:59 Last Admin: 01/30/18 09:17 Dose: 0.4 mg Zolpidem Tartrate (Ambien) 10 mg PO HS PRN PRN Reason: Insomnia Stop: 03/21/18 19:07 General: no acute distress, well developed, well nourished HEENT: atraumatic, normocephalic, PERRLA, EOMI, moist mucous membrane Neck: supple, no thyromegaly Cardiovascular: S1S2, regular Lungs: clear to auscultation bilaterally, clear to percussion Abdomen: soft, no tender, no distended Extremities: no cyanosis, no clubbing, no edema Neurological: awake, alert, oriented Skin: intact - Procedures Procedures: Procedures Procedure Code Date INSPECTION OF GALLBLADDER, PERCUTANEOUS ENDOSCOPIC APPROACH [id number] 01/20/18 RELEASE OMENTUM, OPEN APPROACH [id number] 01/20/18 RESECTION OF GALLBLADDER, OPEN APPROACH [id number] 01/20/18 Infectious Disease Assmt/Plan - Problem List Patient Problems: All Active Problems GASTRIC TUBE AND CORAL REMOVAL (Acute) - Assessment Assessment: 1. Leukocytosis worse, most likely postsurgical. If WBC count remains elevated , we will consider indium scan. 2. Right lower lobe infiltrate, suspect aspiration pneumonia. 3. UTI. 4. MRSA colonization. 5. Hypertension. 6. Hyperlipidemia. 7. Aortic dissection, repair of aortic dissection at [facility]. 8. Acute kidney injury. Resolved. 9. Dysphagia resolved. He is taking his medication by mouth. 10. Vomiting. 11. Cholelithiasis. 12. Status post open cholecystectomy, POD#1. 13. Rash, hypersensitivity reaction, unknown agent. resolved. - Plan Plan: Change flagyl 500 mg iv twice/day, Continue Rocephin. If WBC count remains elevated, will consider indium scan. Meanwhile, perform sepsis workup. Nutritional Asmnt/Malnutr-PDOC - Dietary Evaluation Malnutrition Findings (Please click <Entered> for more info): Nutritional Asmnt/Malnutrition Start: 01/24/18 17: 29 Text: Status: Complete Freq: Protocol: Document 01/24/18 17:29 LCHENG (Rec: 01/24/18 17:38 [email or web address] Nutritional Asmnt/Malnutrition Patient General Information Nutritional Screening Moderate Risk Diagnosis aspiration PNA Pertinent Medical Hx/Surgical Hx cardiac tampondade s/p surgery , aortic dissection, Gtube ( now removed) Subjective Information Per H&P pt had Gtube removed and started oral diet for about one month. Pt stated he still have some stomach issue, vomiting. Pt consumed cream of wheat and ceream for breakfast this morning, not very comfortable with solid food at this time.Per nurse note, pt had loose stool last night. Per EMR, PO intake 50- 75%. Current Diet Order/ Nutrition Support cardiac Pertinent Medications colace, culturelle, zofran, piperacillin, vancomycin Pertinent Labs 01/24 cl 108, glucose 76 01/20 A1c 4.9 Nutritional Hx/Data Height 1.91 m Height (Calculated Centimeters) 190.5 Current Weight (lbs) 92.079 kg Weight (Calculated Kilograms) 92.1 Weight (Calculated Grams) 07773.3 [place] Body Weight 196 Body Mass Index (BMI) 25.3 Weight Status Overweight GI Symptoms GI Symptoms None Last BM 01/24 Difficult in: None Skin Integrity/Comment: intact Current %PO Fair (50-74%) Estimated Nutritional Goals BEE in Kcals: Using Current wt Calories/Kcals/Kg 25-30 Kcals Calculated [id number] Protein: Using Current wt Protein g/k Protein Calculated 92 Fluid: ml 2300-2760ml (1ml/kcal) Nutritional Problem No current Nutrition Prob Problem N/A Malnutrition Alert Is there a minimum of two criteria No selected? Query Text:Check all the applicable criteria. A minimum of two criteria are recommended for diagnosis of either severe or non-severe malnutrition. Malnutrition Related to Morbid Obesity Malnutrition related to morbid obesity No Intervention/Recommendation Comments 1. Continue with current diet as ordered. Offered food alternatives if pt not able to take his meals. 2. Monitor PO intake, GI function, wt, labs and skin integrity 3. F/U as moderate risk in 3-5 days, 01/27-01/29 Expected Outcomes/Goals Expected Outcomes/Goals 1. PO intake to meet at least 75% of nutritional needs. 2. Wt stability, GI function to improve, skin to remain intact, labs to approach WNL.
[2018-01-30] MEDS: Hydrocodone/APAP 10 mg/325 mg Tab PO PRN ×2 (10:28→22:55)
--- NOTE | 2018-01-30 15:28 | Pathology Report ---
[id number] Collection date: 01/28/2018 Surgeon: Dr. Miguelina Parks Specimen Description: Gallbladder Gross Description: Received in formalin is a 10.5 x 4.0 x 3.0 cm oval gallbladder with a smooth glistening grayish green outer surface. Opening the gallbladder reveals multiple tiny dark green stone like fragments ranging from 0.1 to 0.2 cm in greatest dimension, showing the appearance of gravel like material in some areas. The gallbladder wall ranges from 0. 1 to 0.2 cm in thickness and sectioning shows no focal lesions. Hair Baler sections are submitted in one cassette. Microscopic Description: The histologic sections show gallbladder mucosa and wall with mild chronic inflammation present consisting of lymphocytes and plasma cells. Diagnosis: Chronic cholecystitis, gallbladder. [facility]# [id number] MTDD
[2018-01-30] MEDS ORDERED: Hydrocodone/APAP 10 mg/325 mg Tab PO PRN (21:40)
[2018-01-31] MEDS: Albuterol/Ipratropium Neb 3 ML AERS HHN SCH ×6 (02:14→22:00)
[2018-01-31] MEDS: metroNIDAZOLE 500mg/NS 100mL 500 MG/100 ML BAG IV SCH ×2 (03:00→15:08)
[2018-01-31 07:45] LABS: ALBUMIN 2.7 gm/dL (4.2-5.5); ANION GAP 14.1 (7.0-16.0); BILIRUBIN,TOTAL 0.5 mg/dL (0.3-1.0); CALCIUM SERUM 8.3 mg/dL (8.6-10.3); CARBON DIOXIDE 19.7 mEq/L (21.0-31.0); CREATININE - SERUM 3.1 mg/dL (0.7-1.3); GFR AFRICAN-AMERICAN 26.5 ml/min (>90); GFR NON AFRICAN-AMERICAN 21.9 ml/min; POTASSIUM SERUM 3.8 mEq/L (3.5-5.1); TOTAL PROTEIN,SERUM 5.4 gm/dL (6.0-8.3)
[2018-01-31 07:48] LABS: EOSINOPHILE ABSOLUTE 0.1 Th/cmm (0.1-0.4); HEMOGLOBIN 8.7 gm/dL (12-16); LYMPHOCYTE ABSOLUTE 0.8 Th/cmm (1.5-3.0); MEAN CORPUSCULAR HEMOGLOBIN 31.7 pg (26.0-30.0); MEAN CORPUSCULAR HGB CONC 34.8 pg (28.0-36.0); MEAN PLATELET VOLUME 9.2 fl; NEUTROPHILE ABSOLUTE 24.5 Th/cmm (1.8-8.0); PLATELET COUNT 263 Th/cmm (150-400); RED BLOOD COUNT 2.75 Mil/cmm (4.30-5.70); RED CELL DISTRIBUTION WIDTH 15.4 % (11.5-20.0)
[2018-01-31 07:52] LABS: WHITE BLOOD COUNT 27.4 Th/cmm (4.8-10.8)
[2018-01-31 07:53] LABS: % EOSINOPHILS 0.3 % (0.0-5.0); % MONOCYTES 7.2 % (2.0-10.0); % NEUTROPHILS 89.5 % (40.0-80.0)
[2018-01-31] MEDS: Lactobacillus Rhamnosus GG 15 Billion CFU CAP.SPRINK PO SCH (09:41)
[2018-01-31] MEDS: Aspirin 81mg Chewable Tab GT SCH (09:41)
--- NOTE | 2018-01-31 10:53 | General Progress Note ---
Subjective - Review of Systems Service Date: 01/31/18 Events since last encounter: The patient became acutely confused last night. There is an order for oral Ativan 1, however, the patient refused the medication. A ammonia level, uric acid level, and ABG have been ordered. I just tested his oxygen via pulse ox and it registered 92%. Subjective: The patient is resting complained bed. He does not appear to be in any acute pain or distress. Denies fevers and chills. The patient is acutely altered and is alert and oriented only to self and time. Objective - Results Result Diagrams: 01/31/18 05:30 01/31/18 05:30 Recent Labs: Laboratory Last Values WBC 27.4 Th/cmm (4.8-10.8) H* 01/31/18 05:30 RBC 2.75 Mil/cmm (4.30-5.70) L 01/31/18 05:30 Hgb 8.7 gm/dL (12-16) L 01/31/18 05:30 Hct 25.0 % (41.0-60) L 01/31/18 05:30 MCV 91.0 fl (80-99) 01/31/18 05:30 MCH 31.7 pg (26.0-30.0) H 01/31/18 05:30 MCHC Differential 34.8 pg (28.0-36.0) 01/31/18 05:30 RDW 15.4 % (11.5-20.0) 01/31/18 05:30 Plt Count 263 Th/cmm (150-400) 01/31/18 05:30 MPV 9.2 fl 01/31/18 05:30 Neutrophils % 89.5 % (40.0-80.0) H 01/31/18 05:30 Band Neutrophils % 9 % (0-10) 01/30/18 05:40 Lymphocytes % 3.0 % (20.0-50.0) L 01/31/18 05:30 Monocytes % 7.2 % (2.0-10.0) 01/31/18 05:30 Eosinophils % 0.3 % (0.0-5.0) 01/31/18 05:30 Basophils % 0.0 % (0.0-2.0) 01/31/18 05:30 Neutrophils (Manual) 85 % (40-80) H 01/30/18 05:40 Lymphocytes 3 % (20-50) L 01/30/18 05:40 Monocytes 3 % (2-10) 01/30/18 05:40 Eosinophils 2 % (0-5) 01/29/18 04:20 Platelet Estimate ADEQUATE (NORMAL) 01/30/18 05:40 Poikilocytosis 1+ 01/25/18 05:57 Anisocytosis 1+ 01/25/18 05:57 PT 17.8 SECONDS (9.5-11.5) H 01/28/18 04:20 INR 1.66 (0.5-1.4) H 01/28/18 04:20 PTT (Actin FS) 45.6 SECONDS (26.0-38.0) H 01/28/18 04:20 Plt Function Studies 106 01/28/18 08:05 Sodium 145 mEq/L (136-145) 01/31/18 05:30 Potassium 3.8 mEq/L (3.5-5.1) 01/31/18 05:30 Chloride 115 mEq/L (98-107) H 01/31/18 05:30 Carbon Dioxide 19.7 mEq/L (21.0-31.0) L 01/31/18 05:30 Anion Gap 14.1 (7.0-16.0) 01/31/18 05:30 BUN 37 mg/dL (7-25) H 01/31/18 05:30 Creatinine 3.1 mg/dL (0.7-1.3) H 01/31/18 05:30 Est GFR ( Amer) 26.5 ml/min (>90) 01/31/18 05:30 Est GFR (Non-Af Amer) 21.9 ml/min 01/31/18 05:30 BUN/Creatinine Ratio 11.9 01/31/18 05:30 Glucose 102 mg/dL (70-105) 01/31/18 05:30 POC Glucose 87 MG/DL (70 - 105) 01/28/18 05:32 Hemoglobin A1c % 4.9 % (4.0-6.0) 01/20/18 16:40 Whole Bld Lactic Acid 1.32 mmol/L (0.60-1.99) 01/20/18 16:40 Calcium 8.3 mg/dL (8.6-10.3) L 01/31/18 05:30 Total Bilirubin 0.5 mg/dL (0.3-1.0) 01/31/18 05:30 AST 13 U/L (13-39) 01/31/18 05:30 ALT 12 U/L (7-52) 01/31/18 05:30 Alkaline Phosphatase 89 U/L (34-104) 01/31/18 05:30 Creatine Kinase 32 U/L (30-223) 01/20/18 16:40 Troponin I 0.01 ng/mL (0.01-0.05) 01/20/18 16:40 Total Protein 5.4 gm/dL (6.0-8.3) L 01/31/18 05:30 Albumin 2.7 gm/dL (4.2-5.5) L 01/31/18 05:30 Globulin 2.7 gm/dL 01/31/18 05:30 Albumin/Globulin Ratio 1.0 (1.0-1.8) 01/31/18 05:30 Triglycerides 69 mg/dL (<150) 01/27/18 05:45 Cholesterol 79 mg/dL (<200) 01/27/18 05:45 LDL Cholesterol Direct 37 mg/dL (75-193) L 01/27/18 05:45 HDL Cholesterol 32 mg/dL (23-92) 01/27/18 05:45 Urine Source MIDSTREAM 01/20/18 20:20 Urine Color YELLOW 01/20/18 20:20 Urine Clarity HAZY (CLEAR) 01/20/18 20:20 Urine pH 5.5 (4.6 - 8.0) 01/20/18 20:20 Ur Specific [place] 1.020 (1.005-1.030) 01/20/18 20:20 Urine Protein NEGATIVE mg/dL (NEGATIVE) 01/20/18 20:20 Urine Glucose (UA) NEGATIVE mg/dL (NEGATIVE) 01/20/18 20:20 Urine Ketones NEGATIVE mg/dL (NEGATIVE) 01/20/18 20:20 Urine Blood SMALL (NEGATIVE) H 01/20/18 20:20 Urine Nitrate NEGATIVE (NEGATIVE) 01/20/18 20:20 Urine Bilirubin NEGATIVE (NEGATIVE) 01/20/18 20:20 Urine Urobilinogen 0.2 E.U./dL (0.2 - 1.0) 01/20/18 20:20 Ur Leukocyte Esterase SMALL (NEGATIVE) H 01/20/18 20:20 Urine RBC 5-10 /hpf (0-5) H 01/20/18 20:20 Urine WBC 10-25 /hpf (0-5) H 01/20/18 20:20 Ur Epithelial Cells NONE SEEN /lpf (FEW) 01/20/18 20:20 Urine Bacteria NONE SEEN /hpf (NONE SEEN) 01/20/18 20:20 Vancomycin Trough 28.2 ug/mL (5-10) H 01/25/18 09:00 Random Vancomycin 30.6 ug/mL (5.0-40.0) 01/26/18 06:00 - Physical Exam Vitals and I&O: Vital Signs Temp 98.1 F 01/31/18 07:54 Pulse 95 01/31/18 09:42 Resp 19 01/31/18 07:54 BP 117/67 01/31/18 07:54 Pulse Ox 95 01/31/18 07:54 Intake & Output 01/30/18 01/31/18 01/31/18 18:59 06:59 18:59 Intake Total 1100 100 Output Total 710 1555 Balance 390 -1455 Weight (lbs) 90.718 kg 90.718 kg Intake: Intake, IV Amount 1100 Sodium Chloride 0.9% 1, 1000 000 ml @ 120 mls/hr IV . Q8H20M [facility] Rx#:[id number] metroNIDAZOLE 500mg/NS 100 100mL 500 mg In 100 ml @ 100 mls/hr IV Q12H [facility] Rx #:[id number] Oral 100 Output: Gastric Drainage 25 10 Drainage 35 35 Right Lower Abdomen 35 35 Urine 650 1510 Other: # Bowel Movements 0 Weight Source Bedscale Bedscale Active Medications: Current Medications Acetaminophen (Tylenol) 650 mg PO Q6H PRN PRN Reason: HEADACHE/TEMP ABOVE 100F Stop: 03/21/18 19:07 Last Admin: 01/20/18 23:17 Dose: 650 mg Acetaminophen/Hydrocodone Bitart ([place] 10 Mg/325 Mg) 1 tab PO Q6H PRN PRN Reason: mod pain Stop: 03/22/18 10:31 Last Admin: 01/30/18 22:55 Dose: 1 tab Acetaminophen/Hydrocodone Bitart ([place] 10 Mg/325 Mg) 1 tab PO Q4H PRN PRN Reason: Pain (Severe) Stop: 03/31/18 21:39 Albuterol/Ipratropium (Duoneb Neb) 3 ml HHN Q4HRT [facility] Stop: 03/21/18 19:59 Last Admin: 01/31/18 07:36 Dose: 3 ml Amiodarone HCl (Cordarone) 100 mg GT DAILY [facility] Stop: 03/22/18 08:59 Last Admin: 01/31/18 09:42 Dose: 100 mg Amlodipine Besylate (Norvasc) 10 mg GT DAILY [facility] Stop: 03/22/18 08:59 Last Admin: 01/31/18 09:41 Dose: Not Given Aspirin (Aspirin Chewable) 81 mg GT DAILY [facility] Stop: 03/22/18 08:59 Last Admin: 01/31/18 09:41 Dose: 81 mg Atorvastatin Calcium (Lipitor) 40 mg GT HS [facility] Stop: 03/25/18 20:59 Last Admin: 01/30/18 21:05 Dose: 40 mg Diphenhydramine HCl (Benadryl 50 Mg/Ml) 50 mg IVP Q8H PRN PRN Reason: rash, itchiness Stop: 03/30/18 08:49 Docusate Sodium (Colace) 100 mg PO BID PRN PRN Reason: Constipation Stop: 03/21/18 19:07 Last Admin: 01/23/18 10:21 Dose: 100 mg Famotidine (Pepcid) 40 mg PO DAILY [facility] Stop: 03/30/18 08:59 Last Admin: 01/31/18 09:42 Dose: 40 mg Hydromorphone HCl (Dilaudid) 4 mg IVP Q4HR PRN PRN Reason: Severe Pain Stop: 03/29/18 12:35 Last Admin: 01/30/18 12:27 Dose: 4 mg Magnesium Sulfate (Magnesium Sulfate Premix) 2 gm in 50 mls @ 25 mls/hr IV DAILY PRN PRN Reason: Magnesium level less than 1.6 Stop: 03/21/18 19:07 Sodium Chloride (Nacl 0.9%) 1,000 mls @ 120 mls/hr IV .Q8H20M [facility] Stop: 03/26/18 17:29 Last Admin: 01/30/18 12:26 Dose: 120 mls/hr Metronidazole (Flagyl) 500 mg in 100 mls @ 100 mls/hr IV Q12H [facility] Stop: 03/27/18 14:59 Last Admin: 01/31/18 03:00 Dose: Not Given Ceftriaxone Sodium 1 gm/ (Dextrose) 50 mls @ 100 mls/hr IV Q24H [facility] Stop: 03/30/18 14:59 Last Admin: 01/30/18 15:35 Dose: 100 mls/hr Lactobacillus Rhamnosus (Culturelle 15b) 1 each PO DAILY [facility] Stop: 03/23/18 08:59 Last Admin: 01/31/18 09:41 Dose: 1 each Lorazepam (Ativan) 1 mg IVP Q4H PRN; Protocol PRN Reason: Anxiety Stop: 03/21/18 19:07 Last Admin: 01/29/18 15:50 Dose: 1 mg Lorazepam (Ativan) 1 mg PO Q6H PRN; Protocol PRN Reason: Agitation Stop: 03/31/18 21:43 Magnesium Oxide (Mag-Oxide) 400 mg PO BID PRN PRN Reason: Mg less than 1.9 Stop: 03/21/18 19:07 Metoprolol Tartrate (Lopressor) 50 mg GT Q8H [facility] Stop: 03/21/18 19:14 Last Admin: 01/31/18 03:15 Dose: Not Given Miscellaneous (Probiotic Screen) 1 ea MC PRN PRN PRN Reason: PROTOCOL Stop: 03/22/18 09:59 Mupirocin (Bactroban Oint) 1 appl NS BID [facility] Stop: 02/03/18 17:01 Last Admin: 01/31/18 09:42 Dose: 1 appl Ondansetron HCl (Zofran) 4 mg IV Q4H PRN PRN Reason: Nausea / Vomiting Stop: 03/27/18 09:59 Last Admin: 01/27/18 09:42 Dose: 4 mg Potassium Chloride (Klor-Con) 40 meq PO DAILY PRN PRN Reason: k level less than 3.5 Stop: 03/21/18 19:07 Simethicone (Mylicon) 80 mg PO Q8H [facility] Stop: 03/27/18 10:14 Last Admin: 01/31/18 02:15 Dose: Not Given Tamsulosin HCl (Flomax) 0.4 mg PO HS [facility] Stop: 03/25/18 20:59 Last Admin: 01/30/18 21:05 Dose: 0.4 mg Tamsulosin HCl (Flomax) 0.4 mg PO DAILY [facility] Stop: 03/28/18 08:59 Last Admin: 01/31/18 09:41 Dose: 0.4 mg Zolpidem Tartrate (Ambien) 10 mg PO HS PRN PRN Reason: Insomnia Stop: 03/21/18 19:07 Last Admin: 01/30/18 23:00 Dose: 10 mg General: Alert, Cooperative, Other (acutely confused, AAO 2) HEENT: Atraumatic, PERRLA, EOMI Neck: Supple, no JVD Cardiovascular: Regular rate Lungs: Other (has rales and congestion) Abdomen: Bowel sounds, Soft, Tender Extremities: Other (right upper extremity +3 edema), no Cyanosis Neurological: Normal speech Skin: no Rash - Procedures Procedures: Procedures Procedure Code Date INSPECTION OF GALLBLADDER, PERCUTANEOUS ENDOSCOPIC APPROACH [id number] 01/20/18 RELEASE OMENTUM, OPEN APPROACH [id number] 01/20/18 RESECTION OF GALLBLADDER, OPEN APPROACH [id number] 01/20/18 Assessment/Plan - Problem List Patient Problems: All Active Problems GASTRIC TUBE AND CORAL REMOVAL (Acute) - Assessment Assessment: Postop day #3 status post open cholecystectomy Right upper extremity edema. Sepsis Asp PNA Hypokalemia Hx of RUE DVT (now resolved) Dysphagia (resolved) A Fib Anemia of Ch Ill Severe malnutrition Hyponatremia Hx of Aortic Dissection and Cardiac Tamponade-s/p sx at [facility] in October 2017 - Plan Plan: An ABG, ammonia level, and uric acid level have been ordered. Infectious disease, general surgery, and cardiology are following. Continue IV Rocephin and Flagyl. A right upper extremity ultrasound has been ordered due to right upper extremity swelling. Pain control. Tylenol as needed for mild pain or fevers. Blood cell count is improving. Nutritional Asmnt/Malnutr-PDOC - Dietary Evaluation Malnutrition Findings (Please click <Entered> for more info): Nutritional Asmnt/Malnutrition Start: 01/24/18 17: 29 Text: Status: Complete Freq: Protocol: Document 01/24/18 17:29 LCHENG (Rec: 01/24/18 17:38 [id number]) Nutritional Asmnt/Malnutrition Patient General Information Nutritional Screening Moderate Risk Diagnosis aspiration PNA Pertinent Medical Hx/Surgical Hx cardiac tampondade s/p surgery , aortic dissection, Gtube ( now removed) Subjective Information Per H&P pt had Gtube removed and started oral diet for about one month. Pt stated he still have some stomach issue, vomiting. Pt consumed cream of wheat and ceream for breakfast this morning, not very comfortable with solid food at this time.Per nurse note, pt had loose stool last night. Per EMR, PO intake 50- 75%. Current Diet Order/ Nutrition Support cardiac Pertinent Medications colace, culturelle, zofran, piperacillin, vancomycin Pertinent Labs 01/24 cl 108, glucose 76 01/20 A1c 4.9 Nutritional Hx/Data Height 1.91 m Height (Calculated Centimeters) 190.5 Current Weight (lbs) 92.079 kg Weight (Calculated Kilograms) 92.1 Weight (Calculated Grams) 30834.3 [place] Body Weight 196 Body Mass Index (BMI) 25.3 Weight Status Overweight GI Symptoms GI Symptoms None Last BM 01/24 Difficult in: None Skin Integrity/Comment: intact Current %PO Fair (50-74%) Estimated Nutritional Goals BEE in Kcals: Using Current wt Calories/Kcals/Kg 25-30 Kcals Calculated 9508-1708 Protein: Using Current wt Protein g/k Protein Calculated 92 Fluid: ml 2300-2760ml (1ml/kcal) Nutritional Problem No current Nutrition Prob Problem N/A Malnutrition Alert Is there a minimum of two criteria No selected? Query Text:Check all the applicable criteria. A minimum of two criteria are recommended for diagnosis of either severe or non-severe malnutrition. Malnutrition Related to Morbid Obesity Malnutrition related to morbid obesity No Intervention/Recommendation Comments 1. Continue with current diet as ordered. Offered food alternatives if pt not able to take his meals. 2. Monitor PO intake, GI function, wt, labs and skin integrity 3. F/U as moderate risk in 3-5 days, 01/27-01/29 Expected Outcomes/Goals Expected Outcomes/Goals 1. PO intake to meet at least 75% of nutritional needs. 2. Wt stability, GI function to improve, skin to remain intact, labs to approach WNL.
[2018-01-31] MEDS ORDERED: Sodium Chloride 0.9% 1,000 ML IV SCH (11:00)
[2018-01-31 11:19] LABS: pH 7.42 (7.35-7.45)
[2018-01-31 11:20] LABS: ALLEN TEST YES
--- NOTE | 2018-01-31 11:41 | General Progress Note ---
Subjective - Review of Systems Service Date: 01/31/18 Events since last encounter: 01/31/18 very confused, did not eat incisions healing, drainage 30 cc WBC trending down Objective - Results Result Diagrams: 01/31/18 05:30 01/31/18 05:30 Recent Labs: Laboratory Last Values WBC 27.4 Th/cmm (4.8-10.8) H* 01/31/18 05:30 RBC 2.75 Mil/cmm (4.30-5.70) L 01/31/18 05:30 Hgb 8.7 gm/dL (12-16) L 01/31/18 05:30 Hct 25.0 % (41.0-60) L 01/31/18 05:30 MCV 91.0 fl (80-99) 01/31/18 05:30 MCH 31.7 pg (26.0-30.0) H 01/31/18 05:30 MCHC Differential 34.8 pg (28.0-36.0) 01/31/18 05:30 RDW 15.4 % (11.5-20.0) 01/31/18 05:30 Plt Count 263 Th/cmm (150-400) 01/31/18 05:30 MPV 9.2 fl 01/31/18 05:30 Neutrophils % 89.5 % (40.0-80.0) H 01/31/18 05:30 Band Neutrophils % 9 % (0-10) 01/30/18 05:40 Lymphocytes % 3.0 % (20.0-50.0) L 01/31/18 05:30 Monocytes % 7.2 % (2.0-10.0) 01/31/18 05:30 Eosinophils % 0.3 % (0.0-5.0) 01/31/18 05:30 Basophils % 0.0 % (0.0-2.0) 01/31/18 05:30 Neutrophils (Manual) 85 % (40-80) H 01/30/18 05:40 Lymphocytes 3 % (20-50) L 01/30/18 05:40 Monocytes 3 % (2-10) 01/30/18 05:40 Eosinophils 2 % (0-5) 01/29/18 04:20 Platelet Estimate ADEQUATE (NORMAL) 01/30/18 05:40 Poikilocytosis 1+ 01/25/18 05:57 Anisocytosis 1+ 01/25/18 05:57 PT 17.8 SECONDS (9.5-11.5) H 01/28/18 04:20 INR 1.66 (0.5-1.4) H 01/28/18 04:20 PTT (Actin FS) 45.6 SECONDS (26.0-38.0) H 01/28/18 04:20 Plt Function Studies 106 01/28/18 08:05 Specimen Source Arterial 01/31/18 11:10 Sample Site Left Radial 01/31/18 11:10 pH 7.42 (7.35-7.45) 01/31/18 11:10 pCO2 32.0 mmHg (35.0-45.0) L 01/31/18 11:10 pO2 62.0 mmHg (80.0-100.0) L 01/31/18 11:10 HCO3 22.5 mEq/L (20.0-26.0) 01/31/18 11:10 Base Excess -2.9 mEq/L (-3.0-3.0) 01/31/18 11:10 O2 Saturation 92.0 % (92.0-100.0) 01/31/18 11:10 Zac Test YES 01/31/18 11:10 Vent Rate NA 01/31/18 11:10 Inspired O2 21 01/31/18 11:10 Tidal Volume NA 01/31/18 11:10 PEEP NA 01/31/18 11:10 Pressure (ins/psv/peep) NA 01/31/18 11:10 Critical Value E.MATHEW 01/31/18 11:10 Sodium 145 mEq/L (136-145) 01/31/18 05:30 Potassium 3.8 mEq/L (3.5-5.1) 01/31/18 05:30 Chloride 115 mEq/L (98-107) H 01/31/18 05:30 Carbon Dioxide 19.7 mEq/L (21.0-31.0) L 01/31/18 05:30 Anion Gap 14.1 (7.0-16.0) 01/31/18 05:30 BUN 37 mg/dL (7-25) H 01/31/18 05:30 Creatinine 3.1 mg/dL (0.7-1.3) H 01/31/18 05:30 Est GFR ( Amer) 26.5 ml/min (>90) 01/31/18 05:30 Est GFR (Non-Af Amer) 21.9 ml/min 01/31/18 05:30 BUN/Creatinine Ratio 11.9 01/31/18 05:30 Glucose 102 mg/dL (70-105) 01/31/18 05:30 POC Glucose 87 MG/DL (70 - 105) 01/28/18 05:32 Hemoglobin A1c % 4.9 % (4.0-6.0) 01/20/18 16:40 Whole Bld Lactic Acid 1.32 mmol/L (0.60-1.99) 01/20/18 16:40 Uric Acid 8.7 mg/dL (4.4-7.6) H 01/31/18 05:30 Calcium 8.3 mg/dL (8.6-10.3) L 01/31/18 05:30 Total Bilirubin 0.5 mg/dL (0.3-1.0) 01/31/18 05:30 AST 13 U/L (13-39) 01/31/18 05:30 ALT 12 U/L (7-52) 01/31/18 05:30 Alkaline Phosphatase 89 U/L (34-104) 01/31/18 05:30 Creatine Kinase 32 U/L (30-223) 01/20/18 16:40 Troponin I 0.01 ng/mL (0.01-0.05) 01/20/18 16:40 Total Protein 5.4 gm/dL (6.0-8.3) L 01/31/18 05:30 Albumin 2.7 gm/dL (4.2-5.5) L 01/31/18 05:30 Globulin 2.7 gm/dL 01/31/18 05:30 Albumin/Globulin Ratio 1.0 (1.0-1.8) 01/31/18 05:30 Triglycerides 69 mg/dL (<150) 01/27/18 05:45 Cholesterol 79 mg/dL (<200) 01/27/18 05:45 LDL Cholesterol Direct 37 mg/dL (75-193) L 01/27/18 05:45 HDL Cholesterol 32 mg/dL (23-92) 01/27/18 05:45 Urine Source MIDSTREAM 01/20/18 20:20 Urine Color YELLOW 01/20/18 20:20 Urine Clarity HAZY (CLEAR) 01/20/18 20:20 Urine pH 5.5 (4.6 - 8.0) 01/20/18 20:20 Ur Specific [place] 1.020 (1.005-1.030) 01/20/18 20:20 Urine Protein NEGATIVE mg/dL (NEGATIVE) 01/20/18 20:20 Urine Glucose (UA) NEGATIVE mg/dL (NEGATIVE) 01/20/18 20:20 Urine Ketones NEGATIVE mg/dL (NEGATIVE) 01/20/18 20:20 Urine Blood SMALL (NEGATIVE) H 01/20/18 20:20 Urine Nitrate NEGATIVE (NEGATIVE) 01/20/18 20:20 Urine Bilirubin NEGATIVE (NEGATIVE) 01/20/18 20:20 Urine Urobilinogen 0.2 E.U./dL (0.2 - 1.0) 01/20/18 20:20 Ur Leukocyte Esterase SMALL (NEGATIVE) H 01/20/18 20:20 Urine RBC 5-10 /hpf (0-5) H 01/20/18 20:20 Urine WBC 10-25 /hpf (0-5) H 01/20/18 20:20 Ur Epithelial Cells NONE SEEN /lpf (FEW) 01/20/18 20:20 Urine Bacteria NONE SEEN /hpf (NONE SEEN) 01/20/18 20:20 Vancomycin Trough 28.2 ug/mL (5-10) H 01/25/18 09:00 Random Vancomycin 30.6 ug/mL (5.0-40.0) 01/26/18 06:00 - Physical Exam Vitals and I&O: Vital Signs Temp 98.1 F 01/31/18 07:54 Pulse 95 01/31/18 10:47 Resp 18 01/31/18 10:47 BP 117/67 01/31/18 07:54 Pulse Ox 94 01/31/18 10:47 Intake & Output 01/30/18 01/31/18 01/31/18 18:59 06:59 18:59 Intake Total 1100 100 Output Total 710 1555 Balance 390 -1455 Weight (lbs) 90.718 kg 90.718 kg Intake: Intake, IV Amount 1100 Sodium Chloride 0.9% 1, 1000 000 ml @ 120 mls/hr IV . Q8H20M [facility] Rx#:[id number] metroNIDAZOLE 500mg/NS 100 100mL 500 mg In 100 ml @ 100 mls/hr IV Q12H [facility] Rx #:[id number] Oral 100 Output: Gastric Drainage 25 10 Drainage 35 35 Right Lower Abdomen 35 35 Urine 650 1510 Other: # Bowel Movements 0 Weight Source Bedscale Bedscale Active Medications: Current Medications Acetaminophen (Tylenol) 650 mg PO Q6H PRN PRN Reason: HEADACHE/TEMP ABOVE 100F Stop: 03/21/18 19:07 Last Admin: 01/20/18 23:17 Dose: 650 mg Acetaminophen/Hydrocodone Bitart ([place] 10 Mg/325 Mg) 1 tab PO Q6H PRN PRN Reason: mod pain Stop: 03/22/18 10:31 Last Admin: 01/30/18 22:55 Dose: 1 tab Acetaminophen/Hydrocodone Bitart ([place] 10 Mg/325 Mg) 1 tab PO Q4H PRN PRN Reason: Pain (Severe) Stop: 03/31/18 21:39 Albuterol/Ipratropium (Duoneb Neb) 3 ml HHN Q4HRT [facility] Stop: 03/21/18 19:59 Last Admin: 01/31/18 10:47 Dose: 3 ml Amiodarone HCl (Cordarone) 100 mg GT DAILY [facility] Stop: 03/22/18 08:59 Last Admin: 01/31/18 09:42 Dose: 100 mg Amlodipine Besylate (Norvasc) 10 mg GT DAILY [facility] Stop: 03/22/18 08:59 Last Admin: 01/31/18 09:41 Dose: Not Given Aspirin (Aspirin Chewable) 81 mg GT DAILY [facility] Stop: 03/22/18 08:59 Last Admin: 01/31/18 09:41 Dose: 81 mg Atorvastatin Calcium (Lipitor) 40 mg GT HS [facility] Stop: 03/25/18 20:59 Last Admin: 01/30/18 21:05 Dose: 40 mg Diphenhydramine HCl (Benadryl 50 Mg/Ml) 50 mg IVP Q8H PRN PRN Reason: rash, itchiness Stop: 03/30/18 08:49 Docusate Sodium (Colace) 100 mg PO BID PRN PRN Reason: Constipation Stop: 03/21/18 19:07 Last Admin: 01/23/18 10:21 Dose: 100 mg Famotidine (Pepcid) 40 mg PO DAILY [facility] Stop: 03/30/18 08:59 Last Admin: 01/31/18 09:42 Dose: 40 mg Hydromorphone HCl (Dilaudid) 4 mg IVP Q4HR PRN PRN Reason: Severe Pain Stop: 03/29/18 12:35 Last Admin: 01/30/18 12:27 Dose: 4 mg Magnesium Sulfate (Magnesium Sulfate Premix) 2 gm in 50 mls @ 25 mls/hr IV DAILY PRN PRN Reason: Magnesium level less than 1.6 Stop: 03/21/18 19:07 Metronidazole (Flagyl) 500 mg in 100 mls @ 100 mls/hr IV Q12H [facility] Stop: 03/27/18 14:59 Last Admin: 01/31/18 03:00 Dose: Not Given Ceftriaxone Sodium 1 gm/ (Dextrose) 50 mls @ 100 mls/hr IV Q24H [facility] Stop: 03/30/18 14:59 Last Admin: 01/30/18 15:35 Dose: 100 mls/hr Sodium Chloride (Nacl 0.9%) 1,000 mls @ 60 mls/hr IV .[id number] [facility] Stop: 04/01/18 10:59 Lactobacillus Rhamnosus (Culturelle 15b) 1 each PO DAILY [facility] Stop: 03/23/18 08:59 Last Admin: 01/31/18 09:41 Dose: 1 each Lorazepam (Ativan) 1 mg IVP Q4H PRN; Protocol PRN Reason: Anxiety Stop: 03/21/18 19:07 Last Admin: 01/29/18 15:50 Dose: 1 mg Lorazepam (Ativan) 1 mg PO Q6H PRN; Protocol PRN Reason: Agitation Stop: 03/31/18 21:43 Magnesium Oxide (Mag-Oxide) 400 mg PO BID PRN PRN Reason: Mg less than 1.9 Stop: 03/21/18 19:07 Metoprolol Tartrate (Lopressor) 50 mg GT Q8H [facility] Stop: 03/21/18 19:14 Last Admin: 01/31/18 11:01 Dose: Not Given Miscellaneous (Probiotic Screen) 1 ea MC PRN PRN PRN Reason: PROTOCOL Stop: 03/22/18 09:59 Mupirocin (Bactroban Oint) 1 appl NS BID [facility] Stop: 02/03/18 17:01 Last Admin: 01/31/18 09:42 Dose: 1 appl Ondansetron HCl (Zofran) 4 mg IV Q4H PRN PRN Reason: Nausea / Vomiting Stop: 03/27/18 09:59 Last Admin: 01/27/18 09:42 Dose: 4 mg Potassium Chloride (Klor-Con) 40 meq PO DAILY PRN PRN Reason: k level less than 3.5 Stop: 03/21/18 19:07 Simethicone (Mylicon) 80 mg PO Q8H [facility] Stop: 03/27/18 10:14 Last Admin: 01/31/18 11:00 Dose: Not Given Tamsulosin HCl (Flomax) 0.4 mg PO HS [facility] Stop: 03/25/18 20:59 Last Admin: 01/30/18 21:05 Dose: 0.4 mg Tamsulosin HCl (Flomax) 0.4 mg PO DAILY [facility] Stop: 03/28/18 08:59 Last Admin: 01/31/18 09:41 Dose: 0.4 mg Zolpidem Tartrate (Ambien) 10 mg PO HS PRN PRN Reason: Insomnia Stop: 03/21/18 19:07 Last Admin: 01/30/18 23:00 Dose: 10 mg General: Alert, Cooperative, Other (acutely confused, AAO 2) HEENT: Atraumatic, PERRLA, EOMI Neck: Supple, no JVD Cardiovascular: Regular rate Lungs: Other (has rales and congestion) Abdomen: Bowel sounds, Soft, Tender Extremities: Other (right upper extremity +3 edema), no Cyanosis Neurological: Normal speech Skin: no Rash - Procedures Procedures: Procedures Procedure Code Date INSPECTION OF GALLBLADDER, PERCUTANEOUS ENDOSCOPIC APPROACH [id number] 01/20/18 RELEASE OMENTUM, OPEN APPROACH [id number] 01/20/18 RESECTION OF GALLBLADDER, OPEN APPROACH [id number] 01/20/18 Assessment/Plan - Problem List Patient Problems: All Active Problems GASTRIC TUBE AND CORAL REMOVAL (Acute) Nutritional Asmnt/Malnutr-PDOC - Dietary Evaluation Malnutrition Findings (Please click <Entered> for more info): Nutritional Asmnt/Malnutrition Start: 01/24/18 17: 29 Text: Status: Complete Freq: Protocol: Document 01/24/18 17:29 LCVICENTE (Rec: 01/24/18 17:38 LCVICENTE [email or web address]) Nutritional Asmnt/Malnutrition Patient General Information Nutritional Screening Moderate Risk Diagnosis aspiration PNA Pertinent Medical Hx/Surgical Hx cardiac tampondade s/p surgery , aortic dissection, Gtube ( now removed) Subjective Information Per H&P pt had Gtube removed and started oral diet for about one month. Pt stated he still have some stomach issue, vomiting. Pt consumed cream of wheat and ceream for breakfast this morning, not very comfortable with solid food at this time.Per nurse note, pt had loose stool last night. Per EMR, PO intake 50- 75%. Current Diet Order/ Nutrition Support cardiac Pertinent Medications colace, culturelle, zofran, piperacillin, vancomycin Pertinent Labs 01/24 cl 108, glucose 76 01/20 A1c 4.9 Nutritional Hx/Data Height 1.91 m Height (Calculated Centimeters) 190.5 Current Weight (lbs) 92.079 kg Weight (Calculated Kilograms) 92.1 Weight (Calculated Grams) 37664.3 [place] Body Weight 196 Body Mass Index (BMI) 25.3 Weight Status Overweight GI Symptoms GI Symptoms None Last BM 01/24 Difficult in: None Skin Integrity/Comment: intact Current %PO Fair (50-74%) Estimated Nutritional Goals BEE in Kcals: Using Current wt Calories/Kcals/Kg 25-30 Kcals Calculated 7707-4424 Protein: Using Current wt Protein g/k Protein Calculated 92 Fluid: ml 2300-2760ml (1ml/kcal) Nutritional Problem No current Nutrition Prob Problem N/A Malnutrition Alert Is there a minimum of two criteria No selected? Query Text:Check all the applicable criteria. A minimum of two criteria are recommended for diagnosis of either severe or non-severe malnutrition. Malnutrition Related to Morbid Obesity Malnutrition related to morbid obesity No Intervention/Recommendation Comments 1. Continue with current diet as ordered. Offered food alternatives if pt not able to take his meals. 2. Monitor PO intake, GI function, wt, labs and skin integrity 3. F/U as moderate risk in 3-5 days, 01/27-01/29 Expected Outcomes/Goals Expected Outcomes/Goals 1. PO intake to meet at least 75% of nutritional needs. 2. Wt stability, GI function to improve, skin to remain intact, labs to approach WNL.
[2018-01-31] MEDS: HYDROmorphone 2 mg/mL 1mL Vial IVP PRN ×2 (15:09→20:30)
--- NOTE | 2018-02-01 01:54 | Infectious Disease Prog Note ---
Infectious Disease Subjective - Review of Systems Service Date: 01/31/18 Subjective: c/o pain at the surgical site.. Infectious Disease Objective - Results Result Diagrams: 01/31/18 05:30 01/31/18 05:30 Recent Labs: Laboratory Last Values WBC 27.4 Th/cmm (4.8-10.8) H* 01/31/18 05:30 RBC 2.75 Mil/cmm (4.30-5.70) L 01/31/18 05:30 Hgb 8.7 gm/dL (12-16) L 01/31/18 05:30 Hct 25.0 % (41.0-60) L 01/31/18 05:30 MCV 91.0 fl (80-99) 01/31/18 05:30 MCH 31.7 pg (26.0-30.0) H 01/31/18 05:30 MCHC Differential 34.8 pg (28.0-36.0) 01/31/18 05:30 RDW 15.4 % (11.5-20.0) 01/31/18 05:30 Plt Count 263 Th/cmm (150-400) 01/31/18 05:30 MPV 9.2 fl 01/31/18 05:30 Neutrophils % 89.5 % (40.0-80.0) H 01/31/18 05:30 Band Neutrophils % 9 % (0-10) 01/30/18 05:40 Lymphocytes % 3.0 % (20.0-50.0) L 01/31/18 05:30 Monocytes % 7.2 % (2.0-10.0) 01/31/18 05:30 Eosinophils % 0.3 % (0.0-5.0) 01/31/18 05:30 Basophils % 0.0 % (0.0-2.0) 01/31/18 05:30 Neutrophils (Manual) 85 % (40-80) H 01/30/18 05:40 Lymphocytes 3 % (20-50) L 01/30/18 05:40 Monocytes 3 % (2-10) 01/30/18 05:40 Eosinophils 2 % (0-5) 01/29/18 04:20 Platelet Estimate ADEQUATE (NORMAL) 01/30/18 05:40 Poikilocytosis 1+ 01/25/18 05:57 Anisocytosis 1+ 01/25/18 05:57 PT 17.8 SECONDS (9.5-11.5) H 01/28/18 04:20 INR 1.66 (0.5-1.4) H 01/28/18 04:20 PTT (Actin FS) 45.6 SECONDS (26.0-38.0) H 01/28/18 04:20 Plt Function Studies 106 01/28/18 08:05 Specimen Source Arterial 01/31/18 11:10 Sample Site Left Radial 01/31/18 11:10 pH 7.42 (7.35-7.45) 01/31/18 11:10 pCO2 32.0 mmHg (35.0-45.0) L 01/31/18 11:10 pO2 62.0 mmHg (80.0-100.0) L 01/31/18 11:10 HCO3 22.5 mEq/L (20.0-26.0) 01/31/18 11:10 Base Excess -2.9 mEq/L (-3.0-3.0) 01/31/18 11:10 O2 Saturation 92.0 % (92.0-100.0) 01/31/18 11:10 Zac Test YES 01/31/18 11:10 Vent Rate NA 01/31/18 11:10 Inspired O2 21 01/31/18 11:10 Tidal Volume NA 01/31/18 11:10 PEEP NA 01/31/18 11:10 Pressure (ins/psv/peep) NA 01/31/18 11:10 Critical Value E.MATHEW 01/31/18 11:10 Sodium 145 mEq/L (136-145) 01/31/18 05:30 Potassium 3.8 mEq/L (3.5-5.1) 01/31/18 05:30 Chloride 115 mEq/L (98-107) H 01/31/18 05:30 Carbon Dioxide 19.7 mEq/L (21.0-31.0) L 01/31/18 05:30 Anion Gap 14.1 (7.0-16.0) 01/31/18 05:30 BUN 37 mg/dL (7-25) H 01/31/18 05:30 Creatinine 3.1 mg/dL (0.7-1.3) H 01/31/18 05:30 Est GFR ( Amer) 26.5 ml/min (>90) 01/31/18 05:30 Est GFR (Non-Af Amer) 21.9 ml/min 01/31/18 05:30 BUN/Creatinine Ratio 11.9 01/31/18 05:30 Glucose 102 mg/dL (70-105) 01/31/18 05:30 POC Glucose 87 MG/DL (70 - 105) 01/28/18 05:32 Hemoglobin A1c % 4.9 % (4.0-6.0) 01/20/18 16:40 Whole Bld Lactic Acid 1.32 mmol/L (0.60-1.99) 01/20/18 16:40 Uric Acid 8.7 mg/dL (4.4-7.6) H 01/31/18 05:30 Calcium 8.3 mg/dL (8.6-10.3) L 01/31/18 05:30 Total Bilirubin 0.5 mg/dL (0.3-1.0) 01/31/18 05:30 AST 13 U/L (13-39) 01/31/18 05:30 ALT 12 U/L (7-52) 01/31/18 05:30 Alkaline Phosphatase 89 U/L (34-104) 01/31/18 05:30 Ammonia 53 umol/L (16-53) 01/31/18 15:32 Creatine Kinase 32 U/L (30-223) 01/20/18 16:40 Troponin I 0.01 ng/mL (0.01-0.05) 01/20/18 16:40 Total Protein 5.4 gm/dL (6.0-8.3) L 01/31/18 05:30 Albumin 2.7 gm/dL (4.2-5.5) L 01/31/18 05:30 Globulin 2.7 gm/dL 01/31/18 05:30 Albumin/Globulin Ratio 1.0 (1.0-1.8) 01/31/18 05:30 Triglycerides 69 mg/dL (<150) 01/27/18 05:45 Cholesterol 79 mg/dL (<200) 01/27/18 05:45 LDL Cholesterol Direct 37 mg/dL (75-193) L 01/27/18 05:45 HDL Cholesterol 32 mg/dL (23-92) 01/27/18 05:45 Urine Source MIDSTREAM 01/20/18 20:20 Urine Color YELLOW 01/20/18 20:20 Urine Clarity HAZY (CLEAR) 01/20/18 20:20 Urine pH 5.5 (4.6 - 8.0) 01/20/18 20:20 Ur Specific [place] 1.020 (1.005-1.030) 01/20/18 20:20 Urine Protein NEGATIVE mg/dL (NEGATIVE) 01/20/18 20:20 Urine Glucose (UA) NEGATIVE mg/dL (NEGATIVE) 01/20/18 20:20 Urine Ketones NEGATIVE mg/dL (NEGATIVE) 01/20/18 20:20 Urine Blood SMALL (NEGATIVE) H 01/20/18 20:20 Urine Nitrate NEGATIVE (NEGATIVE) 01/20/18 20:20 Urine Bilirubin NEGATIVE (NEGATIVE) 01/20/18 20:20 Urine Urobilinogen 0.2 E.U./dL (0.2 - 1.0) 01/20/18 20:20 Ur Leukocyte Esterase SMALL (NEGATIVE) H 01/20/18 20:20 Urine RBC 5-10 /hpf (0-5) H 01/20/18 20:20 Urine WBC 10-25 /hpf (0-5) H 01/20/18 20:20 Ur Epithelial Cells NONE SEEN /lpf (FEW) 01/20/18 20:20 Urine Bacteria NONE SEEN /hpf (NONE SEEN) 01/20/18 20:20 Vancomycin Trough 28.2 ug/mL (5-10) H 01/25/18 09:00 Random Vancomycin 30.6 ug/mL (5.0-40.0) 01/26/18 06:00 - Physical Exam Vitals and I&O: Vital Signs Temp 99 F 01/31/18 15:40 Pulse 110 01/31/18 18:19 Resp 20 01/31/18 15:40 BP 135/79 01/31/18 18:19 Pulse Ox 95 01/31/18 15:40 Intake & Output 01/31/18 01/31/18 02/01/18 06:59 18:59 06:59 Intake Total 100 450 Output Total 1555 930 Balance -1455 -480 Weight (lbs) 90.718 kg 90.945 kg Intake: Oral 100 450 Output: Gastric Drainage 10 Drainage 35 30 Right Lower Abdomen 35 30 Urine 1510 900 Other: # Bowel Movements 0 Weight Source Bedscale Bedscale Active Medications: Current Medications Acetaminophen (Tylenol) 650 mg PO Q6H PRN PRN Reason: HEADACHE/TEMP ABOVE 100F Stop: 03/21/18 19:07 Last Admin: 01/20/18 23:17 Dose: 650 mg Acetaminophen/Hydrocodone Bitart (Holiday 10 Mg/325 Mg) 1 tab PO Q6H PRN PRN Reason: mod pain Stop: 03/22/18 10:31 Last Admin: 01/30/18 22:55 Dose: 1 tab Acetaminophen/Hydrocodone Bitart (Holiday 10 Mg/325 Mg) 1 tab PO Q4H PRN PRN Reason: Pain (Severe) Stop: 03/31/18 21:39 Albuterol/Ipratropium (Duoneb Neb) 3 ml HHN Q4HRT [facility] Stop: 03/21/18 19:59 Last Admin: 01/31/18 22:00 Dose: Not Given Amiodarone HCl (Cordarone) 100 mg GT DAILY [facility] Stop: 03/22/18 08:59 Last Admin: 01/31/18 09:42 Dose: 100 mg Amlodipine Besylate (Norvasc) 10 mg GT DAILY [facility] Stop: 03/22/18 08:59 Last Admin: 01/31/18 09:41 Dose: Not Given Aspirin (Aspirin Chewable) 81 mg GT DAILY [facility] Stop: 03/22/18 08:59 Last Admin: 01/31/18 09:41 Dose: 81 mg Atorvastatin Calcium (Lipitor) 40 mg GT HS [facility] Stop: 03/25/18 20:59 Last Admin: 01/31/18 20:35 Dose: 40 mg Diphenhydramine HCl (Benadryl 50 Mg/Ml) 50 mg IVP Q8H PRN PRN Reason: rash, itchiness Stop: 03/30/18 08:49 Docusate Sodium (Colace) 100 mg PO BID PRN PRN Reason: Constipation Stop: 03/21/18 19:07 Last Admin: 01/23/18 10:21 Dose: 100 mg Famotidine (Pepcid) 40 mg PO DAILY [facility] Stop: 03/30/18 08:59 Last Admin: 01/31/18 09:42 Dose: 40 mg Hydromorphone HCl (Dilaudid) 4 mg IVP Q4HR PRN PRN Reason: Severe Pain Stop: 03/29/18 12:35 Last Admin: 01/31/18 20:30 Dose: 4 mg Magnesium Sulfate (Magnesium Sulfate Premix) 2 gm in 50 mls @ 25 mls/hr IV DAILY PRN PRN Reason: Magnesium level less than 1.6 Stop: 03/21/18 19:07 Metronidazole (Flagyl) 500 mg in 100 mls @ 100 mls/hr IV Q12H [facility] Stop: 03/27/18 14:59 Last Admin: 01/31/18 15:08 Dose: 100 mls/hr Ceftriaxone Sodium 1 gm/ (Dextrose) 50 mls @ 100 mls/hr IV Q24H [facility] Stop: 03/30/18 14:59 Last Admin: 01/31/18 15:09 Dose: 100 mls/hr Sodium Chloride (Nacl 0.9%) 1,000 mls @ 60 mls/hr IV .[id number] [facility] Stop: 04/01/18 10:59 Lactobacillus Rhamnosus (Culturelle 15b) 1 each PO DAILY [facility] Stop: 03/23/18 08:59 Last Admin: 01/31/18 09:41 Dose: 1 each Lorazepam (Ativan) 1 mg IVP Q4H PRN; Protocol PRN Reason: Anxiety Stop: 03/21/18 19:07 Last Admin: 01/29/18 15:50 Dose: 1 mg Lorazepam (Ativan) 1 mg PO Q6H PRN; Protocol PRN Reason: Agitation Stop: 03/31/18 21:43 Magnesium Oxide (Mag-Oxide) 400 mg PO BID PRN PRN Reason: Mg less than 1.9 Stop: 03/21/18 19:07 Metoprolol Tartrate (Lopressor) 50 mg GT Q8H [facility] Stop: 03/21/18 19:14 Last Admin: 01/31/18 18:19 Dose: 50 mg Miscellaneous (Probiotic Screen) 1 ea MC PRN PRN PRN Reason: PROTOCOL Stop: 03/22/18 09:59 Mupirocin (Bactroban Oint) 1 appl NS BID [facility] Stop: 02/03/18 17:01 Last Admin: 01/31/18 18:19 Dose: 1 appl Ondansetron HCl (Zofran) 4 mg IV Q4H PRN PRN Reason: Nausea / Vomiting Stop: 03/27/18 09:59 Last Admin: 01/27/18 09:42 Dose: 4 mg Potassium Chloride (Klor-Con) 40 meq PO DAILY PRN PRN Reason: k level less than 3.5 Stop: 03/21/18 19:07 Simethicone (Mylicon) 80 mg PO Q8H [facility] Stop: 03/27/18 10:14 Last Admin: 01/31/18 18:18 Dose: 80 mg Tamsulosin HCl (Flomax) 0.4 mg PO HS [facility] Stop: 03/25/18 20:59 Last Admin: 01/31/18 20:35 Dose: 0.4 mg Tamsulosin HCl (Flomax) 0.4 mg PO DAILY [facility] Stop: 03/28/18 08:59 Last Admin: 01/31/18 09:41 Dose: 0.4 mg Zolpidem Tartrate (Ambien) 10 mg PO HS PRN PRN Reason: Insomnia Stop: 03/21/18 19:07 Last Admin: 01/31/18 22:18 Dose: 10 mg General: no acute distress, well developed, well nourished HEENT: atraumatic, normocephalic, PERRLA, EOMI Neck: supple, no thyromegaly, no lymphadenopathy Cardiovascular: S1S2, regular Lungs: clear to auscultation bilaterally, clear to percussion Abdomen: soft, tender, drain Extremities: no cyanosis, no clubbing, no edema - Procedures Procedures: Procedures Procedure Code Date INSPECTION OF GALLBLADDER, PERCUTANEOUS ENDOSCOPIC APPROACH [id number] 01/20/18 RELEASE OMENTUM, OPEN APPROACH [id number] 01/20/18 RESECTION OF GALLBLADDER, OPEN APPROACH [id number] 01/20/18 Infectious Disease Assmt/Plan - Problem List Patient Problems: All Active Problems GASTRIC TUBE AND CORAL REMOVAL (Acute) - Assessment Assessment: 1. Leukocytosis worse, most likely postsurgical. If WBC count remains elevated , we will consider indium scan. 2. Right lower lobe infiltrate, suspect aspiration pneumonia. 3. UTI. 4. MRSA colonization. 5. Hypertension. 6. Hyperlipidemia. 7. Aortic dissection, repair of aortic dissection at [facility]. 8. Acute kidney injury. Resolved. 9. Dysphagia resolved. He is taking his medication by mouth. 10. Vomiting. 11. Cholelithiasis. 12. Status post open cholecystectomy, POD#2. - Plan Plan: Change flagyl 500 mg iv twice/day, Continue Rocephin. Nutritional Asmnt/Malnutr-PDOC - Dietary Evaluation Malnutrition Findings (Please click <Entered> for more info): Nutritional Asmnt/Malnutrition Start: 01/24/18 17: 29 Text: Status: Complete Freq: Protocol: Document 01/24/18 17:29 LCHENG (Rec: 01/24/18 17:38 [facility] [id number]) Nutritional Asmnt/Malnutrition Patient General Information Nutritional Screening Moderate Risk Diagnosis aspiration PNA Pertinent Medical Hx/Surgical Hx cardiac tampondade s/p surgery , aortic dissection, Gtube ( now removed) Subjective Information Per H&P pt had Gtube removed and started oral diet for about one month. Pt stated he still have some stomach issue, vomiting. Pt consumed cream of wheat and ceream for breakfast this morning, not very comfortable with solid food at this time.Per nurse note, pt had loose stool last night. Per EMR, PO intake 50- 75%. Current Diet Order/ Nutrition Support cardiac Pertinent Medications colace, culturelle, zofran, piperacillin, vancomycin Pertinent Labs 01/24 cl 108, glucose 76 01/20 A1c 4.9 Nutritional Hx/Data Height 1.91 m Height (Calculated Centimeters) 190.5 Current Weight (lbs) 92.079 kg Weight (Calculated Kilograms) 92.1 Weight (Calculated Grams) 67417.3 [place] Body Weight 196 Body Mass Index (BMI) 25.3 Weight Status Overweight GI Symptoms GI Symptoms None Last BM 01/24 Difficult in: None Skin Integrity/Comment: intact Current %PO Fair (50-74%) Estimated Nutritional Goals BEE in Kcals: Using Current wt Calories/Kcals/Kg 25-30 Kcals Calculated 6274-0667 Protein: Using Current wt Protein g/k Protein Calculated 92 Fluid: ml 2300-2760ml (1ml/kcal) Nutritional Problem No current Nutrition Prob Problem N/A Malnutrition Alert Is there a minimum of two criteria No selected? Query Text:Check all the applicable criteria. A minimum of two criteria are recommended for diagnosis of either severe or non-severe malnutrition. Malnutrition Related to Morbid Obesity Malnutrition related to morbid obesity No Intervention/Recommendation Comments 1. Continue with current diet as ordered. Offered food alternatives if pt not able to take his meals. 2. Monitor PO intake, GI function, wt, labs and skin integrity 3. F/U as moderate risk in 3-5 days, 01/27-01/29 Expected Outcomes/Goals Expected Outcomes/Goals 1. PO intake to meet at least 75% of nutritional needs. 2. Wt stability, GI function to improve, skin to remain intact, labs to approach WNL.
[2018-02-01] MEDS: Albuterol/Ipratropium Neb 3 ML AERS HHN SCH ×6 (02:06→22:24)
[2018-02-01] MEDS: metroNIDAZOLE 500mg/NS 100mL 500 MG/100 ML BAG IV SCH ×2 (03:00→13:30)
[2018-02-01 06:54] LABS: ALB/GLOB RATIO 0.9 (1.0-1.8); ALBUMIN 2.8 gm/dL (4.2-5.5); ANION GAP 14.1 (7.0-16.0); BILIRUBIN,TOTAL 0.4 mg/dL (0.3-1.0); CALCIUM SERUM 8.7 mg/dL (8.6-10.3); CREATININE - SERUM 2.8 mg/dL (0.7-1.3); GFR AFRICAN-AMERICAN 29.8 ml/min (>90); GFR NON AFRICAN-AMERICAN 24.6 ml/min; POTASSIUM SERUM 4.1 mEq/L (3.5-5.1); TOTAL PROTEIN,SERUM 5.8 gm/dL (6.0-8.3)
[2018-02-01 07:09] LABS: HEMOGLOBIN 9.4 gm/dL (12-16); MANUAL DIFF REQUIRED? YES; MEAN CORPUSCULAR HEMOGLOBIN 31.6 pg (26.0-30.0); MEAN CORPUSCULAR HGB CONC 34.8 pg (28.0-36.0); MEAN PLATELET VOLUME 8.6 fl; PLATELET COUNT 282 Th/cmm (150-400); RED BLOOD COUNT 2.97 Mil/cmm (4.30-5.70); RED CELL DISTRIBUTION WIDTH 15.3 % (11.5-20.0)
[2018-02-01 08:10] LABS: BAND NEUTROPHILE 2 % (0-10); BASOPHIL 0 % (0-3); EOSINOPHIL 0 % (0-5); LYMPHOCYTE 3 % (20-50); MONOCYTE 5 % (2-10); NEUTROPHILS 90 % (40-80); PLATELET ESTIMATE ADEQUATE (NORMAL); TOTAL CELLS COUNTED 100
[2018-02-01 08:41] LABS: MEAN CELL VOLUME 91.1 fl (80-99)
--- NOTE | 2018-02-01 10:13 | General Progress Note ---
Subjective - Review of Systems Service Date: 02/01/18 Subjective: Pt seen and eval. Has some congestion. No fevers or chills. Now on Levaquin and Flagyl. Seen by ID, Cardio, and Sx. Status post removal of Perm-A-Cath and GT by Dr. Parks on 01/22/18. No n,v,d or cp. Feels weak. WBC improved now. He's now on Rocephin and Flagyl per ID. Rash has resolved. Pt is POD # 4 for open cholecystectomy on 01/28/18. Pt refused US of UE on 01/31/18. We will try again today. Objective - Results Result Diagrams: 02/01/18 05:52 02/01/18 05:52 Recent Labs: Laboratory Last Values WBC 22.6 Th/cmm (4.8-10.8) H* 02/01/18 05:52 Corrected WBC (auto) Th/cmm 02/01/18 05:52 RBC 2.97 Mil/cmm (4.30-5.70) L 02/01/18 05:52 Hgb 9.4 gm/dL (12-16) L 02/01/18 05:52 Hct 27.0 % (41.0-60) L 02/01/18 05:52 MCV 91.1 fl (80-99) 02/01/18 05:52 MCH 31.6 pg (26.0-30.0) H 02/01/18 05:52 MCHC Differential 34.8 pg (28.0-36.0) 02/01/18 05:52 RDW 15.3 % (11.5-20.0) 02/01/18 05:52 Plt Count 282 Th/cmm (150-400) 02/01/18 05:52 MPV 8.6 fl 02/01/18 05:52 Neutrophils % 89.5 % (40.0-80.0) H 01/31/18 05:30 Band Neutrophils % 2 % (0-10) 02/01/18 05:52 Lymphocytes % 3.0 % (20.0-50.0) L 01/31/18 05:30 Monocytes % 7.2 % (2.0-10.0) 01/31/18 05:30 Eosinophils % 0.3 % (0.0-5.0) 01/31/18 05:30 Basophils % 0.0 % (0.0-2.0) 01/31/18 05:30 Neutrophils (Manual) 90 % (40-80) H 02/01/18 05:52 Lymphocytes 3 % (20-50) L 02/01/18 05:52 Monocytes 5 % (2-10) 02/01/18 05:52 Eosinophils 0 % (0-5) 02/01/18 05:52 Basophils 0 % (0-3) 02/01/18 05:52 Platelet Estimate ADEQUATE (NORMAL) 02/01/18 05:52 Poikilocytosis 1+ 01/25/18 05:57 Anisocytosis 1+ 01/25/18 05:57 PT 17.8 SECONDS (9.5-11.5) H 01/28/18 04:20 INR 1.66 (0.5-1.4) H 01/28/18 04:20 PTT (Actin FS) 45.6 SECONDS (26.0-38.0) H 01/28/18 04:20 Plt Function Studies 106 01/28/18 08:05 Specimen Source Arterial 01/31/18 11:10 Sample Site Left Radial 01/31/18 11:10 pH 7.42 (7.35-7.45) 01/31/18 11:10 pCO2 32.0 mmHg (35.0-45.0) L 01/31/18 11:10 pO2 62.0 mmHg (80.0-100.0) L 01/31/18 11:10 HCO3 22.5 mEq/L (20.0-26.0) 01/31/18 11:10 Base Excess -2.9 mEq/L (-3.0-3.0) 01/31/18 11:10 O2 Saturation 92.0 % (92.0-100.0) 01/31/18 11:10 Zac Test YES 01/31/18 11:10 Vent Rate NA 01/31/18 11:10 Inspired O2 21 01/31/18 11:10 Tidal Volume NA 01/31/18 11:10 PEEP NA 01/31/18 11:10 Pressure (ins/psv/peep) NA 01/31/18 11:10 Critical Value E.MATHEW 01/31/18 11:10 Sodium 149 mEq/L (136-145) H 02/01/18 05:52 Potassium 4.1 mEq/L (3.5-5.1) 02/01/18 05:52 Chloride 117 mEq/L (98-107) H 02/01/18 05:52 Carbon Dioxide 22.0 mEq/L (21.0-31.0) 02/01/18 05:52 Anion Gap 14.1 (7.0-16.0) 02/01/18 05:52 BUN 33 mg/dL (7-25) H 02/01/18 05:52 Creatinine 2.8 mg/dL (0.7-1.3) H 02/01/18 05:52 Est GFR ( Amer) 29.8 ml/min (>90) 02/01/18 05:52 Est GFR (Non-Af Amer) 24.6 ml/min 02/01/18 05:52 BUN/Creatinine Ratio 11.8 02/01/18 05:52 Glucose 97 mg/dL (70-105) 02/01/18 05:52 POC Glucose 87 MG/DL (70 - 105) 01/28/18 05:32 Hemoglobin A1c % 4.9 % (4.0-6.0) 01/20/18 16:40 Whole Bld Lactic Acid 1.32 mmol/L (0.60-1.99) 01/20/18 16:40 Uric Acid 8.7 mg/dL (4.4-7.6) H 01/31/18 05:30 Calcium 8.7 mg/dL (8.6-10.3) 02/01/18 05:52 Total Bilirubin 0.4 mg/dL (0.3-1.0) 02/01/18 05:52 AST 13 U/L (13-39) 02/01/18 05:52 ALT 11 U/L (7-52) 02/01/18 05:52 Alkaline Phosphatase 99 U/L (34-104) 02/01/18 05:52 Ammonia 53 umol/L (16-53) 01/31/18 15:32 Creatine Kinase 32 U/L (30-223) 01/20/18 16:40 Troponin I 0.01 ng/mL (0.01-0.05) 01/20/18 16:40 Total Protein 5.8 gm/dL (6.0-8.3) L 02/01/18 05:52 Albumin 2.8 gm/dL (4.2-5.5) L 02/01/18 05:52 Globulin 3.0 gm/dL 02/01/18 05:52 Albumin/Globulin Ratio 0.9 (1.0-1.8) L 02/01/18 05:52 Triglycerides 69 mg/dL (<150) 01/27/18 05:45 Cholesterol 79 mg/dL (<200) 01/27/18 05:45 LDL Cholesterol Direct 37 mg/dL (75-193) L 01/27/18 05:45 HDL Cholesterol 32 mg/dL (23-92) 01/27/18 05:45 Urine Source MIDSTREAM 01/20/18 20:20 Urine Color YELLOW 01/20/18 20:20 Urine Clarity HAZY (CLEAR) 01/20/18 20:20 Urine pH 5.5 (4.6 - 8.0) 01/20/18 20:20 Ur Specific [place] 1.020 (1.005-1.030) 01/20/18 20:20 Urine Protein NEGATIVE mg/dL (NEGATIVE) 01/20/18 20:20 Urine Glucose (UA) NEGATIVE mg/dL (NEGATIVE) 01/20/18 20:20 Urine Ketones NEGATIVE mg/dL (NEGATIVE) 01/20/18 20:20 Urine Blood SMALL (NEGATIVE) H 01/20/18 20:20 Urine Nitrate NEGATIVE (NEGATIVE) 01/20/18 20:20 Urine Bilirubin NEGATIVE (NEGATIVE) 01/20/18 20:20 Urine Urobilinogen 0.2 E.U./dL (0.2 - 1.0) 01/20/18 20:20 Ur Leukocyte Esterase SMALL (NEGATIVE) H 01/20/18 20:20 Urine RBC 5-10 /hpf (0-5) H 01/20/18 20:20 Urine WBC 10-25 /hpf (0-5) H 01/20/18 20:20 Ur Epithelial Cells NONE SEEN /lpf (FEW) 01/20/18 20:20 Urine Bacteria NONE SEEN /hpf (NONE SEEN) 01/20/18 20:20 Vancomycin Trough 28.2 ug/mL (5-10) H 01/25/18 09:00 Random Vancomycin 30.6 ug/mL (5.0-40.0) 01/26/18 06:00 - Physical Exam Vitals and I&O: Vital Signs Temp 98.5 F 02/01/18 04:00 Pulse 95 02/01/18 07:22 Resp 18 02/01/18 07:22 BP 160/72 02/01/18 04:00 Pulse Ox 96 02/01/18 07:22 Intake & Output 01/31/18 02/01/18 02/01/18 18:59 06:59 18:59 Intake Total 550 240 Output Total 930 120 Balance -380 120 Weight (lbs) 90.945 kg 90.945 kg Intake: Intake, IV Amount 100 metroNIDAZOLE 500mg/NS 100 100mL 500 mg In 100 ml @ 100 mls/hr IV Q12H [facility] Rx #:[id number] Oral 450 240 Output: Drainage 30 20 Right Lower Abdomen 30 20 Urine 900 100 Other: # Bowel Movements 0 0 Weight Source Bedscale Bedscale Active Medications: Current Medications Acetaminophen (Tylenol) 650 mg PO Q6H PRN PRN Reason: HEADACHE/TEMP ABOVE 100F Stop: 03/21/18 19:07 Last Admin: 01/20/18 23:17 Dose: 650 mg Acetaminophen/Hydrocodone Bitart (Collins 10 Mg/325 Mg) 1 tab PO Q6H PRN PRN Reason: mod pain Stop: 03/22/18 10:31 Last Admin: 01/30/18 22:55 Dose: 1 tab Acetaminophen/Hydrocodone Bitart (Collins 10 Mg/325 Mg) 1 tab PO Q4H PRN PRN Reason: Pain (Severe) Stop: 03/31/18 21:39 Albuterol/Ipratropium (Duoneb Neb) 3 ml HHN Q4HRT [facility] Stop: 03/21/18 19:59 Last Admin: 02/01/18 07:17 Dose: 3 ml Amiodarone HCl (Cordarone) 100 mg GT DAILY [facility] Stop: 03/22/18 08:59 Last Admin: 01/31/18 09:42 Dose: 100 mg Amlodipine Besylate (Norvasc) 10 mg GT DAILY [facility] Stop: 03/22/18 08:59 Last Admin: 01/31/18 09:41 Dose: Not Given Aspirin (Aspirin Chewable) 81 mg GT DAILY [facility] Stop: 03/22/18 08:59 Last Admin: 01/31/18 09:41 Dose: 81 mg Atorvastatin Calcium (Lipitor) 40 mg GT HS [facility] Stop: 03/25/18 20:59 Last Admin: 01/31/18 20:35 Dose: 40 mg Diphenhydramine HCl (Benadryl 50 Mg/Ml) 50 mg IVP Q8H PRN PRN Reason: rash, itchiness Stop: 03/30/18 08:49 Docusate Sodium (Colace) 100 mg PO BID PRN PRN Reason: Constipation Stop: 03/21/18 19:07 Last Admin: 01/23/18 10:21 Dose: 100 mg Famotidine (Pepcid) 40 mg PO DAILY [facility] Stop: 03/30/18 08:59 Last Admin: 01/31/18 09:42 Dose: 40 mg Hydromorphone HCl (Dilaudid) 4 mg IVP Q4HR PRN PRN Reason: Severe Pain Stop: 03/29/18 12:35 Last Admin: 01/31/18 20:30 Dose: 4 mg Magnesium Sulfate (Magnesium Sulfate Premix) 2 gm in 50 mls @ 25 mls/hr IV DAILY PRN PRN Reason: Magnesium level less than 1.6 Stop: 03/21/18 19:07 Metronidazole (Flagyl) 500 mg in 100 mls @ 100 mls/hr IV Q12H [facility] Stop: 03/27/18 14:59 Last Admin: 02/01/18 03:00 Dose: 100 mls/hr Ceftriaxone Sodium 1 gm/ (Dextrose) 50 mls @ 100 mls/hr IV Q24H [facility] Stop: 03/30/18 14:59 Last Admin: 01/31/18 15:09 Dose: 100 mls/hr Sodium Chloride (Nacl 0.45%) 1,000 mls @ 75 mls/hr IV .[id number] [facility] Stop: 04/02/18 10:14 Lactobacillus Rhamnosus (Culturelle 15b) 1 each PO DAILY [facility] Stop: 03/23/18 08:59 Last Admin: 01/31/18 09:41 Dose: 1 each Lorazepam (Ativan) 1 mg IVP Q4H PRN; Protocol PRN Reason: Anxiety Stop: 03/21/18 19:07 Last Admin: 01/29/18 15:50 Dose: 1 mg Lorazepam (Ativan) 1 mg PO Q6H PRN; Protocol PRN Reason: Agitation Stop: 03/31/18 21:43 Magnesium Oxide (Mag-Oxide) 400 mg PO BID PRN PRN Reason: Mg less than 1.9 Stop: 03/21/18 19:07 Metoprolol Tartrate (Lopressor) 50 mg GT Q8H [facility] Stop: 03/21/18 19:14 Last Admin: 02/01/18 03:25 Dose: 50 mg Miscellaneous (Probiotic Screen) 1 ea MC PRN PRN PRN Reason: PROTOCOL Stop: 03/22/18 09:59 Mupirocin (Bactroban Oint) 1 appl NS BID [facility] Stop: 02/03/18 17:01 Last Admin: 01/31/18 18:19 Dose: 1 appl Ondansetron HCl (Zofran) 4 mg IV Q4H PRN PRN Reason: Nausea / Vomiting Stop: 03/27/18 09:59 Last Admin: 01/27/18 09:42 Dose: 4 mg Potassium Chloride (Klor-Con) 40 meq PO DAILY PRN PRN Reason: k level less than 3.5 Stop: 03/21/18 19:07 Simethicone (Mylicon) 80 mg PO Q8H [facility] Stop: 03/27/18 10:14 Last Admin: 02/01/18 02:25 Dose: 80 mg Tamsulosin HCl (Flomax) 0.4 mg PO HS [facility] Stop: 03/25/18 20:59 Last Admin: 01/31/18 20:35 Dose: 0.4 mg Tamsulosin HCl (Flomax) 0.4 mg PO DAILY [facility] Stop: 03/28/18 08:59 Last Admin: 01/31/18 09:41 Dose: 0.4 mg Zolpidem Tartrate (Ambien) 10 mg PO HS PRN PRN Reason: Insomnia Stop: 03/21/18 19:07 Last Admin: 01/31/18 22:18 Dose: 10 mg General: Alert, Cooperative, Other (acutely confused, AAO 2) HEENT: Atraumatic, PERRLA, EOMI Neck: Supple, no JVD Cardiovascular: Regular rate Lungs: Other (has rales and congestion) Abdomen: Bowel sounds, Soft, Tender Extremities: Other (right upper extremity +3 edema), no Cyanosis Neurological: Normal speech Skin: no Rash - Procedures Procedures: Procedures Procedure Code Date INSPECTION OF GALLBLADDER, PERCUTANEOUS ENDOSCOPIC APPROACH [id number] 01/20/18 RELEASE OMENTUM, OPEN APPROACH [id number] 01/20/18 RESECTION OF GALLBLADDER, OPEN APPROACH [id number] 01/20/18 Assessment/Plan - Problem List Patient Problems: All Active Problems GASTRIC TUBE AND CORAL REMOVAL (Acute) - Assessment Assessment: Symptomatic Cholelithiasis with possible cholecystitis. Sepsis Asp PNA Hypokalemia Hx of RUE DVT (now resolved) Dysphagia (resolved) A Fib Anemia of Ch Ill Mod [place] Hyponatremia Hx of Aortic Dissection and Cardiac Tamponade-s/p sx at [facility] in October 2017 Hypernatremia - Plan Plan: Pt is POD # 1 for open cholecystectomy by Dr. Parks. Pt's venous doppler US or LE and UE is negative. Warfarin held by Cardio in light of procedures scheduled on 01/22/18. Dr. Parks removed GT and Perm-A-Cath on 01/22/18. On tele. FU on cbc and chem 7. WBC improved now. He's now on Rocephin and Flagyl per ID. Rash has resolved. Pt is POD # 4 for open cholecystectomy on 01/28/18. Pt refused US of UE on 01/31/18. We will try again today. Check chem 7 tomorrow. If Na improved, DC back to snf. Nutritional Asmnt/Malnutr-PDOC - Dietary Evaluation Malnutrition Findings (Please click <Entered> for more info): Nutritional Asmnt/Malnutrition Start: 01/24/18 17: 29 Text: Status: Complete Freq: Protocol: Document 01/24/18 17:29 LCHENG (Rec: 01/24/18 17:38 [id number]) Nutritional Asmnt/Malnutrition Patient General Information Nutritional Screening Moderate Risk Diagnosis aspiration PNA Pertinent Medical Hx/Surgical Hx cardiac tampondade s/p surgery , aortic dissection, Gtube ( now removed) Subjective Information Per H&P pt had Gtube removed and started oral diet for about one month. Pt stated he still have some stomach issue, vomiting. Pt consumed cream of wheat and ceream for breakfast this morning, not very comfortable with solid food at this time.Per nurse note, pt had loose stool last night. Per EMR, PO intake 50- 75%. Current Diet Order/ Nutrition Support cardiac Pertinent Medications colace, culturelle, zofran, piperacillin, vancomycin Pertinent Labs 01/24 cl 108, glucose 76 01/20 A1c 4.9 Nutritional Hx/Data Height 1.91 m Height (Calculated Centimeters) 190.5 Current Weight (lbs) 92.079 kg Weight (Calculated Kilograms) 92.1 Weight (Calculated Grams) 44385.3 [place] Body Weight 196 Body Mass Index (BMI) 25.3 Weight Status Overweight GI Symptoms GI Symptoms None Last BM 01/24 Difficult in: None Skin Integrity/Comment: intact Current %PO Fair (50-74%) Estimated Nutritional Goals BEE in Kcals: Using Current wt Calories/Kcals/Kg 25-30 Kcals Calculated 7800-4292 Protein: Using Current wt Protein g/k Protein Calculated 92 Fluid: ml 2300-2760ml (1ml/kcal) Nutritional Problem No current Nutrition Prob Problem N/A Malnutrition Alert Is there a minimum of two criteria No selected? Query Text:Check all the applicable criteria. A minimum of two criteria are recommended for diagnosis of either severe or non-severe malnutrition. Malnutrition Related to Morbid Obesity Malnutrition related to morbid obesity No Intervention/Recommendation Comments 1. Continue with current diet as ordered. Offered food alternatives if pt not able to take his meals. 2. Monitor PO intake, GI function, wt, labs and skin integrity 3. F/U as moderate risk in 3-5 days, 01/27-01/29 Expected Outcomes/Goals Expected Outcomes/Goals 1. PO intake to meet at least 75% of nutritional needs. 2. Wt stability, GI function to improve, skin to remain intact, labs to approach WNL.
[2018-02-01] MEDS: Lactobacillus Rhamnosus GG 15 Billion CFU CAP.SPRINK PO SCH (10:24)
[2018-02-01] MEDS: Aspirin 81mg Chewable Tab GT SCH (10:25)
--- NOTE | 2018-02-01 10:37 | General Progress Note ---
Subjective - Review of Systems Service Date: 02/01/18 Events since last encounter: 4 days post open GB surgery WBC was 27,000 preop, has remained high at 22,000 confused since yesterday incision is clean, mionimal NEVAEH drainage, liver function tests ok message left for brother Objective - Results Result Diagrams: 02/01/18 05:52 02/01/18 05:52 Recent Labs: Laboratory Last Values WBC 22.6 Th/cmm (4.8-10.8) H* 02/01/18 05:52 Corrected WBC (auto) Th/cmm 02/01/18 05:52 RBC 2.97 Mil/cmm (4.30-5.70) L 02/01/18 05:52 Hgb 9.4 gm/dL (12-16) L 02/01/18 05:52 Hct 27.0 % (41.0-60) L 02/01/18 05:52 MCV 91.1 fl (80-99) 02/01/18 05:52 MCH 31.6 pg (26.0-30.0) H 02/01/18 05:52 MCHC Differential 34.8 pg (28.0-36.0) 02/01/18 05:52 RDW 15.3 % (11.5-20.0) 02/01/18 05:52 Plt Count 282 Th/cmm (150-400) 02/01/18 05:52 MPV 8.6 fl 02/01/18 05:52 Neutrophils % 89.5 % (40.0-80.0) H 01/31/18 05:30 Band Neutrophils % 2 % (0-10) 02/01/18 05:52 Lymphocytes % 3.0 % (20.0-50.0) L 01/31/18 05:30 Monocytes % 7.2 % (2.0-10.0) 01/31/18 05:30 Eosinophils % 0.3 % (0.0-5.0) 01/31/18 05:30 Basophils % 0.0 % (0.0-2.0) 01/31/18 05:30 Neutrophils (Manual) 90 % (40-80) H 02/01/18 05:52 Lymphocytes 3 % (20-50) L 02/01/18 05:52 Monocytes 5 % (2-10) 02/01/18 05:52 Eosinophils 0 % (0-5) 02/01/18 05:52 Basophils 0 % (0-3) 02/01/18 05:52 Platelet Estimate ADEQUATE (NORMAL) 02/01/18 05:52 Poikilocytosis 1+ 01/25/18 05:57 Anisocytosis 1+ 01/25/18 05:57 PT 17.8 SECONDS (9.5-11.5) H 01/28/18 04:20 INR 1.66 (0.5-1.4) H 01/28/18 04:20 PTT (Actin FS) 45.6 SECONDS (26.0-38.0) H 01/28/18 04:20 Plt Function Studies 106 01/28/18 08:05 Specimen Source Arterial 01/31/18 11:10 Sample Site Left Radial 01/31/18 11:10 pH 7.42 (7.35-7.45) 01/31/18 11:10 pCO2 32.0 mmHg (35.0-45.0) L 01/31/18 11:10 pO2 62.0 mmHg (80.0-100.0) L 01/31/18 11:10 HCO3 22.5 mEq/L (20.0-26.0) 01/31/18 11:10 Base Excess -2.9 mEq/L (-3.0-3.0) 01/31/18 11:10 O2 Saturation 92.0 % (92.0-100.0) 01/31/18 11:10 Zac Test YES 01/31/18 11:10 Vent Rate NA 01/31/18 11:10 Inspired O2 21 01/31/18 11:10 Tidal Volume NA 01/31/18 11:10 PEEP NA 01/31/18 11:10 Pressure (ins/psv/peep) NA 01/31/18 11:10 Critical Value E.MATHEW 01/31/18 11:10 Sodium 149 mEq/L (136-145) H 02/01/18 05:52 Potassium 4.1 mEq/L (3.5-5.1) 02/01/18 05:52 Chloride 117 mEq/L (98-107) H 02/01/18 05:52 Carbon Dioxide 22.0 mEq/L (21.0-31.0) 02/01/18 05:52 Anion Gap 14.1 (7.0-16.0) 02/01/18 05:52 BUN 33 mg/dL (7-25) H 02/01/18 05:52 Creatinine 2.8 mg/dL (0.7-1.3) H 02/01/18 05:52 Est GFR ( Amer) 29.8 ml/min (>90) 02/01/18 05:52 Est GFR (Non-Af Amer) 24.6 ml/min 02/01/18 05:52 BUN/Creatinine Ratio 11.8 02/01/18 05:52 Glucose 97 mg/dL (70-105) 02/01/18 05:52 POC Glucose 87 MG/DL (70 - 105) 01/28/18 05:32 Hemoglobin A1c % 4.9 % (4.0-6.0) 01/20/18 16:40 Whole Bld Lactic Acid 1.32 mmol/L (0.60-1.99) 01/20/18 16:40 Uric Acid 8.7 mg/dL (4.4-7.6) H 01/31/18 05:30 Calcium 8.7 mg/dL (8.6-10.3) 02/01/18 05:52 Total Bilirubin 0.4 mg/dL (0.3-1.0) 02/01/18 05:52 AST 13 U/L (13-39) 02/01/18 05:52 ALT 11 U/L (7-52) 02/01/18 05:52 Alkaline Phosphatase 99 U/L (34-104) 02/01/18 05:52 Ammonia 53 umol/L (16-53) 01/31/18 15:32 Creatine Kinase 32 U/L (30-223) 01/20/18 16:40 Troponin I 0.01 ng/mL (0.01-0.05) 01/20/18 16:40 Total Protein 5.8 gm/dL (6.0-8.3) L 02/01/18 05:52 Albumin 2.8 gm/dL (4.2-5.5) L 02/01/18 05:52 Globulin 3.0 gm/dL 02/01/18 05:52 Albumin/Globulin Ratio 0.9 (1.0-1.8) L 02/01/18 05:52 Triglycerides 69 mg/dL (<150) 01/27/18 05:45 Cholesterol 79 mg/dL (<200) 01/27/18 05:45 LDL Cholesterol Direct 37 mg/dL (75-193) L 01/27/18 05:45 HDL Cholesterol 32 mg/dL (23-92) 01/27/18 05:45 Urine Source MIDSTREAM 01/20/18 20:20 Urine Color YELLOW 01/20/18 20:20 Urine Clarity HAZY (CLEAR) 01/20/18 20:20 Urine pH 5.5 (4.6 - 8.0) 01/20/18 20:20 Ur Specific [place] 1.020 (1.005-1.030) 01/20/18 20:20 Urine Protein NEGATIVE mg/dL (NEGATIVE) 01/20/18 20:20 Urine Glucose (UA) NEGATIVE mg/dL (NEGATIVE) 01/20/18 20:20 Urine Ketones NEGATIVE mg/dL (NEGATIVE) 01/20/18 20:20 Urine Blood SMALL (NEGATIVE) H 01/20/18 20:20 Urine Nitrate NEGATIVE (NEGATIVE) 01/20/18 20:20 Urine Bilirubin NEGATIVE (NEGATIVE) 01/20/18 20:20 Urine Urobilinogen 0.2 E.U./dL (0.2 - 1.0) 01/20/18 20:20 Ur Leukocyte Esterase SMALL (NEGATIVE) H 01/20/18 20:20 Urine RBC 5-10 /hpf (0-5) H 01/20/18 20:20 Urine WBC 10-25 /hpf (0-5) H 01/20/18 20:20 Ur Epithelial Cells NONE SEEN /lpf (FEW) 01/20/18 20:20 Urine Bacteria NONE SEEN /hpf (NONE SEEN) 01/20/18 20:20 Vancomycin Trough 28.2 ug/mL (5-10) H 01/25/18 09:00 Random Vancomycin 30.6 ug/mL (5.0-40.0) 01/26/18 06:00 - Physical Exam Vitals and I&O: Vital Signs Temp 98.5 F 02/01/18 04:00 Pulse 95 02/01/18 10:29 Resp 18 02/01/18 07:22 BP 125/73 02/01/18 10:29 Pulse Ox 96 02/01/18 07:22 Intake & Output 01/31/18 02/01/18 02/01/18 18:59 06:59 18:59 Intake Total 550 240 Output Total 930 120 Balance -380 120 Weight (lbs) 90.945 kg 90.945 kg Intake: Intake, IV Amount 100 metroNIDAZOLE 500mg/NS 100 100mL 500 mg In 100 ml @ 100 mls/hr IV Q12H [facility] Rx #:[id number] Oral 450 240 Output: Drainage 30 20 Right Lower Abdomen 30 20 Urine 900 100 Other: # Bowel Movements 0 0 Weight Source Bedscale Bedscale Active Medications: Current Medications Acetaminophen (Tylenol) 650 mg PO Q6H PRN PRN Reason: HEADACHE/TEMP ABOVE 100F Stop: 03/21/18 19:07 Last Admin: 01/20/18 23:17 Dose: 650 mg Acetaminophen/Hydrocodone Bitart ([place] 10 Mg/325 Mg) 1 tab PO Q6H PRN PRN Reason: mod pain Stop: 03/22/18 10:31 Last Admin: 01/30/18 22:55 Dose: 1 tab Acetaminophen/Hydrocodone Bitart ([place] 10 Mg/325 Mg) 1 tab PO Q4H PRN PRN Reason: Pain (Severe) Stop: 03/31/18 21:39 Albuterol/Ipratropium (Duoneb Neb) 3 ml HHN Q4HRT [facility] Stop: 03/21/18 19:59 Last Admin: 02/01/18 07:17 Dose: 3 ml Amiodarone HCl (Cordarone) 100 mg GT DAILY [facility] Stop: 03/22/18 08:59 Last Admin: 02/01/18 10:25 Dose: 100 mg Amlodipine Besylate (Norvasc) 10 mg GT DAILY [facility] Stop: 03/22/18 08:59 Last Admin: 02/01/18 10:27 Dose: 10 mg Aspirin (Aspirin Chewable) 81 mg GT DAILY [facility] Stop: 03/22/18 08:59 Last Admin: 02/01/18 10:25 Dose: 81 mg Atorvastatin Calcium (Lipitor) 40 mg GT HS [facility] Stop: 03/25/18 20:59 Last Admin: 01/31/18 20:35 Dose: 40 mg Diphenhydramine HCl (Benadryl 50 Mg/Ml) 50 mg IVP Q8H PRN PRN Reason: rash, itchiness Stop: 03/30/18 08:49 Docusate Sodium (Colace) 100 mg PO BID PRN PRN Reason: Constipation Stop: 03/21/18 19:07 Last Admin: 02/01/18 10:25 Dose: 100 mg Famotidine (Pepcid) 40 mg PO DAILY [facility] Stop: 03/30/18 08:59 Last Admin: 02/01/18 10:27 Dose: 40 mg Hydromorphone HCl (Dilaudid) 4 mg IVP Q4HR PRN PRN Reason: Severe Pain Stop: 03/29/18 12:35 Last Admin: 01/31/18 20:30 Dose: 4 mg Magnesium Sulfate (Magnesium Sulfate Premix) 2 gm in 50 mls @ 25 mls/hr IV DAILY PRN PRN Reason: Magnesium level less than 1.6 Stop: 03/21/18 19:07 Metronidazole (Flagyl) 500 mg in 100 mls @ 100 mls/hr IV Q12H [facility] Stop: 03/27/18 14:59 Last Admin: 02/01/18 03:00 Dose: 100 mls/hr Ceftriaxone Sodium 1 gm/ (Dextrose) 50 mls @ 100 mls/hr IV Q24H [facility] Stop: 03/30/18 14:59 Last Admin: 01/31/18 15:09 Dose: 100 mls/hr Sodium Chloride (Nacl 0.45%) 1,000 mls @ 75 mls/hr IV .[id number] [facility] Stop: 04/02/18 10:14 Lactobacillus Rhamnosus (Culturelle 15b) 1 each PO DAILY [facility] Stop: 03/23/18 08:59 Last Admin: 02/01/18 10:24 Dose: 1 each Lorazepam (Ativan) 1 mg IVP Q4H PRN; Protocol PRN Reason: Anxiety Stop: 03/21/18 19:07 Last Admin: 01/29/18 15:50 Dose: 1 mg Lorazepam (Ativan) 1 mg PO Q6H PRN; Protocol PRN Reason: Agitation Stop: 03/31/18 21:43 Last Admin: 02/01/18 10:25 Dose: 1 mg Magnesium Oxide (Mag-Oxide) 400 mg PO BID PRN PRN Reason: Mg less than 1.9 Stop: 03/21/18 19:07 Metoprolol Tartrate (Lopressor) 50 mg GT Q8H [facility] Stop: 03/21/18 19:14 Last Admin: 02/01/18 10:29 Dose: 50 mg Miscellaneous (Probiotic Screen) 1 ea MC PRN PRN PRN Reason: PROTOCOL Stop: 03/22/18 09:59 Mupirocin (Bactroban Oint) 1 appl NS BID SHARLENE Stop: 02/03/18 17:01 Last Admin: 01/31/18 18:19 Dose: 1 appl Ondansetron HCl (Zofran) 4 mg IV Q4H PRN PRN Reason: Nausea / Vomiting Stop: 03/27/18 09:59 Last Admin: 01/27/18 09:42 Dose: 4 mg Potassium Chloride (Klor-Con) 40 meq PO DAILY PRN PRN Reason: k level less than 3.5 Stop: 03/21/18 19:07 Simethicone (Mylicon) 80 mg PO Q8H [facility] Stop: 03/27/18 10:14 Last Admin: 02/01/18 10:25 Dose: 80 mg Tamsulosin HCl (Flomax) 0.4 mg PO HS [facility] Stop: 03/25/18 20:59 Last Admin: 01/31/18 20:35 Dose: 0.4 mg Tamsulosin HCl (Flomax) 0.4 mg PO DAILY [facility] Stop: 03/28/18 08:59 Last Admin: 01/31/18 09:41 Dose: 0.4 mg Zolpidem Tartrate (Ambien) 10 mg PO HS PRN PRN Reason: Insomnia Stop: 03/21/18 19:07 Last Admin: 01/31/18 22:18 Dose: 10 mg General: Alert, Cooperative, Other (acutely confused, AAO 2) HEENT: Atraumatic, PERRLA, EOMI Neck: Supple, no JVD Cardiovascular: Regular rate Lungs: Other (has rales and congestion) Abdomen: Bowel sounds, Soft, Tender Extremities: Other (right upper extremity +3 edema), no Cyanosis Neurological: Normal speech Skin: no Rash - Procedures Procedures: Procedures Procedure Code Date INSPECTION OF GALLBLADDER, PERCUTANEOUS ENDOSCOPIC APPROACH [id number] 01/20/18 RELEASE OMENTUM, OPEN APPROACH [id number] 01/20/18 RESECTION OF GALLBLADDER, OPEN APPROACH [id number] 01/20/18 Assessment/Plan - Problem List Patient Problems: All Active Problems GASTRIC TUBE AND CORAL REMOVAL (Acute) Nutritional Asmnt/Malnutr-PDOC - Dietary Evaluation Malnutrition Findings (Please click <Entered> for more info): Nutritional Asmnt/Malnutrition Start: 01/24/18 17: 29 Text: Status: Complete Freq: Protocol: Document 01/24/18 17:29 LCHENG (Rec: 01/24/18 17:38 [id number]) Nutritional Asmnt/Malnutrition Patient General Information Nutritional Screening Moderate Risk Diagnosis aspiration PNA Pertinent Medical Hx/Surgical Hx cardiac tampondade s/p surgery , aortic dissection, Gtube ( now removed) Subjective Information Per H&P pt had Gtube removed and started oral diet for about one month. Pt stated he still have some stomach issue, vomiting. Pt consumed cream of wheat and ceream for breakfast this morning, not very comfortable with solid food at this time.Per nurse note, pt had loose stool last night. Per EMR, PO intake 50- 75%. Current Diet Order/ Nutrition Support cardiac Pertinent Medications colace, culturelle, zofran, piperacillin, vancomycin Pertinent Labs 01/24 cl 108, glucose 76 01/20 A1c 4.9 Nutritional Hx/Data Height 1.91 m Height (Calculated Centimeters) 190.5 Current Weight (lbs) 92.079 kg Weight (Calculated Kilograms) 92.1 Weight (Calculated Grams) 10573.3 [place] Body Weight 196 Body Mass Index (BMI) 25.3 Weight Status Overweight GI Symptoms GI Symptoms None Last BM 01/24 Difficult in: None Skin Integrity/Comment: intact Current %PO Fair (50-74%) Estimated Nutritional Goals BEE in Kcals: Using Current wt Calories/Kcals/Kg 25-30 Kcals Calculated 8148-3503 Protein: Using Current wt Protein g/k Protein Calculated 92 Fluid: ml 2300-2760ml (1ml/kcal) Nutritional Problem No current Nutrition Prob Problem N/A Malnutrition Alert Is there a minimum of two criteria No selected? Query Text:Check all the applicable criteria. A minimum of two criteria are recommended for diagnosis of either severe or non-severe malnutrition. Malnutrition Related to Morbid Obesity Malnutrition related to morbid obesity No Intervention/Recommendation Comments 1. Continue with current diet as ordered. Offered food alternatives if pt not able to take his meals. 2. Monitor PO intake, GI function, wt, labs and skin integrity 3. F/U as moderate risk in 3-5 days, 01/27-01/29 Expected Outcomes/Goals Expected Outcomes/Goals 1. PO intake to meet at least 75% of nutritional needs. 2. Wt stability, GI function to improve, skin to remain intact, labs to approach WNL.
[2018-02-01] MEDS: Sodium Chloride 0.45% 1,000 ML IV SCH (17:14)
[2018-02-02] MEDS: Albuterol/Ipratropium Neb 3 ML AERS HHN SCH ×6 (02:57→23:31)
[2018-02-02] MEDS: metroNIDAZOLE 500mg/NS 100mL 500 MG/100 ML BAG IV SCH ×2 (03:12→14:25)
[2018-02-02] MEDS: Sodium Chloride 0.45% 1,000 ML IV SCH (04:14)
[2018-02-02 06:45] LABS: WHITE BLOOD COUNT 22.6 Th/cmm (4.8-10.8)
[2018-02-02 07:08] LABS: HEMATOCRIT 26.6 % (41.0-60); HEMOGLOBIN 8.9 gm/dL (12-16); MEAN CELL VOLUME 86.4 fl (80-99); MEAN CORPUSCULAR HEMOGLOBIN 28.8 pg (26.0-30.0); MEAN CORPUSCULAR HGB CONC 33.4 pg (28.0-36.0); MEAN PLATELET VOLUME 8.6 fl; PLATELET COUNT 319 Th/cmm (150-400); RED BLOOD COUNT 3.08 Mil/cmm (4.30-5.70); RED CELL DISTRIBUTION WIDTH 15.7 % (11.5-20.0)
[2018-02-02 07:25] LABS: MANUAL DIFF REQUIRED? YES; WHITE BLOOD COUNT 18.8 Th/cmm (4.8-10.8)
[2018-02-02 07:42] LABS: ALBUMIN 2.8 gm/dL (4.2-5.5); ANION GAP 15.3 (7.0-16.0); BILIRUBIN,TOTAL 0.4 mg/dL (0.3-1.0); CALCIUM SERUM 8.4 mg/dL (8.6-10.3); CARBON DIOXIDE 21.8 mEq/L (21.0-31.0); CREATININE - SERUM 2.6 mg/dL (0.7-1.3); GFR AFRICAN-AMERICAN 32.4 ml/min (>90); GFR NON AFRICAN-AMERICAN 26.8 ml/min; POTASSIUM SERUM 3.1 mEq/L (3.5-5.1); TOTAL PROTEIN,SERUM 5.7 gm/dL (6.0-8.3)
[2018-02-02 08:14] LABS: BAND NEUTROPHILE 0 % (0-10); BASOPHIL 0 % (0-3); EOSINOPHIL 0 % (0-5); LYMPHOCYTE 3 % (20-50); MONOCYTE 7 % (2-10); NEUTROPHILS 90 % (40-80); TOTAL CELLS COUNTED 100
--- NOTE | 2018-02-02 08:58 | General Progress Note ---
Subjective - Review of Systems Service Date: 02/02/18 Subjective: Pt seen and eval. Has some congestion. No fevers or chills. Now on Rocephin and Flagyl. Seen by ID, Cardio, and Sx. Status post removal of Perm-A-Cath and GT by Dr. Parks on 01/22/18. No n,v,d or cp. Feels weak. WBC improved now. He's now on Rocephin and Flagyl per ID. Rash has resolved. Pt is POD #5 for open cholecystectomy on 01/28/18. Pt refused US of UE on 01/31/18. Did it again on 02/01/18. Awaiting results. Pt has been confused for the last 3-4 days, but improved today. He remembers his sisters name, etc. Objective - Results Result Diagrams: 02/02/18 06:00 02/02/18 06:00 Recent Labs: Laboratory Last Values WBC 18.8 Th/cmm (4.8-10.8) H 02/02/18 06:00 Corrected WBC (auto) Th/cmm 02/01/18 05:52 RBC 3.08 Mil/cmm (4.30-5.70) L 02/02/18 06:00 Hgb 8.9 gm/dL (12-16) L 02/02/18 06:00 Hct 26.6 % (41.0-60) L 02/02/18 06:00 MCV 86.4 fl (80-99) 02/02/18 06:00 MCH 28.8 pg (26.0-30.0) 02/02/18 06:00 MCHC Differential 33.4 pg (28.0-36.0) 02/02/18 06:00 RDW 15.7 % (11.5-20.0) 02/02/18 06:00 Plt Count 319 Th/cmm (150-400) 02/02/18 06:00 MPV 8.6 fl 02/02/18 06:00 Neutrophils % 89.5 % (40.0-80.0) H 01/31/18 05:30 Band Neutrophils % 0 % (0-10) 02/02/18 06:00 Lymphocytes % 3.0 % (20.0-50.0) L 01/31/18 05:30 Monocytes % 7.2 % (2.0-10.0) 01/31/18 05:30 Eosinophils % 0.3 % (0.0-5.0) 01/31/18 05:30 Basophils % 0.0 % (0.0-2.0) 01/31/18 05:30 Neutrophils (Manual) 90 % (40-80) H 02/02/18 06:00 Lymphocytes 3 % (20-50) L 02/02/18 06:00 Monocytes 7 % (2-10) 02/02/18 06:00 Eosinophils 0 % (0-5) 02/02/18 06:00 Basophils 0 % (0-3) 02/02/18 06:00 Platelet Estimate ADEQUATE (NORMAL) 02/01/18 05:52 Poikilocytosis 1+ 01/25/18 05:57 Anisocytosis 1+ 01/25/18 05:57 PT 17.8 SECONDS (9.5-11.5) H 01/28/18 04:20 INR 1.66 (0.5-1.4) H 01/28/18 04:20 PTT (Actin FS) 45.6 SECONDS (26.0-38.0) H 01/28/18 04:20 Plt Function Studies 106 01/28/18 08:05 Specimen Source Arterial 01/31/18 11:10 Sample Site Left Radial 01/31/18 11:10 pH 7.42 (7.35-7.45) 01/31/18 11:10 pCO2 32.0 mmHg (35.0-45.0) L 01/31/18 11:10 pO2 62.0 mmHg (80.0-100.0) L 01/31/18 11:10 HCO3 22.5 mEq/L (20.0-26.0) 01/31/18 11:10 Base Excess -2.9 mEq/L (-3.0-3.0) 01/31/18 11:10 O2 Saturation 92.0 % (92.0-100.0) 01/31/18 11:10 Zac Test YES 01/31/18 11:10 Vent Rate NA 01/31/18 11:10 Inspired O2 21 01/31/18 11:10 Tidal Volume NA 01/31/18 11:10 PEEP NA 01/31/18 11:10 Pressure (ins/psv/peep) NA 01/31/18 11:10 Critical Value E.MATHEW 01/31/18 11:10 Sodium 152 mEq/L (136-145) H 02/02/18 06:00 Potassium 3.1 mEq/L (3.5-5.1) L 02/02/18 06:00 Chloride 118 mEq/L (98-107) H 02/02/18 06:00 Carbon Dioxide 21.8 mEq/L (21.0-31.0) 02/02/18 06:00 Anion Gap 15.3 (7.0-16.0) 02/02/18 06:00 BUN 32 mg/dL (7-25) H 02/02/18 06:00 Creatinine 2.6 mg/dL (0.7-1.3) H 02/02/18 06:00 Est GFR ( Amer) 32.4 ml/min (>90) 02/02/18 06:00 Est GFR (Non-Af Amer) 26.8 ml/min 02/02/18 06:00 BUN/Creatinine Ratio 12.3 02/02/18 06:00 Glucose 104 mg/dL (70-105) 02/02/18 06:00 POC Glucose 87 MG/DL (70 - 105) 01/28/18 05:32 Hemoglobin A1c % 4.9 % (4.0-6.0) 01/20/18 16:40 Whole Bld Lactic Acid 1.32 mmol/L (0.60-1.99) 01/20/18 16:40 Uric Acid 8.7 mg/dL (4.4-7.6) H 01/31/18 05:30 Calcium 8.4 mg/dL (8.6-10.3) L 02/02/18 06:00 Total Bilirubin 0.4 mg/dL (0.3-1.0) 02/02/18 06:00 AST 13 U/L (13-39) 02/02/18 06:00 ALT 10 U/L (7-52) 02/02/18 06:00 Alkaline Phosphatase 95 U/L (34-104) 02/02/18 06:00 Ammonia 53 umol/L (16-53) 01/31/18 15:32 Creatine Kinase 32 U/L (30-223) 01/20/18 16:40 Troponin I 0.01 ng/mL (0.01-0.05) 01/20/18 16:40 Total Protein 5.7 gm/dL (6.0-8.3) L 02/02/18 06:00 Albumin 2.8 gm/dL (4.2-5.5) L 02/02/18 06:00 Globulin 2.9 gm/dL 02/02/18 06:00 Albumin/Globulin Ratio 1.0 (1.0-1.8) 02/02/18 06:00 Triglycerides 69 mg/dL (<150) 01/27/18 05:45 Cholesterol 79 mg/dL (<200) 01/27/18 05:45 LDL Cholesterol Direct 37 mg/dL (75-193) L 01/27/18 05:45 HDL Cholesterol 32 mg/dL (23-92) 01/27/18 05:45 Urine Source MIDSTREAM 01/20/18 20:20 Urine Color YELLOW 01/20/18 20:20 Urine Clarity HAZY (CLEAR) 01/20/18 20:20 Urine pH 5.5 (4.6 - 8.0) 01/20/18 20:20 Ur Specific [place] 1.020 (1.005-1.030) 01/20/18 20:20 Urine Protein NEGATIVE mg/dL (NEGATIVE) 01/20/18 20:20 Urine Glucose (UA) NEGATIVE mg/dL (NEGATIVE) 01/20/18 20:20 Urine Ketones NEGATIVE mg/dL (NEGATIVE) 01/20/18 20:20 Urine Blood SMALL (NEGATIVE) H 01/20/18 20:20 Urine Nitrate NEGATIVE (NEGATIVE) 01/20/18 20:20 Urine Bilirubin NEGATIVE (NEGATIVE) 01/20/18 20:20 Urine Urobilinogen 0.2 E.U./dL (0.2 - 1.0) 01/20/18 20:20 Ur Leukocyte Esterase SMALL (NEGATIVE) H 01/20/18 20:20 Urine RBC 5-10 /hpf (0-5) H 01/20/18 20:20 Urine WBC 10-25 /hpf (0-5) H 01/20/18 20:20 Ur Epithelial Cells NONE SEEN /lpf (FEW) 01/20/18 20:20 Urine Bacteria NONE SEEN /hpf (NONE SEEN) 01/20/18 20:20 Vancomycin Trough 28.2 ug/mL (5-10) H 01/25/18 09:00 Random Vancomycin 30.6 ug/mL (5.0-40.0) 01/26/18 06:00 - Physical Exam Vitals and I&O: Vital Signs Temp 98.3 F 02/02/18 07:58 Pulse 100 02/02/18 07:58 Resp 18 02/02/18 07:58 BP 129/79 02/02/18 07:58 Pulse Ox 100 02/02/18 07:58 Intake & Output 02/01/18 02/02/18 02/02/18 18:59 06:59 18:59 Intake Total 300 250 Output Total 2471 2580 Balance -2171 -2330 Weight (lbs) 90.945 kg 92.079 kg Intake: Intake, IV Amount 100 metroNIDAZOLE 500mg/NS 100 100mL 500 mg In 100 ml @ 100 mls/hr IV Q12H [facility] Rx #:[id number] Oral 200 250 Output: Drainage 70 30 Right Lower Abdomen 70 30 Urine 2400 2550 Stool 1 Other: # Bowel Movements 0 Weight Source Bedscale Bedscale Active Medications: Current Medications Acetaminophen (Tylenol) 650 mg PO Q6H PRN PRN Reason: HEADACHE/TEMP ABOVE 100F Stop: 03/21/18 19:07 Last Admin: 01/20/18 23:17 Dose: 650 mg Acetaminophen/Hydrocodone Bitart ([place] 10 Mg/325 Mg) 1 tab PO Q6H PRN PRN Reason: mod pain Stop: 03/22/18 10:31 Last Admin: 01/30/18 22:55 Dose: 1 tab Acetaminophen/Hydrocodone Bitart ([place] 10 Mg/325 Mg) 1 tab PO Q4H PRN PRN Reason: Pain (Severe) Stop: 03/31/18 21:39 Albuterol/Ipratropium (Duoneb Neb) 3 ml HHN Q4HRT [facility] Stop: 03/21/18 19:59 Last Admin: 02/02/18 07:29 Dose: 3 ml Amiodarone HCl (Cordarone) 100 mg GT DAILY [facility] Stop: 03/22/18 08:59 Last Admin: 02/01/18 10:25 Dose: 100 mg Amlodipine Besylate (Norvasc) 10 mg GT DAILY [facility] Stop: 03/22/18 08:59 Last Admin: 02/01/18 10:27 Dose: 10 mg Aspirin (Aspirin Chewable) 81 mg GT DAILY [facility] Stop: 03/22/18 08:59 Last Admin: 02/01/18 10:25 Dose: 81 mg Atorvastatin Calcium (Lipitor) 40 mg GT HS [facility] Stop: 03/25/18 20:59 Last Admin: 02/01/18 21:15 Dose: 40 mg Diphenhydramine HCl (Benadryl 50 Mg/Ml) 50 mg IVP Q8H PRN PRN Reason: rash, itchiness Stop: 03/30/18 08:49 Docusate Sodium (Colace) 100 mg PO BID PRN PRN Reason: Constipation Stop: 03/21/18 19:07 Last Admin: 02/01/18 10:25 Dose: 100 mg Famotidine (Pepcid) 40 mg PO DAILY [facility] Stop: 03/30/18 08:59 Last Admin: 02/01/18 10:27 Dose: 40 mg Hydromorphone HCl (Dilaudid) 4 mg IVP Q4HR PRN PRN Reason: Severe Pain Stop: 03/29/18 12:35 Last Admin: 01/31/18 20:30 Dose: 4 mg Magnesium Sulfate (Magnesium Sulfate Premix) 2 gm in 50 mls @ 25 mls/hr IV DAILY PRN PRN Reason: Magnesium level less than 1.6 Stop: 03/21/18 19:07 Metronidazole (Flagyl) 500 mg in 100 mls @ 100 mls/hr IV Q12H [facility] Stop: 03/27/18 14:59 Last Admin: 02/02/18 03:12 Dose: 100 mls/hr Ceftriaxone Sodium 1 gm/ (Dextrose) 50 mls @ 100 mls/hr IV Q24H [facility] Stop: 03/30/18 14:59 Last Admin: 02/01/18 13:00 Dose: 100 mls/hr Sodium Chloride (Nacl 0.45%) 1,000 mls @ 75 mls/hr IV .[id number] [facility] Stop: 04/02/18 10:14 Last Admin: 02/02/18 04:14 Dose: 75 mls/hr Lactobacillus Rhamnosus (Culturelle 15b) 1 each PO DAILY [facility] Stop: 03/23/18 08:59 Last Admin: 02/01/18 10:24 Dose: 1 each Lorazepam (Ativan) 1 mg IVP Q4H PRN; Protocol PRN Reason: Anxiety Stop: 03/21/18 19:07 Last Admin: 02/02/18 02:03 Dose: 1 mg Lorazepam (Ativan) 1 mg PO Q6H PRN; Protocol PRN Reason: Agitation Stop: 03/31/18 21:43 Last Admin: 02/01/18 10:25 Dose: 1 mg Magnesium Oxide (Mag-Oxide) 400 mg PO BID PRN PRN Reason: Mg less than 1.9 Stop: 03/21/18 19:07 Metoprolol Tartrate (Lopressor) 50 mg GT Q8H [facility] Stop: 03/21/18 19:14 Last Admin: 02/02/18 03:51 Dose: Not Given Miscellaneous (Probiotic Screen) 1 ea MC PRN PRN PRN Reason: PROTOCOL Stop: 03/22/18 09:59 Mupirocin (Bactroban Oint) 1 appl NS BID [facility] Stop: 02/03/18 17:01 Last Admin: 02/01/18 17:00 Dose: 1 appl Ondansetron HCl (Zofran) 4 mg IV Q4H PRN PRN Reason: Nausea / Vomiting Stop: 03/27/18 09:59 Last Admin: 01/27/18 09:42 Dose: 4 mg Potassium Chloride (Klor-Con) 40 meq PO DAILY PRN PRN Reason: k level less than 3.5 Stop: 03/21/18 19:07 Simethicone (Mylicon) 80 mg PO Q8H [facility] Stop: 03/27/18 10:14 Last Admin: 02/02/18 03:50 Dose: Not Given Tamsulosin HCl (Flomax) 0.4 mg PO HS [facility] Stop: 03/25/18 20:59 Last Admin: 02/01/18 21:15 Dose: 0.4 mg Tamsulosin HCl (Flomax) 0.4 mg PO DAILY [facility] Stop: 03/28/18 08:59 Last Admin: 02/01/18 10:43 Dose: 0.4 mg Zolpidem Tartrate (Ambien) 10 mg PO HS PRN PRN Reason: Insomnia Stop: 03/21/18 19:07 Last Admin: 01/31/18 22:18 Dose: 10 mg General: Alert, Cooperative, Other (acutely confused, AAO 2) HEENT: Atraumatic, PERRLA, EOMI Neck: Supple, no JVD Cardiovascular: Regular rate Lungs: Other (has rales and congestion) Abdomen: Bowel sounds, Soft, Tender Extremities: Other (right upper extremity +3 edema), no Cyanosis Neurological: Normal speech Skin: no Rash - Procedures Procedures: Procedures Procedure Code Date INSPECTION OF GALLBLADDER, PERCUTANEOUS ENDOSCOPIC APPROACH [id number] 01/20/18 RELEASE OMENTUM, OPEN APPROACH [id number] 01/20/18 RESECTION OF GALLBLADDER, OPEN APPROACH [id number] 01/20/18 Assessment/Plan - Problem List Patient Problems: All Active Problems GASTRIC TUBE AND CORAL REMOVAL (Acute) - Assessment Assessment: Symptomatic Cholelithiasis with possible cholecystitis. Sepsis Asp PNA Hypokalemia Hx of RUE DVT (now resolved) Dysphagia (resolved) A Fib Anemia of Ch Ill Mod [place] Hyponatremia Hx of Aortic Dissection and Cardiac Tamponade-s/p sx at [facility] in October 2017 Hypernatremia ME - Plan Plan: Pt is POD # 1 for open cholecystectomy by Dr. Parks. Pt's venous doppler US or LE and UE is negative. Warfarin held by Cardio in light of procedures scheduled on 01/22/18. Dr. Parks removed GT and Perm-A-Cath on 01/22/18. On tele. FU on cbc and chem 7. WBC improved now. He's now on Rocephin and Flagyl per ID. Rash has resolved. Pt is POD #5 for open cholecystectomy on 01/28/18. Pt refused US of UE on 01/31/18. Did it again on 02/01/18. Awaiting results. Pt has been confused for the last 3-4 days, but improved today. He remembers his sisters name, etc. Nephro consult for hypernatremia. He's on iv half NS. Nutritional Asmnt/Malnutr-PDOC - Dietary Evaluation Malnutrition Findings (Please click <Entered> for more info): Nutritional Asmnt/Malnutrition Start: 01/24/18 17: 29 Text: Status: Complete Freq: Protocol: Document 01/24/18 17:29 [email or web address] (Rec: 01/24/18 17:38 [email or web address] [id number]) Nutritional Asmnt/Malnutrition Patient General Information Nutritional Screening Moderate Risk Diagnosis aspiration PNA Pertinent Medical Hx/Surgical Hx cardiac tampondade s/p surgery , aortic dissection, Gtube ( now removed) Subjective Information Per H&P pt had Gtube removed and started oral diet for about one month. Pt stated he still have some stomach issue, vomiting. Pt consumed cream of wheat and ceream for breakfast this morning, not very comfortable with solid food at this time.Per nurse note, pt had loose stool last night. Per EMR, PO intake 50- 75%. Current Diet Order/ Nutrition Support cardiac Pertinent Medications colace, culturelle, zofran, piperacillin, vancomycin Pertinent Labs 01/24 cl 108, glucose 76 01/20 A1c 4.9 Nutritional Hx/Data Height 1.91 m Height (Calculated Centimeters) 190.5 Current Weight (lbs) 92.079 kg Weight (Calculated Kilograms) 92.1 Weight (Calculated Grams) 26822.3 [place] Body Weight 196 Body Mass Index (BMI) 25.3 Weight Status Overweight GI Symptoms GI Symptoms None Last BM 01/24 Difficult in: None Skin Integrity/Comment: intact Current %PO Fair (50-74%) Estimated Nutritional Goals BEE in Kcals: Using Current wt Calories/Kcals/Kg 25-30 Kcals Calculated 1193-1089 Protein: Using Current wt Protein g/k Protein Calculated 92 Fluid: ml 2300-2760ml (1ml/kcal) Nutritional Problem No current Nutrition Prob Problem N/A Malnutrition Alert Is there a minimum of two criteria No selected? Query Text:Check all the applicable criteria. A minimum of two criteria are recommended for diagnosis of either severe or non-severe malnutrition. Malnutrition Related to Morbid Obesity Malnutrition related to morbid obesity No Intervention/Recommendation Comments 1. Continue with current diet as ordered. Offered food alternatives if pt not able to take his meals. 2. Monitor PO intake, GI function, wt, labs and skin integrity 3. F/U as moderate risk in 3-5 days, 01/27-01/29 Expected Outcomes/Goals Expected Outcomes/Goals 1. PO intake to meet at least 75% of nutritional needs. 2. Wt stability, GI function to improve, skin to remain intact, labs to approach WNL.
--- NOTE | 2018-02-02 09:03 | General Progress Note ---
Subjective - Review of Systems Service Date: 02/02/18 Events since last encounter: more oriented, eating better Gerber drain out WBC down further Objective - Results Result Diagrams: 02/02/18 06:00 02/02/18 06:00 Recent Labs: Laboratory Last Values WBC 18.8 Th/cmm (4.8-10.8) H 02/02/18 06:00 Corrected WBC (auto) Th/cmm 02/01/18 05:52 RBC 3.08 Mil/cmm (4.30-5.70) L 02/02/18 06:00 Hgb 8.9 gm/dL (12-16) L 02/02/18 06:00 Hct 26.6 % (41.0-60) L 02/02/18 06:00 MCV 86.4 fl (80-99) 02/02/18 06:00 MCH 28.8 pg (26.0-30.0) 02/02/18 06:00 MCHC Differential 33.4 pg (28.0-36.0) 02/02/18 06:00 RDW 15.7 % (11.5-20.0) 02/02/18 06:00 Plt Count 319 Th/cmm (150-400) 02/02/18 06:00 MPV 8.6 fl 02/02/18 06:00 Neutrophils % 89.5 % (40.0-80.0) H 01/31/18 05:30 Band Neutrophils % 0 % (0-10) 02/02/18 06:00 Lymphocytes % 3.0 % (20.0-50.0) L 01/31/18 05:30 Monocytes % 7.2 % (2.0-10.0) 01/31/18 05:30 Eosinophils % 0.3 % (0.0-5.0) 01/31/18 05:30 Basophils % 0.0 % (0.0-2.0) 01/31/18 05:30 Neutrophils (Manual) 90 % (40-80) H 02/02/18 06:00 Lymphocytes 3 % (20-50) L 02/02/18 06:00 Monocytes 7 % (2-10) 02/02/18 06:00 Eosinophils 0 % (0-5) 02/02/18 06:00 Basophils 0 % (0-3) 02/02/18 06:00 Platelet Estimate ADEQUATE (NORMAL) 02/01/18 05:52 Poikilocytosis 1+ 01/25/18 05:57 Anisocytosis 1+ 01/25/18 05:57 PT 17.8 SECONDS (9.5-11.5) H 01/28/18 04:20 INR 1.66 (0.5-1.4) H 01/28/18 04:20 PTT (Actin FS) 45.6 SECONDS (26.0-38.0) H 01/28/18 04:20 Plt Function Studies 106 01/28/18 08:05 Specimen Source Arterial 01/31/18 11:10 Sample Site Left Radial 01/31/18 11:10 pH 7.42 (7.35-7.45) 01/31/18 11:10 pCO2 32.0 mmHg (35.0-45.0) L 01/31/18 11:10 pO2 62.0 mmHg (80.0-100.0) L 01/31/18 11:10 HCO3 22.5 mEq/L (20.0-26.0) 01/31/18 11:10 Base Excess -2.9 mEq/L (-3.0-3.0) 01/31/18 11:10 O2 Saturation 92.0 % (92.0-100.0) 01/31/18 11:10 Zac Test YES 01/31/18 11:10 Vent Rate NA 01/31/18 11:10 Inspired O2 21 01/31/18 11:10 Tidal Volume NA 01/31/18 11:10 PEEP NA 01/31/18 11:10 Pressure (ins/psv/peep) NA 01/31/18 11:10 Critical Value E.MATHEW 01/31/18 11:10 Sodium 152 mEq/L (136-145) H 02/02/18 06:00 Potassium 3.1 mEq/L (3.5-5.1) L 02/02/18 06:00 Chloride 118 mEq/L (98-107) H 02/02/18 06:00 Carbon Dioxide 21.8 mEq/L (21.0-31.0) 02/02/18 06:00 Anion Gap 15.3 (7.0-16.0) 02/02/18 06:00 BUN 32 mg/dL (7-25) H 02/02/18 06:00 Creatinine 2.6 mg/dL (0.7-1.3) H 02/02/18 06:00 Est GFR ( Amer) 32.4 ml/min (>90) 02/02/18 06:00 Est GFR (Non-Af Amer) 26.8 ml/min 02/02/18 06:00 BUN/Creatinine Ratio 12.3 02/02/18 06:00 Glucose 104 mg/dL (70-105) 02/02/18 06:00 POC Glucose 87 MG/DL (70 - 105) 01/28/18 05:32 Hemoglobin A1c % 4.9 % (4.0-6.0) 01/20/18 16:40 Whole Bld Lactic Acid 1.32 mmol/L (0.60-1.99) 01/20/18 16:40 Uric Acid 8.7 mg/dL (4.4-7.6) H 01/31/18 05:30 Calcium 8.4 mg/dL (8.6-10.3) L 02/02/18 06:00 Total Bilirubin 0.4 mg/dL (0.3-1.0) 02/02/18 06:00 AST 13 U/L (13-39) 02/02/18 06:00 ALT 10 U/L (7-52) 02/02/18 06:00 Alkaline Phosphatase 95 U/L (34-104) 02/02/18 06:00 Ammonia 53 umol/L (16-53) 01/31/18 15:32 Creatine Kinase 32 U/L (30-223) 01/20/18 16:40 Troponin I 0.01 ng/mL (0.01-0.05) 01/20/18 16:40 Total Protein 5.7 gm/dL (6.0-8.3) L 02/02/18 06:00 Albumin 2.8 gm/dL (4.2-5.5) L 02/02/18 06:00 Globulin 2.9 gm/dL 02/02/18 06:00 Albumin/Globulin Ratio 1.0 (1.0-1.8) 02/02/18 06:00 Triglycerides 69 mg/dL (<150) 01/27/18 05:45 Cholesterol 79 mg/dL (<200) 01/27/18 05:45 LDL Cholesterol Direct 37 mg/dL (75-193) L 01/27/18 05:45 HDL Cholesterol 32 mg/dL (23-92) 01/27/18 05:45 Urine Source MIDSTREAM 01/20/18 20:20 Urine Color YELLOW 01/20/18 20:20 Urine Clarity HAZY (CLEAR) 01/20/18 20:20 Urine pH 5.5 (4.6 - 8.0) 01/20/18 20:20 Ur Specific Mobile 1.020 (1.005-1.030) 01/20/18 20:20 Urine Protein NEGATIVE mg/dL (NEGATIVE) 01/20/18 20:20 Urine Glucose (UA) NEGATIVE mg/dL (NEGATIVE) 01/20/18 20:20 Urine Ketones NEGATIVE mg/dL (NEGATIVE) 01/20/18 20:20 Urine Blood SMALL (NEGATIVE) H 01/20/18 20:20 Urine Nitrate NEGATIVE (NEGATIVE) 01/20/18 20:20 Urine Bilirubin NEGATIVE (NEGATIVE) 01/20/18 20:20 Urine Urobilinogen 0.2 E.U./dL (0.2 - 1.0) 01/20/18 20:20 Ur Leukocyte Esterase SMALL (NEGATIVE) H 01/20/18 20:20 Urine RBC 5-10 /hpf (0-5) H 01/20/18 20:20 Urine WBC 10-25 /hpf (0-5) H 01/20/18 20:20 Ur Epithelial Cells NONE SEEN /lpf (FEW) 01/20/18 20:20 Urine Bacteria NONE SEEN /hpf (NONE SEEN) 01/20/18 20:20 Vancomycin Trough 28.2 ug/mL (5-10) H 01/25/18 09:00 Random Vancomycin 30.6 ug/mL (5.0-40.0) 01/26/18 06:00 - Physical Exam Vitals and I&O: Vital Signs Temp 98.3 F 02/02/18 07:58 Pulse 100 02/02/18 07:58 Resp 18 02/02/18 07:58 BP 129/79 02/02/18 07:58 Pulse Ox 100 02/02/18 07:58 Intake & Output 02/01/18 02/02/18 02/02/18 18:59 06:59 18:59 Intake Total 300 250 Output Total 2471 2580 Balance -2171 -2330 Weight (lbs) 90.945 kg 92.079 kg Intake: Intake, IV Amount 100 metroNIDAZOLE 500mg/NS 100 100mL 500 mg In 100 ml @ 100 mls/hr IV Q12H [facility] Rx #:[id number] Oral 200 250 Output: Drainage 70 30 Right Lower Abdomen 70 30 Urine 2400 2550 Stool 1 Other: # Bowel Movements 0 Weight Source Bedscale Bedscale Active Medications: Current Medications Acetaminophen (Tylenol) 650 mg PO Q6H PRN PRN Reason: HEADACHE/TEMP ABOVE 100F Stop: 03/21/18 19:07 Last Admin: 01/20/18 23:17 Dose: 650 mg Acetaminophen/Hydrocodone Bitart ([place] 10 Mg/325 Mg) 1 tab PO Q6H PRN PRN Reason: mod pain Stop: 03/22/18 10:31 Last Admin: 01/30/18 22:55 Dose: 1 tab Acetaminophen/Hydrocodone Bitart ([place] 10 Mg/325 Mg) 1 tab PO Q4H PRN PRN Reason: Pain (Severe) Stop: 03/31/18 21:39 Albuterol/Ipratropium (Duoneb Neb) 3 ml HHN Q4HRT [facility] Stop: 03/21/18 19:59 Last Admin: 02/02/18 07:29 Dose: 3 ml Amiodarone HCl (Cordarone) 100 mg GT DAILY [facility] Stop: 03/22/18 08:59 Last Admin: 02/01/18 10:25 Dose: 100 mg Amlodipine Besylate (Norvasc) 10 mg GT DAILY [facility] Stop: 03/22/18 08:59 Last Admin: 02/01/18 10:27 Dose: 10 mg Aspirin (Aspirin Chewable) 81 mg GT DAILY [facility] Stop: 03/22/18 08:59 Last Admin: 02/01/18 10:25 Dose: 81 mg Atorvastatin Calcium (Lipitor) 40 mg GT HS [facility] Stop: 03/25/18 20:59 Last Admin: 02/01/18 21:15 Dose: 40 mg Diphenhydramine HCl (Benadryl 50 Mg/Ml) 50 mg IVP Q8H PRN PRN Reason: rash, itchiness Stop: 03/30/18 08:49 Docusate Sodium (Colace) 100 mg PO BID PRN PRN Reason: Constipation Stop: 03/21/18 19:07 Last Admin: 02/01/18 10:25 Dose: 100 mg Famotidine (Pepcid) 40 mg PO DAILY [facility] Stop: 03/30/18 08:59 Last Admin: 02/01/18 10:27 Dose: 40 mg Hydromorphone HCl (Dilaudid) 4 mg IVP Q4HR PRN PRN Reason: Severe Pain Stop: 03/29/18 12:35 Last Admin: 01/31/18 20:30 Dose: 4 mg Magnesium Sulfate (Magnesium Sulfate Premix) 2 gm in 50 mls @ 25 mls/hr IV DAILY PRN PRN Reason: Magnesium level less than 1.6 Stop: 03/21/18 19:07 Metronidazole (Flagyl) 500 mg in 100 mls @ 100 mls/hr IV Q12H [facility] Stop: 03/27/18 14:59 Last Admin: 02/02/18 03:12 Dose: 100 mls/hr Ceftriaxone Sodium 1 gm/ (Dextrose) 50 mls @ 100 mls/hr IV Q24H [facility] Stop: 03/30/18 14:59 Last Admin: 02/01/18 13:00 Dose: 100 mls/hr Sodium Chloride (Nacl 0.45%) 1,000 mls @ 75 mls/hr IV .[id number] [facility] Stop: 04/02/18 10:14 Last Admin: 02/02/18 04:14 Dose: 75 mls/hr Lactobacillus Rhamnosus (Culturelle 15b) 1 each PO DAILY [facility] Stop: 03/23/18 08:59 Last Admin: 02/01/18 10:24 Dose: 1 each Lorazepam (Ativan) 1 mg IVP Q4H PRN; Protocol PRN Reason: Anxiety Stop: 03/21/18 19:07 Last Admin: 02/02/18 02:03 Dose: 1 mg Lorazepam (Ativan) 1 mg PO Q6H PRN; Protocol PRN Reason: Agitation Stop: 03/31/18 21:43 Last Admin: 02/01/18 10:25 Dose: 1 mg Magnesium Oxide (Mag-Oxide) 400 mg PO BID PRN PRN Reason: Mg less than 1.9 Stop: 03/21/18 19:07 Metoprolol Tartrate (Lopressor) 50 mg GT Q8H [facility] Stop: 03/21/18 19:14 Last Admin: 02/02/18 03:51 Dose: Not Given Miscellaneous (Probiotic Screen) 1 ea MC PRN PRN PRN Reason: PROTOCOL Stop: 03/22/18 09:59 Mupirocin (Bactroban Oint) 1 appl NS BID [facility] Stop: 02/03/18 17:01 Last Admin: 02/01/18 17:00 Dose: 1 appl Ondansetron HCl (Zofran) 4 mg IV Q4H PRN PRN Reason: Nausea / Vomiting Stop: 03/27/18 09:59 Last Admin: 01/27/18 09:42 Dose: 4 mg Potassium Chloride (Klor-Con) 40 meq PO DAILY PRN PRN Reason: k level less than 3.5 Stop: 03/21/18 19:07 Simethicone (Mylicon) 80 mg PO Q8H [facility] Stop: 03/27/18 10:14 Last Admin: 02/02/18 03:50 Dose: Not Given Tamsulosin HCl (Flomax) 0.4 mg PO HS [facility] Stop: 03/25/18 20:59 Last Admin: 02/01/18 21:15 Dose: 0.4 mg Tamsulosin HCl (Flomax) 0.4 mg PO DAILY [facility] Stop: 03/28/18 08:59 Last Admin: 02/01/18 10:43 Dose: 0.4 mg Zolpidem Tartrate (Ambien) 10 mg PO HS PRN PRN Reason: Insomnia Stop: 03/21/18 19:07 Last Admin: 01/31/18 22:18 Dose: 10 mg General: Alert, Cooperative, Other (acutely confused, AAO 2) HEENT: Atraumatic, PERRLA, EOMI Neck: Supple, no JVD Cardiovascular: Regular rate Lungs: Other (has rales and congestion) Abdomen: Bowel sounds, Soft, Tender Extremities: Other (right upper extremity +3 edema), no Cyanosis Neurological: Normal speech Skin: no Rash - Procedures Procedures: Procedures Procedure Code Date INSPECTION OF GALLBLADDER, PERCUTANEOUS ENDOSCOPIC APPROACH [id number] 01/20/18 RELEASE OMENTUM, OPEN APPROACH [id number] 01/20/18 RESECTION OF GALLBLADDER, OPEN APPROACH [id number] 01/20/18 Assessment/Plan - Problem List Patient Problems: All Active Problems GASTRIC TUBE AND CORAL REMOVAL (Acute) Nutritional Asmnt/Malnutr-PDOC - Dietary Evaluation Malnutrition Findings (Please click <Entered> for more info): Nutritional Asmnt/Malnutrition Start: 01/24/18 17: 29 Text: Status: Complete Freq: Protocol: Document 01/24/18 17:29 LCHENG (Rec: 01/24/18 17:38 [email or web address] [id number]) Nutritional Asmnt/Malnutrition Patient General Information Nutritional Screening Moderate Risk Diagnosis aspiration PNA Pertinent Medical Hx/Surgical Hx cardiac tampondade s/p surgery , aortic dissection, Gtube ( now removed) Subjective Information Per H&P pt had Gtube removed and started oral diet for about one month. Pt stated he still have some stomach issue, vomiting. Pt consumed cream of wheat and ceream for breakfast this morning, not very comfortable with solid food at this time.Per nurse note, pt had loose stool last night. Per EMR, PO intake 50- 75%. Current Diet Order/ Nutrition Support cardiac Pertinent Medications colace, culturelle, zofran, piperacillin, vancomycin Pertinent Labs 01/24 cl 108, glucose 76 01/20 A1c 4.9 Nutritional Hx/Data Height 1.91 m Height (Calculated Centimeters) 190.5 Current Weight (lbs) 92.079 kg Weight (Calculated Kilograms) 92.1 Weight (Calculated Grams) 19986.3 [place] Body Weight 196 Body Mass Index (BMI) 25.3 Weight Status Overweight GI Symptoms GI Symptoms None Last BM 01/24 Difficult in: None Skin Integrity/Comment: intact Current %PO Fair (50-74%) Estimated Nutritional Goals BEE in Kcals: Using Current wt Calories/Kcals/Kg 25-30 Kcals Calculated 3589-1386 Protein: Using Current wt Protein g/k Protein Calculated 92 Fluid: ml 2300-2760ml (1ml/kcal) Nutritional Problem No current Nutrition Prob Problem N/A Malnutrition Alert Is there a minimum of two criteria No selected? Query Text:Check all the applicable criteria. A minimum of two criteria are recommended for diagnosis of either severe or non-severe malnutrition. Malnutrition Related to Morbid Obesity Malnutrition related to morbid obesity No Intervention/Recommendation Comments 1. Continue with current diet as ordered. Offered food alternatives if pt not able to take his meals. 2. Monitor PO intake, GI function, wt, labs and skin integrity 3. F/U as moderate risk in 3-5 days, 01/27-01/29 Expected Outcomes/Goals Expected Outcomes/Goals 1. PO intake to meet at least 75% of nutritional needs. 2. Wt stability, GI function to improve, skin to remain intact, labs to approach WNL.
[2018-02-02] MEDS: Lactobacillus Rhamnosus GG 15 Billion CFU CAP.SPRINK PO SCH (09:18)
[2018-02-02] MEDS: Aspirin 81mg Chewable Tab GT SCH (09:18)
[2018-02-02] MEDS: Potassium Chloride 20 mEq ER Tab PO PRN (09:20)
--- NOTE | 2018-02-02 09:52 | Diagnostic Imaging Report ---
Right upper extremity DVT study HISTORY: Swollen right upper extremity COMPARISON: None Technique: Longitudinal and transverse sonographic images of the right upper extremity veins were obtained with doppler analysis. FINDINGS: There is patency of the right jugular, subclavian, axilla, brachial, basilic, and cephalic veins. Compressibility and augmentation was demonstrated with no evidence of DVT formation. IMPRESSION: No evidence of DVT within the right upper extremity venous system.
[2018-02-02] MEDS ORDERED: Potassium Chloride 20 mEq ER Tab PO ONE (14:59)
--- NOTE | 2018-02-02 16:39 | Consultation ---
Consult Note - Consult Note Service Date: 02/02/18 Referring Physician: Fito Claudio Consult Note: PHYSICIAN Consultation Note: Date of Admission: 01/20/18 Purpose of Consultation: Chief Complaint: History of Present Illness: Patient GWEN RAMIREZ was admitted to [facility] with ASPIRATION PNEUMONIA. He is well known to our group. He had complex history including aortic dissection with cardiac tamponade s/p repair in October 2017 at [facility]. He developed acute renal failure requiring dialysis but has been off HD for the past month. He was at [facility] and followed by our group there where he was eventually taken off HD. He presented here and underwent removal of Jonnie and G-tube. He underwent open cholecystectomy for acute cholecystitis. He developed SARAH due to ATN which is improving but also hypernatremia and we are consulted. He has had intermittent bouts of confusion and is hence a poor historian. Past Medical History: as per the HPI and diagnoses list below. Diagnoses SEPSIS, UNSPECIFIED ORGANISM (01/20/18) ANEMIA IN OTHER CHRONIC DISEASES CLASSIFIED ELSEWHERE (01/20/18) HYPERLIPIDEMIA, UNSPECIFIED (01/20/18) HYPO-OSMOLALITY AND HYPONATREMIA (01/20/18) ESSENTIAL (PRIMARY) HYPERTENSION (01/20/18) HYP CHR KIDNEY DISEASE W STAGE 5 CHR KIDNEY DISEASE OR ESRD (01/20/18) UNSPECIFIED ATRIAL FIBRILLATION (01/20/18) PNEUMONITIS DUE TO INHALATION OF FOOD AND VOMIT (01/20/18) END STAGE RENAL DISEASE (01/20/18) COUGH (01/20/18) PERSONAL HISTORY OF OTHER VENOUS THROMBOSIS AND EMBOLISM (01/20/18) GASTROSTOMY STATUS (01/20/18) Allergies Allergy/AdvReac Type Severity Reaction Status Date / Time No Known Allergies Allergy Verified 01/20/18 15:03 Vital Signs Temp 98.6 F 02/02/18 15:39 Pulse 88 02/02/18 15:45 Resp 18 02/02/18 15:45 BP 132/75 02/02/18 15:39 Pulse Ox 97 02/02/18 15:45 Intake & Output 02/01/18 02/02/18 02/02/18 18:59 06:59 18:59 Intake Total 350 350 Output Total 2471 2580 Balance -2120 -2230 Weight (lbs) 90.945 kg 92.079 kg Intake: Intake, IV Amount 150 100 cefTRIAXone 1 gm In 50 Dextrose 5% 50 ml @ 100 mls/hr IV Q24H [facility] Rx#: [id number] metroNIDAZOLE 500mg/NS 100 100 100mL 500 mg In 100 ml @ 100 mls/hr IV Q12H [facility] Rx #:[id number] Oral 200 250 Output: Drainage 70 30 Right Lower Abdomen 70 30 Urine 2400 2550 Stool 1 Other: # Bowel Movements 0 Stool Characteristics Soft Liquid Brown Green Weight Source [facility] Laboratory Results - last 24 hr 02/01/18 02/02/18 02/02/18 05:52 06:00 06:00 WBC 22.6 H* 18.8 H RBC 3.08 L Hgb 8.9 L Hct 26.6 L MCV 86.4 MCH 28.8 MCHC Differential 33.4 RDW 15.7 Plt Count 319 MPV 8.6 Band Neutrophils % 0 Neutrophils (Manual) 90 H Lymphocytes 3 L Monocytes 7 Eosinophils 0 Basophils 0 Sodium 152 H Potassium 3.1 L Chloride 118 H Carbon Dioxide 21.8 Anion Gap 15.3 BUN 32 H Creatinine 2.6 H Est GFR ( Amer) 32.4 Est GFR (Non-Af Amer) 26.8 BUN/Creatinine Ratio 12.3 Glucose 104 Calcium 8.4 L Total Bilirubin 0.4 AST 13 ALT 10 Alkaline Phosphatase 95 Total Protein 5.7 L Albumin 2.8 L Globulin 2.9 Albumin/Globulin Ratio 1.0 Home Medication Medication Instructions Recorded Type Albuterol/Ipratropium Neb [Duoneb 3 ml HHN Q4HR 01/20/18 History Neb] Amiodarone HCl [Amiodarone HCl*] 100 mg GT DAILY 01/20/18 History Amlodipine Besylate 10 mg GT DAILY 01/20/18 History Aspirin [Aspirin Chewable] 81 mg GT DAILY 01/20/18 History Atorvastatin Calcium [Lipitor] 40 mg GT HS 01/20/18 History Azelastine HCl 0.1 % NS BID 01/20/18 History Bisacodyl 10 mg RC Q24H PRN 01/20/18 History Bismuth Subsalicylate 15 ml PO Q8H PRN 01/20/18 History [Pepto-Bismol] Dronabinol 2.5 mg GT BID 01/20/18 History Hydrocodone/APAP 5mg/325mg [[place] 1 tab GT Q4H PRN 01/20/18 History 5mg/325mg] Hydrocodone/APAP 5mg/325mg [[place] 2 tab GT Q6H PRN 01/20/18 History 5mg/325mg] Metoprolol Tartrate 50 mg GT Q8H 01/20/18 History Multivitamin w/ Minerals 1 tab GT DAILY 01/20/18 History [Theragran M] Pantoprazole [Protonix] 40 mg PO DAILY 01/20/18 History Scopolamine [Transderm-Scop] 1 each TD Q72H 01/20/18 History Sertraline [Zoloft] 50 mg GT DAILY 01/20/18 History Simethicone [Mylicon] 80 mg GT Q8H PRN 01/20/18 History Tamsulosin HCl [Flomax] 0.8 mg PO HS 01/20/18 History Temazepam [Restoril*] 7.5 mg GT Q24H PRN 01/20/18 History Warfarin Sodium [Coumadin*] 2.5 mg GT DAILY 01/20/18 History Warfarin Sodium [Coumadin] 2.5 mg GT DAILY 01/20/18 History Current Medications Generic Name Dose Route Start Last Admin Trade Name Freq PRN Reason Stop Dose Admin Acetaminophen 650 mg 01/20/18 19:08 01/20/18 23:17 Tylenol PO 03/21/18 19:07 650 mg Q6H PRN Administration HEADACHE/TEMP ABOVE 100F Acetaminophen/Hydrocodone Bitart 1 tab 01/21/18 10:32 01/30/18 22:55 [place] 10 Mg/325 Mg PO 03/22/18 10:31 1 tab Q6H PRN Administration mod pain Acetaminophen/Hydrocodone Bitart 1 tab 01/30/18 21:40 [place] 10 Mg/325 Mg PO 03/31/18 21:39 Q4H PRN Pain (Severe) Albuterol/Ipratropium 3 ml 01/20/18 20:00 02/02/18 15:37 Duoneb Neb HHN 03/21/18 19:59 3 ml Q4HRT SHARLENE Administration Amiodarone HCl 100 mg 01/21/18 09:00 02/02/18 09:19 Cordarone GT 03/22/18 08:59 100 mg DAILY SHARLENE Administration Amlodipine Besylate 10 mg 01/21/18 09:00 02/02/18 09:20 Norvasc GT 03/22/18 08:59 10 mg DAILY SHARLENE Administration Aspirin 81 mg 01/21/18 09:00 02/02/18 09:18 Aspirin Chewable GT 03/22/18 08:59 81 mg DAILY SHARLENE Administration Atorvastatin Calcium 40 mg 01/24/18 21:00 02/01/18 21:15 Lipitor GT 03/25/18 20:59 40 mg HS SHARLENE Administration Diphenhydramine HCl 50 mg 01/29/18 09:15 Benadryl 50 Mg/Ml IVP 03/30/18 08:49 Q8H PRN rash, itchiness Docusate Sodium 100 mg 01/20/18 19:08 02/01/18 10:25 Colace PO 03/21/18 19:07 100 mg BID PRN Administration Constipation Famotidine 40 mg 01/29/18 09:00 02/02/18 09:20 Pepcid PO 03/30/18 08:59 40 mg DAILY SHARLENE Administration Hydromorphone HCl 4 mg 01/28/18 12:36 01/31/18 20:30 Dilaudid IVP 03/29/18 12:35 4 mg Q4HR PRN Administration Severe Pain Magnesium Sulfate 2 gm in 50 mls @ 25 mls/hr 01/20/18 19:08 Magnesium Sulfate Premix IV 03/21/18 19:07 DAILY PRN Magnesium level less than 1.6 Metronidazole 500 mg in 100 mls @ 100 mls/hr 01/26/18 15:00 02/02/18 14:25 Flagyl IV 03/27/18 14:59 100 mls/hr Q12H [facility]E Administration Ceftriaxone Sodium 1 gm/ 50 mls @ 100 mls/hr 01/29/18 15:00 02/02/18 14:26 Dextrose IV 03/30/18 14:59 100 mls/hr Q24H [facility] Administration Sodium Chloride 1,000 mls @ 75 mls/hr 02/01/18 10:15 02/02/18 04:14 Nacl 0.45% IV 04/02/18 10:14 75 mls/hr .[id number] SHARLENE Administration Lactobacillus Rhamnosus 1 each 01/22/18 09:00 02/02/18 09:18 Culturelle 15b PO 03/23/18 08:59 1 each DAILY SHARLENE Administration Lorazepam 1 mg 01/20/18 19:08 02/02/18 02:03 Ativan IVP 03/21/18 19:07 1 mg Q4H PRN Administration Anxiety Protocol Lorazepam 1 mg 01/30/18 21:44 02/01/18 10:25 Ativan PO 03/31/18 21:43 1 mg Q6H PRN Administration Agitation Protocol Magnesium Oxide 400 mg 01/20/18 19:08 Mag-Oxide PO 03/21/18 19:07 BID PRN Mg less than 1.9 Metoprolol Tartrate 50 mg 01/20/18 19:15 02/02/18 10:34 Lopressor GT 03/21/18 19:14 50 mg Q8H SH[facility]LENE Administration Miscellaneous 1 ea 01/21/18 10:00 Probiotic Screen MC 03/22/18 09:59 PRN PRN PROTOCOL Mupirocin 1 appl 01/30/18 09:00 02/02/18 10:34 Bactroban Oint NS 02/03/18 17:01 1 appl BID SHARLENE Administration Ondansetron HCl 4 mg 01/26/18 10:00 01/27/18 09:42 Zofran IV 03/27/18 09:59 4 mg Q4H PRN Administration Nausea / Vomiting Potassium Chloride 40 meq 01/20/18 19:08 02/02/18 09:20 Klor-Con PO 03/21/18 19:07 40 meq DAILY PRN Administration k level less than 3.5 Simethicone 80 mg 01/26/18 10:15 02/02/18 09:19 Mylicon PO 03/27/18 10:14 80 mg Q8H [facility] Administration Tamsulosin HCl 0.4 mg 01/24/18 21:00 02/01/18 21:15 Flomax PO 03/25/18 20:59 0.4 mg HS SHARLENE Administration Tamsulosin HCl 0.4 mg 01/27/18 09:00 02/02/18 09:20 Flomax PO 03/28/18 08:59 0.4 mg DAILY SHARLENE Administration Zolpidem Tartrate 10 mg 01/20/18 19:08 01/31/18 22:18 Ambien PO 03/21/18 19:07 10 mg HS PRN Administration Insomnia Review of Systems: A 12 point ROS was reviewed with the pertinent positive and negatives noted in the HPI. Social History Smoking Status Never smoker Drug Use No Alcohol Use No Family Medical History Family Medical History Start: 01/20/18 21: 34 Freq: ONCE Status: Active Protocol: Document 01/20/18 21:34 RASHID (Rec: 01/21/18 03:41 RASHID [id number]) Family Medical History Mother History Unknown Yes Physical Exam: General: awake in NAD HEENT: head nc/at, sclerae anicteric, op clear and moist Neck: supple no jvd Cardio: rrr no murmur Respiratory: clear b/l Abdominal: soft, dressing intact, nontender Genital/Urinary: normal external male genitalia Extremities: no edema or skin discoloration noted Neurological: awake no focal deficit Assessment: SARAH due to ATN with previous dialysis status, improving Hypernatremia cholecystitis s/p open cholecystectomy hx aortic dissection with tamponade s/p surgical repair aspiration PNA AMS Plan: agree with continued infusion of 1/2 NS for SARAH and hypernatremia. renal fxn slowly improving avoid nephrotoxins cont abx monitor labs avoid diuretics at this time supportive care no indication for HD at this time Thank you Dr. Claudio. Will follow. Signed, Lucia Corona [id number]
[2018-02-02] MEDS ORDERED: Sodium Chloride 0.45% 1,000 ML IV SCH (16:45)
[2018-02-02] MEDS: HYDROmorphone 2 mg/mL 1mL Vial IVP PRN ×2 (17:21→21:25)
--- NOTE | 2018-02-02 19:06 | Infectious Disease Prog Note ---
Infectious Disease Subjective - Review of Systems Service Date: 02/02/18 Subjective: no fever. No abdominal pain. Passing BM. Confused in am, but now is doing OK/ Infectious Disease Objective - Results Result Diagrams: 02/02/18 06:00 02/02/18 06:00 Recent Labs: Laboratory Last Values WBC 18.8 Th/cmm (4.8-10.8) H 02/02/18 06:00 Corrected WBC (auto) Th/cmm 02/01/18 05:52 RBC 3.08 Mil/cmm (4.30-5.70) L 02/02/18 06:00 Hgb 8.9 gm/dL (12-16) L 02/02/18 06:00 Hct 26.6 % (41.0-60) L 02/02/18 06:00 MCV 86.4 fl (80-99) 02/02/18 06:00 MCH 28.8 pg (26.0-30.0) 02/02/18 06:00 MCHC Differential 33.4 pg (28.0-36.0) 02/02/18 06:00 RDW 15.7 % (11.5-20.0) 02/02/18 06:00 Plt Count 319 Th/cmm (150-400) 02/02/18 06:00 MPV 8.6 fl 02/02/18 06:00 Neutrophils % 89.5 % (40.0-80.0) H 01/31/18 05:30 Band Neutrophils % 0 % (0-10) 02/02/18 06:00 Lymphocytes % 3.0 % (20.0-50.0) L 01/31/18 05:30 Monocytes % 7.2 % (2.0-10.0) 01/31/18 05:30 Eosinophils % 0.3 % (0.0-5.0) 01/31/18 05:30 Basophils % 0.0 % (0.0-2.0) 01/31/18 05:30 Neutrophils (Manual) 90 % (40-80) H 02/02/18 06:00 Lymphocytes 3 % (20-50) L 02/02/18 06:00 Monocytes 7 % (2-10) 02/02/18 06:00 Eosinophils 0 % (0-5) 02/02/18 06:00 Basophils 0 % (0-3) 02/02/18 06:00 Platelet Estimate ADEQUATE (NORMAL) 02/01/18 05:52 Poikilocytosis 1+ 01/25/18 05:57 Anisocytosis 1+ 01/25/18 05:57 PT 17.8 SECONDS (9.5-11.5) H 01/28/18 04:20 INR 1.66 (0.5-1.4) H 01/28/18 04:20 PTT (Actin FS) 45.6 SECONDS (26.0-38.0) H 01/28/18 04:20 Plt Function Studies 106 01/28/18 08:05 Specimen Source Arterial 01/31/18 11:10 Sample Site Left Radial 01/31/18 11:10 pH 7.42 (7.35-7.45) 01/31/18 11:10 pCO2 32.0 mmHg (35.0-45.0) L 01/31/18 11:10 pO2 62.0 mmHg (80.0-100.0) L 01/31/18 11:10 HCO3 22.5 mEq/L (20.0-26.0) 01/31/18 11:10 Base Excess -2.9 mEq/L (-3.0-3.0) 01/31/18 11:10 O2 Saturation 92.0 % (92.0-100.0) 01/31/18 11:10 Zac Test YES 01/31/18 11:10 Vent Rate NA 01/31/18 11:10 Inspired O2 21 01/31/18 11:10 Tidal Volume NA 01/31/18 11:10 PEEP NA 01/31/18 11:10 Pressure (ins/psv/peep) NA 01/31/18 11:10 Critical Value E.MATHEW 01/31/18 11:10 Sodium 152 mEq/L (136-145) H 02/02/18 06:00 Potassium 3.1 mEq/L (3.5-5.1) L 02/02/18 06:00 Chloride 118 mEq/L (98-107) H 02/02/18 06:00 Carbon Dioxide 21.8 mEq/L (21.0-31.0) 02/02/18 06:00 Anion Gap 15.3 (7.0-16.0) 02/02/18 06:00 BUN 32 mg/dL (7-25) H 02/02/18 06:00 Creatinine 2.6 mg/dL (0.7-1.3) H 02/02/18 06:00 Est GFR ( Amer) 32.4 ml/min (>90) 02/02/18 06:00 Est GFR (Non-Af Amer) 26.8 ml/min 02/02/18 06:00 BUN/Creatinine Ratio 12.3 02/02/18 06:00 Glucose 104 mg/dL (70-105) 02/02/18 06:00 POC Glucose 87 MG/DL (70 - 105) 01/28/18 05:32 Hemoglobin A1c % 4.9 % (4.0-6.0) 01/20/18 16:40 Whole Bld Lactic Acid 1.32 mmol/L (0.60-1.99) 01/20/18 16:40 Uric Acid 8.7 mg/dL (4.4-7.6) H 01/31/18 05:30 Calcium 8.4 mg/dL (8.6-10.3) L 02/02/18 06:00 Total Bilirubin 0.4 mg/dL (0.3-1.0) 02/02/18 06:00 AST 13 U/L (13-39) 02/02/18 06:00 ALT 10 U/L (7-52) 02/02/18 06:00 Alkaline Phosphatase 95 U/L (34-104) 02/02/18 06:00 Ammonia 53 umol/L (16-53) 01/31/18 15:32 Creatine Kinase 32 U/L (30-223) 01/20/18 16:40 Troponin I 0.01 ng/mL (0.01-0.05) 01/20/18 16:40 Total Protein 5.7 gm/dL (6.0-8.3) L 02/02/18 06:00 Albumin 2.8 gm/dL (4.2-5.5) L 02/02/18 06:00 Globulin 2.9 gm/dL 02/02/18 06:00 Albumin/Globulin Ratio 1.0 (1.0-1.8) 02/02/18 06:00 Triglycerides 69 mg/dL (<150) 01/27/18 05:45 Cholesterol 79 mg/dL (<200) 01/27/18 05:45 LDL Cholesterol Direct 37 mg/dL (75-193) L 01/27/18 05:45 HDL Cholesterol 32 mg/dL (23-92) 01/27/18 05:45 Urine Source MIDSTREAM 01/20/18 20:20 Urine Color YELLOW 01/20/18 20:20 Urine Clarity HAZY (CLEAR) 01/20/18 20:20 Urine pH 5.5 (4.6 - 8.0) 01/20/18 20:20 Ur Specific [place] 1.020 (1.005-1.030) 01/20/18 20:20 Urine Protein NEGATIVE mg/dL (NEGATIVE) 01/20/18 20:20 Urine Glucose (UA) NEGATIVE mg/dL (NEGATIVE) 01/20/18 20:20 Urine Ketones NEGATIVE mg/dL (NEGATIVE) 01/20/18 20:20 Urine Blood SMALL (NEGATIVE) H 01/20/18 20:20 Urine Nitrate NEGATIVE (NEGATIVE) 01/20/18 20:20 Urine Bilirubin NEGATIVE (NEGATIVE) 01/20/18 20:20 Urine Urobilinogen 0.2 E.U./dL (0.2 - 1.0) 01/20/18 20:20 Ur Leukocyte Esterase SMALL (NEGATIVE) H 01/20/18 20:20 Urine RBC 5-10 /hpf (0-5) H 01/20/18 20:20 Urine WBC 10-25 /hpf (0-5) H 01/20/18 20:20 Ur Epithelial Cells NONE SEEN /lpf (FEW) 01/20/18 20:20 Urine Bacteria NONE SEEN /hpf (NONE SEEN) 01/20/18 20:20 Vancomycin Trough 28.2 ug/mL (5-10) H 01/25/18 09:00 Random Vancomycin 30.6 ug/mL (5.0-40.0) 01/26/18 06:00 - Physical Exam Vitals and I&O: Vital Signs Temp 98.6 F 02/02/18 15:39 Pulse 95 02/02/18 18:51 Resp 18 02/02/18 18:51 BP 132/75 02/02/18 18:50 Pulse Ox 94 02/02/18 18:51 Intake & Output 02/01/18 02/02/18 02/02/18 18:59 06:59 18:59 Intake Total 563 193 7350 Output Total 2471 2580 1050 Balance -2121 -2230 300 Weight (lbs) 90.945 kg 92.079 kg 92.306 kg Intake: Intake, IV Amount 150 100 cefTRIAXone 1 gm In 50 Dextrose 5% 50 ml @ 100 mls/hr IV Q24H [facility] Rx#: [id number] metroNIDAZOLE 500mg/NS 100 100 100mL 500 mg In 100 ml @ 100 mls/hr IV Q12H [facility] Rx #:[id number] Oral 361 [id number] Output: Drainage 70 30 Right Lower Abdomen 70 30 Urine 2400 2550 1050 Stool 1 Other: # Bowel Movements 0 1 Stool Characteristics Soft Liquid Brown Green Weight Source Bedscale Bedscale Bedscale Active Medications: Current Medications Acetaminophen (Tylenol) 650 mg PO Q6H PRN PRN Reason: HEADACHE/TEMP ABOVE 100F Stop: 03/21/18 19:07 Last Admin: 01/20/18 23:17 Dose: 650 mg Acetaminophen/Hydrocodone Bitart (Severance 10 Mg/325 Mg) 1 tab PO Q6H PRN PRN Reason: mod pain Stop: 03/22/18 10:31 Last Admin: 01/30/18 22:55 Dose: 1 tab Acetaminophen/Hydrocodone Bitart (Severance 10 Mg/325 Mg) 1 tab PO Q4H PRN PRN Reason: Pain (Severe) Stop: 03/31/18 21:39 Albuterol/Ipratropium (Duoneb Neb) 3 ml HHN Q4HRT [facility] Stop: 03/21/18 19:59 Last Admin: 02/02/18 18:49 Dose: 3 ml Amiodarone HCl (Cordarone) 100 mg GT DAILY [facility] Stop: 03/22/18 08:59 Last Admin: 02/02/18 09:19 Dose: 100 mg Amlodipine Besylate (Norvasc) 10 mg GT DAILY [facility] Stop: 03/22/18 08:59 Last Admin: 02/02/18 09:20 Dose: 10 mg Aspirin (Aspirin Chewable) 81 mg GT DAILY [facility] Stop: 03/22/18 08:59 Last Admin: 02/02/18 09:18 Dose: 81 mg Atorvastatin Calcium (Lipitor) 40 mg GT HS [facility] Stop: 03/25/18 20:59 Last Admin: 02/01/18 21:15 Dose: 40 mg Diphenhydramine HCl (Benadryl 50 Mg/Ml) 50 mg IVP Q8H PRN PRN Reason: rash, itchiness Stop: 03/30/18 08:49 Docusate Sodium (Colace) 100 mg PO BID PRN PRN Reason: Constipation Stop: 03/21/18 19:07 Last Admin: 02/01/18 10:25 Dose: 100 mg Famotidine (Pepcid) 40 mg PO DAILY [facility] Stop: 03/30/18 08:59 Last Admin: 02/02/18 09:20 Dose: 40 mg Hydromorphone HCl (Dilaudid) 4 mg IVP Q4HR PRN PRN Reason: Severe Pain Stop: 03/29/18 12:35 Last Admin: 02/02/18 17:21 Dose: 4 mg Magnesium Sulfate (Magnesium Sulfate Premix) 2 gm in 50 mls @ 25 mls/hr IV DAILY PRN PRN Reason: Magnesium level less than 1.6 Stop: 03/21/18 19:07 Metronidazole (Flagyl) 500 mg in 100 mls @ 100 mls/hr IV Q12H [facility] Stop: 03/27/18 14:59 Last Admin: 02/02/18 14:25 Dose: 100 mls/hr Ceftriaxone Sodium 1 gm/ (Dextrose) 50 mls @ 100 mls/hr IV Q24H [facility] Stop: 03/30/18 14:59 Last Admin: 02/02/18 14:26 Dose: 100 mls/hr Sodium Chloride (Nacl 0.45%) 1,000 mls @ 100 mls/hr IV .Q10H [facility] Stop: 04/03/18 16:44 Lactobacillus Rhamnosus (Culturelle 15b) 1 each PO DAILY [facility] Stop: 03/23/18 08:59 Last Admin: 02/02/18 09:18 Dose: 1 each Lorazepam (Ativan) 1 mg IVP Q4H PRN; Protocol PRN Reason: Anxiety Stop: 03/21/18 19:07 Last Admin: 02/02/18 02:03 Dose: 1 mg Lorazepam (Ativan) 1 mg PO Q6H PRN; Protocol PRN Reason: Agitation Stop: 03/31/18 21:43 Last Admin: 02/01/18 10:25 Dose: 1 mg Magnesium Oxide (Mag-Oxide) 400 mg PO BID PRN PRN Reason: Mg less than 1.9 Stop: 03/21/18 19:07 Metoprolol Tartrate (Lopressor) 50 mg GT Q8H [facility] Stop: 03/21/18 19:14 Last Admin: 02/02/18 18:50 Dose: 50 mg Miscellaneous (Probiotic Screen) 1 ea MC PRN PRN PRN Reason: PROTOCOL Stop: 03/22/18 09:59 Mupirocin (Bactroban Oint) 1 appl NS BID [facility] Stop: 02/03/18 17:01 Last Admin: 02/02/18 17:21 Dose: 1 appl Ondansetron HCl (Zofran) 4 mg IV Q4H PRN PRN Reason: Nausea / Vomiting Stop: 03/27/18 09:59 Last Admin: 02/02/18 17:20 Dose: 4 mg Potassium Chloride (Klor-Con) 40 meq PO DAILY PRN PRN Reason: k level less than 3.5 Stop: 03/21/18 19:07 Last Admin: 02/02/18 09:20 Dose: 40 meq Simethicone (Mylicon) 80 mg PO Q8H [facility] Stop: 03/27/18 10:14 Last Admin: 02/02/18 17:20 Dose: 80 mg Tamsulosin HCl (Flomax) 0.4 mg PO HS [facility] Stop: 03/25/18 20:59 Last Admin: 02/01/18 21:15 Dose: 0.4 mg Tamsulosin HCl (Flomax) 0.4 mg PO DAILY [facility] Stop: 03/28/18 08:59 Last Admin: 02/02/18 09:20 Dose: 0.4 mg Zolpidem Tartrate (Ambien) 10 mg PO HS PRN PRN Reason: Insomnia Stop: 03/21/18 19:07 Last Admin: 01/31/18 22:18 Dose: 10 mg General: no acute distress, well developed, well nourished HEENT: atraumatic, normocephalic, PERRLA, EOMI Neck: supple, no thyromegaly Cardiovascular: S1S2, regular Lungs: clear to auscultation bilaterally, clear to percussion Abdomen: soft, no tender, no distended, no mass, no rebound Extremities: no cyanosis, no clubbing, no edema Neurological: awake, alert, oriented Skin: intact - Procedures Procedures: Procedures Procedure Code Date INSPECTION OF GALLBLADDER, PERCUTANEOUS ENDOSCOPIC APPROACH [id number] 01/20/18 RELEASE OMENTUM, OPEN APPROACH [id number] 01/20/18 RESECTION OF GALLBLADDER, OPEN APPROACH [id number] 01/20/18 Infectious Disease Assmt/Plan - Problem List Patient Problems: All Active Problems GASTRIC TUBE AND CORAL REMOVAL (Acute) - Assessment Assessment: 1. Leukocytosis worse, most likely postsurgical. If WBC count remains elevated , we will consider indium scan. 2. Right lower lobe infiltrate, suspect aspiration pneumonia. 3. UTI. 4. MRSA colonization. 5. Hypertension. 6. Hyperlipidemia. 7. Aortic dissection, repair of aortic dissection at [facility]. 8. Acute kidney injury. Resolved. 9. Dysphagia resolved. He is taking his medication by mouth. 10. Vomiting. 11. Cholelithiasis. 12. Status post open cholecystectomy, POD#2. - Plan Plan: Change flagyl 500 mg iv twice/day, Continue Rocephin for 7 days. Nutritional Asmnt/Malnutr-PDOC - Dietary Evaluation Malnutrition Findings (Please click <Entered> for more info): Nutritional Asmnt/Malnutrition Start: 01/24/18 17: 29 Text: Status: Complete Freq: Protocol: Document 01/24/18 17:29 LCHENG (Rec: 01/24/18 17:38 [email or web address] [email or web address]) Nutritional Asmnt/Malnutrition Patient General Information Nutritional Screening Moderate Risk Diagnosis aspiration PNA Pertinent Medical Hx/Surgical Hx cardiac tampondade s/p surgery , aortic dissection, Gtube ( now removed) Subjective Information Per H&P pt had Gtube removed and started oral diet for about one month. Pt stated he still have some stomach issue, vomiting. Pt consumed cream of wheat and ceream for breakfast this morning, not very comfortable with solid food at this time.Per nurse note, pt had loose stool last night. Per EMR, PO intake 50- 75%. Current Diet Order/ Nutrition Support cardiac Pertinent Medications colace, culturelle, zofran, piperacillin, vancomycin Pertinent Labs 01/24 cl 108, glucose 76 01/20 A1c 4.9 Nutritional Hx/Data Height 1.91 m Height (Calculated Centimeters) 190.5 Current Weight (lbs) 92.079 kg Weight (Calculated Kilograms) 92.1 Weight (Calculated Grams) 73896.3 Jackpot Body Weight 196 Body Mass Index (BMI) 25.3 Weight Status Overweight GI Symptoms GI Symptoms None Last BM 01/24 Difficult in: None Skin Integrity/Comment: intact Current %PO Fair (50-74%) Estimated Nutritional Goals BEE in Kcals: Using Current wt Calories/Kcals/Kg 25-30 Kcals Calculated 8362-2359 Protein: Using Current wt Protein g/k Protein Calculated 92 Fluid: ml 2300-2760ml (1ml/kcal) Nutritional Problem No current Nutrition Prob Problem N/A Malnutrition Alert Is there a minimum of two criteria No selected? Query Text:Check all the applicable criteria. A minimum of two criteria are recommended for diagnosis of either severe or non-severe malnutrition. Malnutrition Related to Morbid Obesity Malnutrition related to morbid obesity No Intervention/Recommendation Comments 1. Continue with current diet as ordered. Offered food alternatives if pt not able to take his meals. 2. Monitor PO intake, GI function, wt, labs and skin integrity 3. F/U as moderate risk in 3-5 days, 01/27-01/29 Expected Outcomes/Goals Expected Outcomes/Goals 1. PO intake to meet at least 75% of nutritional needs. 2. Wt stability, GI function to improve, skin to remain intact, labs to approach WNL.
[2018-02-02 22:19] LABS: URINE MICROSCOPIC INDICATED? YES; URINE SOURCE RANDOM
[2018-02-02 22:21] LABS: URINE BILIRUBIN NEGATIVE (NEGATIVE); URINE BLOOD MODERATE (NEGATIVE); URINE GLUCOSE (UA) NEGATIVE (NEGATIVE); URINE KETONE NEGATIVE (NEGATIVE); URINE LEUKOCYTE ESTERASE NEGATIVE (NEGATIVE); URINE NITRATE NEGATIVE (NEGATIVE); URINE PROTEIN NEGATIVE (NEGATIVE); URINE UROBILINOGEN 0.2 E.U./dL (0.2 - 1.0)
[2018-02-02 22:34] LABS: URINE CLARITY CLEAR (CLEAR); URINE COLOR YELLOW
[2018-02-02 22:56] LABS: URINE BACTERIA FEW /hpf (NONE SEEN); URINE EPITHELIAL CELLS OCCASIONAL /lpf (FEW); URINE WBC 0-2 /hpf (0-5)
[2018-02-03] MEDS: HYDROmorphone 2 mg/mL 1mL Vial IVP PRN ×3 (01:28→20:25)
[2018-02-03] MEDS: metroNIDAZOLE 500mg/NS 100mL 500 MG/100 ML BAG IV SCH ×2 (02:10→18:34)
[2018-02-03] MEDS: Albuterol/Ipratropium Neb 3 ML AERS HHN SCH ×6 (03:08→22:16)
[2018-02-03 05:29] LABS: % EOSINOPHILS 0.9 % (0.0-5.0); EOSINOPHILE ABSOLUTE 0.2 Th/cmm (0.1-0.4)
[2018-02-03 05:34] LABS: % LYMPHOCYTES 3.4 % (20.0-50.0); % NEUTROPHILS 86.7 % (40.0-80.0); HEMATOCRIT 27.4 % (41.0-60); HEMOGLOBIN 9.1 gm/dL (12-16); LYMPHOCYTE ABSOLUTE 0.6 Th/cmm (1.5-3.0); MEAN CELL VOLUME 89.7 fl (80-99); MEAN CORPUSCULAR HEMOGLOBIN 29.9 pg (26.0-30.0); MEAN CORPUSCULAR HGB CONC 33.3 pg (28.0-36.0); MEAN PLATELET VOLUME 8.8 fl; MONOCYTE ABSOLUTE 1.6 Th/cmm (0.3-1.0); NEUTROPHILE ABSOLUTE 15.9 Th/cmm (1.8-8.0); PLATELET COUNT 257 Th/cmm (150-400); RED BLOOD COUNT 3.05 Mil/cmm (4.30-5.70); RED CELL DISTRIBUTION WIDTH 16.2 % (11.5-20.0)
[2018-02-03 05:47] LABS: ALB/GLOB RATIO 0.9 (1.0-1.8); ALBUMIN 2.7 gm/dL (4.2-5.5); BILIRUBIN,TOTAL 0.5 mg/dL (0.3-1.0); CALCIUM SERUM 8.1 mg/dL (8.6-10.3); CREATININE - SERUM 2.2 mg/dL (0.7-1.3); GFR AFRICAN-AMERICAN 39.3 ml/min (>90); GFR NON AFRICAN-AMERICAN 32.5 ml/min; TOTAL PROTEIN,SERUM 5.7 gm/dL (6.0-8.3)
[2018-02-03 06:09] LABS: WHITE BLOOD COUNT 18.3 Th/cmm (4.8-10.8)
--- NOTE | 2018-02-03 08:30 | Diagnostic Imaging Report ---
CT scan of the brain without intravenous contrast HISTORY: Stroke, CVA Total DLP equals 637 CTDI equals 35.4 Axial sections were obtained from the base of the skull to the vertex. There is a normal ventricular system size for age. There is prominence of cerebral sulci and subarachnoid cisterns reflecting a degree of atrophy. No acute parenchymal abnormalities. No intracerebral hemorrhage. No mass effect or shift of midline structures. No extra-axial masses or abnormal fluid collections. Mucosal thickening and intraluminal density noted in the right maxillary sinus which appears chronic. IMPRESSION: 1. No acute intracerebral abnormalities 2. Mild cerebral atrophy 3. Mucosal thickening and chronic intraluminal density within the right maxillary sinus.
--- NOTE | 2018-02-03 09:13 | General Progress Note ---
Subjective - Review of Systems Service Date: 02/03/18 Events since last encounter: leukocytosis persists, clinically patient ok eating better, no N or vomiting Objective - Results Result Diagrams: 02/03/18 05:00 02/03/18 05:00 Recent Labs: Laboratory Last Values WBC 18.3 Th/cmm (4.8-10.8) H 02/03/18 05:00 Corrected WBC (auto) Th/cmm 02/01/18 05:52 RBC 3.05 Mil/cmm (4.30-5.70) L 02/03/18 05:00 Hgb 9.1 gm/dL (12-16) L 02/03/18 05:00 Hct 27.4 % (41.0-60) L 02/03/18 05:00 MCV 89.7 fl (80-99) 02/03/18 05:00 MCH 29.9 pg (26.0-30.0) 02/03/18 05:00 MCHC Differential 33.3 pg (28.0-36.0) 02/03/18 05:00 RDW 16.2 % (11.5-20.0) 02/03/18 05:00 Plt Count 257 Th/cmm (150-400) 02/03/18 05:00 MPV 8.8 fl 02/03/18 05:00 Neutrophils % 86.7 % (40.0-80.0) H 02/03/18 05:00 Band Neutrophils % 0 % (0-10) 02/02/18 06:00 Lymphocytes % 3.4 % (20.0-50.0) L 02/03/18 05:00 Monocytes % 9.0 % (2.0-10.0) 02/03/18 05:00 Eosinophils % 0.9 % (0.0-5.0) 02/03/18 05:00 Basophils % 0.0 % (0.0-2.0) 02/03/18 05:00 Neutrophils (Manual) 90 % (40-80) H 02/02/18 06:00 Lymphocytes 3 % (20-50) L 02/02/18 06:00 Monocytes 7 % (2-10) 02/02/18 06:00 Eosinophils 0 % (0-5) 02/02/18 06:00 Basophils 0 % (0-3) 02/02/18 06:00 Platelet Estimate ADEQUATE (NORMAL) 02/01/18 05:52 Poikilocytosis 1+ 01/25/18 05:57 Anisocytosis 1+ 01/25/18 05:57 PT 17.8 SECONDS (9.5-11.5) H 01/28/18 04:20 INR 1.66 (0.5-1.4) H 01/28/18 04:20 PTT (Actin FS) 45.6 SECONDS (26.0-38.0) H 01/28/18 04:20 Plt Function Studies 106 01/28/18 08:05 Specimen Source Arterial 01/31/18 11:10 Sample Site Left Radial 01/31/18 11:10 pH 7.42 (7.35-7.45) 01/31/18 11:10 pCO2 32.0 mmHg (35.0-45.0) L 01/31/18 11:10 pO2 62.0 mmHg (80.0-100.0) L 01/31/18 11:10 HCO3 22.5 mEq/L (20.0-26.0) 01/31/18 11:10 Base Excess -2.9 mEq/L (-3.0-3.0) 01/31/18 11:10 O2 Saturation 92.0 % (92.0-100.0) 01/31/18 11:10 Zac Test YES 01/31/18 11:10 Vent Rate NA 01/31/18 11:10 Inspired O2 21 01/31/18 11:10 Tidal Volume NA 01/31/18 11:10 PEEP NA 01/31/18 11:10 Pressure (ins/psv/peep) NA 01/31/18 11:10 Critical Value E.MATHEW 01/31/18 11:10 Sodium 149 mEq/L (136-145) H 02/03/18 05:00 Potassium 3.0 mEq/L (3.5-5.1) L 02/03/18 05:00 Chloride 116 mEq/L (98-107) H 02/03/18 05:00 Carbon Dioxide 24.0 mEq/L (21.0-31.0) 02/03/18 05:00 Anion Gap 12.0 (7.0-16.0) 02/03/18 05:00 BUN 24 mg/dL (7-25) 02/03/18 05:00 Creatinine 2.2 mg/dL (0.7-1.3) H 02/03/18 05:00 Est GFR ( Amer) 39.3 ml/min (>90) 02/03/18 05:00 Est GFR (Non-Af Amer) 32.5 ml/min 02/03/18 05:00 BUN/Creatinine Ratio 10.9 02/03/18 05:00 Glucose 135 mg/dL (70-105) H 02/03/18 05:00 POC Glucose 87 MG/DL (70 - 105) 01/28/18 05:32 Hemoglobin A1c % 4.9 % (4.0-6.0) 01/20/18 16:40 Whole Bld Lactic Acid 1.32 mmol/L (0.60-1.99) 01/20/18 16:40 Uric Acid 8.7 mg/dL (4.4-7.6) H 01/31/18 05:30 Calcium 8.1 mg/dL (8.6-10.3) L 02/03/18 05:00 Total Bilirubin 0.5 mg/dL (0.3-1.0) 02/03/18 05:00 AST 18 U/L (13-39) 02/03/18 05:00 ALT 11 U/L (7-52) 02/03/18 05:00 Alkaline Phosphatase 95 U/L (34-104) 02/03/18 05:00 Ammonia 53 umol/L (16-53) 01/31/18 15:32 Creatine Kinase 32 U/L (30-223) 01/20/18 16:40 Troponin I 0.01 ng/mL (0.01-0.05) 01/20/18 16:40 Total Protein 5.7 gm/dL (6.0-8.3) L 02/03/18 05:00 Albumin 2.7 gm/dL (4.2-5.5) L 02/03/18 05:00 Globulin 3.0 gm/dL 02/03/18 05:00 Albumin/Globulin Ratio 0.9 (1.0-1.8) L 02/03/18 05:00 Triglycerides 69 mg/dL (<150) 01/27/18 05:45 Cholesterol 79 mg/dL (<200) 01/27/18 05:45 LDL Cholesterol Direct 37 mg/dL (75-193) L 01/27/18 05:45 HDL Cholesterol 32 mg/dL (23-92) 01/27/18 05:45 Urine Source RANDOM 02/02/18 22:00 Urine Color YELLOW 02/02/18 22:00 Urine Clarity CLEAR (CLEAR) 02/02/18 22:00 Urine pH 6.0 (4.6 - 8.0) 02/02/18 22:00 Ur Specific [place] <= 1.005 (1.005-1.030) 02/02/18 22:00 Urine Protein NEGATIVE mg/dL (NEGATIVE) 02/02/18 22:00 Urine Glucose (UA) NEGATIVE mg/dL (NEGATIVE) 02/02/18 22:00 Urine Ketones NEGATIVE mg/dL (NEGATIVE) 02/02/18 22:00 Urine Blood MODERATE (NEGATIVE) H 02/02/18 22:00 Urine Nitrate NEGATIVE (NEGATIVE) 02/02/18 22:00 Urine Bilirubin NEGATIVE (NEGATIVE) 02/02/18 22:00 Urine Urobilinogen 0.2 E.U./dL (0.2 - 1.0) 02/02/18 22:00 Ur Leukocyte Esterase NEGATIVE (NEGATIVE) 02/02/18 22:00 Urine RBC 5-10 /hpf (0-5) H 02/02/18 22:00 Urine WBC 0-2 /hpf (0-5) 02/02/18 22:00 Ur Epithelial Cells OCCASIONAL /lpf (FEW) 02/02/18 22:00 Urine Bacteria FEW /hpf (NONE SEEN) 02/02/18 22:00 Ur Random Sodium 94 mmol/L 02/02/18 22:00 Urine Creatinine 25.0 mg/dl (39.0-259.0) L 02/02/18 22:00 Vancomycin Trough 28.2 ug/mL (5-10) H 01/25/18 09:00 Random Vancomycin 30.6 ug/mL (5.0-40.0) 01/26/18 06:00 - Physical Exam Vitals and I&O: Vital Signs Temp 98.3 F 02/03/18 07:55 Pulse 85 02/03/18 08:20 Resp 18 02/03/18 08:20 BP 129/73 02/03/18 07:55 Pulse Ox 96 02/03/18 08:20 Intake & Output 02/02/18 02/03/18 02/03/18 18:59 06:59 18:59 Intake Total 1450 700 Output Total 1050 2400 Balance 400 -1700 Weight (lbs) 92.306 kg 92.079 kg Intake: Intake, IV Amount 100 100 metroNIDAZOLE 500mg/NS 100 100 100mL 500 mg In 100 ml @ 100 mls/hr IV Q12H [facility] Rx #:[id number] Oral 1350 600 Output: Urine 1050 2400 Other: # Bowel Movements 1 Stool Characteristics Soft Liquid Brown Green Weight Source Bedscale Bedscale Active Medications: Current Medications Acetaminophen (Tylenol) 650 mg PO Q6H PRN PRN Reason: HEADACHE/TEMP ABOVE 100F Stop: 03/21/18 19:07 Last Admin: 01/20/18 23:17 Dose: 650 mg Acetaminophen/Hydrocodone Bitart ([place] 10 Mg/325 Mg) 1 tab PO Q6H PRN PRN Reason: mod pain Stop: 03/22/18 10:31 Last Admin: 01/30/18 22:55 Dose: 1 tab Acetaminophen/Hydrocodone Bitart ([place] 10 Mg/325 Mg) 1 tab PO Q4H PRN PRN Reason: Pain (Severe) Stop: 03/31/18 21:39 Albuterol/Ipratropium (Duoneb Neb) 3 ml HHN Q4HRT [facility] Stop: 03/21/18 19:59 Last Admin: 02/03/18 07:42 Dose: 3 ml Amiodarone HCl (Cordarone) 100 mg GT DAILY [facility] Stop: 03/22/18 08:59 Last Admin: 02/02/18 09:19 Dose: 100 mg Amlodipine Besylate (Norvasc) 10 mg GT DAILY [facility] Stop: 03/22/18 08:59 Last Admin: 02/02/18 09:20 Dose: 10 mg Aspirin (Aspirin Chewable) 81 mg GT DAILY [facility] Stop: 03/22/18 08:59 Last Admin: 02/02/18 09:18 Dose: 81 mg Atorvastatin Calcium (Lipitor) 40 mg GT HS [facility] Stop: 03/25/18 20:59 Last Admin: 02/02/18 21:07 Dose: 40 mg Diphenhydramine HCl (Benadryl 50 Mg/Ml) 50 mg IVP Q8H PRN PRN Reason: rash, itchiness Stop: 03/30/18 08:49 Docusate Sodium (Colace) 100 mg PO BID PRN PRN Reason: Constipation Stop: 03/21/18 19:07 Last Admin: 02/01/18 10:25 Dose: 100 mg Famotidine (Pepcid) 40 mg PO DAILY [facility] Stop: 03/30/18 08:59 Last Admin: 02/02/18 09:20 Dose: 40 mg Hydromorphone HCl (Dilaudid) 4 mg IVP Q4HR PRN PRN Reason: Severe Pain Stop: 03/29/18 12:35 Last Admin: 02/03/18 01:28 Dose: 4 mg Magnesium Sulfate (Magnesium Sulfate Premix) 2 gm in 50 mls @ 25 mls/hr IV DAILY PRN PRN Reason: Magnesium level less than 1.6 Stop: 03/21/18 19:07 Metronidazole (Flagyl) 500 mg in 100 mls @ 100 mls/hr IV Q12H [facility] Stop: 03/27/18 14:59 Last Infusion: 02/03/18 03:10 Dose: Infused Ceftriaxone Sodium 1 gm/ (Dextrose) 50 mls @ 100 mls/hr IV Q24H [facility] Stop: 03/30/18 14:59 Last Admin: 02/02/18 14:26 Dose: 100 mls/hr Sodium Chloride (Nacl 0.45%) 1,000 mls @ 100 mls/hr IV .Q10H [facility] Stop: 04/03/18 16:44 Last Admin: 02/03/18 06:06 Dose: 100 mls/hr Lactobacillus Rhamnosus (Culturelle 15b) 1 each PO DAILY [facility] Stop: 03/23/18 08:59 Last Admin: 02/02/18 09:18 Dose: 1 each Lorazepam (Ativan) 1 mg IVP Q4H PRN; Protocol PRN Reason: Anxiety Stop: 03/21/18 19:07 Last Admin: 02/02/18 02:03 Dose: 1 mg Lorazepam (Ativan) 1 mg PO Q6H PRN; Protocol PRN Reason: Agitation Stop: 03/31/18 21:43 Last Admin: 02/01/18 10:25 Dose: 1 mg Magnesium Oxide (Mag-Oxide) 400 mg PO BID PRN PRN Reason: Mg less than 1.9 Stop: 03/21/18 19:07 Metoprolol Tartrate (Lopressor) 50 mg GT Q8H [facility] Stop: 03/21/18 19:14 Last Admin: 02/03/18 04:14 Dose: Not Given Miscellaneous (Probiotic Screen) 1 ea MC PRN PRN PRN Reason: PROTOCOL Stop: 03/22/18 09:59 Mupirocin (Bactroban Oint) 1 appl NS BID [facility] Stop: 02/03/18 17:01 Last Admin: 02/02/18 17:21 Dose: 1 appl Ondansetron HCl (Zofran) 4 mg IV Q4H PRN PRN Reason: Nausea / Vomiting Stop: 03/27/18 09:59 Last Admin: 02/02/18 17:20 Dose: 4 mg Potassium Chloride (Klor-Con) 40 meq PO DAILY PRN PRN Reason: k level less than 3.5 Stop: 03/21/18 19:07 Last Admin: 02/02/18 09:20 Dose: 40 meq Simethicone (Mylicon) 80 mg PO Q8H [facility] Stop: 03/27/18 10:14 Last Admin: 02/03/18 04:13 Dose: Not Given Tamsulosin HCl (Flomax) 0.4 mg PO HS [facility] Stop: 03/25/18 20:59 Last Admin: 02/02/18 21:07 Dose: 0.4 mg Tamsulosin HCl (Flomax) 0.4 mg PO DAILY [facility] Stop: 03/28/18 08:59 Last Admin: 02/02/18 09:20 Dose: 0.4 mg Zolpidem Tartrate (Ambien) 10 mg PO HS PRN PRN Reason: Insomnia Stop: 03/21/18 19:07 Last Admin: 02/03/18 01:30 Dose: 10 mg General: Alert, Cooperative, Other (acutely confused, AAO 2) HEENT: Atraumatic, PERRLA, EOMI Neck: Supple, no JVD Cardiovascular: Regular rate Lungs: Other (has rales and congestion) Abdomen: Bowel sounds, Soft, Tender Extremities: Other (right upper extremity +3 edema), no Cyanosis Neurological: Normal speech Skin: no Rash - Procedures Procedures: Procedures Procedure Code Date INSPECTION OF GALLBLADDER, PERCUTANEOUS ENDOSCOPIC APPROACH [id number] 01/20/18 RELEASE OMENTUM, OPEN APPROACH [id number] 01/20/18 RESECTION OF GALLBLADDER, OPEN APPROACH [id number] 01/20/18 Assessment/Plan - Problem List Patient Problems: All Active Problems GASTRIC TUBE AND CORAL REMOVAL (Acute) Nutritional Asmnt/Malnutr-PDOC - Dietary Evaluation Malnutrition Findings (Please click <Entered> for more info): Nutritional Asmnt/Malnutrition Start: 01/24/18 17: 29 Text: Status: Complete Freq: Protocol: Document 01/24/18 17:29 [email or web address] (Rec: 01/24/18 17:38 [facility] [id number]) Nutritional Asmnt/Malnutrition Patient General Information Nutritional Screening Moderate Risk Diagnosis aspiration PNA Pertinent Medical Hx/Surgical Hx cardiac tampondade s/p surgery , aortic dissection, Gtube ( now removed) Subjective Information Per H&P pt had Gtube removed and started oral diet for about one month. Pt stated he still have some stomach issue, vomiting. Pt consumed cream of wheat and ceream for breakfast this morning, not very comfortable with solid food at this time.Per nurse note, pt had loose stool last night. Per EMR, PO intake 50- 75%. Current Diet Order/ Nutrition Support cardiac Pertinent Medications colace, culturelle, zofran, piperacillin, vancomycin Pertinent Labs 01/24 cl 108, glucose 76 01/20 A1c 4.9 Nutritional Hx/Data Height 1.91 m Height (Calculated Centimeters) 190.5 Current Weight (lbs) 92.079 kg Weight (Calculated Kilograms) 92.1 Weight (Calculated Grams) 65202.3 [place] Body Weight 196 Body Mass Index (BMI) 25.3 Weight Status Overweight GI Symptoms GI Symptoms None Last BM 01/24 Difficult in: None Skin Integrity/Comment: intact Current %PO Fair (50-74%) Estimated Nutritional Goals BEE in Kcals: Using Current wt Calories/Kcals/Kg 25-30 Kcals Calculated 0727-0458 Protein: Using Current wt Protein g/k Protein Calculated 92 Fluid: ml 2300-2760ml (1ml/kcal) Nutritional Problem No current Nutrition Prob Problem N/A Malnutrition Alert Is there a minimum of two criteria No selected? Query Text:Check all the applicable criteria. A minimum of two criteria are recommended for diagnosis of either severe or non-severe malnutrition. Malnutrition Related to Morbid Obesity Malnutrition related to morbid obesity No Intervention/Recommendation Comments 1. Continue with current diet as ordered. Offered food alternatives if pt not able to take his meals. 2. Monitor PO intake, GI function, wt, labs and skin integrity 3. F/U as moderate risk in 3-5 days, 01/27-01/29 Expected Outcomes/Goals Expected Outcomes/Goals 1. PO intake to meet at least 75% of nutritional needs. 2. Wt stability, GI function to improve, skin to remain intact, labs to approach WNL.
--- NOTE | 2018-02-03 09:55 | General Progress Note ---
Subjective - Review of Systems Service Date: 02/03/18 Events since last encounter: NO ACUTE EVENTS CR DOWNWARD TRENDING SODIUM ELEVATED BUT SLOWLY IMPROVING K STILL LOW LEUKOCYTOSIS STABLE Subjective: HAS SOME C/O ABD DISCOMFORT REQUESTING A COKE Objective - Results Result Diagrams: 02/03/18 05:00 02/03/18 05:00 Recent Labs: Laboratory Last Values WBC 18.3 Th/cmm (4.8-10.8) H 02/03/18 05:00 Corrected WBC (auto) Th/cmm 02/01/18 05:52 RBC 3.05 Mil/cmm (4.30-5.70) L 02/03/18 05:00 Hgb 9.1 gm/dL (12-16) L 02/03/18 05:00 Hct 27.4 % (41.0-60) L 02/03/18 05:00 MCV 89.7 fl (80-99) 02/03/18 05:00 MCH 29.9 pg (26.0-30.0) 02/03/18 05:00 MCHC Differential 33.3 pg (28.0-36.0) 02/03/18 05:00 RDW 16.2 % (11.5-20.0) 02/03/18 05:00 Plt Count 257 Th/cmm (150-400) 02/03/18 05:00 MPV 8.8 fl 02/03/18 05:00 Neutrophils % 86.7 % (40.0-80.0) H 02/03/18 05:00 Band Neutrophils % 0 % (0-10) 02/02/18 06:00 Lymphocytes % 3.4 % (20.0-50.0) L 02/03/18 05:00 Monocytes % 9.0 % (2.0-10.0) 02/03/18 05:00 Eosinophils % 0.9 % (0.0-5.0) 02/03/18 05:00 Basophils % 0.0 % (0.0-2.0) 02/03/18 05:00 Neutrophils (Manual) 90 % (40-80) H 02/02/18 06:00 Lymphocytes 3 % (20-50) L 02/02/18 06:00 Monocytes 7 % (2-10) 02/02/18 06:00 Eosinophils 0 % (0-5) 02/02/18 06:00 Basophils 0 % (0-3) 02/02/18 06:00 Platelet Estimate ADEQUATE (NORMAL) 02/01/18 05:52 Poikilocytosis 1+ 01/25/18 05:57 Anisocytosis 1+ 01/25/18 05:57 PT 17.8 SECONDS (9.5-11.5) H 01/28/18 04:20 INR 1.66 (0.5-1.4) H 01/28/18 04:20 PTT (Actin FS) 45.6 SECONDS (26.0-38.0) H 01/28/18 04:20 Plt Function Studies 106 01/28/18 08:05 Specimen Source Arterial 01/31/18 11:10 Sample Site Left Radial 01/31/18 11:10 pH 7.42 (7.35-7.45) 01/31/18 11:10 pCO2 32.0 mmHg (35.0-45.0) L 01/31/18 11:10 pO2 62.0 mmHg (80.0-100.0) L 01/31/18 11:10 HCO3 22.5 mEq/L (20.0-26.0) 01/31/18 11:10 Base Excess -2.9 mEq/L (-3.0-3.0) 01/31/18 11:10 O2 Saturation 92.0 % (92.0-100.0) 01/31/18 11:10 Zac Test YES 01/31/18 11:10 Vent Rate NA 01/31/18 11:10 Inspired O2 21 01/31/18 11:10 Tidal Volume NA 01/31/18 11:10 PEEP NA 01/31/18 11:10 Pressure (ins/psv/peep) NA 01/31/18 11:10 Critical Value E.MATHEW 01/31/18 11:10 Sodium 149 mEq/L (136-145) H 02/03/18 05:00 Potassium 3.0 mEq/L (3.5-5.1) L 02/03/18 05:00 Chloride 116 mEq/L (98-107) H 02/03/18 05:00 Carbon Dioxide 24.0 mEq/L (21.0-31.0) 02/03/18 05:00 Anion Gap 12.0 (7.0-16.0) 02/03/18 05:00 BUN 24 mg/dL (7-25) 02/03/18 05:00 Creatinine 2.2 mg/dL (0.7-1.3) H 02/03/18 05:00 Est GFR ( Amer) 39.3 ml/min (>90) 02/03/18 05:00 Est GFR (Non-Af Amer) 32.5 ml/min 02/03/18 05:00 BUN/Creatinine Ratio 10.9 02/03/18 05:00 Glucose 135 mg/dL (70-105) H 02/03/18 05:00 POC Glucose 87 MG/DL (70 - 105) 01/28/18 05:32 Hemoglobin A1c % 4.9 % (4.0-6.0) 01/20/18 16:40 Whole Bld Lactic Acid 1.32 mmol/L (0.60-1.99) 01/20/18 16:40 Uric Acid 8.7 mg/dL (4.4-7.6) H 01/31/18 05:30 Calcium 8.1 mg/dL (8.6-10.3) L 02/03/18 05:00 Total Bilirubin 0.5 mg/dL (0.3-1.0) 02/03/18 05:00 AST 18 U/L (13-39) 02/03/18 05:00 ALT 11 U/L (7-52) 02/03/18 05:00 Alkaline Phosphatase 95 U/L (34-104) 02/03/18 05:00 Ammonia 53 umol/L (16-53) 01/31/18 15:32 Creatine Kinase 32 U/L (30-223) 01/20/18 16:40 Troponin I 0.01 ng/mL (0.01-0.05) 01/20/18 16:40 Total Protein 5.7 gm/dL (6.0-8.3) L 02/03/18 05:00 Albumin 2.7 gm/dL (4.2-5.5) L 02/03/18 05:00 Globulin 3.0 gm/dL 02/03/18 05:00 Albumin/Globulin Ratio 0.9 (1.0-1.8) L 02/03/18 05:00 Triglycerides 69 mg/dL (<150) 01/27/18 05:45 Cholesterol 79 mg/dL (<200) 01/27/18 05:45 LDL Cholesterol Direct 37 mg/dL (75-193) L 01/27/18 05:45 HDL Cholesterol 32 mg/dL (23-92) 01/27/18 05:45 Urine Source RANDOM 02/02/18 22:00 Urine Color YELLOW 02/02/18 22:00 Urine Clarity CLEAR (CLEAR) 02/02/18 22:00 Urine pH 6.0 (4.6 - 8.0) 02/02/18 22:00 Ur Specific [place] <= 1.005 (1.005-1.030) 02/02/18 22:00 Urine Protein NEGATIVE mg/dL (NEGATIVE) 02/02/18 22:00 Urine Glucose (UA) NEGATIVE mg/dL (NEGATIVE) 02/02/18 22:00 Urine Ketones NEGATIVE mg/dL (NEGATIVE) 02/02/18 22:00 Urine Blood MODERATE (NEGATIVE) H 02/02/18 22:00 Urine Nitrate NEGATIVE (NEGATIVE) 02/02/18 22:00 Urine Bilirubin NEGATIVE (NEGATIVE) 02/02/18 22:00 Urine Urobilinogen 0.2 E.U./dL (0.2 - 1.0) 02/02/18 22:00 Ur Leukocyte Esterase NEGATIVE (NEGATIVE) 02/02/18 22:00 Urine RBC 5-10 /hpf (0-5) H 02/02/18 22:00 Urine WBC 0-2 /hpf (0-5) 02/02/18 22:00 Ur Epithelial Cells OCCASIONAL /lpf (FEW) 02/02/18 22:00 Urine Bacteria FEW /hpf (NONE SEEN) 02/02/18 22:00 Ur Random Sodium 94 mmol/L 02/02/18 22:00 Urine Creatinine 25.0 mg/dl (39.0-259.0) L 02/02/18 22:00 Vancomycin Trough 28.2 ug/mL (5-10) H 01/25/18 09:00 Random Vancomycin 30.6 ug/mL (5.0-40.0) 01/26/18 06:00 - Physical Exam Vitals and I&O: Vital Signs Temp 98.3 F 02/03/18 07:55 Pulse 85 02/03/18 08:20 Resp 18 02/03/18 08:20 BP 129/73 02/03/18 07:55 Pulse Ox 96 02/03/18 08:20 Intake & Output 02/02/18 02/03/18 02/03/18 18:59 06:59 18:59 Intake Total 1450 700 Output Total 1050 2400 Balance 400 -1700 Weight (lbs) 92.306 kg 92.079 kg Intake: Intake, IV Amount 100 100 metroNIDAZOLE 500mg/NS 100 100 100mL 500 mg In 100 ml @ 100 mls/hr IV Q12H [facility]E Rx #:[id number] Oral 1350 600 Output: Urine 1050 2400 Other: # Bowel Movements 1 Stool Characteristics Soft Liquid Brown Green Weight Source Bedscale Bedscale Active Medications: Current Medications Acetaminophen (Tylenol) 650 mg PO Q6H PRN PRN Reason: HEADACHE/TEMP ABOVE 100F Stop: 03/21/18 19:07 Last Admin: 01/20/18 23:17 Dose: 650 mg Acetaminophen/Hydrocodone Bitart ([place] 10 Mg/325 Mg) 1 tab PO Q6H PRN PRN Reason: mod pain Stop: 03/22/18 10:31 Last Admin: 01/30/18 22:55 Dose: 1 tab Acetaminophen/Hydrocodone Bitart ([place] 10 Mg/325 Mg) 1 tab PO Q4H PRN PRN Reason: Pain (Severe) Stop: 03/31/18 21:39 Albuterol/Ipratropium (Duoneb Neb) 3 ml HHN Q4HRT [facility] Stop: 03/21/18 19:59 Last Admin: 02/03/18 07:42 Dose: 3 ml Amiodarone HCl (Cordarone) 100 mg GT DAILY [facility] Stop: 03/22/18 08:59 Last Admin: 02/02/18 09:19 Dose: 100 mg Amlodipine Besylate (Norvasc) 10 mg GT DAILY [facility] Stop: 03/22/18 08:59 Last Admin: 02/02/18 09:20 Dose: 10 mg Aspirin (Aspirin Chewable) 81 mg GT DAILY [facility] Stop: 03/22/18 08:59 Last Admin: 02/02/18 09:18 Dose: 81 mg Atorvastatin Calcium (Lipitor) 40 mg GT HS [facility] Stop: 03/25/18 20:59 Last Admin: 02/02/18 21:07 Dose: 40 mg Diphenhydramine HCl (Benadryl 50 Mg/Ml) 50 mg IVP Q8H PRN PRN Reason: rash, itchiness Stop: 03/30/18 08:49 Docusate Sodium (Colace) 100 mg PO BID PRN PRN Reason: Constipation Stop: 03/21/18 19:07 Last Admin: 02/01/18 10:25 Dose: 100 mg Famotidine (Pepcid) 40 mg PO DAILY [facility] Stop: 03/30/18 08:59 Last Admin: 02/02/18 09:20 Dose: 40 mg Hydromorphone HCl (Dilaudid) 4 mg IVP Q4HR PRN PRN Reason: Severe Pain Stop: 03/29/18 12:35 Last Admin: 02/03/18 01:28 Dose: 4 mg Magnesium Sulfate (Magnesium Sulfate Premix) 2 gm in 50 mls @ 25 mls/hr IV DAILY PRN PRN Reason: Magnesium level less than 1.6 Stop: 03/21/18 19:07 Metronidazole (Flagyl) 500 mg in 100 mls @ 100 mls/hr IV Q12H [facility] Stop: 03/27/18 14:59 Last Infusion: 02/03/18 03:10 Dose: Infused Ceftriaxone Sodium 1 gm/ (Dextrose) 50 mls @ 100 mls/hr IV Q24H [facility] Stop: 03/30/18 14:59 Last Admin: 02/02/18 14:26 Dose: 100 mls/hr Potassium Chloride/Dextrose (D5w W/20 Meq Kcl) 1,000 mls @ 100 mls/hr IV .Q10H [facility] Stop: 04/04/18 09:43 Lactobacillus Rhamnosus (Culturelle 15b) 1 each PO DAILY [facility] Stop: 03/23/18 08:59 Last Admin: 02/02/18 09:18 Dose: 1 each Lorazepam (Ativan) 1 mg IVP Q4H PRN; Protocol PRN Reason: Anxiety Stop: 03/21/18 19:07 Last Admin: 02/02/18 02:03 Dose: 1 mg Lorazepam (Ativan) 1 mg PO Q6H PRN; Protocol PRN Reason: Agitation Stop: 03/31/18 21:43 Last Admin: 02/01/18 10:25 Dose: 1 mg Magnesium Oxide (Mag-Oxide) 400 mg PO BID PRN PRN Reason: Mg less than 1.9 Stop: 03/21/18 19:07 Metoprolol Tartrate (Lopressor) 50 mg GT Q8H [facility] Stop: 03/21/18 19:14 Last Admin: 02/03/18 04:14 Dose: Not Given Miscellaneous (Probiotic Screen) 1 ea MC PRN PRN PRN Reason: PROTOCOL Stop: 03/22/18 09:59 Mupirocin (Bactroban Oint) 1 appl NS BID [facility] Stop: 02/03/18 17:01 Last Admin: 02/02/18 17:21 Dose: 1 appl Ondansetron HCl (Zofran) 4 mg IV Q4H PRN PRN Reason: Nausea / Vomiting Stop: 03/27/18 09:59 Last Admin: 02/02/18 17:20 Dose: 4 mg Potassium Chloride (Klor-Con) 40 meq PO DAILY PRN PRN Reason: k level less than 3.5 Stop: 03/21/18 19:07 Last Admin: 02/02/18 09:20 Dose: 40 meq Simethicone (Mylicon) 80 mg PO Q8H [facility] Stop: 03/27/18 10:14 Last Admin: 02/03/18 04:13 Dose: Not Given Tamsulosin HCl (Flomax) 0.4 mg PO HS [facility] Stop: 03/25/18 20:59 Last Admin: 02/02/18 21:07 Dose: 0.4 mg Tamsulosin HCl (Flomax) 0.4 mg PO DAILY [facility] Stop: 03/28/18 08:59 Last Admin: 02/02/18 09:20 Dose: 0.4 mg Zolpidem Tartrate (Ambien) 10 mg PO HS PRN PRN Reason: Insomnia Stop: 03/21/18 19:07 Last Admin: 02/03/18 01:30 Dose: 10 mg General: Alert, Cooperative, Other (acutely confused, AAO 2) HEENT: Atraumatic, PERRLA, EOMI Neck: Supple, no JVD Cardiovascular: Regular rate Lungs: Other (has rales and congestion) Abdomen: Bowel sounds, Soft, Tender Extremities: Other (right upper extremity +3 edema), no Cyanosis Neurological: Normal speech Skin: no Rash - Procedures Procedures: Procedures Procedure Code Date INSPECTION OF GALLBLADDER, PERCUTANEOUS ENDOSCOPIC APPROACH [id number] 01/20/18 RELEASE OMENTUM, OPEN APPROACH [id number] 01/20/18 RESECTION OF GALLBLADDER, OPEN APPROACH [id number] 01/20/18 Assessment/Plan - Problem List Patient Problems: All Active Problems GASTRIC TUBE AND CORAL REMOVAL (Acute) - Assessment Assessment: Assessment: SARAH due to ATN with previous dialysis status, improving Hypernatremia cholecystitis s/p open cholecystectomy hx aortic dissection with tamponade s/p surgical repair aspiration PNA AMS - Plan Plan: Plan: NO ACUTE INDICATION TO RE-INITIATE HD SARAH CONTINUES TO IMPROVE CONTINUE IVF, BUT CHANGE TO D5W +20KCL REPEAT BMP THIS AFTERNOON TO MONITOR CONTINUE ABX PLAN D/W PATIENT Nutritional Asmnt/Malnutr-PDOC - Dietary Evaluation Malnutrition Findings (Please click <Entered> for more info): Nutritional Asmnt/Malnutrition Start: 01/24/18 17: 29 Text: Status: Complete Freq: Protocol: Document 01/24/18 17:29 LCHENG (Rec: 01/24/18 17:38 LCHENG [email or web address]) Nutritional Asmnt/Malnutrition Patient General Information Nutritional Screening Moderate Risk Diagnosis aspiration PNA Pertinent Medical Hx/Surgical Hx cardiac tampondade s/p surgery , aortic dissection, Gtube ( now removed) Subjective Information Per H&P pt had Gtube removed and started oral diet for about one month. Pt stated he still have some stomach issue, vomiting. Pt consumed cream of wheat and ceream for breakfast this morning, not very comfortable with solid food at this time.Per nurse note, pt had loose stool last night. Per EMR, PO intake 50- 75%. Current Diet Order/ Nutrition Support cardiac Pertinent Medications colace, culturelle, zofran, piperacillin, vancomycin Pertinent Labs 01/24 cl 108, glucose 76 01/20 A1c 4.9 Nutritional Hx/Data Height 1.91 m Height (Calculated Centimeters) 190.5 Current Weight (lbs) 92.079 kg Weight (Calculated Kilograms) 92.1 Weight (Calculated Grams) 29845.3 [place] Body Weight 196 Body Mass Index (BMI) 25.3 Weight Status Overweight GI Symptoms GI Symptoms None Last BM 01/24 Difficult in: None Skin Integrity/Comment: intact Current %PO Fair (50-74%) Estimated Nutritional Goals BEE in Kcals: Using Current wt Calories/Kcals/Kg 25-30 Kcals Calculated 9065-9688 Protein: Using Current wt Protein g/k Protein Calculated 92 Fluid: ml 2300-2760ml (1ml/kcal) Nutritional Problem No current Nutrition Prob Problem N/A Malnutrition Alert Is there a minimum of two criteria No selected? Query Text:Check all the applicable criteria. A minimum of two criteria are recommended for diagnosis of either severe or non-severe malnutrition. Malnutrition Related to Morbid Obesity Malnutrition related to morbid obesity No Intervention/Recommendation Comments 1. Continue with current diet as ordered. Offered food alternatives if pt not able to take his meals. 2. Monitor PO intake, GI function, wt, labs and skin integrity 3. F/U as moderate risk in 3-5 days, 01/27-01/29 Expected Outcomes/Goals Expected Outcomes/Goals 1. PO intake to meet at least 75% of nutritional needs. 2. Wt stability, GI function to improve, skin to remain intact, labs to approach WNL.
--- NOTE | 2018-02-03 10:24 | General Progress Note ---
Subjective - Review of Systems Service Date: 02/03/18 Events since last encounter: Pt seen and eval. Has some congestion. No fevers or chills. Now on Rocephin and Flagyl. Seen by ID, Cardio, and Sx. Status post removal of Perm-A-Cath and GT by Dr. Parks on 01/22/18. No n,v,d or cp. Feels weak. WBC improved now. He's now on Rocephin and Flagyl per ID. Rash has resolved. Pt is POD #5 for open cholecystectomy on 01/28/18. Pt refused US of UE on 01/31/18. Did it again on 02/01/18. Awaiting results. Pt has been confused for the last 3-4 days, but improved today. He remembers his sisters name, etc. US right UE was negative. WBC trending downwards. [place] eval is pending. Subjective: The patient is resting complained bed. He does not appear to be in any acute pain or distress. Denies fevers and chills. The patient is acutely altered and is alert and oriented only to self and time. Objective - Results Result Diagrams: 02/03/18 05:00 02/03/18 05:00 Recent Labs: Laboratory Last Values WBC 18.3 Th/cmm (4.8-10.8) H 02/03/18 05:00 Corrected WBC (auto) Th/cmm 02/01/18 05:52 RBC 3.05 Mil/cmm (4.30-5.70) L 02/03/18 05:00 Hgb 9.1 gm/dL (12-16) L 02/03/18 05:00 Hct 27.4 % (41.0-60) L 02/03/18 05:00 MCV 89.7 fl (80-99) 02/03/18 05:00 MCH 29.9 pg (26.0-30.0) 02/03/18 05:00 MCHC Differential 33.3 pg (28.0-36.0) 02/03/18 05:00 RDW 16.2 % (11.5-20.0) 02/03/18 05:00 Plt Count 257 Th/cmm (150-400) 02/03/18 05:00 MPV 8.8 fl 02/03/18 05:00 Neutrophils % 86.7 % (40.0-80.0) H 02/03/18 05:00 Band Neutrophils % 0 % (0-10) 02/02/18 06:00 Lymphocytes % 3.4 % (20.0-50.0) L 02/03/18 05:00 Monocytes % 9.0 % (2.0-10.0) 02/03/18 05:00 Eosinophils % 0.9 % (0.0-5.0) 02/03/18 05:00 Basophils % 0.0 % (0.0-2.0) 02/03/18 05:00 Neutrophils (Manual) 90 % (40-80) H 02/02/18 06:00 Lymphocytes 3 % (20-50) L 02/02/18 06:00 Monocytes 7 % (2-10) 02/02/18 06:00 Eosinophils 0 % (0-5) 02/02/18 06:00 Basophils 0 % (0-3) 02/02/18 06:00 Platelet Estimate ADEQUATE (NORMAL) 02/01/18 05:52 Poikilocytosis 1+ 01/25/18 05:57 Anisocytosis 1+ 01/25/18 05:57 PT 17.8 SECONDS (9.5-11.5) H 01/28/18 04:20 INR 1.66 (0.5-1.4) H 01/28/18 04:20 PTT (Actin FS) 45.6 SECONDS (26.0-38.0) H 01/28/18 04:20 Plt Function Studies 106 01/28/18 08:05 Specimen Source Arterial 01/31/18 11:10 Sample Site Left Radial 01/31/18 11:10 pH 7.42 (7.35-7.45) 01/31/18 11:10 pCO2 32.0 mmHg (35.0-45.0) L 01/31/18 11:10 pO2 62.0 mmHg (80.0-100.0) L 01/31/18 11:10 HCO3 22.5 mEq/L (20.0-26.0) 01/31/18 11:10 Base Excess -2.9 mEq/L (-3.0-3.0) 01/31/18 11:10 O2 Saturation 92.0 % (92.0-100.0) 01/31/18 11:10 Zac Test YES 01/31/18 11:10 Vent Rate NA 01/31/18 11:10 Inspired O2 21 01/31/18 11:10 Tidal Volume NA 01/31/18 11:10 PEEP NA 01/31/18 11:10 Pressure (ins/psv/peep) NA 01/31/18 11:10 Critical Value E.MATHWE 01/31/18 11:10 Sodium 149 mEq/L (136-145) H 02/03/18 05:00 Potassium 3.0 mEq/L (3.5-5.1) L 02/03/18 05:00 Chloride 116 mEq/L (98-107) H 02/03/18 05:00 Carbon Dioxide 24.0 mEq/L (21.0-31.0) 02/03/18 05:00 Anion Gap 12.0 (7.0-16.0) 02/03/18 05:00 BUN 24 mg/dL (7-25) 02/03/18 05:00 Creatinine 2.2 mg/dL (0.7-1.3) H 02/03/18 05:00 Est GFR ( Amer) 39.3 ml/min (>90) 02/03/18 05:00 Est GFR (Non-Af Amer) 32.5 ml/min 02/03/18 05:00 BUN/Creatinine Ratio 10.9 02/03/18 05:00 Glucose 135 mg/dL (70-105) H 02/03/18 05:00 POC Glucose 87 MG/DL (70 - 105) 01/28/18 05:32 Hemoglobin A1c % 4.9 % (4.0-6.0) 01/20/18 16:40 Whole Bld Lactic Acid 1.32 mmol/L (0.60-1.99) 01/20/18 16:40 Uric Acid 8.7 mg/dL (4.4-7.6) H 01/31/18 05:30 Calcium 8.1 mg/dL (8.6-10.3) L 02/03/18 05:00 Total Bilirubin 0.5 mg/dL (0.3-1.0) 02/03/18 05:00 AST 18 U/L (13-39) 02/03/18 05:00 ALT 11 U/L (7-52) 02/03/18 05:00 Alkaline Phosphatase 95 U/L (34-104) 02/03/18 05:00 Ammonia 53 umol/L (16-53) 01/31/18 15:32 Creatine Kinase 32 U/L (30-223) 01/20/18 16:40 Troponin I 0.01 ng/mL (0.01-0.05) 01/20/18 16:40 Total Protein 5.7 gm/dL (6.0-8.3) L 02/03/18 05:00 Albumin 2.7 gm/dL (4.2-5.5) L 02/03/18 05:00 Globulin 3.0 gm/dL 02/03/18 05:00 Albumin/Globulin Ratio 0.9 (1.0-1.8) L 02/03/18 05:00 Triglycerides 69 mg/dL (<150) 01/27/18 05:45 Cholesterol 79 mg/dL (<200) 01/27/18 05:45 LDL Cholesterol Direct 37 mg/dL (75-193) L 01/27/18 05:45 HDL Cholesterol 32 mg/dL (23-92) 01/27/18 05:45 Urine Source RANDOM 02/02/18 22:00 Urine Color YELLOW 02/02/18 22:00 Urine Clarity CLEAR (CLEAR) 02/02/18 22:00 Urine pH 6.0 (4.6 - 8.0) 02/02/18 22:00 Ur Specific [place] <= 1.005 (1.005-1.030) 02/02/18 22:00 Urine Protein NEGATIVE mg/dL (NEGATIVE) 02/02/18 22:00 Urine Glucose (UA) NEGATIVE mg/dL (NEGATIVE) 02/02/18 22:00 Urine Ketones NEGATIVE mg/dL (NEGATIVE) 02/02/18 22:00 Urine Blood MODERATE (NEGATIVE) H 02/02/18 22:00 Urine Nitrate NEGATIVE (NEGATIVE) 02/02/18 22:00 Urine Bilirubin NEGATIVE (NEGATIVE) 02/02/18 22:00 Urine Urobilinogen 0.2 E.U./dL (0.2 - 1.0) 02/02/18 22:00 Ur Leukocyte Esterase NEGATIVE (NEGATIVE) 02/02/18 22:00 Urine RBC 5-10 /hpf (0-5) H 02/02/18 22:00 Urine WBC 0-2 /hpf (0-5) 02/02/18 22:00 Ur Epithelial Cells OCCASIONAL /lpf (FEW) 02/02/18 22:00 Urine Bacteria FEW /hpf (NONE SEEN) 02/02/18 22:00 Ur Random Sodium 94 mmol/L 02/02/18 22:00 Urine Creatinine 25.0 mg/dl (39.0-259.0) L 02/02/18 22:00 Vancomycin Trough 28.2 ug/mL (5-10) H 01/25/18 09:00 Random Vancomycin 30.6 ug/mL (5.0-40.0) 01/26/18 06:00 - Physical Exam Vitals and I&O: Vital Signs Temp 98.3 F 02/03/18 07:55 Pulse 85 02/03/18 08:20 Resp 18 02/03/18 08:20 BP 129/73 02/03/18 07:55 Pulse Ox 96 02/03/18 08:20 Intake & Output 02/02/18 02/03/18 02/03/18 18:59 06:59 18:59 Intake Total 1450 700 Output Total 1050 2400 Balance 400 -1700 Weight (lbs) 92.306 kg 92.079 kg Intake: Intake, IV Amount 100 100 metroNIDAZOLE 500mg/NS 100 100 100mL 500 mg In 100 ml @ 100 mls/hr IV Q12H [facility] Rx #:[id number] Oral 1350 600 Output: Urine 1050 2400 Other: # Bowel Movements 1 Stool Characteristics Soft Liquid Brown Green Weight Source Bedscale Bedscale Active Medications: Current Medications Acetaminophen (Tylenol) 650 mg PO Q6H PRN PRN Reason: HEADACHE/TEMP ABOVE 100F Stop: 03/21/18 19:07 Last Admin: 01/20/18 23:17 Dose: 650 mg Acetaminophen/Hydrocodone Bitart ([place] 10 Mg/325 Mg) 1 tab PO Q6H PRN PRN Reason: mod pain Stop: 03/22/18 10:31 Last Admin: 01/30/18 22:55 Dose: 1 tab Acetaminophen/Hydrocodone Bitart ([place] 10 Mg/325 Mg) 1 tab PO Q4H PRN PRN Reason: Pain (Severe) Stop: 03/31/18 21:39 Albuterol/Ipratropium (Duoneb Neb) 3 ml HHN Q4HRT [facility] Stop: 03/21/18 19:59 Last Admin: 02/03/18 07:42 Dose: 3 ml Amiodarone HCl (Cordarone) 100 mg GT DAILY [facility] Stop: 03/22/18 08:59 Last Admin: 02/02/18 09:19 Dose: 100 mg Amlodipine Besylate (Norvasc) 10 mg GT DAILY [facility] Stop: 03/22/18 08:59 Last Admin: 02/02/18 09:20 Dose: 10 mg Aspirin (Aspirin Chewable) 81 mg GT DAILY [facility] Stop: 03/22/18 08:59 Last Admin: 02/02/18 09:18 Dose: 81 mg Atorvastatin Calcium (Lipitor) 40 mg GT HS [facility] Stop: 03/25/18 20:59 Last Admin: 02/02/18 21:07 Dose: 40 mg Diphenhydramine HCl (Benadryl 50 Mg/Ml) 50 mg IVP Q8H PRN PRN Reason: rash, itchiness Stop: 03/30/18 08:49 Docusate Sodium (Colace) 100 mg PO BID PRN PRN Reason: Constipation Stop: 03/21/18 19:07 Last Admin: 02/01/18 10:25 Dose: 100 mg Famotidine (Pepcid) 40 mg PO DAILY [facility] Stop: 03/30/18 08:59 Last Admin: 02/02/18 09:20 Dose: 40 mg Hydromorphone HCl (Dilaudid) 4 mg IVP Q4HR PRN PRN Reason: Severe Pain Stop: 03/29/18 12:35 Last Admin: 02/03/18 01:28 Dose: 4 mg Magnesium Sulfate (Magnesium Sulfate Premix) 2 gm in 50 mls @ 25 mls/hr IV DAILY PRN PRN Reason: Magnesium level less than 1.6 Stop: 03/21/18 19:07 Metronidazole (Flagyl) 500 mg in 100 mls @ 100 mls/hr IV Q12H [facility] Stop: 03/27/18 14:59 Last Infusion: 02/03/18 03:10 Dose: Infused Ceftriaxone Sodium 1 gm/ (Dextrose) 50 mls @ 100 mls/hr IV Q24H [facility] Stop: 03/30/18 14:59 Last Admin: 02/02/18 14:26 Dose: 100 mls/hr Potassium Chloride/Dextrose (D5w W/20 Meq Kcl) 1,000 mls @ 100 mls/hr IV .Q10H [facility] Stop: 04/04/18 09:43 Lactobacillus Rhamnosus (Culturelle 15b) 1 each PO DAILY [facility] Stop: 03/23/18 08:59 Last Admin: 02/02/18 09:18 Dose: 1 each Lorazepam (Ativan) 1 mg IVP Q4H PRN; Protocol PRN Reason: Anxiety Stop: 03/21/18 19:07 Last Admin: 02/02/18 02:03 Dose: 1 mg Lorazepam (Ativan) 1 mg PO Q6H PRN; Protocol PRN Reason: Agitation Stop: 03/31/18 21:43 Last Admin: 02/01/18 10:25 Dose: 1 mg Magnesium Oxide (Mag-Oxide) 400 mg PO BID PRN PRN Reason: Mg less than 1.9 Stop: 03/21/18 19:07 Metoprolol Tartrate (Lopressor) 50 mg GT Q8H [facility] Stop: 03/21/18 19:14 Last Admin: 02/03/18 04:14 Dose: Not Given Miscellaneous (Probiotic Screen) 1 ea MC PRN PRN PRN Reason: PROTOCOL Stop: 03/22/18 09:59 Mupirocin (Bactroban Oint) 1 appl NS BID [facility] Stop: 02/03/18 17:01 Last Admin: 02/02/18 17:21 Dose: 1 appl Ondansetron HCl (Zofran) 4 mg IV Q4H PRN PRN Reason: Nausea / Vomiting Stop: 03/27/18 09:59 Last Admin: 02/02/18 17:20 Dose: 4 mg Potassium Chloride (Klor-Con) 40 meq PO DAILY PRN PRN Reason: k level less than 3.5 Stop: 03/21/18 19:07 Last Admin: 02/02/18 09:20 Dose: 40 meq Simethicone (Mylicon) 80 mg PO Q8H [facility] Stop: 03/27/18 10:14 Last Admin: 02/03/18 04:13 Dose: Not Given Tamsulosin HCl (Flomax) 0.4 mg PO HS [facility] Stop: 03/25/18 20:59 Last Admin: 02/02/18 21:07 Dose: 0.4 mg Tamsulosin HCl (Flomax) 0.4 mg PO DAILY [facility] Stop: 03/28/18 08:59 Last Admin: 02/02/18 09:20 Dose: 0.4 mg Zolpidem Tartrate (Ambien) 10 mg PO HS PRN PRN Reason: Insomnia Stop: 03/21/18 19:07 Last Admin: 02/03/18 01:30 Dose: 10 mg General: Alert, Cooperative, Other (acutely confused, AAO 2) HEENT: Atraumatic, PERRLA, EOMI Neck: Supple, no JVD Cardiovascular: Regular rate Lungs: Other (has rales and congestion) Abdomen: Bowel sounds, Soft, Tender, Other (surgical incision is intact) Extremities: Other (right upper extremity +3 edema), no Cyanosis Neurological: Normal speech Skin: no Rash - Procedures Procedures: Procedures Procedure Code Date INSPECTION OF GALLBLADDER, PERCUTANEOUS ENDOSCOPIC APPROACH [id number] 01/20/18 RELEASE OMENTUM, OPEN APPROACH [id number] 01/20/18 RESECTION OF GALLBLADDER, OPEN APPROACH [id number] 01/20/18 Assessment/Plan - Problem List Patient Problems: All Active Problems GASTRIC TUBE AND CORAL REMOVAL (Acute) - Assessment Assessment: status post open cholecystectomy Right upper extremity edema. Sepsis Asp PNA Hypokalemia Hx of RUE DVT (now resolved) Dysphagia (resolved) A Fib Anemia of Ch Ill Severe malnutrition Hyponatremia Hx of Aortic Dissection and Cardiac Tamponade-s/[facility] - Plan Plan: SP open cholecystectomy Pt's venous doppler US or LE and UE is negative. Warfarin held by Cardio in light of procedures scheduled on 01/22/18. Dr. Parks removed GT and Perm-A-Cath on 01/22/18. On tele. FU on cbc and chem 7. WBC improved now. He's now on Rocephin and Flagyl per ID. Rash has resolved. Pt is POD #5 for open cholecystectomy on 01/28/18. Pt refused US of UE on 01/31/18. Did it again on 02/01/18. Awaiting results. Pt has been confused for the last 3-4 days, but improved today. He remembers his sisters name, etc. Nephro consult for hypernatremia. He's on iv half NS. [place] eval is pending. WBC trending downwards. US right UE was negative Nutritional Asmnt/Malnutr-PDOC - Dietary Evaluation Malnutrition Findings (Please click <Entered> for more info): Nutritional Asmnt/Malnutrition Start: 01/24/18 17: 29 Text: Status: Complete Freq: Protocol: Document 01/24/18 17:29 LCHENG (Rec: 01/24/18 17:38 [id number] Nutritional Asmnt/Malnutrition Patient General Information Nutritional Screening Moderate Risk Diagnosis aspiration PNA Pertinent Medical Hx/Surgical Hx cardiac tampondade s/p surgery , aortic dissection, Gtube ( now removed) Subjective Information Per H&P pt had Gtube removed and started oral diet for about one month. Pt stated he still have some stomach issue, vomiting. Pt consumed cream of wheat and ceream for breakfast this morning, not very comfortable with solid food at this time.Per nurse note, pt had loose stool last night. Per EMR, PO intake 50- 75%. Current Diet Order/ Nutrition Support cardiac Pertinent Medications colace, culturelle, zofran, piperacillin, vancomycin Pertinent Labs 01/24 cl 108, glucose 76 01/20 A1c 4.9 Nutritional Hx/Data Height 1.91 m Height (Calculated Centimeters) 190.5 Current Weight (lbs) 92.079 kg Weight (Calculated Kilograms) 92.1 Weight (Calculated Grams) 58878.3 [place] Body Weight 196 Body Mass Index (BMI) 25.3 Weight Status Overweight GI Symptoms GI Symptoms None Last BM 01/24 Difficult in: None Skin Integrity/Comment: intact Current %PO Fair (50-74%) Estimated Nutritional Goals BEE in Kcals: Using Current wt Calories/Kcals/Kg 25-30 Kcals Calculated 3702-5008 Protein: Using Current wt Protein g/k Protein Calculated 92 Fluid: ml 2300-2760ml (1ml/kcal) Nutritional Problem No current Nutrition Prob Problem N/A Malnutrition Alert Is there a minimum of two criteria No selected? Query Text:Check all the applicable criteria. A minimum of two criteria are recommended for diagnosis of either severe or non-severe malnutrition. Malnutrition Related to Morbid Obesity Malnutrition related to morbid obesity No Intervention/Recommendation Comments 1. Continue with current diet as ordered. Offered food alternatives if pt not able to take his meals. 2. Monitor PO intake, GI function, wt, labs and skin integrity 3. F/U as moderate risk in 3-5 days, 01/27-01/29 Expected Outcomes/Goals Expected Outcomes/Goals 1. PO intake to meet at least 75% of nutritional needs. 2. Wt stability, GI function to improve, skin to remain intact, labs to approach WNL.
[2018-02-03] MEDS: Hydrocodone/APAP 10 mg/325 mg Tab PO PRN (10:41)
[2018-02-03] MEDS: Lactobacillus Rhamnosus GG 15 Billion CFU CAP.SPRINK PO SCH (10:41)
[2018-02-03] MEDS: Aspirin 81mg Chewable Tab GT SCH (10:42)
[2018-02-03] MEDS: Potassium Chloride 20 mEq ER Tab PO PRN (10:43)
[2018-02-03] MEDS: D5W w/20 mEq KCL 1,000 ML IV SCH (12:14)
[2018-02-03] MEDS ORDERED: Potassium Chloride 20 mEq ER Tab PO ONE (12:24)
[2018-02-03 15:45] LABS: ALB/GLOB RATIO 0.9 (1.0-1.8); ALBUMIN 2.7 gm/dL (4.2-5.5); ANION GAP 13.4 (7.0-16.0); BILIRUBIN,TOTAL 0.5 mg/dL (0.3-1.0); CALCIUM SERUM 7.8 mg/dL (8.6-10.3); CARBON DIOXIDE 20.3 mEq/L (21.0-31.0); GFR AFRICAN-AMERICAN 43.9 ml/min (>90); GFR NON AFRICAN-AMERICAN 36.3 ml/min; POTASSIUM SERUM 3.7 mEq/L (3.5-5.1); TOTAL PROTEIN,SERUM 5.8 gm/dL (6.0-8.3)
--- NOTE | 2018-02-03 18:25 | Infectious Disease Prog Note ---
Infectious Disease Subjective - Review of Systems Service Date: 02/03/18 Subjective: no fever. No abdominal pain. Passing BM. Infectious Disease Objective - Results Result Diagrams: 02/03/18 05:00 02/03/18 15:00 Recent Labs: Laboratory Last Values WBC 18.3 Th/cmm (4.8-10.8) H 02/03/18 05:00 Corrected WBC (auto) Th/cmm 02/01/18 05:52 RBC 3.05 Mil/cmm (4.30-5.70) L 02/03/18 05:00 Hgb 9.1 gm/dL (12-16) L 02/03/18 05:00 Hct 27.4 % (41.0-60) L 02/03/18 05:00 MCV 89.7 fl (80-99) 02/03/18 05:00 MCH 29.9 pg (26.0-30.0) 02/03/18 05:00 MCHC Differential 33.3 pg (28.0-36.0) 02/03/18 05:00 RDW 16.2 % (11.5-20.0) 02/03/18 05:00 Plt Count 257 Th/cmm (150-400) 02/03/18 05:00 MPV 8.8 fl 02/03/18 05:00 Neutrophils % 86.7 % (40.0-80.0) H 02/03/18 05:00 Band Neutrophils % 0 % (0-10) 02/02/18 06:00 Lymphocytes % 3.4 % (20.0-50.0) L 02/03/18 05:00 Monocytes % 9.0 % (2.0-10.0) 02/03/18 05:00 Eosinophils % 0.9 % (0.0-5.0) 02/03/18 05:00 Basophils % 0.0 % (0.0-2.0) 02/03/18 05:00 Neutrophils (Manual) 90 % (40-80) H 02/02/18 06:00 Lymphocytes 3 % (20-50) L 02/02/18 06:00 Monocytes 7 % (2-10) 02/02/18 06:00 Eosinophils 0 % (0-5) 02/02/18 06:00 Basophils 0 % (0-3) 02/02/18 06:00 Platelet Estimate ADEQUATE (NORMAL) 02/01/18 05:52 Poikilocytosis 1+ 01/25/18 05:57 Anisocytosis 1+ 01/25/18 05:57 PT 17.8 SECONDS (9.5-11.5) H 01/28/18 04:20 INR 1.66 (0.5-1.4) H 01/28/18 04:20 PTT (Actin FS) 45.6 SECONDS (26.0-38.0) H 01/28/18 04:20 Plt Function Studies 106 01/28/18 08:05 Specimen Source Arterial 01/31/18 11:10 Sample Site Left Radial 01/31/18 11:10 pH 7.42 (7.35-7.45) 01/31/18 11:10 pCO2 32.0 mmHg (35.0-45.0) L 01/31/18 11:10 pO2 62.0 mmHg (80.0-100.0) L 01/31/18 11:10 HCO3 22.5 mEq/L (20.0-26.0) 01/31/18 11:10 Base Excess -2.9 mEq/L (-3.0-3.0) 01/31/18 11:10 O2 Saturation 92.0 % (92.0-100.0) 01/31/18 11:10 Zac Test YES 01/31/18 11:10 Vent Rate NA 01/31/18 11:10 Inspired O2 21 01/31/18 11:10 Tidal Volume NA 01/31/18 11:10 PEEP NA 01/31/18 11:10 Pressure (ins/psv/peep) NA 01/31/18 11:10 Critical Value E.MATHEW 01/31/18 11:10 Sodium 146 mEq/L (136-145) H 02/03/18 15:00 Potassium 3.7 mEq/L (3.5-5.1) 02/03/18 15:00 Chloride 116 mEq/L (98-107) H 02/03/18 15:00 Carbon Dioxide 20.3 mEq/L (21.0-31.0) L 02/03/18 15:00 Anion Gap 13.4 (7.0-16.0) 02/03/18 15:00 BUN 23 mg/dL (7-25) 02/03/18 15:00 Creatinine 2.0 mg/dL (0.7-1.3) H 02/03/18 15:00 Est GFR ( Amer) 43.9 ml/min (>90) 02/03/18 15:00 Est GFR (Non-Af Amer) 36.3 ml/min 02/03/18 15:00 BUN/Creatinine Ratio 11.5 02/03/18 15:00 Glucose 142 mg/dL (70-105) H 02/03/18 15:00 POC Glucose 87 MG/DL (70 - 105) 01/28/18 05:32 Hemoglobin A1c % 4.9 % (4.0-6.0) 01/20/18 16:40 Whole Bld Lactic Acid 1.32 mmol/L (0.60-1.99) 01/20/18 16:40 Uric Acid 8.7 mg/dL (4.4-7.6) H 01/31/18 05:30 Calcium 7.8 mg/dL (8.6-10.3) L 02/03/18 15:00 Total Bilirubin 0.5 mg/dL (0.3-1.0) 02/03/18 15:00 AST 33 U/L (13-39) 02/03/18 15:00 ALT 11 U/L (7-52) 02/03/18 15:00 Alkaline Phosphatase 112 U/L (34-104) H 02/03/18 15:00 Ammonia 53 umol/L (16-53) 01/31/18 15:32 Creatine Kinase 32 U/L (30-223) 01/20/18 16:40 Troponin I 0.01 ng/mL (0.01-0.05) 01/20/18 16:40 Total Protein 5.8 gm/dL (6.0-8.3) L 02/03/18 15:00 Albumin 2.7 gm/dL (4.2-5.5) L 02/03/18 15:00 Globulin 3.1 gm/dL 02/03/18 15:00 Albumin/Globulin Ratio 0.9 (1.0-1.8) L 02/03/18 15:00 Triglycerides 69 mg/dL (<150) 01/27/18 05:45 Cholesterol 79 mg/dL (<200) 01/27/18 05:45 LDL Cholesterol Direct 37 mg/dL (75-193) L 01/27/18 05:45 HDL Cholesterol 32 mg/dL (23-92) 01/27/18 05:45 Urine Source RANDOM 02/02/18 22:00 Urine Color YELLOW 02/02/18 22:00 Urine Clarity CLEAR (CLEAR) 02/02/18 22:00 Urine pH 6.0 (4.6 - 8.0) 02/02/18 22:00 Ur Specific [place] <= 1.005 (1.005-1.030) 02/02/18 22:00 Urine Protein NEGATIVE mg/dL (NEGATIVE) 02/02/18 22:00 Urine Glucose (UA) NEGATIVE mg/dL (NEGATIVE) 02/02/18 22:00 Urine Ketones NEGATIVE mg/dL (NEGATIVE) 02/02/18 22:00 Urine Blood MODERATE (NEGATIVE) H 02/02/18 22:00 Urine Nitrate NEGATIVE (NEGATIVE) 02/02/18 22:00 Urine Bilirubin NEGATIVE (NEGATIVE) 02/02/18 22:00 Urine Urobilinogen 0.2 E.U./dL (0.2 - 1.0) 02/02/18 22:00 Ur Leukocyte Esterase NEGATIVE (NEGATIVE) 02/02/18 22:00 Urine RBC 5-10 /hpf (0-5) H 02/02/18 22:00 Urine WBC 0-2 /hpf (0-5) 02/02/18 22:00 Ur Epithelial Cells OCCASIONAL /lpf (FEW) 02/02/18 22:00 Urine Bacteria FEW /hpf (NONE SEEN) 02/02/18 22:00 Ur Random Sodium 94 mmol/L 02/02/18 22:00 Urine Creatinine 25.0 mg/dl (39.0-259.0) L 02/02/18 22:00 Vancomycin Trough 28.2 ug/mL (5-10) H 01/25/18 09:00 Random Vancomycin 30.6 ug/mL (5.0-40.0) 01/26/18 06:00 - Physical Exam Vitals and I&O: Vital Signs Temp 98.1 F 02/03/18 15:24 Pulse 66 02/03/18 15:24 Resp 18 02/03/18 15:24 BP 128/84 02/03/18 15:24 Pulse Ox 98 02/03/18 15:24 Intake & Output 02/02/18 02/03/18 02/03/18 18:59 06:59 18:59 Intake Total 1450 700 310 Output Total 1050 2400 1801 Balance 400 -1700 -1491 Weight (lbs) 92.306 kg 92.079 kg 92.079 kg Intake: Intake, IV Amount 100 100 metroNIDAZOLE 500mg/NS 100 100 100mL 500 mg In 100 ml @ 100 mls/hr IV Q12H [facility] Rx #:[id number] Oral 1350 600 10 Tube Feeding 300 Output: Urine 1050 2400 1800 Stool 1 Other: # Bowel Movements 1 1 Stool Characteristics Soft Liquid Brown Green Weight Source Bedscale Bedscale Estimated Active Medications: Current Medications Acetaminophen (Tylenol) 650 mg PO Q6H PRN PRN Reason: HEADACHE/TEMP ABOVE 100F Stop: 03/21/18 19:07 Last Admin: 01/20/18 23:17 Dose: 650 mg Acetaminophen/Hydrocodone Bitart ([place] 10 Mg/325 Mg) 1 tab PO Q6H PRN PRN Reason: mild pain Stop: 03/22/18 10:31 Last Admin: 02/03/18 10:41 Dose: 1 tab Acetaminophen/Hydrocodone Bitart ([place] 10 Mg/325 Mg) 1 tab PO Q4H PRN PRN Reason: Pain (Moderate) Stop: 03/31/18 21:39 Albuterol/Ipratropium (Duoneb Neb) 3 ml HHN Q4HRT [facility] Stop: 03/21/18 19:59 Last Admin: 02/03/18 15:17 Dose: 3 ml Amiodarone HCl (Cordarone) 100 mg GT DAILY [facility] Stop: 03/22/18 08:59 Last Admin: 02/03/18 10:42 Dose: 100 mg Amlodipine Besylate (Norvasc) 10 mg GT DAILY [facility] Stop: 03/22/18 08:59 Last Admin: 02/03/18 11:15 Dose: 10 mg Aspirin (Aspirin Chewable) 81 mg GT DAILY [facility] Stop: 03/22/18 08:59 Last Admin: 02/03/18 10:42 Dose: 81 mg Atorvastatin Calcium (Lipitor) 40 mg GT HS [facility] Stop: 03/25/18 20:59 Last Admin: 02/02/18 21:07 Dose: 40 mg Diphenhydramine HCl (Benadryl 50 Mg/Ml) 50 mg IVP Q8H PRN PRN Reason: rash, itchiness Stop: 03/30/18 08:49 Docusate Sodium (Colace) 100 mg PO BID PRN PRN Reason: Constipation Stop: 03/21/18 19:07 Last Admin: 02/01/18 10:25 Dose: 100 mg Famotidine (Pepcid) 40 mg PO DAILY SH[facility]LENE Stop: 03/30/18 08:59 Last Admin: 02/03/18 10:42 Dose: 40 mg Hydromorphone HCl (Dilaudid) 4 mg IVP Q4HR PRN PRN Reason: Severe Pain Stop: 03/29/18 12:35 Last Admin: 02/03/18 13:02 Dose: 4 mg Magnesium Sulfate (Magnesium Sulfate Premix) 2 gm in 50 mls @ 25 mls/hr IV DAILY PRN PRN Reason: Magnesium level less than 1.6 Stop: 03/21/18 19:07 Metronidazole (Flagyl) 500 mg in 100 mls @ 100 mls/hr IV Q12H [facility]LENE Stop: 03/27/18 14:59 Last Infusion: 02/03/18 03:10 Dose: Infused Ceftriaxone Sodium 1 gm/ (Dextrose) 50 mls @ 100 mls/hr IV Q24H [facility] Stop: 03/30/18 14:59 Last Admin: 02/02/18 14:26 Dose: 100 mls/hr Potassium Chloride/Dextrose (D5w W/20 Meq Kcl) 1,000 mls @ 100 mls/hr IV .Q10H [facility] Stop: 04/04/18 09:43 Last Admin: 02/03/18 12:14 Dose: 100 mls/hr Lactobacillus Rhamnosus (Culturelle 15b) 1 each PO DAILY SHARLENE Stop: 03/23/18 08:59 Last Admin: 02/03/18 10:41 Dose: 1 each Lorazepam (Ativan) 1 mg IVP Q4H PRN; Protocol PRN Reason: Anxiety Stop: 03/21/18 19:07 Last Admin: 02/02/18 02:03 Dose: 1 mg Lorazepam (Ativan) 1 mg PO Q6H PRN; Protocol PRN Reason: Agitation Stop: 03/31/18 21:43 Last Admin: 02/01/18 10:25 Dose: 1 mg Magnesium Oxide (Mag-Oxide) 400 mg PO BID PRN PRN Reason: Mg less than 1.9 Stop: 03/21/18 19:07 Metoprolol Tartrate (Lopressor) 50 mg GT Q8H [facility] Stop: 03/21/18 19:14 Last Admin: 02/03/18 12:35 Dose: Not Given Miscellaneous (Probiotic Screen) 1 ea PRN PRN PRN Reason: PROTOCOL Stop: 03/22/18 09:59 Miscellaneous (Clinical Monitoring) 1 ea DAILY PRN PRN Reason: RENAL Stop: 04/04/18 16:38 Ondansetron HCl (Zofran) 4 mg IV Q4H PRN PRN Reason: Nausea / Vomiting Stop: 03/27/18 09:59 Last Admin: 02/02/18 17:20 Dose: 4 mg Potassium Chloride (Klor-Con) 40 meq PO DAILY PRN PRN Reason: k level less than 3.5 Stop: 03/21/18 19:07 Last Admin: 02/03/18 10:43 Dose: 40 meq Simethicone (Mylicon) 80 mg PO Q8H [facility] Stop: 03/27/18 10:14 Last Admin: 02/03/18 11:16 Dose: 80 mg Tamsulosin HCl (Flomax) 0.4 mg PO DAILY SHARLENE Stop: 03/28/18 08:59 Last Admin: 02/03/18 10:41 Dose: 0.4 mg Zolpidem Tartrate (Ambien) 10 mg PO HS PRN PRN Reason: Insomnia Stop: 03/21/18 19:07 Last Admin: 02/03/18 01:30 Dose: 10 mg General: no acute distress, well developed, well nourished HEENT: atraumatic, normocephalic, PERRLA Neck: supple, no thyromegaly Cardiovascular: S1S2, regular Lungs: clear to auscultation bilaterally, clear to percussion Abdomen: soft, other (surgical wound doing well.), no tender, no distended, no hepatomegaly Extremities: other (Right Heel ulcer.), no cyanosis, no clubbing, no edema Neurological: awake, alert, oriented - Procedures Procedures: Procedures Procedure Code Date INSPECTION OF GALLBLADDER, PERCUTANEOUS ENDOSCOPIC APPROACH [id number] 01/20/18 RELEASE OMENTUM, OPEN APPROACH [id number] 01/20/18 RESECTION OF GALLBLADDER, OPEN APPROACH [id number] 01/20/18 Infectious Disease Assmt/Plan - Problem List Patient Problems: All Active Problems GASTRIC TUBE AND CORAL REMOVAL (Acute) - Assessment Assessment: 1. Leukocytosis worse, most likely postsurgical. If WBC count remains elevated , we will consider indium scan. 2. Right lower lobe infiltrate, suspect aspiration pneumonia. 3. UTI. 4. MRSA colonization. 5. Hypertension. 6. Hyperlipidemia. 7. Aortic dissection, repair of aortic dissection at [facility]. 8. Acute kidney injury. Resolving. 9. Dysphagia resolved. He is taking his medication by mouth. 10. Vomiting. 11. Cholelithiasis. 12. Status post open cholecystectomy. - Plan Plan: Change flagyl 500 mg iv twice/day, Continue Rocephin for 6 days. Nutritional Asmnt/Malnutr-PDOC - Dietary Evaluation Malnutrition Findings (Please click <Entered> for more info): Nutritional Asmnt/Malnutrition Start: 01/24/18 17: 29 Text: Status: Complete Freq: Protocol: Document 01/24/18 17:29 LCHENG (Rec: 01/24/18 17:38 [email or web address]) Nutritional Asmnt/Malnutrition Patient General Information Nutritional Screening Moderate Risk Diagnosis aspiration PNA Pertinent Medical Hx/Surgical Hx cardiac tampondade s/p surgery , aortic dissection, Gtube ( now removed) Subjective Information Per H&P pt had Gtube removed and started oral diet for about one month. Pt stated he still have some stomach issue, vomiting. Pt consumed cream of wheat and ceream for breakfast this morning, not very comfortable with solid food at this time.Per nurse note, pt had loose stool last night. Per EMR, PO intake 50- 75%. Current Diet Order/ Nutrition Support cardiac Pertinent Medications colace, culturelle, zofran, piperacillin, vancomycin Pertinent Labs 01/24 cl 108, glucose 76 01/20 A1c 4.9 Nutritional Hx/Data Height 1.91 m Height (Calculated Centimeters) 190.5 Current Weight (lbs) 92.079 kg Weight (Calculated Kilograms) 92.1 Weight (Calculated Grams) 37215.3 Early Body Weight 196 Body Mass Index (BMI) 25.3 Weight Status Overweight GI Symptoms GI Symptoms None Last BM 01/24 Difficult in: None Skin Integrity/Comment: intact Current %PO Fair (50-74%) Estimated Nutritional Goals BEE in Kcals: Using Current wt Calories/Kcals/Kg 25-30 Kcals Calculated 9023-0716 Protein: Using Current wt Protein g/k Protein Calculated 92 Fluid: ml 2300-2760ml (1ml/kcal) Nutritional Problem No current Nutrition Prob Problem N/A Malnutrition Alert Is there a minimum of two criteria No selected? Query Text:Check all the applicable criteria. A minimum of two criteria are recommended for diagnosis of either severe or non-severe malnutrition. Malnutrition Related to Morbid Obesity Malnutrition related to morbid obesity No Intervention/Recommendation Comments 1. Continue with current diet as ordered. Offered food alternatives if pt not able to take his meals. 2. Monitor PO intake, GI function, wt, labs and skin integrity 3. F/U as moderate risk in 3-5 days, 01/27-01/29 Expected Outcomes/Goals Expected Outcomes/Goals 1. PO intake to meet at least 75% of nutritional needs. 2. Wt stability, GI function to improve, skin to remain intact, labs to approach WNL.
--- NOTE | 2018-02-03 18:31 | Infectious Disease Prog Note ---
Infectious Disease Subjective - Review of Systems Service Date: 02/03/18 Subjective: no fever. No abdominal pain. Passing BM. Infectious Disease Objective - Results Result Diagrams: 02/03/18 05:00 02/03/18 15:00 Recent Labs: Laboratory Last Values WBC 18.3 Th/cmm (4.8-10.8) H 02/03/18 05:00 Corrected WBC (auto) Th/cmm 02/01/18 05:52 RBC 3.05 Mil/cmm (4.30-5.70) L 02/03/18 05:00 Hgb 9.1 gm/dL (12-16) L 02/03/18 05:00 Hct 27.4 % (41.0-60) L 02/03/18 05:00 MCV 89.7 fl (80-99) 02/03/18 05:00 MCH 29.9 pg (26.0-30.0) 02/03/18 05:00 MCHC Differential 33.3 pg (28.0-36.0) 02/03/18 05:00 RDW 16.2 % (11.5-20.0) 02/03/18 05:00 Plt Count 257 Th/cmm (150-400) 02/03/18 05:00 MPV 8.8 fl 02/03/18 05:00 Neutrophils % 86.7 % (40.0-80.0) H 02/03/18 05:00 Band Neutrophils % 0 % (0-10) 02/02/18 06:00 Lymphocytes % 3.4 % (20.0-50.0) L 02/03/18 05:00 Monocytes % 9.0 % (2.0-10.0) 02/03/18 05:00 Eosinophils % 0.9 % (0.0-5.0) 02/03/18 05:00 Basophils % 0.0 % (0.0-2.0) 02/03/18 05:00 Neutrophils (Manual) 90 % (40-80) H 02/02/18 06:00 Lymphocytes 3 % (20-50) L 02/02/18 06:00 Monocytes 7 % (2-10) 02/02/18 06:00 Eosinophils 0 % (0-5) 02/02/18 06:00 Basophils 0 % (0-3) 02/02/18 06:00 Platelet Estimate ADEQUATE (NORMAL) 02/01/18 05:52 Poikilocytosis 1+ 01/25/18 05:57 Anisocytosis 1+ 01/25/18 05:57 PT 17.8 SECONDS (9.5-11.5) H 01/28/18 04:20 INR 1.66 (0.5-1.4) H 01/28/18 04:20 PTT (Actin FS) 45.6 SECONDS (26.0-38.0) H 01/28/18 04:20 Plt Function Studies 106 01/28/18 08:05 Specimen Source Arterial 01/31/18 11:10 Sample Site Left Radial 01/31/18 11:10 pH 7.42 (7.35-7.45) 01/31/18 11:10 pCO2 32.0 mmHg (35.0-45.0) L 01/31/18 11:10 pO2 62.0 mmHg (80.0-100.0) L 01/31/18 11:10 HCO3 22.5 mEq/L (20.0-26.0) 01/31/18 11:10 Base Excess -2.9 mEq/L (-3.0-3.0) 01/31/18 11:10 O2 Saturation 92.0 % (92.0-100.0) 01/31/18 11:10 Zac Test YES 01/31/18 11:10 Vent Rate NA 01/31/18 11:10 Inspired O2 21 01/31/18 11:10 Tidal Volume NA 01/31/18 11:10 PEEP NA 01/31/18 11:10 Pressure (ins/psv/peep) NA 01/31/18 11:10 Critical Value E.MATHEW 01/31/18 11:10 Sodium 146 mEq/L (136-145) H 02/03/18 15:00 Potassium 3.7 mEq/L (3.5-5.1) 02/03/18 15:00 Chloride 116 mEq/L (98-107) H 02/03/18 15:00 Carbon Dioxide 20.3 mEq/L (21.0-31.0) L 02/03/18 15:00 Anion Gap 13.4 (7.0-16.0) 02/03/18 15:00 BUN 23 mg/dL (7-25) 02/03/18 15:00 Creatinine 2.0 mg/dL (0.7-1.3) H 02/03/18 15:00 Est GFR ( Amer) 43.9 ml/min (>90) 02/03/18 15:00 Est GFR (Non-Af Amer) 36.3 ml/min 02/03/18 15:00 BUN/Creatinine Ratio 11.5 02/03/18 15:00 Glucose 142 mg/dL (70-105) H 02/03/18 15:00 POC Glucose 87 MG/DL (70 - 105) 01/28/18 05:32 Hemoglobin A1c % 4.9 % (4.0-6.0) 01/20/18 16:40 Whole Bld Lactic Acid 1.32 mmol/L (0.60-1.99) 01/20/18 16:40 Uric Acid 8.7 mg/dL (4.4-7.6) H 01/31/18 05:30 Calcium 7.8 mg/dL (8.6-10.3) L 02/03/18 15:00 Total Bilirubin 0.5 mg/dL (0.3-1.0) 02/03/18 15:00 AST 33 U/L (13-39) 02/03/18 15:00 ALT 11 U/L (7-52) 02/03/18 15:00 Alkaline Phosphatase 112 U/L (34-104) H 02/03/18 15:00 Ammonia 53 umol/L (16-53) 01/31/18 15:32 Creatine Kinase 32 U/L (30-223) 01/20/18 16:40 Troponin I 0.01 ng/mL (0.01-0.05) 01/20/18 16:40 Total Protein 5.8 gm/dL (6.0-8.3) L 02/03/18 15:00 Albumin 2.7 gm/dL (4.2-5.5) L 02/03/18 15:00 Globulin 3.1 gm/dL 02/03/18 15:00 Albumin/Globulin Ratio 0.9 (1.0-1.8) L 02/03/18 15:00 Triglycerides 69 mg/dL (<150) 01/27/18 05:45 Cholesterol 79 mg/dL (<200) 01/27/18 05:45 LDL Cholesterol Direct 37 mg/dL (75-193) L 01/27/18 05:45 HDL Cholesterol 32 mg/dL (23-92) 01/27/18 05:45 Urine Source RANDOM 02/02/18 22:00 Urine Color YELLOW 02/02/18 22:00 Urine Clarity CLEAR (CLEAR) 02/02/18 22:00 Urine pH 6.0 (4.6 - 8.0) 02/02/18 22:00 Ur Specific [place] <= 1.005 (1.005-1.030) 02/02/18 22:00 Urine Protein NEGATIVE mg/dL (NEGATIVE) 02/02/18 22:00 Urine Glucose (UA) NEGATIVE mg/dL (NEGATIVE) 02/02/18 22:00 Urine Ketones NEGATIVE mg/dL (NEGATIVE) 02/02/18 22:00 Urine Blood MODERATE (NEGATIVE) H 02/02/18 22:00 Urine Nitrate NEGATIVE (NEGATIVE) 02/02/18 22:00 Urine Bilirubin NEGATIVE (NEGATIVE) 02/02/18 22:00 Urine Urobilinogen 0.2 E.U./dL (0.2 - 1.0) 02/02/18 22:00 Ur Leukocyte Esterase NEGATIVE (NEGATIVE) 02/02/18 22:00 Urine RBC 5-10 /hpf (0-5) H 02/02/18 22:00 Urine WBC 0-2 /hpf (0-5) 02/02/18 22:00 Ur Epithelial Cells OCCASIONAL /lpf (FEW) 02/02/18 22:00 Urine Bacteria FEW /hpf (NONE SEEN) 02/02/18 22:00 Ur Random Sodium 94 mmol/L 02/02/18 22:00 Urine Creatinine 25.0 mg/dl (39.0-259.0) L 02/02/18 22:00 Vancomycin Trough 28.2 ug/mL (5-10) H 01/25/18 09:00 Random Vancomycin 30.6 ug/mL (5.0-40.0) 01/26/18 06:00 - Physical Exam Vitals and I&O: Vital Signs Temp 98.1 F 02/03/18 15:24 Pulse 66 02/03/18 15:24 Resp 18 02/03/18 15:24 BP 128/84 02/03/18 15:24 Pulse Ox 98 02/03/18 15:24 Intake & Output 02/02/18 02/03/18 02/03/18 18:59 06:59 18:59 Intake Total 1450 700 310 Output Total 1050 2400 1801 Balance 400 -1700 -1491 Weight (lbs) 92.306 kg 92.079 kg 92.079 kg Intake: Intake, IV Amount 100 100 metroNIDAZOLE 500mg/NS 100 100 100mL 500 mg In 100 ml @ 100 mls/hr IV Q12H [facility] Rx #:[id number] Oral 1350 600 10 Tube Feeding 300 Output: Urine 1050 2400 1800 Stool 1 Other: # Bowel Movements 1 1 Stool Characteristics Soft Liquid Brown Green Weight Source Bedscale Bedscale Estimated Active Medications: Current Medications Acetaminophen (Tylenol) 650 mg PO Q6H PRN PRN Reason: HEADACHE/TEMP ABOVE 100F Stop: 03/21/18 19:07 Last Admin: 01/20/18 23:17 Dose: 650 mg Acetaminophen/Hydrocodone Bitart ([place] 10 Mg/325 Mg) 1 tab PO Q6H PRN PRN Reason: mild pain Stop: 03/22/18 10:31 Last Admin: 02/03/18 10:41 Dose: 1 tab Acetaminophen/Hydrocodone Bitart ([place] 10 Mg/325 Mg) 1 tab PO Q4H PRN PRN Reason: Pain (Moderate) Stop: 03/31/18 21:39 Albuterol/Ipratropium (Duoneb Neb) 3 ml HHN Q4HRT [facility] Stop: 03/21/18 19:59 Last Admin: 02/03/18 15:17 Dose: 3 ml Amiodarone HCl (Cordarone) 100 mg GT DAILY [facility] Stop: 03/22/18 08:59 Last Admin: 02/03/18 10:42 Dose: 100 mg Amlodipine Besylate (Norvasc) 10 mg GT DAILY [facility] Stop: 03/22/18 08:59 Last Admin: 02/03/18 11:15 Dose: 10 mg Aspirin (Aspirin Chewable) 81 mg GT DAILY [facility] Stop: 03/22/18 08:59 Last Admin: 02/03/18 10:42 Dose: 81 mg Atorvastatin Calcium (Lipitor) 40 mg GT HS [facility] Stop: 03/25/18 20:59 Last Admin: 02/02/18 21:07 Dose: 40 mg Diphenhydramine HCl (Benadryl 50 Mg/Ml) 50 mg IVP Q8H PRN PRN Reason: rash, itchiness Stop: 03/30/18 08:49 Docusate Sodium (Colace) 100 mg PO BID PRN PRN Reason: Constipation Stop: 03/21/18 19:07 Last Admin: 02/01/18 10:25 Dose: 100 mg Famotidine (Pepcid) 40 mg PO DAILY [facility] Stop: 03/30/18 08:59 Last Admin: 02/03/18 10:42 Dose: 40 mg Hydromorphone HCl (Dilaudid) 4 mg IVP Q4HR PRN PRN Reason: Severe Pain Stop: 03/29/18 12:35 Last Admin: 02/03/18 13:02 Dose: 4 mg Magnesium Sulfate (Magnesium Sulfate Premix) 2 gm in 50 mls @ 25 mls/hr IV DAILY PRN PRN Reason: Magnesium level less than 1.6 Stop: 03/21/18 19:07 Metronidazole (Flagyl) 500 mg in 100 mls @ 100 mls/hr IV Q12H [facility] Stop: 03/27/18 14:59 Last Infusion: 02/03/18 03:10 Dose: Infused Ceftriaxone Sodium 1 gm/ (Dextrose) 50 mls @ 100 mls/hr IV Q24H [facility] Stop: 03/30/18 14:59 Last Admin: 02/02/18 14:26 Dose: 100 mls/hr Potassium Chloride/Dextrose (D5w W/20 Meq Kcl) 1,000 mls @ 100 mls/hr IV .Q10H [facility] Stop: 04/04/18 09:43 Last Admin: 02/03/18 12:14 Dose: 100 mls/hr Lactobacillus Rhamnosus (Culturelle 15b) 1 each PO DAILY [facility] Stop: 03/23/18 08:59 Last Admin: 02/03/18 10:41 Dose: 1 each Lorazepam (Ativan) 1 mg IVP Q4H PRN; Protocol PRN Reason: Anxiety Stop: 03/21/18 19:07 Last Admin: 02/02/18 02:03 Dose: 1 mg Lorazepam (Ativan) 1 mg PO Q6H PRN; Protocol PRN Reason: Agitation Stop: 03/31/18 21:43 Last Admin: 02/01/18 10:25 Dose: 1 mg Magnesium Oxide (Mag-Oxide) 400 mg PO BID PRN PRN Reason: Mg less than 1.9 Stop: 03/21/18 19:07 Metoprolol Tartrate (Lopressor) 50 mg GT Q8H [facility] Stop: 03/21/18 19:14 Last Admin: 02/03/18 12:35 Dose: Not Given Miscellaneous (Probiotic Screen) 1 ea PRN PRN PRN Reason: PROTOCOL Stop: 03/22/18 09:59 Miscellaneous (Clinical Monitoring) 1 ea DAILY PRN PRN Reason: RENAL Stop: 04/04/18 16:38 Ondansetron HCl (Zofran) 4 mg IV Q4H PRN PRN Reason: Nausea / Vomiting Stop: 03/27/18 09:59 Last Admin: 02/02/18 17:20 Dose: 4 mg Potassium Chloride (Klor-Con) 40 meq PO DAILY PRN PRN Reason: k level less than 3.5 Stop: 03/21/18 19:07 Last Admin: 02/03/18 10:43 Dose: 40 meq Simethicone (Mylicon) 80 mg PO Q8H [facility] Stop: 03/27/18 10:14 Last Admin: 02/03/18 11:16 Dose: 80 mg Tamsulosin HCl (Flomax) 0.4 mg PO DAILY [facility] Stop: 03/28/18 08:59 Last Admin: 02/03/18 10:41 Dose: 0.4 mg Zolpidem Tartrate (Ambien) 10 mg PO HS PRN PRN Reason: Insomnia Stop: 03/21/18 19:07 Last Admin: 02/03/18 01:30 Dose: 10 mg General: no acute distress, well developed, well nourished HEENT: atraumatic, normocephalic, PERRLA Neck: supple, no thyromegaly, no lymphadenopathy Cardiovascular: S1S2, regular Lungs: clear to auscultation bilaterally, clear to percussion Abdomen: soft, other (surgical wound is ok), no tender, no mass, no rebound Extremities: no cyanosis, no clubbing, no edema Neurological: awake, alert, oriented, CN 2-12 intact Skin: intact - Procedures Procedures: Procedures Procedure Code Date INSPECTION OF GALLBLADDER, PERCUTANEOUS ENDOSCOPIC APPROACH [id number] 01/20/18 RELEASE OMENTUM, OPEN APPROACH [id number] 01/20/18 RESECTION OF GALLBLADDER, OPEN APPROACH [id number] 01/20/18 Infectious Disease Assmt/Plan - Problem List Patient Problems: All Active Problems GASTRIC TUBE AND CORAL REMOVAL (Acute) - Assessment Assessment: 1. Leukocytosis worse, most likely postsurgical. If WBC count remains elevated , we will consider indium scan. 2. Right lower lobe infiltrate, suspect aspiration pneumonia. 3. UTI. 4. MRSA colonization. 5. Hypertension. 6. Hyperlipidemia. 7. Aortic dissection, repair of aortic dissection at [facility]. 8. Acute kidney injury. Resolving. 9. Dysphagia resolved. He is taking his medication by mouth. 10. Vomiting. 11. Cholelithiasis. 12. Status post open cholecystectomy. - Plan Plan: Change flagyl 500 mg iv twice/day, Continue Rocephin for 6 days. Nutritional Asmnt/Malnutr-PDOC - Dietary Evaluation Malnutrition Findings (Please click <Entered> for more info): Nutritional Asmnt/Malnutrition Start: 01/24/18 17: 29 Text: Status: Complete Freq: Protocol: Document 01/24/18 17:29 LCHENG (Rec: 01/24/18 17:38 [email or web address] [email or web address]) Nutritional Asmnt/Malnutrition Patient General Information Nutritional Screening Moderate Risk Diagnosis aspiration PNA Pertinent Medical Hx/Surgical Hx cardiac tampondade s/p surgery , aortic dissection, Gtube ( now removed) Subjective Information Per H&P pt had Gtube removed and started oral diet for about one month. Pt stated he still have some stomach issue, vomiting. Pt consumed cream of wheat and ceream for breakfast this morning, not very comfortable with solid food at this time.Per nurse note, pt had loose stool last night. Per EMR, PO intake 50- 75%. Current Diet Order/ Nutrition Support cardiac Pertinent Medications colace, culturelle, zofran, piperacillin, vancomycin Pertinent Labs 01/24 cl 108, glucose 76 01/20 A1c 4.9 Nutritional Hx/Data Height 1.91 m Height (Calculated Centimeters) 190.5 Current Weight (lbs) 92.079 kg Weight (Calculated Kilograms) 92.1 Weight (Calculated Grams) 66021.3 Mark Body Weight 196 Body Mass Index (BMI) 25.3 Weight Status Overweight GI Symptoms GI Symptoms None Last BM 01/24 Difficult in: None Skin Integrity/Comment: intact Current %PO Fair (50-74%) Estimated Nutritional Goals BEE in Kcals: Using Current wt Calories/Kcals/Kg 25-30 Kcals Calculated 8120-2122 Protein: Using Current wt Protein g/k Protein Calculated 92 Fluid: ml 2300-2760ml (1ml/kcal) Nutritional Problem No current Nutrition Prob Problem N/A Malnutrition Alert Is there a minimum of two criteria No selected? Query Text:Check all the applicable criteria. A minimum of two criteria are recommended for diagnosis of either severe or non-severe malnutrition. Malnutrition Related to Morbid Obesity Malnutrition related to morbid obesity No Intervention/Recommendation Comments 1. Continue with current diet as ordered. Offered food alternatives if pt not able to take his meals. 2. Monitor PO intake, GI function, wt, labs and skin integrity 3. F/U as moderate risk in 3-5 days, 01/27-01/29 Expected Outcomes/Goals Expected Outcomes/Goals 1. PO intake to meet at least 75% of nutritional needs. 2. Wt stability, GI function to improve, skin to remain intact, labs to approach WNL.
[2018-02-04] MEDS: HYDROmorphone 2 mg/mL 1mL Vial IVP PRN ×5 (00:42→23:20)
[2018-02-04] MEDS: Albuterol/Ipratropium Neb 3 ML AERS HHN SCH ×6 (02:37→22:09)
[2018-02-04 05:31] LABS: HEMATOCRIT 24.9 % (41.0-60); HEMOGLOBIN 8.3 gm/dL (12-16); MEAN CELL VOLUME 85.5 fl (80-99); MEAN CORPUSCULAR HEMOGLOBIN 28.7 pg (26.0-30.0); MEAN CORPUSCULAR HGB CONC 33.5 pg (28.0-36.0); MEAN PLATELET VOLUME 8.3 fl; PLATELET COUNT 211 Th/cmm (150-400); RED BLOOD COUNT 2.91 Mil/cmm (4.30-5.70); RED CELL DISTRIBUTION WIDTH 15.6 % (11.5-20.0)
[2018-02-04 05:35] LABS: MANUAL DIFF REQUIRED? YES; WHITE BLOOD COUNT 19.4 Th/cmm (4.8-10.8)
[2018-02-04] MEDS: metroNIDAZOLE 500mg/NS 100mL 500 MG/100 ML BAG IV SCH ×2 (05:55→14:10)
[2018-02-04 05:58] LABS: ALBUMIN 2.7 gm/dL (4.2-5.5); ANION GAP 11.6 (7.0-16.0); BILIRUBIN,TOTAL 0.4 mg/dL (0.3-1.0); CALCIUM SERUM 7.7 mg/dL (8.6-10.3); CARBON DIOXIDE 23.5 mEq/L (21.0-31.0); CREATININE - SERUM 1.9 mg/dL (0.7-1.3); GFR AFRICAN-AMERICAN 46.6 ml/min (>90); GFR NON AFRICAN-AMERICAN 38.5 ml/min; POTASSIUM SERUM 3.1 mEq/L (3.5-5.1); TOTAL PROTEIN,SERUM 5.3 gm/dL (6.0-8.3)
[2018-02-04 06:06] LABS: TOTAL CELLS COUNTED 100
[2018-02-04 06:07] LABS: EOSINOPHIL 3 % (0-5); LYMPHOCYTE 3 % (20-50); MONOCYTE 5 % (2-10); NEUTROPHILS 89 % (40-80); OVALOCYTES 1+; PLATELET ESTIMATE ADEQUATE (NORMAL); SCHISTOCYTES 1+
[2018-02-04] MEDS: Lactobacillus Rhamnosus GG 15 Billion CFU CAP.SPRINK PO SCH (09:30)
[2018-02-04] MEDS: Aspirin 81mg Chewable Tab GT SCH (09:31)
[2018-02-04] MEDS: D5W w/20 mEq KCL 1,000 ML IV SCH ×2 (09:33→14:11)
[2018-02-04] MEDS ORDERED: Potassium Chloride 20 mEq ER Tab PO ONE (11:26)
--- NOTE | 2018-02-04 12:46 | General Progress Note ---
Subjective - Review of Systems Service Date: 02/04/18 Events since last encounter: NO ACUTE EVENTS IVF WERE CHANGED TO D5W +K NA REMAINS HIGH CR SLOWLY IMPROVING Subjective: HAS SOME C/O ABD DISCOMFORT ASKING FOR DILAUDID Objective - Results Result Diagrams: 02/04/18 05:05 02/04/18 05:05 Recent Labs: Laboratory Last Values WBC 19.4 Th/cmm (4.8-10.8) H 02/04/18 05:05 Corrected WBC (auto) Th/cmm 02/01/18 05:52 RBC 2.91 Mil/cmm (4.30-5.70) L 02/04/18 05:05 Hgb 8.3 gm/dL (12-16) L 02/04/18 05:05 Hct 24.9 % (41.0-60) L 02/04/18 05:05 MCV 85.5 fl (80-99) 02/04/18 05:05 MCH 28.7 pg (26.0-30.0) 02/04/18 05:05 MCHC Differential 33.5 pg (28.0-36.0) 02/04/18 05:05 RDW 15.6 % (11.5-20.0) 02/04/18 05:05 Plt Count 211 Th/cmm (150-400) 02/04/18 05:05 MPV 8.3 fl 02/04/18 05:05 Neutrophils % 86.7 % (40.0-80.0) H 02/03/18 05:00 Band Neutrophils % 0 % (0-10) 02/02/18 06:00 Lymphocytes % 3.4 % (20.0-50.0) L 02/03/18 05:00 Monocytes % 9.0 % (2.0-10.0) 02/03/18 05:00 Eosinophils % 0.9 % (0.0-5.0) 02/03/18 05:00 Basophils % 0.0 % (0.0-2.0) 02/03/18 05:00 Neutrophils (Manual) 89 % (40-80) H 02/04/18 05:05 Lymphocytes 3 % (20-50) L 02/04/18 05:05 Monocytes 5 % (2-10) 02/04/18 05:05 Eosinophils 3 % (0-5) 02/04/18 05:05 Basophils 0 % (0-3) 02/02/18 06:00 Platelet Estimate ADEQUATE (NORMAL) 02/04/18 05:05 Poikilocytosis 1+ 01/25/18 05:57 Anisocytosis 1+ 01/25/18 05:57 Ovalocytes 1+ 02/04/18 05:05 Schistocytes 1+ 02/04/18 05:05 PT 17.8 SECONDS (9.5-11.5) H 01/28/18 04:20 INR 1.66 (0.5-1.4) H 01/28/18 04:20 PTT (Actin FS) 45.6 SECONDS (26.0-38.0) H 01/28/18 04:20 Plt Function Studies 106 01/28/18 08:05 Specimen Source Arterial 01/31/18 11:10 Sample Site Left Radial 01/31/18 11:10 pH 7.42 (7.35-7.45) 01/31/18 11:10 pCO2 32.0 mmHg (35.0-45.0) L 01/31/18 11:10 pO2 62.0 mmHg (80.0-100.0) L 01/31/18 11:10 HCO3 22.5 mEq/L (20.0-26.0) 01/31/18 11:10 Base Excess -2.9 mEq/L (-3.0-3.0) 01/31/18 11:10 O2 Saturation 92.0 % (92.0-100.0) 01/31/18 11:10 Zac Test YES 01/31/18 11:10 Vent Rate NA 01/31/18 11:10 Inspired O2 21 01/31/18 11:10 Tidal Volume NA 01/31/18 11:10 PEEP NA 01/31/18 11:10 Pressure (ins/psv/peep) NA 01/31/18 11:10 Critical Value E.MATHEW 01/31/18 11:10 Sodium 149 mEq/L (136-145) H 02/04/18 05:05 Potassium 3.1 mEq/L (3.5-5.1) L 02/04/18 05:05 Chloride 117 mEq/L (98-107) H 02/04/18 05:05 Carbon Dioxide 23.5 mEq/L (21.0-31.0) 02/04/18 05:05 Anion Gap 11.6 (7.0-16.0) 02/04/18 05:05 BUN 19 mg/dL (7-25) 02/04/18 05:05 Creatinine 1.9 mg/dL (0.7-1.3) H 02/04/18 05:05 Est GFR ( Amer) 46.6 ml/min (>90) 02/04/18 05:05 Est GFR (Non-Af Amer) 38.5 ml/min 02/04/18 05:05 BUN/Creatinine Ratio 10.0 02/04/18 05:05 Glucose 109 mg/dL (70-105) H 02/04/18 05:05 POC Glucose 87 MG/DL (70 - 105) 01/28/18 05:32 Hemoglobin A1c % 4.9 % (4.0-6.0) 01/20/18 16:40 Whole Bld Lactic Acid 1.32 mmol/L (0.60-1.99) 01/20/18 16:40 Uric Acid 8.7 mg/dL (4.4-7.6) H 01/31/18 05:30 Calcium 7.7 mg/dL (8.6-10.3) L 02/04/18 05:05 Total Bilirubin 0.4 mg/dL (0.3-1.0) 02/04/18 05:05 AST 12 U/L (13-39) L 02/04/18 05:05 ALT 12 U/L (7-52) 02/04/18 05:05 Alkaline Phosphatase 89 U/L (34-104) 02/04/18 05:05 Ammonia 53 umol/L (16-53) 01/31/18 15:32 Creatine Kinase 32 U/L (30-223) 01/20/18 16:40 Troponin I 0.01 ng/mL (0.01-0.05) 01/20/18 16:40 Total Protein 5.3 gm/dL (6.0-8.3) L 02/04/18 05:05 Albumin 2.7 gm/dL (4.2-5.5) L 02/04/18 05:05 Globulin 2.6 gm/dL 02/04/18 05:05 Albumin/Globulin Ratio 1.0 (1.0-1.8) 02/04/18 05:05 Triglycerides 69 mg/dL (<150) 01/27/18 05:45 Cholesterol 79 mg/dL (<200) 01/27/18 05:45 LDL Cholesterol Direct 37 mg/dL (75-193) L 01/27/18 05:45 HDL Cholesterol 32 mg/dL (23-92) 01/27/18 05:45 Urine Source RANDOM 02/02/18 22:00 Urine Color YELLOW 02/02/18 22:00 Urine Clarity CLEAR (CLEAR) 02/02/18 22:00 Urine pH 6.0 (4.6 - 8.0) 02/02/18 22:00 Ur Specific [place] <= 1.005 (1.005-1.030) 02/02/18 22:00 Urine Protein NEGATIVE mg/dL (NEGATIVE) 02/02/18 22:00 Urine Glucose (UA) NEGATIVE mg/dL (NEGATIVE) 02/02/18 22:00 Urine Ketones NEGATIVE mg/dL (NEGATIVE) 02/02/18 22:00 Urine Blood MODERATE (NEGATIVE) H 02/02/18 22:00 Urine Nitrate NEGATIVE (NEGATIVE) 02/02/18 22:00 Urine Bilirubin NEGATIVE (NEGATIVE) 02/02/18 22:00 Urine Urobilinogen 0.2 E.U./dL (0.2 - 1.0) 02/02/18 22:00 Ur Leukocyte Esterase NEGATIVE (NEGATIVE) 02/02/18 22:00 Urine RBC 5-10 /hpf (0-5) H 02/02/18 22:00 Urine WBC 0-2 /hpf (0-5) 02/02/18 22:00 Ur Epithelial Cells OCCASIONAL /lpf (FEW) 02/02/18 22:00 Urine Bacteria FEW /hpf (NONE SEEN) 02/02/18 22:00 Ur Random Sodium 94 mmol/L 02/02/18 22:00 Urine Creatinine 25.0 mg/dl (39.0-259.0) L 02/02/18 22:00 Vancomycin Trough 28.2 ug/mL (5-10) H 01/25/18 09:00 Random Vancomycin 30.6 ug/mL (5.0-40.0) 01/26/18 06:00 - Physical Exam Vitals and I&O: Vital Signs Temp 97.8 F 02/04/18 11:59 Pulse 100 02/04/18 11:59 Resp 18 02/04/18 11:59 BP 147/85 02/04/18 11:59 Pulse Ox 93 02/04/18 11:59 Intake & Output 02/03/18 02/04/18 02/04/18 18:59 06:59 18:59 Intake Total 310 1220 500 Output Total 5510 457 9032 Balance -1491 1020 -1300 Weight (lbs) 92.079 kg 92.079 kg 92.079 kg Intake: Intake, IV Amount 1100 D5W w/20 mEq KCL 1,000 ml 1000 @ 100 mls/hr IV .Q10H [facility] Rx#:[id number] metroNIDAZOLE 500mg/NS 100 100mL 500 mg In 100 ml @ 100 mls/hr IV Q12H [facility] Rx #:[id number] Oral 10 120 500 Tube Feeding 300 Output: Urine 1800 1800 Stool 1 Other 200 Other: # Bowel Movements 1 Stool Characteristics Soft Liquid Brown Green Weight Source Estimated Estimated Estimated Active Medications: Current Medications Acetaminophen (Tylenol) 650 mg PO Q6H PRN PRN Reason: HEADACHE/TEMP ABOVE 100F Stop: 03/21/18 19:07 Last Admin: 01/20/18 23:17 Dose: 650 mg Acetaminophen/Hydrocodone Bitart ([place] 10 Mg/325 Mg) 1 tab PO Q6H PRN PRN Reason: mild pain Stop: 03/22/18 10:31 Last Admin: 02/03/18 10:41 Dose: 1 tab Acetaminophen/Hydrocodone Bitart ([place] 10 Mg/325 Mg) 1 tab PO Q4H PRN PRN Reason: Pain (Moderate) Stop: 03/31/18 21:39 Albuterol/Ipratropium (Duoneb Neb) 3 ml HHN Q4HRT [facility] Stop: 03/21/18 19:59 Last Admin: 02/04/18 11:13 Dose: 3 ml Amiodarone HCl (Cordarone) 100 mg GT DAILY [facility] Stop: 03/22/18 08:59 Last Admin: 02/04/18 09:31 Dose: Not Given Amlodipine Besylate (Norvasc) 10 mg GT DAILY [facility] Stop: 03/22/18 08:59 Last Admin: 02/04/18 10:22 Dose: Not Given Aspirin (Aspirin Chewable) 81 mg GT DAILY [facility] Stop: 03/22/18 08:59 Last Admin: 02/04/18 09:31 Dose: Not Given Atorvastatin Calcium (Lipitor) 40 mg GT HS [facility] Stop: 03/25/18 20:59 Last Admin: 02/03/18 21:13 Dose: 40 mg Diphenhydramine HCl (Benadryl 50 Mg/Ml) 50 mg IVP Q8H PRN PRN Reason: rash, itchiness Stop: 03/30/18 08:49 Docusate Sodium (Colace) 100 mg PO BID PRN PRN Reason: Constipation Stop: 03/21/18 19:07 Last Admin: 02/01/18 10:25 Dose: 100 mg Famotidine (Pepcid) 40 mg PO DAILY [facility] Stop: 03/30/18 08:59 Last Admin: 02/04/18 09:30 Dose: Not Given Hydromorphone HCl (Dilaudid) 4 mg IVP Q4HR PRN PRN Reason: Severe Pain Stop: 03/29/18 12:35 Last Admin: 02/04/18 10:00 Dose: 4 mg Magnesium Sulfate (Magnesium Sulfate Premix) 2 gm in 50 mls @ 25 mls/hr IV DAILY PRN PRN Reason: Magnesium level less than 1.6 Stop: 03/21/18 19:07 Metronidazole (Flagyl) 500 mg in 100 mls @ 100 mls/hr IV Q12H [facility] Stop: 03/27/18 14:59 Last Admin: 02/04/18 05:55 Dose: 100 mls/hr Ceftriaxone Sodium 1 gm/ (Dextrose) 50 mls @ 100 mls/hr IV Q24H [facility] Stop: 03/30/18 14:59 Last Admin: 02/03/18 18:30 Dose: 100 mls/hr Potassium Chloride/Dextrose (D5w W/20 Meq Kcl) 1,000 mls @ 125 mls/hr IV .Q8H [facility] Stop: 04/05/18 12:44 Lactobacillus Rhamnosus (Culturelle 15b) 1 each PO DAILY [facility] Stop: 03/23/18 08:59 Last Admin: 02/04/18 09:30 Dose: Not Given Lorazepam (Ativan) 1 mg PO Q6H PRN; Protocol PRN Reason: Agitation Stop: 03/31/18 21:43 Last Admin: 02/01/18 10:25 Dose: 1 mg Magnesium Oxide (Mag-Oxide) 400 mg PO BID PRN PRN Reason: Mg less than 1.9 Stop: 03/21/18 19:07 Metoprolol Tartrate (Lopressor) 50 mg GT Q8H [facility] Stop: 03/21/18 19:14 Last Admin: 02/04/18 10:22 Dose: Not Given Miscellaneous (Probiotic Screen) 1 ea PRN PRN PRN Reason: PROTOCOL Stop: 03/22/18 09:59 Miscellaneous (Clinical Monitoring) 1 ea DAILY PRN PRN Reason: RENAL Stop: 04/04/18 16:38 Ondansetron HCl (Zofran) 4 mg IV Q4H PRN PRN Reason: Nausea / Vomiting Stop: 03/27/18 09:59 Last Admin: 02/04/18 10:01 Dose: 4 mg Potassium Chloride (Klor-Con) 40 meq PO DAILY PRN PRN Reason: k level less than 3.5 Stop: 03/21/18 19:07 Last Admin: 02/03/18 10:43 Dose: 40 meq Simethicone (Mylicon) 80 mg PO Q8H [facility] Stop: 03/27/18 10:14 Last Admin: 02/04/18 09:57 Dose: Not Given Tamsulosin HCl (Flomax) 0.4 mg PO DAILY [facility] Stop: 03/28/18 08:59 Last Admin: 02/04/18 09:31 Dose: Not Given General: Alert, Cooperative, Other (acutely confused, AAO 2) HEENT: Atraumatic, PERRLA, EOMI Neck: Supple, no JVD Cardiovascular: Regular rate Lungs: Other (has rales and congestion) Abdomen: Bowel sounds, Soft, Tender, Other (surgical incision is intact) Extremities: Other (right upper extremity +3 edema), no Cyanosis Neurological: Normal speech Skin: no Rash - Procedures Procedures: Procedures Procedure Code Date INSPECTION OF GALLBLADDER, PERCUTANEOUS ENDOSCOPIC APPROACH [id number] 01/20/18 RELEASE OMENTUM, OPEN APPROACH [id number] 01/20/18 RESECTION OF GALLBLADDER, OPEN APPROACH [id number] 01/20/18 Assessment/Plan - Problem List Patient Problems: All Active Problems GASTRIC TUBE AND CORAL REMOVAL (Acute) - Assessment Assessment: Assessment: SARAH due to ATN with previous dialysis status, improving Hypernatremia cholecystitis s/p open cholecystectomy hx aortic dissection with tamponade s/p surgical repair aspiration PNA AMS - Plan Plan: Plan: NO ACUTE INDICATION TO RE-INITIATE HD SARAH CONTINUES TO IMPROVE INCREASE RATE OF IVF ENCOURAGED PO FREE WATER INTAKE REPEAT BMP THIS AFTERNOON TO MONITOR CONTINUE ABX PLAN D/W PATIENT Nutritional Asmnt/Malnutr-PDOC - Dietary Evaluation Malnutrition Findings (Please click <Entered> for more info): Nutritional Asmnt/Malnutrition Start: 01/24/18 17: 29 Text: Status: Complete Freq: Protocol: Document 01/24/18 17:29 LCHENG (Rec: 01/24/18 17:38 [id number] Nutritional Asmnt/Malnutrition Patient General Information Nutritional Screening Moderate Risk Diagnosis aspiration PNA Pertinent Medical Hx/Surgical Hx cardiac tampondade s/p surgery , aortic dissection, Gtube ( now removed) Subjective Information Per H&P pt had Gtube removed and started oral diet for about one month. Pt stated he still have some stomach issue, vomiting. Pt consumed cream of wheat and ceream for breakfast this morning, not very comfortable with solid food at this time.Per nurse note, pt had loose stool last night. Per EMR, PO intake 50- 75%. Current Diet Order/ Nutrition Support cardiac Pertinent Medications colace, culturelle, zofran, piperacillin, vancomycin Pertinent Labs 01/24 cl 108, glucose 76 01/20 A1c 4.9 Nutritional Hx/Data Height 1.91 m Height (Calculated Centimeters) 190.5 Current Weight (lbs) 92.079 kg Weight (Calculated Kilograms) 92.1 Weight (Calculated Grams) 99375.3 [place] Body Weight 196 Body Mass Index (BMI) 25.3 Weight Status Overweight GI Symptoms GI Symptoms None Last BM 01/24 Difficult in: None Skin Integrity/Comment: intact Current %PO Fair (50-74%) Estimated Nutritional Goals BEE in Kcals: Using Current wt Calories/Kcals/Kg 25-30 Kcals Calculated 8208-4156 Protein: Using Current wt Protein g/k Protein Calculated 92 Fluid: ml 2300-2760ml (1ml/kcal) Nutritional Problem No current Nutrition Prob Problem N/A Malnutrition Alert Is there a minimum of two criteria No selected? Query Text:Check all the applicable criteria. A minimum of two criteria are recommended for diagnosis of either severe or non-severe malnutrition. Malnutrition Related to Morbid Obesity Malnutrition related to morbid obesity No Intervention/Recommendation Comments 1. Continue with current diet as ordered. Offered food alternatives if pt not able to take his meals. 2. Monitor PO intake, GI function, wt, labs and skin integrity 3. F/U as moderate risk in 3-5 days, 01/27-01/29 Expected Outcomes/Goals Expected Outcomes/Goals 1. PO intake to meet at least 75% of nutritional needs. 2. Wt stability, GI function to improve, skin to remain intact, labs to approach WNL.
[2018-02-04] MEDS: Hydrocodone/APAP 10 mg/325 mg Tab PO PRN (13:21)
--- NOTE | 2018-02-04 13:41 | Infectious Disease Prog Note ---
Infectious Disease Subjective - Review of Systems Service Date: 02/04/18 Subjective: no fever. No abdominal pain. Passing BM. Infectious Disease Objective - Results Result Diagrams: 02/04/18 05:05 02/04/18 05:05 Recent Labs: Laboratory Last Values WBC 19.4 Th/cmm (4.8-10.8) H 02/04/18 05:05 Corrected WBC (auto) Th/cmm 02/01/18 05:52 RBC 2.91 Mil/cmm (4.30-5.70) L 02/04/18 05:05 Hgb 8.3 gm/dL (12-16) L 02/04/18 05:05 Hct 24.9 % (41.0-60) L 02/04/18 05:05 MCV 85.5 fl (80-99) 02/04/18 05:05 MCH 28.7 pg (26.0-30.0) 02/04/18 05:05 MCHC Differential 33.5 pg (28.0-36.0) 02/04/18 05:05 RDW 15.6 % (11.5-20.0) 02/04/18 05:05 Plt Count 211 Th/cmm (150-400) 02/04/18 05:05 MPV 8.3 fl 02/04/18 05:05 Neutrophils % 86.7 % (40.0-80.0) H 02/03/18 05:00 Band Neutrophils % 0 % (0-10) 02/02/18 06:00 Lymphocytes % 3.4 % (20.0-50.0) L 02/03/18 05:00 Monocytes % 9.0 % (2.0-10.0) 02/03/18 05:00 Eosinophils % 0.9 % (0.0-5.0) 02/03/18 05:00 Basophils % 0.0 % (0.0-2.0) 02/03/18 05:00 Neutrophils (Manual) 89 % (40-80) H 02/04/18 05:05 Lymphocytes 3 % (20-50) L 02/04/18 05:05 Monocytes 5 % (2-10) 02/04/18 05:05 Eosinophils 3 % (0-5) 02/04/18 05:05 Basophils 0 % (0-3) 02/02/18 06:00 Platelet Estimate ADEQUATE (NORMAL) 02/04/18 05:05 Poikilocytosis 1+ 01/25/18 05:57 Anisocytosis 1+ 01/25/18 05:57 Ovalocytes 1+ 02/04/18 05:05 Schistocytes 1+ 02/04/18 05:05 PT 17.8 SECONDS (9.5-11.5) H 01/28/18 04:20 INR 1.66 (0.5-1.4) H 01/28/18 04:20 PTT (Actin FS) 45.6 SECONDS (26.0-38.0) H 01/28/18 04:20 Plt Function Studies 106 01/28/18 08:05 Specimen Source Arterial 01/31/18 11:10 Sample Site Left Radial 01/31/18 11:10 pH 7.42 (7.35-7.45) 01/31/18 11:10 pCO2 32.0 mmHg (35.0-45.0) L 01/31/18 11:10 pO2 62.0 mmHg (80.0-100.0) L 01/31/18 11:10 HCO3 22.5 mEq/L (20.0-26.0) 01/31/18 11:10 Base Excess -2.9 mEq/L (-3.0-3.0) 01/31/18 11:10 O2 Saturation 92.0 % (92.0-100.0) 01/31/18 11:10 Zac Test YES 01/31/18 11:10 Vent Rate NA 01/31/18 11:10 Inspired O2 21 01/31/18 11:10 Tidal Volume NA 01/31/18 11:10 PEEP NA 01/31/18 11:10 Pressure (ins/psv/peep) NA 01/31/18 11:10 Critical Value E.MATHEW 01/31/18 11:10 Sodium 149 mEq/L (136-145) H 02/04/18 05:05 Potassium 3.1 mEq/L (3.5-5.1) L 02/04/18 05:05 Chloride 117 mEq/L (98-107) H 02/04/18 05:05 Carbon Dioxide 23.5 mEq/L (21.0-31.0) 02/04/18 05:05 Anion Gap 11.6 (7.0-16.0) 02/04/18 05:05 BUN 19 mg/dL (7-25) 02/04/18 05:05 Creatinine 1.9 mg/dL (0.7-1.3) H 02/04/18 05:05 Est GFR ( Amer) 46.6 ml/min (>90) 02/04/18 05:05 Est GFR (Non-Af Amer) 38.5 ml/min 02/04/18 05:05 BUN/Creatinine Ratio 10.0 02/04/18 05:05 Glucose 109 mg/dL (70-105) H 02/04/18 05:05 POC Glucose 87 MG/DL (70 - 105) 01/28/18 05:32 Hemoglobin A1c % 4.9 % (4.0-6.0) 01/20/18 16:40 Whole Bld Lactic Acid 1.32 mmol/L (0.60-1.99) 01/20/18 16:40 Uric Acid 8.7 mg/dL (4.4-7.6) H 01/31/18 05:30 Calcium 7.7 mg/dL (8.6-10.3) L 02/04/18 05:05 Total Bilirubin 0.4 mg/dL (0.3-1.0) 02/04/18 05:05 AST 12 U/L (13-39) L 02/04/18 05:05 ALT 12 U/L (7-52) 02/04/18 05:05 Alkaline Phosphatase 89 U/L (34-104) 02/04/18 05:05 Ammonia 53 umol/L (16-53) 01/31/18 15:32 Creatine Kinase 32 U/L (30-223) 01/20/18 16:40 Troponin I 0.01 ng/mL (0.01-0.05) 01/20/18 16:40 Total Protein 5.3 gm/dL (6.0-8.3) L 02/04/18 05:05 Albumin 2.7 gm/dL (4.2-5.5) L 02/04/18 05:05 Globulin 2.6 gm/dL 02/04/18 05:05 Albumin/Globulin Ratio 1.0 (1.0-1.8) 02/04/18 05:05 Triglycerides 69 mg/dL (<150) 01/27/18 05:45 Cholesterol 79 mg/dL (<200) 01/27/18 05:45 LDL Cholesterol Direct 37 mg/dL (75-193) L 01/27/18 05:45 HDL Cholesterol 32 mg/dL (23-92) 01/27/18 05:45 Urine Source RANDOM 02/02/18 22:00 Urine Color YELLOW 02/02/18 22:00 Urine Clarity CLEAR (CLEAR) 02/02/18 22:00 Urine pH 6.0 (4.6 - 8.0) 02/02/18 22:00 Ur Specific [place] <= 1.005 (1.005-1.030) 02/02/18 22:00 Urine Protein NEGATIVE mg/dL (NEGATIVE) 02/02/18 22:00 Urine Glucose (UA) NEGATIVE mg/dL (NEGATIVE) 02/02/18 22:00 Urine Ketones NEGATIVE mg/dL (NEGATIVE) 02/02/18 22:00 Urine Blood MODERATE (NEGATIVE) H 02/02/18 22:00 Urine Nitrate NEGATIVE (NEGATIVE) 02/02/18 22:00 Urine Bilirubin NEGATIVE (NEGATIVE) 02/02/18 22:00 Urine Urobilinogen 0.2 E.U./dL (0.2 - 1.0) 02/02/18 22:00 Ur Leukocyte Esterase NEGATIVE (NEGATIVE) 02/02/18 22:00 Urine RBC 5-10 /hpf (0-5) H 02/02/18 22:00 Urine WBC 0-2 /hpf (0-5) 02/02/18 22:00 Ur Epithelial Cells OCCASIONAL /lpf (FEW) 02/02/18 22:00 Urine Bacteria FEW /hpf (NONE SEEN) 02/02/18 22:00 Ur Random Sodium 94 mmol/L 02/02/18 22:00 Urine Creatinine 25.0 mg/dl (39.0-259.0) L 02/02/18 22:00 Vancomycin Trough 28.2 ug/mL (5-10) H 01/25/18 09:00 Random Vancomycin 30.6 ug/mL (5.0-40.0) 01/26/18 06:00 - Physical Exam Vitals and I&O: Vital Signs Temp 97.8 F 02/04/18 11:59 Pulse 100 02/04/18 11:59 Resp 18 02/04/18 11:59 BP 147/85 02/04/18 11:59 Pulse Ox 93 02/04/18 11:59 Intake & Output 02/03/18 02/04/18 02/04/18 18:59 06:59 18:59 Intake Total 310 1220 500 Output Total 7726 559 6953 Balance -1491 1020 -1300 Weight (lbs) 92.079 kg 92.079 kg 92.079 kg Intake: Intake, IV Amount 1100 D5W w/20 mEq KCL 1,000 ml 1000 @ 100 mls/hr IV .Q10H [facility] Rx#:[id number] metroNIDAZOLE 500mg/NS 100 100mL 500 mg In 100 ml @ 100 mls/hr IV Q12H [facility] Rx #:[id number] Oral 10 120 500 Tube Feeding 300 Output: Urine 1800 1800 Stool 1 Other 200 Other: # Bowel Movements 1 Stool Characteristics Soft Liquid Brown Green Weight Source Estimated Estimated Estimated Active Medications: Current Medications Acetaminophen (Tylenol) 650 mg PO Q6H PRN PRN Reason: HEADACHE/TEMP ABOVE 100F Stop: 03/21/18 19:07 Last Admin: 01/20/18 23:17 Dose: 650 mg Acetaminophen/Hydrocodone Bitart ([place] 10 Mg/325 Mg) 1 tab PO Q6H PRN PRN Reason: mild pain Stop: 03/22/18 10:31 Last Admin: 02/04/18 13:21 Dose: 1 tab Acetaminophen/Hydrocodone Bitart ([place] 10 Mg/325 Mg) 1 tab PO Q4H PRN PRN Reason: Pain (Moderate) Stop: 03/31/18 21:39 Albuterol/Ipratropium (Duoneb Neb) 3 ml HHN Q4HRT [facility] Stop: 03/21/18 19:59 Last Admin: 02/04/18 11:13 Dose: 3 ml Amiodarone HCl (Cordarone) 100 mg GT DAILY [facility] Stop: 03/22/18 08:59 Last Admin: 02/04/18 09:31 Dose: Not Given Amlodipine Besylate (Norvasc) 10 mg GT DAILY [facility] Stop: 03/22/18 08:59 Last Admin: 02/04/18 10:22 Dose: Not Given Aspirin (Aspirin Chewable) 81 mg GT DAILY [facility] Stop: 03/22/18 08:59 Last Admin: 02/04/18 09:31 Dose: Not Given Atorvastatin Calcium (Lipitor) 40 mg GT HS [facility] Stop: 03/25/18 20:59 Last Admin: 02/03/18 21:13 Dose: 40 mg Diphenhydramine HCl (Benadryl 50 Mg/Ml) 50 mg IVP Q8H PRN PRN Reason: rash, itchiness Stop: 03/30/18 08:49 Docusate Sodium (Colace) 100 mg PO BID PRN PRN Reason: Constipation Stop: 03/21/18 19:07 Last Admin: 02/01/18 10:25 Dose: 100 mg Famotidine (Pepcid) 40 mg PO DAILY [facility] Stop: 03/30/18 08:59 Last Admin: 02/04/18 09:30 Dose: Not Given Hydromorphone HCl (Dilaudid) 4 mg IVP Q4HR PRN PRN Reason: Severe Pain Stop: 03/29/18 12:35 Last Admin: 02/04/18 10:00 Dose: 4 mg Magnesium Sulfate (Magnesium Sulfate Premix) 2 gm in 50 mls @ 25 mls/hr IV DAILY PRN PRN Reason: Magnesium level less than 1.6 Stop: 03/21/18 19:07 Metronidazole (Flagyl) 500 mg in 100 mls @ 100 mls/hr IV Q12H [facility] Stop: 03/27/18 14:59 Last Admin: 02/04/18 05:55 Dose: 100 mls/hr Ceftriaxone Sodium 1 gm/ (Dextrose) 50 mls @ 100 mls/hr IV Q24H [facility] Stop: 03/30/18 14:59 Last Admin: 02/03/18 18:30 Dose: 100 mls/hr Potassium Chloride/Dextrose (D5w W/20 Meq Kcl) 1,000 mls @ 125 mls/hr IV .Q8H [facility] Stop: 04/05/18 12:44 Lactobacillus Rhamnosus (Culturelle 15b) 1 each PO DAILY [facility] Stop: 03/23/18 08:59 Last Admin: 02/04/18 09:30 Dose: Not Given Lorazepam (Ativan) 1 mg PO Q6H PRN; Protocol PRN Reason: Agitation Stop: 03/31/18 21:43 Last Admin: 02/01/18 10:25 Dose: 1 mg Magnesium Oxide (Mag-Oxide) 400 mg PO BID PRN PRN Reason: Mg less than 1.9 Stop: 03/21/18 19:07 Metoprolol Tartrate (Lopressor) 50 mg GT Q8H [facility] Stop: 03/21/18 19:14 Last Admin: 02/04/18 10:22 Dose: Not Given Miscellaneous (Probiotic Screen) 1 ea MC PRN PRN PRN Reason: PROTOCOL Stop: 03/22/18 09:59 Miscellaneous (Clinical Monitoring) 1 ea MC DAILY PRN PRN Reason: RENAL Stop: 04/04/18 16:38 Ondansetron HCl (Zofran) 4 mg IV Q4H PRN PRN Reason: Nausea / Vomiting Stop: 03/27/18 09:59 Last Admin: 02/04/18 10:01 Dose: 4 mg Potassium Chloride (Klor-Con) 40 meq PO DAILY PRN PRN Reason: k level less than 3.5 Stop: 03/21/18 19:07 Last Admin: 02/03/18 10:43 Dose: 40 meq Simethicone (Mylicon) 80 mg PO Q8H [facility] Stop: 03/27/18 10:14 Last Admin: 02/04/18 09:57 Dose: Not Given Tamsulosin HCl (Flomax) 0.4 mg PO DAILY [facility] Stop: 03/28/18 08:59 Last Admin: 02/04/18 09:31 Dose: Not Given General: no acute distress, well developed, well nourished HEENT: atraumatic, no normocephalic, no PERRLA, no EOMI Neck: supple, thyromegaly Cardiovascular: S1S2, no regular Lungs: no clear to auscultation bilaterally, no clear to percussion Abdomen: soft, no tender, no distended, no mass Extremities: no cyanosis, no clubbing, no edema Neurological: awake, alert, oriented Skin: intact - Procedures Procedures: Procedures Procedure Code Date INSPECTION OF GALLBLADDER, PERCUTANEOUS ENDOSCOPIC APPROACH [id number] 01/20/18 RELEASE OMENTUM, OPEN APPROACH [id number] 01/20/18 RESECTION OF GALLBLADDER, OPEN APPROACH [id number] 01/20/18 Infectious Disease Assmt/Plan - Problem List Patient Problems: All Active Problems GASTRIC TUBE AND CORAL REMOVAL (Acute) - Assessment Assessment: 1. Leukocytosis worse, most likely postsurgical. If WBC count remains elevated , we will consider indium scan. 2. Right lower lobe infiltrate, suspect aspiration pneumonia. 3. UTI. 4. MRSA colonization. 5. Hypertension. 6. Hyperlipidemia. 7. Aortic dissection, repair of aortic dissection at [facility]. 8. Acute kidney injury. Resolving. 9. Dysphagia resolved. He is taking his medication by mouth. 10. Vomiting. 11. Cholelithiasis. 12. Status post open cholecystectomy. - Plan Plan: Change flagyl 500 mg iv twice/day, Continue Rocephin for 5 days. As patient continues to have high WBC Count consider WBC Scan. may get Dr Awad , Hematology/oncology consult. Nutritional Asmnt/Malnutr-PDOC - Dietary Evaluation Malnutrition Findings (Please click <Entered> for more info): Nutritional Asmnt/Malnutrition Start: 01/24/18 17: 29 Text: Status: Complete Freq: Protocol: Document 01/24/18 17:29 LCHENG (Rec: 01/24/18 17:38 [email or web address] [email or web address]) Nutritional Asmnt/Malnutrition Patient General Information Nutritional Screening Moderate Risk Diagnosis aspiration PNA Pertinent Medical Hx/Surgical Hx cardiac tampondade s/p surgery , aortic dissection, Gtube ( now removed) Subjective Information Per H&P pt had Gtube removed and started oral diet for about one month. Pt stated he still have some stomach issue, vomiting. Pt consumed cream of wheat and ceream for breakfast this morning, not very comfortable with solid food at this time.Per nurse note, pt had loose stool last night. Per EMR, PO intake 50- 75%. Current Diet Order/ Nutrition Support cardiac Pertinent Medications colace, culturelle, zofran, piperacillin, vancomycin Pertinent Labs 01/24 cl 108, glucose 76 01/20 A1c 4.9 Nutritional Hx/Data Height 1.91 m Height (Calculated Centimeters) 190.5 Current Weight (lbs) 92.079 kg Weight (Calculated Kilograms) 92.1 Weight (Calculated Grams) 23842.3 [place] Body Weight 196 Body Mass Index (BMI) 25.3 Weight Status Overweight GI Symptoms GI Symptoms None Last BM 01/24 Difficult in: None Skin Integrity/Comment: intact Current %PO Fair (50-74%) Estimated Nutritional Goals BEE in Kcals: Using Current wt Calories/Kcals/Kg 25-30 Kcals Calculated 1366-7303 Protein: Using Current wt Protein g/k Protein Calculated 92 Fluid: ml 2300-2760ml (1ml/kcal) Nutritional Problem No current Nutrition Prob Problem N/A Malnutrition Alert Is there a minimum of two criteria No selected? Query Text:Check all the applicable criteria. A minimum of two criteria are recommended for diagnosis of either severe or non-severe malnutrition. Malnutrition Related to Morbid Obesity Malnutrition related to morbid obesity No Intervention/Recommendation Comments 1. Continue with current diet as ordered. Offered food alternatives if pt not able to take his meals. 2. Monitor PO intake, GI function, wt, labs and skin integrity 3. F/U as moderate risk in 3-5 days, 01/27-01/29 Expected Outcomes/Goals Expected Outcomes/Goals 1. PO intake to meet at least 75% of nutritional needs. 2. Wt stability, GI function to improve, skin to remain intact, labs to approach WNL.
[2018-02-05] MEDS: D5W w/20 mEq KCL 1,000 ML IV SCH ×2 (01:16→12:57)
[2018-02-05] MEDS: Albuterol/Ipratropium Neb 3 ML AERS HHN SCH ×6 (02:11→23:26)
[2018-02-05] MEDS: metroNIDAZOLE 500mg/NS 100mL 500 MG/100 ML BAG IV SCH ×2 (02:37→14:52)
[2018-02-05] MEDS: HYDROmorphone 2 mg/mL 1mL Vial IVP PRN ×3 (04:35→20:32)
[2018-02-05 06:02] LABS: HEMATOCRIT 27.2 % (41.0-60); HEMOGLOBIN 9.2 gm/dL (12-16); MANUAL DIFF REQUIRED? YES; MEAN CELL VOLUME 85.3 fl (80-99); MEAN CORPUSCULAR HEMOGLOBIN 28.8 pg (26.0-30.0); MEAN CORPUSCULAR HGB CONC 33.8 pg (28.0-36.0); MEAN PLATELET VOLUME 8.2 fl; PLATELET COUNT 279 Th/cmm (150-400); RED BLOOD COUNT 3.19 Mil/cmm (4.30-5.70); RED CELL DISTRIBUTION WIDTH 15.4 % (11.5-20.0)
[2018-02-05 06:41] LABS: WHITE BLOOD COUNT 20.4 Th/cmm (4.8-10.8)
[2018-02-05 06:53] LABS: ALB/GLOB RATIO 0.9 (1.0-1.8); ALBUMIN 2.6 gm/dL (4.2-5.5); ANION GAP 11.2 (7.0-16.0); BILIRUBIN,TOTAL 0.4 mg/dL (0.3-1.0); CALCIUM SERUM 7.8 mg/dL (8.6-10.3); CARBON DIOXIDE 25.9 mEq/L (21.0-31.0); CREATININE - SERUM 1.8 mg/dL (0.7-1.3); GFR AFRICAN-AMERICAN 49.6 ml/min (>90); POTASSIUM SERUM 3.1 mEq/L (3.5-5.1); TOTAL PROTEIN,SERUM 5.4 gm/dL (6.0-8.3)
[2018-02-05] MEDS: Potassium Chloride 20 mEq ER Tab PO PRN (07:02)
[2018-02-05 07:15] LABS: BAND NEUTROPHILE 1 % (0-10); BASOPHIL 0 % (0-3); EOSINOPHIL 0 % (0-5); LYMPHOCYTE 5 % (20-50); MONOCYTE 8 % (2-10); NEUTROPHILS 88 % (40-80); TOTAL CELLS COUNTED 100
[2018-02-05 07:16] LABS: BAND NEUTROPHILE 0 % (0-10)
[2018-02-05] MEDS: Aspirin 81mg Chewable Tab GT SCH (08:30)
[2018-02-05] MEDS: Lactobacillus Rhamnosus GG 15 Billion CFU CAP.SPRINK PO SCH (08:30)
--- NOTE | 2018-02-05 09:02 | Infectious Disease Prog Note ---
Infectious Disease Subjective - Review of Systems Service Date: 02/05/18 Subjective: no fever. No abdominal pain. Passing BM. Infectious Disease Objective - Results Result Diagrams: 02/05/18 05:40 02/05/18 05:40 Recent Labs: Laboratory Last Values WBC 20.4 Th/cmm (4.8-10.8) H* 02/05/18 05:40 Corrected WBC (auto) Th/cmm 02/01/18 05:52 RBC 3.19 Mil/cmm (4.30-5.70) L 02/05/18 05:40 Hgb 9.2 gm/dL (12-16) L 02/05/18 05:40 Hct 27.2 % (41.0-60) L 02/05/18 05:40 MCV 85.3 fl (80-99) 02/05/18 05:40 MCH 28.8 pg (26.0-30.0) 02/05/18 05:40 MCHC Differential 33.8 pg (28.0-36.0) 02/05/18 05:40 RDW 15.4 % (11.5-20.0) 02/05/18 05:40 Plt Count 279 Th/cmm (150-400) 02/05/18 05:40 MPV 8.2 fl 02/05/18 05:40 Neutrophils % 86.7 % (40.0-80.0) H 02/03/18 05:00 Band Neutrophils % 1 % (0-10) 02/05/18 05:40 Lymphocytes % 3.4 % (20.0-50.0) L 02/03/18 05:00 Monocytes % 9.0 % (2.0-10.0) 02/03/18 05:00 Eosinophils % 0.9 % (0.0-5.0) 02/03/18 05:00 Basophils % 0.0 % (0.0-2.0) 02/03/18 05:00 Neutrophils (Manual) 88 % (40-80) H 02/05/18 05:40 Lymphocytes 5 % (20-50) L 02/05/18 05:40 Monocytes 8 % (2-10) 02/05/18 05:40 Eosinophils 0 % (0-5) 02/05/18 05:40 Basophils 0 % (0-3) 02/05/18 05:40 Platelet Estimate ADEQUATE (NORMAL) 02/04/18 05:05 Poikilocytosis 1+ 01/25/18 05:57 Anisocytosis 1+ 01/25/18 05:57 Ovalocytes 1+ 02/04/18 05:05 Schistocytes 1+ 02/04/18 05:05 PT 17.8 SECONDS (9.5-11.5) H 01/28/18 04:20 INR 1.66 (0.5-1.4) H 01/28/18 04:20 PTT (Actin FS) 45.6 SECONDS (26.0-38.0) H 01/28/18 04:20 Plt Function Studies 106 01/28/18 08:05 Specimen Source Arterial 01/31/18 11:10 Sample Site Left Radial 01/31/18 11:10 pH 7.42 (7.35-7.45) 01/31/18 11:10 pCO2 32.0 mmHg (35.0-45.0) L 01/31/18 11:10 pO2 62.0 mmHg (80.0-100.0) L 01/31/18 11:10 HCO3 22.5 mEq/L (20.0-26.0) 01/31/18 11:10 Base Excess -2.9 mEq/L (-3.0-3.0) 01/31/18 11:10 O2 Saturation 92.0 % (92.0-100.0) 01/31/18 11:10 Zac Test YES 01/31/18 11:10 Vent Rate NA 01/31/18 11:10 Inspired O2 21 01/31/18 11:10 Tidal Volume NA 01/31/18 11:10 PEEP NA 01/31/18 11:10 Pressure (ins/psv/peep) NA 01/31/18 11:10 Critical Value E.MATHEW 01/31/18 11:10 Sodium 146 mEq/L (136-145) H 02/05/18 05:40 Potassium 3.1 mEq/L (3.5-5.1) L 02/05/18 05:40 Chloride 112 mEq/L (98-107) H 02/05/18 05:40 Carbon Dioxide 25.9 mEq/L (21.0-31.0) 02/05/18 05:40 Anion Gap 11.2 (7.0-16.0) 02/05/18 05:40 BUN 14 mg/dL (7-25) 02/05/18 05:40 Creatinine 1.8 mg/dL (0.7-1.3) H 02/05/18 05:40 Est GFR ( Amer) 49.6 ml/min (>90) 02/05/18 05:40 Est GFR (Non-Af Amer) 41.0 ml/min 02/05/18 05:40 BUN/Creatinine Ratio 7.8 02/05/18 05:40 Glucose 118 mg/dL (70-105) H 02/05/18 05:40 POC Glucose 87 MG/DL (70 - 105) 01/28/18 05:32 Hemoglobin A1c % 4.9 % (4.0-6.0) 01/20/18 16:40 Whole Bld Lactic Acid 1.32 mmol/L (0.60-1.99) 01/20/18 16:40 Uric Acid 8.7 mg/dL (4.4-7.6) H 01/31/18 05:30 Calcium 7.8 mg/dL (8.6-10.3) L 02/05/18 05:40 Total Bilirubin 0.4 mg/dL (0.3-1.0) 02/05/18 05:40 AST 11 U/L (13-39) L 02/05/18 05:40 ALT 9 U/L (7-52) 02/05/18 05:40 Alkaline Phosphatase 98 U/L (34-104) 02/05/18 05:40 Ammonia 53 umol/L (16-53) 01/31/18 15:32 Creatine Kinase 32 U/L (30-223) 01/20/18 16:40 Troponin I 0.01 ng/mL (0.01-0.05) 01/20/18 16:40 Total Protein 5.4 gm/dL (6.0-8.3) L 02/05/18 05:40 Albumin 2.6 gm/dL (4.2-5.5) L 02/05/18 05:40 Globulin 2.8 gm/dL 02/05/18 05:40 Albumin/Globulin Ratio 0.9 (1.0-1.8) L 02/05/18 05:40 Triglycerides 69 mg/dL (<150) 01/27/18 05:45 Cholesterol 79 mg/dL (<200) 01/27/18 05:45 LDL Cholesterol Direct 37 mg/dL (75-193) L 01/27/18 05:45 HDL Cholesterol 32 mg/dL (23-92) 01/27/18 05:45 Urine Source RANDOM 02/02/18 22:00 Urine Color YELLOW 02/02/18 22:00 Urine Clarity CLEAR (CLEAR) 02/02/18 22:00 Urine pH 6.0 (4.6 - 8.0) 02/02/18 22:00 Ur Specific [place] <= 1.005 (1.005-1.030) 02/02/18 22:00 Urine Protein NEGATIVE mg/dL (NEGATIVE) 02/02/18 22:00 Urine Glucose (UA) NEGATIVE mg/dL (NEGATIVE) 02/02/18 22:00 Urine Ketones NEGATIVE mg/dL (NEGATIVE) 02/02/18 22:00 Urine Blood MODERATE (NEGATIVE) H 02/02/18 22:00 Urine Nitrate NEGATIVE (NEGATIVE) 02/02/18 22:00 Urine Bilirubin NEGATIVE (NEGATIVE) 02/02/18 22:00 Urine Urobilinogen 0.2 E.U./dL (0.2 - 1.0) 02/02/18 22:00 Ur Leukocyte Esterase NEGATIVE (NEGATIVE) 02/02/18 22:00 Urine RBC 5-10 /hpf (0-5) H 02/02/18 22:00 Urine WBC 0-2 /hpf (0-5) 02/02/18 22:00 Ur Epithelial Cells OCCASIONAL /lpf (FEW) 02/02/18 22:00 Urine Bacteria FEW /hpf (NONE SEEN) 02/02/18 22:00 Ur Random Sodium 94 mmol/L 02/02/18 22:00 Urine Creatinine 25.0 mg/dl (39.0-259.0) L 02/02/18 22:00 Vancomycin Trough 28.2 ug/mL (5-10) H 01/25/18 09:00 Random Vancomycin 30.6 ug/mL (5.0-40.0) 01/26/18 06:00 - Physical Exam Vitals and I&O: Vital Signs Temp 96.8 F 02/05/18 08:02 Pulse 78 02/05/18 08:30 Resp 20 02/05/18 08:02 BP 116/55 02/05/18 08:29 Pulse Ox 100 02/05/18 08:02 Intake & Output 02/04/18 02/05/18 02/05/18 18:59 06:59 18:59 Intake Total 900 1340 Output Total 1800 1300 Balance -900 40 Weight (lbs) 92.079 kg 91.354 kg Intake: Intake, IV Amount 100 1100 D5W w/20 mEq KCL 1,000 ml 1000 @ 125 mls/hr IV .Q8H [facility] Rx#:[id number] metroNIDAZOLE 500mg/NS 100 100 100mL 500 mg In 100 ml @ 100 mls/hr IV Q12H [facility] Rx #:[id number] Oral 800 240 Output: Urine 1800 1300 Other: Weight Source Estimated Bedscale Active Medications: Current Medications Acetaminophen (Tylenol) 650 mg PO Q6H PRN PRN Reason: HEADACHE/TEMP ABOVE 100F Stop: 03/21/18 19:07 Last Admin: 01/20/18 23:17 Dose: 650 mg Acetaminophen/Hydrocodone Bitart ([place] 10 Mg/325 Mg) 1 tab PO Q6H PRN PRN Reason: mild pain Stop: 03/22/18 10:31 Last Admin: 02/04/18 13:21 Dose: 1 tab Acetaminophen/Hydrocodone Bitart ([place] 10 Mg/325 Mg) 1 tab PO Q4H PRN PRN Reason: Pain (Moderate) Stop: 03/31/18 21:39 Albuterol/Ipratropium (Duoneb Neb) 3 ml HHN Q4HRT [facility] Stop: 03/21/18 19:59 Last Admin: 02/05/18 07:18 Dose: 3 ml Amiodarone HCl (Cordarone) 100 mg GT DAILY [facility] Stop: 03/22/18 08:59 Last Admin: 02/05/18 08:30 Dose: 100 mg Amlodipine Besylate (Norvasc) 10 mg GT DAILY [facility] Stop: 03/22/18 08:59 Last Admin: 02/05/18 08:29 Dose: 10 mg Aspirin (Aspirin Chewable) 81 mg GT DAILY [facility] Stop: 03/22/18 08:59 Last Admin: 02/05/18 08:30 Dose: 81 mg Atorvastatin Calcium (Lipitor) 40 mg GT HS [facility] Stop: 03/25/18 20:59 Last Admin: 02/04/18 20:17 Dose: 40 mg Diphenhydramine HCl (Benadryl 50 Mg/Ml) 50 mg IVP Q8H PRN PRN Reason: rash, itchiness Stop: 03/30/18 08:49 Docusate Sodium (Colace) 100 mg PO BID PRN PRN Reason: Constipation Stop: 03/21/18 19:07 Last Admin: 02/01/18 10:25 Dose: 100 mg Famotidine (Pepcid) 40 mg PO DAILY [facility] Stop: 03/30/18 08:59 Last Admin: 02/05/18 08:31 Dose: 40 mg Hydromorphone HCl (Dilaudid) 4 mg IVP Q4HR PRN PRN Reason: Severe Pain Stop: 03/29/18 12:35 Last Admin: 02/05/18 04:35 Dose: 4 mg Magnesium Sulfate (Magnesium Sulfate Premix) 2 gm in 50 mls @ 25 mls/hr IV DAILY PRN PRN Reason: Magnesium level less than 1.6 Stop: 03/21/18 19:07 Metronidazole (Flagyl) 500 mg in 100 mls @ 100 mls/hr IV Q12H [facility] Stop: 03/27/18 14:59 Last Infusion: 02/05/18 03:37 Dose: Infused Ceftriaxone Sodium 1 gm/ (Dextrose) 50 mls @ 100 mls/hr IV Q24H [facility] Stop: 03/30/18 14:59 Last Admin: 02/04/18 14:11 Dose: 100 mls/hr Potassium Chloride/Dextrose (D5w W/20 Meq Kcl) 1,000 mls @ 125 mls/hr IV .Q8H [facility] Stop: 04/05/18 12:44 Last Admin: 02/05/18 01:16 Dose: 125 mls/hr Lactobacillus Rhamnosus (Culturelle 15b) 1 each PO DAILY [facility] Stop: 03/23/18 08:59 Last Admin: 02/05/18 08:30 Dose: 1 each Lorazepam (Ativan) 1 mg PO Q6H PRN; Protocol PRN Reason: Agitation Stop: 03/31/18 21:43 Last Admin: 02/04/18 21:41 Dose: 1 mg Magnesium Oxide (Mag-Oxide) 400 mg PO BID PRN PRN Reason: Mg less than 1.9 Stop: 03/21/18 19:07 Metoprolol Tartrate (Lopressor) 50 mg GT Q8H [facility] Stop: 03/21/18 19:14 Last Admin: 02/05/18 04:12 Dose: 50 mg Miscellaneous (Probiotic Screen) 1 ea MC PRN PRN PRN Reason: PROTOCOL Stop: 03/22/18 09:59 Miscellaneous (Clinical Monitoring) 1 ea MC DAILY PRN PRN Reason: RENAL Stop: 04/04/18 16:38 Ondansetron HCl (Zofran) 4 mg IV Q4H PRN PRN Reason: Nausea / Vomiting Stop: 03/27/18 09:59 Last Admin: 02/04/18 18:32 Dose: 4 mg Potassium Chloride (Klor-Con) 40 meq PO DAILY PRN PRN Reason: k level less than 3.5 Stop: 03/21/18 19:07 Last Admin: 02/05/18 07:02 Dose: 40 meq Simethicone (Mylicon) 80 mg PO Q8H [facility] Stop: 03/27/18 10:14 Last Admin: 02/05/18 02:37 Dose: 80 mg Tamsulosin HCl (Flomax) 0.4 mg PO DAILY [facility] Stop: 03/28/18 08:59 Last Admin: 02/05/18 08:29 Dose: 0.4 mg General: no acute distress, well developed, well nourished HEENT: atraumatic, normocephalic, PERRLA, EOMI Neck: supple, no thyromegaly Cardiovascular: S1S2, regular Lungs: clear to auscultation bilaterally, clear to percussion Abdomen: soft, no tender, no distended, no rebound Extremities: no cyanosis, no clubbing Neurological: awake, alert Skin: intact - Procedures Procedures: Procedures Procedure Code Date INSPECTION OF GALLBLADDER, PERCUTANEOUS ENDOSCOPIC APPROACH [id number] 01/20/18 RELEASE OMENTUM, OPEN APPROACH [id number] 01/20/18 RESECTION OF GALLBLADDER, OPEN APPROACH [id number] 01/20/18 Infectious Disease Assmt/Plan - Problem List Patient Problems: All Active Problems GASTRIC TUBE AND CORAL REMOVAL (Acute) - Assessment Assessment: 1. Leukocytosis worse, most likely postsurgical. If WBC count remains elevated , we will consider indium scan. 2. Right lower lobe infiltrate, suspect aspiration pneumonia. 3. UTI. 4. MRSA colonization. 5. Hypertension. 6. Hyperlipidemia. 7. Aortic dissection, repair of aortic dissection at [facility]. 8. Acute kidney injury. Resolving. 9. Dysphagia resolved. He is taking his medication by mouth. 10. Vomiting. 11. Cholelithiasis. 12. Status post open cholecystectomy. - Plan Plan: Change flagyl 500 mg iv twice/day, Continue Rocephin for 5 days. As patient continues to have high WBC Count consider WBC Scan. may get Dr Awad , Hematology/oncology consult. Indium scan. Nutritional Asmnt/Malnutr-PDOC - Dietary Evaluation Malnutrition Findings (Please click <Entered> for more info): Nutritional Asmnt/Malnutrition Start: 01/24/18 17: 29 Text: Status: Complete Freq: Protocol: Document 01/24/18 17:29 LCHENG (Rec: 01/24/18 17:38 LCHENG [id number]) Nutritional Asmnt/Malnutrition Patient General Information Nutritional Screening Moderate Risk Diagnosis aspiration PNA Pertinent Medical Hx/Surgical Hx cardiac tampondade s/p surgery , aortic dissection, Gtube ( now removed) Subjective Information Per H&P pt had Gtube removed and started oral diet for about one month. Pt stated he still have some stomach issue, vomiting. Pt consumed cream of wheat and ceream for breakfast this morning, not very comfortable with solid food at this time.Per nurse note, pt had loose stool last night. Per EMR, PO intake 50- 75%. Current Diet Order/ Nutrition Support cardiac Pertinent Medications colace, culturelle, zofran, piperacillin, vancomycin Pertinent Labs 01/24 cl 108, glucose 76 01/20 A1c 4.9 Nutritional Hx/Data Height 1.91 m Height (Calculated Centimeters) 190.5 Current Weight (lbs) 92.079 kg Weight (Calculated Kilograms) 92.1 Weight (Calculated Grams) 81923.3 [place] Body Weight 196 Body Mass Index (BMI) 25.3 Weight Status Overweight GI Symptoms GI Symptoms None Last BM 01/24 Difficult in: None Skin Integrity/Comment: intact Current %PO Fair (50-74%) Estimated Nutritional Goals BEE in Kcals: Using Current wt Calories/Kcals/Kg 25-30 Kcals Calculated 2353-3810 Protein: Using Current wt Protein g/k Protein Calculated 92 Fluid: ml 2300-2760ml (1ml/kcal) Nutritional Problem No current Nutrition Prob Problem N/A Malnutrition Alert Is there a minimum of two criteria No selected? Query Text:Check all the applicable criteria. A minimum of two criteria are recommended for diagnosis of either severe or non-severe malnutrition. Malnutrition Related to Morbid Obesity Malnutrition related to morbid obesity No Intervention/Recommendation Comments 1. Continue with current diet as ordered. Offered food alternatives if pt not able to take his meals. 2. Monitor PO intake, GI function, wt, labs and skin integrity 3. F/U as moderate risk in 3-5 days, 01/27-01/29 Expected Outcomes/Goals Expected Outcomes/Goals 1. PO intake to meet at least 75% of nutritional needs. 2. Wt stability, GI function to improve, skin to remain intact, labs to approach WNL.
--- NOTE | 2018-02-05 10:24 | Progress Notes ---
DATE: 02/04/2018 SUBJECTIVE: The patient is seen and evaluated. He appears to be in some acute distress. He admits to some congestion and continued abdominal pain. His white blood cell count is holding steady in between 18 and 19. His pain is controlled with IV medication. I had a long discussion with the patient at bedside yesterday. He is open to going to [facility] if evaluated. The brother is pushing for him to go back over to [place]; however, the brother does not have decision making capacity and we would like to have [facility] come see the patient. LABORATORY DATA: White blood cell count is 19.4, red blood cells 2.9, hemoglobin is 8.3. Sodium is 149, potassium is 3.1. PHYSICAL EXAMINATION: GENERAL: Appears to be in some distress. HEENT: PERRLA, EOMI. NECK: Supple. Trachea midline. CARDIOVASCULAR: Regular rate and rhythm. RESPIRATORY: Decreased breath sounds bilaterally with intermittent rhonchi. ABDOMEN: Large surgical incision is intact without surrounding erythema or drainage. MUSCULOSKELETAL: Muscle strength testing in bilateral upper and lower extremities is 4/5. SKIN: No rashes or open wounds. Surgical incision remains intact at this time. ASSESSMENT: 1. Status post open cholecystectomy. 2. Right upper extremity edema. 3. Sepsis. 4. Aspiration pneumonia. 5. Hypokalemia. 6. History of right upper extremity deep venous thrombosis, resolved. 7. Dysphagia, resolved. 8. Atrial fibrillation. 9. Anemia. 10. Severe malnutrition. 11. Hyponatremia. 12. History of aortic dissection and cardiac tamponade and status post surgery at [facility] in 10/2017. PLAN: Cardio is following. Continue IV antibiotics. ID and General Surgery are following. The patient's confusion continues to resolve. Continue Rocephin and Flagyl. Pain is currently controlled with IV medication and [place]. JOB# [id number]
--- NOTE | 2018-02-05 12:26 | General Progress Note ---
Subjective - Review of Systems Service Date: 02/05/18 Events since last encounter: feels well no complaints passing gas,no pain---s/p GB surgery thirsty Subjective: no complaints Objective - Results Result Diagrams: 02/05/18 05:40 02/05/18 05:40 Recent Labs: Laboratory Last Values WBC 20.4 Th/cmm (4.8-10.8) H* 02/05/18 05:40 Corrected WBC (auto) Th/cmm 02/01/18 05:52 RBC 3.19 Mil/cmm (4.30-5.70) L 02/05/18 05:40 Hgb 9.2 gm/dL (12-16) L 02/05/18 05:40 Hct 27.2 % (41.0-60) L 02/05/18 05:40 MCV 85.3 fl (80-99) 02/05/18 05:40 MCH 28.8 pg (26.0-30.0) 02/05/18 05:40 MCHC Differential 33.8 pg (28.0-36.0) 02/05/18 05:40 RDW 15.4 % (11.5-20.0) 02/05/18 05:40 Plt Count 279 Th/cmm (150-400) 02/05/18 05:40 MPV 8.2 fl 02/05/18 05:40 Neutrophils % 86.7 % (40.0-80.0) H 02/03/18 05:00 Band Neutrophils % 1 % (0-10) 02/05/18 05:40 Lymphocytes % 3.4 % (20.0-50.0) L 02/03/18 05:00 Monocytes % 9.0 % (2.0-10.0) 02/03/18 05:00 Eosinophils % 0.9 % (0.0-5.0) 02/03/18 05:00 Basophils % 0.0 % (0.0-2.0) 02/03/18 05:00 Neutrophils (Manual) 88 % (40-80) H 02/05/18 05:40 Lymphocytes 5 % (20-50) L 02/05/18 05:40 Monocytes 8 % (2-10) 02/05/18 05:40 Eosinophils 0 % (0-5) 02/05/18 05:40 Basophils 0 % (0-3) 02/05/18 05:40 Platelet Estimate ADEQUATE (NORMAL) 02/04/18 05:05 Poikilocytosis 1+ 01/25/18 05:57 Anisocytosis 1+ 01/25/18 05:57 Ovalocytes 1+ 02/04/18 05:05 Schistocytes 1+ 02/04/18 05:05 PT 17.8 SECONDS (9.5-11.5) H 01/28/18 04:20 INR 1.66 (0.5-1.4) H 01/28/18 04:20 PTT (Actin FS) 45.6 SECONDS (26.0-38.0) H 01/28/18 04:20 Plt Function Studies 106 01/28/18 08:05 Specimen Source Arterial 01/31/18 11:10 Sample Site Left Radial 01/31/18 11:10 pH 7.42 (7.35-7.45) 01/31/18 11:10 pCO2 32.0 mmHg (35.0-45.0) L 01/31/18 11:10 pO2 62.0 mmHg (80.0-100.0) L 01/31/18 11:10 HCO3 22.5 mEq/L (20.0-26.0) 01/31/18 11:10 Base Excess -2.9 mEq/L (-3.0-3.0) 01/31/18 11:10 O2 Saturation 92.0 % (92.0-100.0) 01/31/18 11:10 Zac Test YES 01/31/18 11:10 Vent Rate NA 01/31/18 11:10 Inspired O2 21 01/31/18 11:10 Tidal Volume NA 01/31/18 11:10 PEEP NA 01/31/18 11:10 Pressure (ins/psv/peep) NA 01/31/18 11:10 Critical Value E.MATHEW 01/31/18 11:10 Sodium 146 mEq/L (136-145) H 02/05/18 05:40 Potassium 3.1 mEq/L (3.5-5.1) L 02/05/18 05:40 Chloride 112 mEq/L (98-107) H 02/05/18 05:40 Carbon Dioxide 25.9 mEq/L (21.0-31.0) 02/05/18 05:40 Anion Gap 11.2 (7.0-16.0) 02/05/18 05:40 BUN 14 mg/dL (7-25) 02/05/18 05:40 Creatinine 1.8 mg/dL (0.7-1.3) H 02/05/18 05:40 Est GFR ( Amer) 49.6 ml/min (>90) 02/05/18 05:40 Est GFR (Non-Af Amer) 41.0 ml/min 02/05/18 05:40 BUN/Creatinine Ratio 7.8 02/05/18 05:40 Glucose 118 mg/dL (70-105) H 02/05/18 05:40 POC Glucose 87 MG/DL (70 - 105) 01/28/18 05:32 Hemoglobin A1c % 4.9 % (4.0-6.0) 01/20/18 16:40 Whole Bld Lactic Acid 1.32 mmol/L (0.60-1.99) 01/20/18 16:40 Uric Acid 8.7 mg/dL (4.4-7.6) H 01/31/18 05:30 Calcium 7.8 mg/dL (8.6-10.3) L 02/05/18 05:40 Total Bilirubin 0.4 mg/dL (0.3-1.0) 02/05/18 05:40 AST 11 U/L (13-39) L 02/05/18 05:40 ALT 9 U/L (7-52) 02/05/18 05:40 Alkaline Phosphatase 98 U/L (34-104) 02/05/18 05:40 Ammonia 53 umol/L (16-53) 01/31/18 15:32 Creatine Kinase 32 U/L (30-223) 01/20/18 16:40 Troponin I 0.01 ng/mL (0.01-0.05) 01/20/18 16:40 Total Protein 5.4 gm/dL (6.0-8.3) L 02/05/18 05:40 Albumin 2.6 gm/dL (4.2-5.5) L 02/05/18 05:40 Globulin 2.8 gm/dL 02/05/18 05:40 Albumin/Globulin Ratio 0.9 (1.0-1.8) L 02/05/18 05:40 Triglycerides 69 mg/dL (<150) 01/27/18 05:45 Cholesterol 79 mg/dL (<200) 01/27/18 05:45 LDL Cholesterol Direct 37 mg/dL (75-193) L 01/27/18 05:45 HDL Cholesterol 32 mg/dL (23-92) 01/27/18 05:45 Urine Source RANDOM 02/02/18 22:00 Urine Color YELLOW 02/02/18 22:00 Urine Clarity CLEAR (CLEAR) 02/02/18 22:00 Urine pH 6.0 (4.6 - 8.0) 02/02/18 22:00 Ur Specific Lee <= 1.005 (1.005-1.030) 02/02/18 22:00 Urine Protein NEGATIVE mg/dL (NEGATIVE) 02/02/18 22:00 Urine Glucose (UA) NEGATIVE mg/dL (NEGATIVE) 02/02/18 22:00 Urine Ketones NEGATIVE mg/dL (NEGATIVE) 02/02/18 22:00 Urine Blood MODERATE (NEGATIVE) H 02/02/18 22:00 Urine Nitrate NEGATIVE (NEGATIVE) 02/02/18 22:00 Urine Bilirubin NEGATIVE (NEGATIVE) 02/02/18 22:00 Urine Urobilinogen 0.2 E.U./dL (0.2 - 1.0) 02/02/18 22:00 Ur Leukocyte Esterase NEGATIVE (NEGATIVE) 02/02/18 22:00 Urine RBC 5-10 /hpf (0-5) H 02/02/18 22:00 Urine WBC 0-2 /hpf (0-5) 02/02/18 22:00 Ur Epithelial Cells OCCASIONAL /lpf (FEW) 02/02/18 22:00 Urine Bacteria FEW /hpf (NONE SEEN) 02/02/18 22:00 Ur Random Sodium 94 mmol/L 02/02/18 22:00 Urine Creatinine 25.0 mg/dl (39.0-259.0) L 02/02/18 22:00 Vancomycin Trough 28.2 ug/mL (5-10) H 01/25/18 09:00 Random Vancomycin 30.6 ug/mL (5.0-40.0) 01/26/18 06:00 - Physical Exam Vitals and I&O: Vital Signs Temp 97.1 F 02/05/18 12:00 Pulse 71 06/06/18 12:00 Resp 20 02/05/18 12:00 BP 111/60 02/05/18 12:00 Pulse Ox 100 02/05/18 12:00 Intake & Output 02/04/18 02/05/18 02/05/18 18:59 06:59 18:59 Intake Total 900 1340 Output Total 1800 1300 Balance -900 40 Weight (lbs) 92.079 kg 91.354 kg Intake: Intake, IV Amount 100 1100 D5W w/20 mEq KCL 1,000 ml 1000 @ 125 mls/hr IV .Q8H [facility] Rx#:[id number] metroNIDAZOLE 500mg/NS 100 100 100mL 500 mg In 100 ml @ 100 mls/hr IV Q12H [facility] Rx #:[id number] Oral 800 240 Output: Urine 1800 1300 Other: Weight Source Estimated Bedscale Active Medications: Current Medications Acetaminophen (Tylenol) 650 mg PO Q6H PRN PRN Reason: HEADACHE/TEMP ABOVE 100F Stop: 03/21/18 19:07 Last Admin: 01/20/18 23:17 Dose: 650 mg Acetaminophen/Hydrocodone Bitart ([place] 10 Mg/325 Mg) 1 tab PO Q6H PRN PRN Reason: mild pain Stop: 03/22/18 10:31 Last Admin: 02/04/18 13:21 Dose: 1 tab Acetaminophen/Hydrocodone Bitart ([place] 10 Mg/325 Mg) 1 tab PO Q4H PRN PRN Reason: Pain (Moderate) Stop: 03/31/18 21:39 Albuterol/Ipratropium (Duoneb Neb) 3 ml HHN Q4HRT [facility] Stop: 03/21/18 19:59 Last Admin: 02/05/18 10:56 Dose: 3 ml Amiodarone HCl (Cordarone) 100 mg GT DAILY [facility] Stop: 03/22/18 08:59 Last Admin: 02/05/18 08:30 Dose: 100 mg Amlodipine Besylate (Norvasc) 10 mg GT DAILY [facility] Stop: 03/22/18 08:59 Last Admin: 02/05/18 08:29 Dose: 10 mg Aspirin (Aspirin Chewable) 81 mg GT DAILY [facility] Stop: 03/22/18 08:59 Last Admin: 02/05/18 08:30 Dose: 81 mg Atorvastatin Calcium (Lipitor) 40 mg GT HS [facility] Stop: 03/25/18 20:59 Last Admin: 02/04/18 20:17 Dose: 40 mg Diphenhydramine HCl (Benadryl 50 Mg/Ml) 50 mg IVP Q8H PRN PRN Reason: rash, itchiness Stop: 03/30/18 08:49 Docusate Sodium (Colace) 100 mg PO BID PRN PRN Reason: Constipation Stop: 03/21/18 19:07 Last Admin: 02/01/18 10:25 Dose: 100 mg Famotidine (Pepcid) 40 mg PO DAILY [facility] Stop: 03/30/18 08:59 Last Admin: 02/05/18 08:31 Dose: 40 mg Hydromorphone HCl (Dilaudid) 4 mg IVP Q4HR PRN PRN Reason: Severe Pain Stop: 03/29/18 12:35 Last Admin: 02/05/18 04:35 Dose: 4 mg Magnesium Sulfate (Magnesium Sulfate Premix) 2 gm in 50 mls @ 25 mls/hr IV DAILY PRN PRN Reason: Magnesium level less than 1.6 Stop: 03/21/18 19:07 Metronidazole (Flagyl) 500 mg in 100 mls @ 100 mls/hr IV Q12H [facility] Stop: 03/27/18 14:59 Last Infusion: 02/05/18 03:37 Dose: Infused Ceftriaxone Sodium 1 gm/ (Dextrose) 50 mls @ 100 mls/hr IV Q24H [facility] Stop: 03/30/18 14:59 Last Admin: 02/04/18 14:11 Dose: 100 mls/hr Potassium Chloride/Dextrose (D5w W/20 Meq Kcl) 1,000 mls @ 125 mls/hr IV .Q8H [facility] Stop: 04/05/18 12:44 Last Admin: 02/05/18 01:16 Dose: 125 mls/hr Lactobacillus Rhamnosus (Culturelle 15b) 1 each PO DAILY [facility] Stop: 03/23/18 08:59 Last Admin: 02/05/18 08:30 Dose: 1 each Lorazepam (Ativan) 1 mg PO Q6H PRN; Protocol PRN Reason: Agitation Stop: 03/31/18 21:43 Last Admin: 02/04/18 21:41 Dose: 1 mg Magnesium Oxide (Mag-Oxide) 400 mg PO BID PRN PRN Reason: Mg less than 1.9 Stop: 03/21/18 19:07 Metoprolol Tartrate (Lopressor) 50 mg GT Q8H [facility] Stop: 03/21/18 19:14 Last Admin: 02/05/18 10:47 Dose: 50 mg Miscellaneous (Probiotic Screen) 1 ea MC PRN PRN PRN Reason: PROTOCOL Stop: 03/22/18 09:59 Miscellaneous (Clinical Monitoring) 1 ea MC DAILY PRN PRN Reason: RENAL Stop: 04/04/18 16:38 Ondansetron HCl (Zofran) 4 mg IV Q4H PRN PRN Reason: Nausea / Vomiting Stop: 03/27/18 09:59 Last Admin: 02/04/18 18:32 Dose: 4 mg Potassium Chloride (Klor-Con) 40 meq PO DAILY PRN PRN Reason: k level less than 3.5 Stop: 03/21/18 19:07 Last Admin: 02/05/18 07:02 Dose: 40 meq Simethicone (Mylicon) 80 mg PO Q8H [facility] Stop: 03/27/18 10:14 Last Admin: 02/05/18 10:47 Dose: 80 mg Tamsulosin HCl (Flomax) 0.4 mg PO DAILY [facility] Stop: 03/28/18 08:59 Last Admin: 02/05/18 08:29 Dose: 0.4 mg General: Alert, Cooperative, Other (acutely confused, AAO 2) HEENT: Atraumatic, PERRLA, EOMI Neck: Supple, +2 carotid pulse wo bruit, LAD, no JVD Cardiovascular: Regular rate, Normal S1, Normal S2, Other (s/p rt axillary art repair and dvt) Lungs: Other (has rales and congestion) Abdomen: Bowel sounds, Soft, Tender (s/p abd surgery), Other (surgical incision is intact) Extremities: Other (right upper extremity +3 edema), no Cyanosis Neurological: Normal speech Skin: no Rash - Procedures Procedures: Procedures Procedure Code Date INSPECTION OF GALLBLADDER, PERCUTANEOUS ENDOSCOPIC APPROACH [id number] 01/20/18 RELEASE OMENTUM, OPEN APPROACH [id number] 01/20/18 RESECTION OF GALLBLADDER, OPEN APPROACH [id number] 01/20/18 Assessment/Plan - Problem List Patient Problems: All Active Problems GASTRIC TUBE AND CORAL REMOVAL (Acute) - Assessment Assessment: SARAH ON CKD---GETTING BETTER OFF HD SW/P ABD CHOLECYSTECTOMY PT/OTENLARGED PROSTATE STILL NEED AGUILERA UROLOGICAL EVAL SOON - Plan Plan: CONTD---AGUILERA HYDRATION AVOID NEPH TOXIC Nutritional Asmnt/Malnutr-PDOC - Dietary Evaluation Malnutrition Findings (Please click <Entered> for more info): Nutritional Asmnt/Malnutrition Start: 01/24/18 17: 29 Text: Status: Complete Freq: Protocol: Document 01/24/18 17:29 LCHENG (Rec: 01/24/18 17:38 [id number]) Nutritional Asmnt/Malnutrition Patient General Information Nutritional Screening Moderate Risk Diagnosis aspiration PNA Pertinent Medical Hx/Surgical Hx cardiac tampondade s/p surgery , aortic dissection, Gtube ( now removed) Subjective Information Per H&P pt had Gtube removed and started oral diet for about one month. Pt stated he still have some stomach issue, vomiting. Pt consumed cream of wheat and ceream for breakfast this morning, not very comfortable with solid food at this time.Per nurse note, pt had loose stool last night. Per EMR, PO intake 50- 75%. Current Diet Order/ Nutrition Support cardiac Pertinent Medications colace, culturelle, zofran, piperacillin, vancomycin Pertinent Labs 01/24 cl 108, glucose 76 01/20 A1c 4.9 Nutritional Hx/Data Height 1.91 m Height (Calculated Centimeters) 190.5 Current Weight (lbs) 92.079 kg Weight (Calculated Kilograms) 92.1 Weight (Calculated Grams) 29741.3 [place] Body Weight 196 Body Mass Index (BMI) 25.3 Weight Status Overweight GI Symptoms GI Symptoms None Last BM 01/24 Difficult in: None Skin Integrity/Comment: intact Current %PO Fair (50-74%) Estimated Nutritional Goals BEE in Kcals: Using Current wt Calories/Kcals/Kg 25-30 Kcals Calculated 3090-8592 Protein: Using Current wt Protein g/k Protein Calculated 92 Fluid: ml 2300-2760ml (1ml/kcal) Nutritional Problem No current Nutrition Prob Problem N/A Malnutrition Alert Is there a minimum of two criteria No selected? Query Text:Check all the applicable criteria. A minimum of two criteria are recommended for diagnosis of either severe or non-severe malnutrition. Malnutrition Related to Morbid Obesity Malnutrition related to morbid obesity No Intervention/Recommendation Comments 1. Continue with current diet as ordered. Offered food alternatives if pt not able to take his meals. 2. Monitor PO intake, GI function, wt, labs and skin integrity 3. F/U as moderate risk in 3-5 days, 01/27-01/29 Expected Outcomes/Goals Expected Outcomes/Goals 1. PO intake to meet at least 75% of nutritional needs. 2. Wt stability, GI function to improve, skin to remain intact, labs to approach WNL.
[2018-02-05] MEDS ORDERED: Potassium Chloride 20 mEq ER Tab PO ONE (13:22)
--- NOTE | 2018-02-05 14:40 | General Progress Note ---
Subjective - Review of Systems Service Date: 02/05/18 Events since last encounter: incision healedhas CRYPTOGENIC LEUKOCYTOSIS, discussed with Objective - Results Result Diagrams: 02/05/18 05:40 02/05/18 05:40 Recent Labs: Laboratory Last Values WBC 20.4 Th/cmm (4.8-10.8) H* 02/05/18 05:40 Corrected WBC (auto) Th/cmm 02/01/18 05:52 RBC 3.19 Mil/cmm (4.30-5.70) L 02/05/18 05:40 Hgb 9.2 gm/dL (12-16) L 02/05/18 05:40 Hct 27.2 % (41.0-60) L 02/05/18 05:40 MCV 85.3 fl (80-99) 02/05/18 05:40 MCH 28.8 pg (26.0-30.0) 02/05/18 05:40 MCHC Differential 33.8 pg (28.0-36.0) 02/05/18 05:40 RDW 15.4 % (11.5-20.0) 02/05/18 05:40 Plt Count 279 Th/cmm (150-400) 02/05/18 05:40 MPV 8.2 fl 02/05/18 05:40 Neutrophils % 86.7 % (40.0-80.0) H 02/03/18 05:00 Band Neutrophils % 1 % (0-10) 02/05/18 05:40 Lymphocytes % 3.4 % (20.0-50.0) L 02/03/18 05:00 Monocytes % 9.0 % (2.0-10.0) 02/03/18 05:00 Eosinophils % 0.9 % (0.0-5.0) 02/03/18 05:00 Basophils % 0.0 % (0.0-2.0) 02/03/18 05:00 Neutrophils (Manual) 88 % (40-80) H 02/05/18 05:40 Lymphocytes 5 % (20-50) L 02/05/18 05:40 Monocytes 8 % (2-10) 02/05/18 05:40 Eosinophils 0 % (0-5) 02/05/18 05:40 Basophils 0 % (0-3) 02/05/18 05:40 Platelet Estimate ADEQUATE (NORMAL) 02/04/18 05:05 Poikilocytosis 1+ 01/25/18 05:57 Anisocytosis 1+ 01/25/18 05:57 Ovalocytes 1+ 02/04/18 05:05 Schistocytes 1+ 02/04/18 05:05 PT 17.8 SECONDS (9.5-11.5) H 01/28/18 04:20 INR 1.66 (0.5-1.4) H 01/28/18 04:20 PTT (Actin FS) 45.6 SECONDS (26.0-38.0) H 01/28/18 04:20 Plt Function Studies 106 01/28/18 08:05 Specimen Source Arterial 01/31/18 11:10 Sample Site Left Radial 01/31/18 11:10 pH 7.42 (7.35-7.45) 01/31/18 11:10 pCO2 32.0 mmHg (35.0-45.0) L 01/31/18 11:10 pO2 62.0 mmHg (80.0-100.0) L 01/31/18 11:10 HCO3 22.5 mEq/L (20.0-26.0) 01/31/18 11:10 Base Excess -2.9 mEq/L (-3.0-3.0) 01/31/18 11:10 O2 Saturation 92.0 % (92.0-100.0) 01/31/18 11:10 Zac Test YES 01/31/18 11:10 Vent Rate NA 01/31/18 11:10 Inspired O2 21 01/31/18 11:10 Tidal Volume NA 01/31/18 11:10 PEEP NA 01/31/18 11:10 Pressure (ins/psv/peep) NA 01/31/18 11:10 Critical Value E.MATHEW 01/31/18 11:10 Sodium 146 mEq/L (136-145) H 02/05/18 05:40 Potassium 3.1 mEq/L (3.5-5.1) L 02/05/18 05:40 Chloride 112 mEq/L (98-107) H 02/05/18 05:40 Carbon Dioxide 25.9 mEq/L (21.0-31.0) 02/05/18 05:40 Anion Gap 11.2 (7.0-16.0) 02/05/18 05:40 BUN 14 mg/dL (7-25) 02/05/18 05:40 Creatinine 1.8 mg/dL (0.7-1.3) H 02/05/18 05:40 Est GFR ( Amer) 49.6 ml/min (>90) 02/05/18 05:40 Est GFR (Non-Af Amer) 41.0 ml/min 02/05/18 05:40 BUN/Creatinine Ratio 7.8 02/05/18 05:40 Glucose 118 mg/dL (70-105) H 02/05/18 05:40 POC Glucose 87 MG/DL (70 - 105) 01/28/18 05:32 Hemoglobin A1c % 4.9 % (4.0-6.0) 01/20/18 16:40 Whole Bld Lactic Acid 1.32 mmol/L (0.60-1.99) 01/20/18 16:40 Uric Acid 8.7 mg/dL (4.4-7.6) H 01/31/18 05:30 Calcium 7.8 mg/dL (8.6-10.3) L 02/05/18 05:40 Total Bilirubin 0.4 mg/dL (0.3-1.0) 02/05/18 05:40 AST 11 U/L (13-39) L 02/05/18 05:40 ALT 9 U/L (7-52) 02/05/18 05:40 Alkaline Phosphatase 98 U/L (34-104) 02/05/18 05:40 Ammonia 53 umol/L (16-53) 01/31/18 15:32 Creatine Kinase 32 U/L (30-223) 01/20/18 16:40 Troponin I 0.01 ng/mL (0.01-0.05) 01/20/18 16:40 Total Protein 5.4 gm/dL (6.0-8.3) L 02/05/18 05:40 Albumin 2.6 gm/dL (4.2-5.5) L 02/05/18 05:40 Globulin 2.8 gm/dL 02/05/18 05:40 Albumin/Globulin Ratio 0.9 (1.0-1.8) L 02/05/18 05:40 Triglycerides 69 mg/dL (<150) 01/27/18 05:45 Cholesterol 79 mg/dL (<200) 01/27/18 05:45 LDL Cholesterol Direct 37 mg/dL (75-193) L 01/27/18 05:45 HDL Cholesterol 32 mg/dL (23-92) 01/27/18 05:45 Urine Source RANDOM 02/02/18 22:00 Urine Color YELLOW 02/02/18 22:00 Urine Clarity CLEAR (CLEAR) 02/02/18 22:00 Urine pH 6.0 (4.6 - 8.0) 02/02/18 22:00 Ur Specific [place] <= 1.005 (1.005-1.030) 02/02/18 22:00 Urine Protein NEGATIVE mg/dL (NEGATIVE) 02/02/18 22:00 Urine Glucose (UA) NEGATIVE mg/dL (NEGATIVE) 02/02/18 22:00 Urine Ketones NEGATIVE mg/dL (NEGATIVE) 02/02/18 22:00 Urine Blood MODERATE (NEGATIVE) H 02/02/18 22:00 Urine Nitrate NEGATIVE (NEGATIVE) 02/02/18 22:00 Urine Bilirubin NEGATIVE (NEGATIVE) 02/02/18 22:00 Urine Urobilinogen 0.2 E.U./dL (0.2 - 1.0) 02/02/18 22:00 Ur Leukocyte Esterase NEGATIVE (NEGATIVE) 02/02/18 22:00 Urine RBC 5-10 /hpf (0-5) H 02/02/18 22:00 Urine WBC 0-2 /hpf (0-5) 02/02/18 22:00 Ur Epithelial Cells OCCASIONAL /lpf (FEW) 02/02/18 22:00 Urine Bacteria FEW /hpf (NONE SEEN) 02/02/18 22:00 Ur Random Sodium 94 mmol/L 02/02/18 22:00 Urine Creatinine 25.0 mg/dl (39.0-259.0) L 02/02/18 22:00 Vancomycin Trough 28.2 ug/mL (5-10) H 01/25/18 09:00 Random Vancomycin 30.6 ug/mL (5.0-40.0) 01/26/18 06:00 - Physical Exam Vitals and I&O: Vital Signs Temp 97.1 F 02/05/18 12:00 Pulse 95 02/05/18 14:06 Resp 18 06/06/18 14:06 BP 111/60 02/05/18 12:00 Pulse Ox 96 02/05/18 14:06 Intake & Output 02/04/18 02/05/18 02/05/18 18:59 06:59 18:59 Intake Total 900 1340 1000 Output Total 1800 1300 Balance -319 05 7771 Weight (lbs) 92.079 kg 91.354 kg Intake: Intake, IV Amount 100 1100 1000 D5W w/20 mEq KCL 1,000 ml 1000 1000 @ 125 mls/hr IV .Q8H REPLACED BY [facility] Rx#:[id number] metroNIDAZOLE 500mg/NS 100 100 100mL 500 mg In 100 ml @ 100 mls/hr IV Q12H REPLACED BY [facility] Rx #:[id number] Oral 800 240 Output: Urine 1800 1300 Other: Weight Source Estimated Bedscale Active Medications: Current Medications Acetaminophen (Tylenol) 650 mg PO Q6H PRN PRN Reason: HEADACHE/TEMP ABOVE 100F Stop: 03/21/18 19:07 Last Admin: 01/20/18 23:17 Dose: 650 mg Acetaminophen/Hydrocodone Bitart ([place] 10 Mg/325 Mg) 1 tab PO Q6H PRN PRN Reason: mild pain Stop: 03/22/18 10:31 Last Admin: 02/04/18 13:21 Dose: 1 tab Acetaminophen/Hydrocodone Bitart ([place] 10 Mg/325 Mg) 1 tab PO Q4H PRN PRN Reason: Pain (Moderate) Stop: 03/31/18 21:39 Albuterol/Ipratropium (Duoneb Neb) 3 ml HHN Q4HRT REPLACED BY [facility] Stop: 03/21/18 19:59 Last Admin: 02/05/18 14:05 Dose: 3 ml Amiodarone HCl (Cordarone) 100 mg GT DAILY REPLACED BY [facility] Stop: 03/22/18 08:59 Last Admin: 02/05/18 08:30 Dose: 100 mg Amlodipine Besylate (Norvasc) 10 mg GT DAILY REPLACED BY [facility] Stop: 03/22/18 08:59 Last Admin: 02/05/18 08:29 Dose: 10 mg Aspirin (Aspirin Chewable) 81 mg GT DAILY REPLACED BY [facility] Stop: 03/22/18 08:59 Last Admin: 02/05/18 08:30 Dose: 81 mg Atorvastatin Calcium (Lipitor) 40 mg GT HS REPLACED BY [facility] Stop: 03/25/18 20:59 Last Admin: 02/04/18 20:17 Dose: 40 mg Diphenhydramine HCl (Benadryl 50 Mg/Ml) 50 mg IVP Q8H PRN PRN Reason: rash, itchiness Stop: 03/30/18 08:49 Docusate Sodium (Colace) 100 mg PO BID PRN PRN Reason: Constipation Stop: 03/21/18 19:07 Last Admin: 02/01/18 10:25 Dose: 100 mg Famotidine (Pepcid) 40 mg PO DAILY REPLACED BY [facility] Stop: 03/30/18 08:59 Last Admin: 02/05/18 08:31 Dose: 40 mg Hydromorphone HCl (Dilaudid) 4 mg IVP Q4HR PRN PRN Reason: Severe Pain Stop: 03/29/18 12:35 Last Admin: 02/05/18 04:35 Dose: 4 mg Magnesium Sulfate (Magnesium Sulfate Premix) 2 gm in 50 mls @ 25 mls/hr IV DAILY PRN PRN Reason: Magnesium level less than 1.6 Stop: 03/21/18 19:07 Metronidazole (Flagyl) 500 mg in 100 mls @ 100 mls/hr IV Q12H REPLACED BY [facility] Stop: 03/27/18 14:59 Last Infusion: 02/05/18 03:37 Dose: Infused Ceftriaxone Sodium 1 gm/ (Dextrose) 50 mls @ 100 mls/hr IV Q24H REPLACED BY [facility] Stop: 03/30/18 14:59 Last Admin: 02/04/18 14:11 Dose: 100 mls/hr Potassium Chloride/Dextrose (D5w W/20 Meq Kcl) 1,000 mls @ 125 mls/hr IV .Q8H REPLACED BY [facility] Stop: 04/05/18 12:44 Last Admin: 02/05/18 12:57 Dose: 125 mls/hr Lactobacillus Rhamnosus (Culturelle 15b) 1 each PO DAILY REPLACED BY [facility] Stop: 03/23/18 08:59 Last Admin: 02/05/18 08:30 Dose: 1 each Lorazepam (Ativan) 1 mg PO Q6H PRN; Protocol PRN Reason: Agitation Stop: 03/31/18 21:43 Last Admin: 02/04/18 21:41 Dose: 1 mg Magnesium Oxide (Mag-Oxide) 400 mg PO BID PRN PRN Reason: Mg less than 1.9 Stop: 03/21/18 19:07 Metoprolol Tartrate (Lopressor) 50 mg GT Q8H SHARLENE Stop: 03/21/18 19:14 Last Admin: 02/05/18 10:47 Dose: 50 mg Miscellaneous (Probiotic Screen) 1 ea PRN PRN PRN Reason: PROTOCOL Stop: 03/22/18 09:59 Miscellaneous (Clinical Monitoring) 1 ea DAILY PRN PRN Reason: RENAL Stop: 04/04/18 16:38 Ondansetron HCl (Zofran) 4 mg IV Q4H PRN PRN Reason: Nausea / Vomiting Stop: 03/27/18 09:59 Last Admin: 02/04/18 18:32 Dose: 4 mg Potassium Chloride (Klor-Con) 40 meq PO DAILY PRN PRN Reason: k level less than 3.5 Stop: 03/21/18 19:07 Last Admin: 02/05/18 07:02 Dose: 40 meq Simethicone (Mylicon) 80 mg PO Q8H SHARLENE Stop: 03/27/18 10:14 Last Admin: 02/05/18 12:57 Dose: 80 mg Tamsulosin HCl (Flomax) 0.4 mg PO DAILY SHARLENE Stop: 03/28/18 08:59 Last Admin: 02/05/18 08:29 Dose: 0.4 mg General: Alert, Cooperative, Other (acutely confused, AAO 2) HEENT: Atraumatic, PERRLA, EOMI Neck: Supple, +2 carotid pulse wo bruit, LAD, no JVD Cardiovascular: Regular rate, Normal S1, Normal S2, Other (s/p rt axillary art repair and dvt) Lungs: Other (has rales and congestion) Abdomen: Bowel sounds, Soft, Tender (s/p abd surgery), Other (surgical incision is intact) Extremities: Other (right upper extremity +3 edema), no Cyanosis Neurological: Normal speech Skin: no Rash - Procedures Procedures: Procedures Procedure Code Date INSPECTION OF GALLBLADDER, PERCUTANEOUS ENDOSCOPIC APPROACH [id number] 01/20/18 RELEASE OMENTUM, OPEN APPROACH [id number] 01/20/18 RESECTION OF GALLBLADDER, OPEN APPROACH [id number] 01/20/18 Assessment/Plan - Problem List Patient Problems: All Active Problems GASTRIC TUBE AND CORAL REMOVAL (Acute) Nutritional Asmnt/Malnutr-PDOC - Dietary Evaluation Malnutrition Findings (Please click <Entered> for more info): Nutritional Asmnt/Malnutrition Start: 01/24/18 17: 29 Text: Status: Complete Freq: Protocol: Document 01/24/18 17:29 LCHENG (Rec: 01/24/18 17:38 [id number]) Nutritional Asmnt/Malnutrition Patient General Information Nutritional Screening Moderate Risk Diagnosis aspiration PNA Pertinent Medical Hx/Surgical Hx cardiac tampondade s/p surgery , aortic dissection, Gtube ( now removed) Subjective Information Per H&P pt had Gtube removed and started oral diet for about one month. Pt stated he still have some stomach issue, vomiting. Pt consumed cream of wheat and ceream for breakfast this morning, not very comfortable with solid food at this time.Per nurse note, pt had loose stool last night. Per EMR, PO intake 50- 75%. Current Diet Order/ Nutrition Support cardiac Pertinent Medications colace, culturelle, zofran, piperacillin, vancomycin Pertinent Labs 01/24 cl 108, glucose 76 01/20 A1c 4.9 Nutritional Hx/Data Height 1.91 m Height (Calculated Centimeters) 190.5 Current Weight (lbs) 92.079 kg Weight (Calculated Kilograms) 92.1 Weight (Calculated Grams) 79339.3 [place] Body Weight 196 Body Mass Index (BMI) 25.3 Weight Status Overweight GI Symptoms GI Symptoms None Last BM 01/24 Difficult in: None Skin Integrity/Comment: intact Current %PO Fair (50-74%) Estimated Nutritional Goals BEE in Kcals: Using Current wt Calories/Kcals/Kg 25-30 Kcals Calculated 4720-7681 Protein: Using Current wt Protein g/k Protein Calculated 92 Fluid: ml 2300-2760ml (1ml/kcal) Nutritional Problem No current Nutrition Prob Problem N/A Malnutrition Alert Is there a minimum of two criteria No selected? Query Text:Check all the applicable criteria. A minimum of two criteria are recommended for diagnosis of either severe or non-severe malnutrition. Malnutrition Related to Morbid Obesity Malnutrition related to morbid obesity No Intervention/Recommendation Comments 1. Continue with current diet as ordered. Offered food alternatives if pt not able to take his meals. 2. Monitor PO intake, GI function, wt, labs and skin integrity 3. F/U as moderate risk in 3-5 days, 5/28-01/29 Expected Outcomes/Goals Expected Outcomes/Goals 1. PO intake to meet at least 75% of nutritional needs. 2. Wt stability, GI function to improve, skin to remain intact, labs to approach WNL.
[2018-02-06] MEDS: HYDROmorphone 2 mg/mL 1mL Vial IVP PRN ×6 (00:58→23:04)
[2018-02-06] MEDS: metroNIDAZOLE 500mg/NS 100mL 500 MG/100 ML BAG IV SCH ×2 (03:21→15:39)
[2018-02-06] MEDS: Albuterol/Ipratropium Neb 3 ML AERS HHN SCH ×6 (03:25→23:54)
[2018-02-06 07:18] LABS: HEMATOCRIT 27.3 % (41.0-60); HEMOGLOBIN 9.6 gm/dL (12-16); MEAN CORPUSCULAR HGB CONC 35.3 pg (28.0-36.0); MEAN PLATELET VOLUME 9.2 fl; PLATELET COUNT 295 Th/cmm (150-400); RED BLOOD COUNT 3.11 Mil/cmm (4.30-5.70); RED CELL DISTRIBUTION WIDTH 15.2 % (11.5-20.0)
[2018-02-06 07:21] LABS: WHITE BLOOD COUNT 17.4 Th/cmm (4.8-10.8)
[2018-02-06 07:30] LABS: ANION GAP 12.7 (7.0-16.0); CALCIUM SERUM 7.9 mg/dL (8.6-10.3); CARBON DIOXIDE 25.6 mEq/L (21.0-31.0); CREATININE - SERUM 1.7 mg/dL (0.7-1.3); GFR NON AFRICAN-AMERICAN 43.8 ml/min; POTASSIUM SERUM 3.3 mEq/L (3.5-5.1)
[2018-02-06 08:37] LABS: MANUAL DIFF REQUIRED? YES
[2018-02-06 08:38] LABS: BAND NEUTROPHILE 2 % (0-10); EOSINOPHIL 2 % (0-5); LYMPHOCYTE 10 % (20-50); MONOCYTE 8 % (2-10); NEUTROPHILS 78 % (40-80); PLATELET ESTIMATE ADEQUATE (NORMAL); TOTAL CELLS COUNTED 100
[2018-02-06] MEDS: Lactobacillus Rhamnosus GG 15 Billion CFU CAP.SPRINK PO SCH (09:09)
[2018-02-06] MEDS: Aspirin 81mg Chewable Tab GT SCH (09:12)
--- NOTE | 2018-02-06 15:23 | General Progress Note ---
Subjective - Review of Systems Service Date: 02/06/18 Events since last encounter: none new Subjective: feels ok Objective - Results Result Diagrams: 02/06/18 06:12 02/06/18 06:12 Recent Labs: Laboratory Last Values WBC 17.4 Th/cmm (4.8-10.8) H 02/06/18 06:12 Corrected WBC (auto) Th/cmm 02/01/18 05:52 RBC 3.11 Mil/cmm (4.30-5.70) L 02/06/18 06:12 Hgb 9.6 gm/dL (12-16) L 02/06/18 06:12 Hct 27.3 % (41.0-60) L 02/06/18 06:12 MCV 88.0 fl (80-99) 02/06/18 06:12 MCH 31.0 pg (26.0-30.0) H 02/06/18 06:12 MCHC Differential 35.3 pg (28.0-36.0) 02/06/18 06:12 RDW 15.2 % (11.5-20.0) 02/06/18 06:12 Plt Count 295 Th/cmm (150-400) 02/06/18 06:12 MPV 9.2 fl 02/06/18 06:12 Neutrophils % SMALL LOT OPERATOR 02/06/18 06:12 Band Neutrophils % 2 % (0-10) 02/06/18 06:12 Lymphocytes % SMALL LOT OPERATOR 02/06/18 06:12 Monocytes % SMALL LOT OPERATOR 02/06/18 06:12 Eosinophils % SMALL LOT OPERATOR 02/06/18 06:12 Basophils % SMALL LOT OPERATOR 02/06/18 06:12 Neutrophils (Manual) 78 % (40-80) 02/06/18 06:12 Lymphocytes 10 % (20-50) L 02/06/18 06:12 Monocytes 8 % (2-10) 02/06/18 06:12 Eosinophils 2 % (0-5) 02/06/18 06:12 Basophils 0 % (0-3) 02/05/18 05:40 Platelet Estimate ADEQUATE (NORMAL) 02/06/18 06:12 Poikilocytosis 1+ 01/25/18 05:57 Anisocytosis 1+ 01/25/18 05:57 Ovalocytes 1+ 02/04/18 05:05 Schistocytes 1+ 02/04/18 05:05 PT 17.8 SECONDS (9.5-11.5) H 01/28/18 04:20 INR 1.66 (0.5-1.4) H 01/28/18 04:20 PTT (Actin FS) 45.6 SECONDS (26.0-38.0) H 01/28/18 04:20 Plt Function Studies 106 01/28/18 08:05 Specimen Source Arterial 01/31/18 11:10 Sample Site Left Radial 01/31/18 11:10 pH 7.42 (7.35-7.45) 01/31/18 11:10 pCO2 32.0 mmHg (35.0-45.0) L 01/31/18 11:10 pO2 62.0 mmHg (80.0-100.0) L 01/31/18 11:10 HCO3 22.5 mEq/L (20.0-26.0) 01/31/18 11:10 Base Excess -2.9 mEq/L (-3.0-3.0) 01/31/18 11:10 O2 Saturation 92.0 % (92.0-100.0) 01/31/18 11:10 Zac Test YES 01/31/18 11:10 Vent Rate NA 01/31/18 11:10 Inspired O2 21 01/31/18 11:10 Tidal Volume NA 01/31/18 11:10 PEEP NA 01/31/18 11:10 Pressure (ins/psv/peep) NA 01/31/18 11:10 Critical Value E.MATHEW 01/31/18 11:10 Sodium 144 mEq/L (136-145) 02/06/18 06:12 Potassium 3.3 mEq/L (3.5-5.1) L 02/06/18 06:12 Chloride 109 mEq/L (98-107) H 02/06/18 06:12 Carbon Dioxide 25.6 mEq/L (21.0-31.0) 02/06/18 06:12 Anion Gap 12.7 (7.0-16.0) 02/06/18 06:12 BUN 13 mg/dL (7-25) 02/06/18 06:12 Creatinine 1.7 mg/dL (0.7-1.3) H 02/06/18 06:12 Est GFR ( Amer) 53.0 ml/min (>90) 02/06/18 06:12 Est GFR (Non-Af Amer) 43.8 ml/min 02/06/18 06:12 BUN/Creatinine Ratio 7.6 02/06/18 06:12 Glucose 93 mg/dL (70-105) 02/06/18 06:12 POC Glucose 87 MG/DL (70 - 105) 01/28/18 05:32 Hemoglobin A1c % 4.9 % (4.0-6.0) 01/20/18 16:40 Whole Bld Lactic Acid 1.32 mmol/L (0.60-1.99) 01/20/18 16:40 Uric Acid 8.7 mg/dL (4.4-7.6) H 01/31/18 05:30 Calcium 7.9 mg/dL (8.6-10.3) L 02/06/18 06:12 Total Bilirubin 0.4 mg/dL (0.3-1.0) 02/05/18 05:40 AST 11 U/L (13-39) L 02/05/18 05:40 ALT 9 U/L (7-52) 02/05/18 05:40 Alkaline Phosphatase 98 U/L (34-104) 02/05/18 05:40 Ammonia 53 umol/L (16-53) 01/31/18 15:32 Creatine Kinase 32 U/L (30-223) 01/20/18 16:40 Troponin I 0.01 ng/mL (0.01-0.05) 01/20/18 16:40 Total Protein 5.4 gm/dL (6.0-8.3) L 02/05/18 05:40 Albumin 2.6 gm/dL (4.2-5.5) L 02/05/18 05:40 Globulin 2.8 gm/dL 02/05/18 05:40 Albumin/Globulin Ratio 0.9 (1.0-1.8) L 02/05/18 05:40 Triglycerides 69 mg/dL (<150) 01/27/18 05:45 Cholesterol 79 mg/dL (<200) 01/27/18 05:45 LDL Cholesterol Direct 37 mg/dL (75-193) L 01/27/18 05:45 HDL Cholesterol 32 mg/dL (23-92) 01/27/18 05:45 Urine Source RANDOM 02/02/18 22:00 Urine Color YELLOW 02/02/18 22:00 Urine Clarity CLEAR (CLEAR) 02/02/18 22:00 Urine pH 6.0 (4.6 - 8.0) 02/02/18 22:00 Ur Specific [place] <= 1.005 (1.005-1.030) 02/02/18 22:00 Urine Protein NEGATIVE mg/dL (NEGATIVE) 02/02/18 22:00 Urine Glucose (UA) NEGATIVE mg/dL (NEGATIVE) 02/02/18 22:00 Urine Ketones NEGATIVE mg/dL (NEGATIVE) 02/02/18 22:00 Urine Blood MODERATE (NEGATIVE) H 02/02/18 22:00 Urine Nitrate NEGATIVE (NEGATIVE) 02/02/18 22:00 Urine Bilirubin NEGATIVE (NEGATIVE) 02/02/18 22:00 Urine Urobilinogen 0.2 E.U./dL (0.2 - 1.0) 02/02/18 22:00 Ur Leukocyte Esterase NEGATIVE (NEGATIVE) 02/02/18 22:00 Urine RBC 5-10 /hpf (0-5) H 02/02/18 22:00 Urine WBC 0-2 /hpf (0-5) 02/02/18 22:00 Ur Epithelial Cells OCCASIONAL /lpf (FEW) 02/02/18 22:00 Urine Bacteria FEW /hpf (NONE SEEN) 02/02/18 22:00 Ur Random Sodium 94 mmol/L 02/02/18 22:00 Urine Creatinine 25.0 mg/dl (39.0-259.0) L 02/02/18 22:00 Vancomycin Trough 28.2 ug/mL (5-10) H 01/25/18 09:00 Random Vancomycin 30.6 ug/mL (5.0-40.0) 01/26/18 06:00 - Physical Exam Vitals and I&O: Vital Signs Temp 98.1 F 02/06/18 11:40 Pulse 89 02/06/18 14:14 Resp 18 02/06/18 14:14 BP 142/83 02/06/18 11:40 Pulse Ox 96 02/06/18 14:14 Intake & Output 02/05/18 02/06/18 02/06/18 18:59 06:59 18:59 Intake Total 1000 1800 Output Total 4400 Balance 1000 -2600 Weight (lbs) 93.44 kg 93.44 kg Intake: Intake, IV Amount 1000 100 D5W w/20 mEq KCL 1,000 ml 1000 @ 125 mls/hr IV .Q8H [facility] Rx#:[id number] metroNIDAZOLE 500mg/NS 100 100mL 500 mg In 100 ml @ 100 mls/hr IV Q12H [facility] Rx #:[id number] Oral 1700 Output: Urine 4400 Other: # Voids 1,300 # Bowel Movements 0 Weight Source Bedscale Bedscale Active Medications: Current Medications Acetaminophen (Tylenol) 650 mg PO Q6H PRN PRN Reason: HEADACHE/TEMP ABOVE 100F Stop: 03/21/18 19:07 Last Admin: 01/20/18 23:17 Dose: 650 mg Acetaminophen/Hydrocodone Bitart ([place] 10 Mg/325 Mg) 1 tab PO Q6H PRN PRN Reason: mild pain Stop: 03/22/18 10:31 Last Admin: 02/04/18 13:21 Dose: 1 tab Acetaminophen/Hydrocodone Bitart ([place] 10 Mg/325 Mg) 1 tab PO Q4H PRN PRN Reason: Pain (Moderate) Stop: 03/31/18 21:39 Albuterol/Ipratropium (Duoneb Neb) 3 ml HHN Q4HRT [facility] Stop: 03/21/18 19:59 Last Admin: 02/06/18 14:11 Dose: 3 ml Amiodarone HCl (Cordarone) 100 mg GT DAILY [facility] Stop: 03/22/18 08:59 Last Admin: 02/06/18 09:11 Dose: 100 mg Amlodipine Besylate (Norvasc) 10 mg GT DAILY [facility] Stop: 03/22/18 08:59 Last Admin: 02/06/18 09:10 Dose: 10 mg Aspirin (Aspirin Chewable) 81 mg GT DAILY [facility] Stop: 03/22/18 08:59 Last Admin: 02/06/18 09:12 Dose: 81 mg Atorvastatin Calcium (Lipitor) 40 mg GT HS [facility] Stop: 03/25/18 20:59 Last Admin: 02/05/18 20:32 Dose: 40 mg Diphenhydramine HCl (Benadryl 50 Mg/Ml) 50 mg IVP Q8H PRN PRN Reason: rash, itchiness Stop: 03/30/18 08:49 Docusate Sodium (Colace) 100 mg PO BID PRN PRN Reason: Constipation Stop: 03/21/18 19:07 Last Admin: 02/01/18 10:25 Dose: 100 mg Famotidine (Pepcid) 40 mg PO DAILY [facility] Stop: 03/30/18 08:59 Last Admin: 02/06/18 09:12 Dose: 40 mg Hydromorphone HCl (Dilaudid) 4 mg IVP Q4HR PRN PRN Reason: Severe Pain Stop: 03/29/18 12:35 Last Admin: 02/06/18 13:43 Dose: 4 mg Magnesium Sulfate (Magnesium Sulfate Premix) 2 gm in 50 mls @ 25 mls/hr IV DAILY PRN PRN Reason: Magnesium level less than 1.6 Stop: 03/21/18 19:07 Metronidazole (Flagyl) 500 mg in 100 mls @ 100 mls/hr IV Q12H [facility] Stop: 03/27/18 14:59 Last Infusion: 02/06/18 04:21 Dose: Infused Ceftriaxone Sodium 1 gm/ (Dextrose) 50 mls @ 100 mls/hr IV Q24H [facility] Stop: 03/30/18 14:59 Last Admin: 02/05/18 14:53 Dose: Not Given Potassium Chloride/Dextrose (D5w W/20 Meq Kcl) 1,000 mls @ 125 mls/hr IV .Q8H [facility] Stop: 04/05/18 12:44 Last Admin: 02/05/18 12:57 Dose: 125 mls/hr Lactobacillus Rhamnosus (Culturelle 15b) 1 each PO DAILY [facility] Stop: 03/23/18 08:59 Last Admin: 02/06/18 09:09 Dose: 1 each Lorazepam (Ativan) 1 mg PO Q6H PRN; Protocol PRN Reason: Agitation Stop: 03/31/18 21:43 Last Admin: 02/05/18 17:45 Dose: 1 mg Magnesium Oxide (Mag-Oxide) 400 mg PO BID PRN PRN Reason: Mg less than 1.9 Stop: 03/21/18 19:07 Metoprolol Tartrate (Lopressor) 50 mg GT Q8H [facility] Stop: 03/21/18 19:14 Last Admin: 02/06/18 03:28 Dose: 50 mg Miscellaneous (Probiotic Screen) 1 ea MC PRN PRN PRN Reason: PROTOCOL Stop: 03/22/18 09:59 Miscellaneous (Clinical Monitoring) 1 ea MC DAILY PRN PRN Reason: RENAL Stop: 04/04/18 16:38 Ondansetron HCl (Zofran) 4 mg IV Q4H PRN PRN Reason: Nausea / Vomiting Stop: 03/27/18 09:59 Last Admin: 02/05/18 16:23 Dose: 4 mg Potassium Chloride (Klor-Con) 40 meq PO DAILY PRN PRN Reason: k level less than 3.5 Stop: 03/21/18 19:07 Last Admin: 02/05/18 07:02 Dose: 40 meq Rivaroxaban (Xarelto) 20 mg PO DAILY [facility] Stop: 04/08/18 08:59 Simethicone (Mylicon) 80 mg PO Q8H [facility] Stop: 03/27/18 10:14 Last Admin: 02/06/18 09:09 Dose: 80 mg Tamsulosin HCl (Flomax) 0.4 mg PO DAILY [facility] Stop: 03/28/18 08:59 Last Admin: 02/06/18 09:11 Dose: 0.4 mg General: Alert, Cooperative, Other (acutely confused, AAO 2) HEENT: Atraumatic, PERRLA, EOMI Neck: Supple, +2 carotid pulse wo bruit, LAD, no JVD Cardiovascular: Regular rate, Normal S1, Normal S2, Other (s/p rt axillary art repair and dvt) Lungs: Other (has rales and congestion) Abdomen: Bowel sounds, Soft, Tender (s/p abd surgery), Other (surgical incision is intact) Extremities: Other (right upper extremity +3 edema), no Cyanosis Neurological: Normal speech Skin: no Rash - Procedures Procedures: Procedures Procedure Code Date INSPECTION OF GALLBLADDER, PERCUTANEOUS ENDOSCOPIC APPROACH [id number] 01/20/18 RELEASE OMENTUM, OPEN APPROACH [id number] 01/20/18 RESECTION OF GALLBLADDER, OPEN APPROACH [id number] 01/20/18 Assessment/Plan - Problem List Patient Problems: All Active Problems GASTRIC TUBE AND CORAL REMOVAL (Acute) - Assessment Assessment: 1. SARAH due to ATN with previous dialysis status, improving 2. Hypernatremia 3. cholecystitis s/p cholecystectomy 4. hx aortic dissection/cardiac tamponade s/p repair - Plan Plan: cont IVF. Renal fxn and hypernatremia are slowly improving cont supportive care repleteK prn Nutritional Asmnt/Malnutr-PDOC - Dietary Evaluation Malnutrition Findings (Please click <Entered> for more info): Nutritional Asmnt/Malnutrition Start: 01/24/18 17: 29 Text: Status: Complete Freq: Protocol: Document 01/24/18 17:29 [email or web address] (Rec: 01/24/18 17:38 [id number] [id number]) Nutritional Asmnt/Malnutrition Patient General Information Nutritional Screening Moderate Risk Diagnosis aspiration PNA Pertinent Medical Hx/Surgical Hx cardiac tampondade s/p surgery , aortic dissection, Gtube ( now removed) Subjective Information Per H&P pt had Gtube removed and started oral diet for about one month. Pt stated he still have some stomach issue, vomiting. Pt consumed cream of wheat and ceream for breakfast this morning, not very comfortable with solid food at this time.Per nurse note, pt had loose stool last night. Per EMR, PO intake 50- 75%. Current Diet Order/ Nutrition Support cardiac Pertinent Medications colace, culturelle, zofran, piperacillin, vancomycin Pertinent Labs 01/24 cl 108, glucose 76 01/20 A1c 4.9 Nutritional Hx/Data Height 1.91 m Height (Calculated Centimeters) 190.5 Current Weight (lbs) 92.079 kg Weight (Calculated Kilograms) 92.1 Weight (Calculated Grams) 47441.3 [place] Body Weight 196 Body Mass Index (BMI) 25.3 Weight Status Overweight GI Symptoms GI Symptoms None Last BM 01/24 Difficult in: None Skin Integrity/Comment: intact Current %PO Fair (50-74%) Estimated Nutritional Goals BEE in Kcals: Using Current wt Calories/Kcals/Kg 25-30 Kcals Calculated 9543-3700 Protein: Using Current wt Protein g/k Protein Calculated 92 Fluid: ml 2300-2760ml (1ml/kcal) Nutritional Problem No current Nutrition Prob Problem N/A Malnutrition Alert Is there a minimum of two criteria No selected? Query Text:Check all the applicable criteria. A minimum of two criteria are recommended for diagnosis of either severe or non-severe malnutrition. Malnutrition Related to Morbid Obesity Malnutrition related to morbid obesity No Intervention/Recommendation Comments 1. Continue with current diet as ordered. Offered food alternatives if pt not able to take his meals. 2. Monitor PO intake, GI function, wt, labs and skin integrity 3. F/U as moderate risk in 3-5 days, 01/27-01/29 Expected Outcomes/Goals Expected Outcomes/Goals 1. PO intake to meet at least 75% of nutritional needs. 2. Wt stability, GI function to improve, skin to remain intact, labs to approach WNL.
--- NOTE | 2018-02-07 01:13 | Infectious Disease Prog Note ---
Infectious Disease Subjective - Review of Systems Service Date: 02/06/18 Subjective: no fever. No abdominal pain. Passing BM. Infectious Disease Objective - Results Result Diagrams: 02/06/18 06:12 02/06/18 06:12 Recent Labs: Laboratory Last Values WBC 17.4 Th/cmm (4.8-10.8) H 02/06/18 06:12 Corrected WBC (auto) Th/cmm 02/01/18 05:52 RBC 3.11 Mil/cmm (4.30-5.70) L 02/06/18 06:12 Hgb 9.6 gm/dL (12-16) L 02/06/18 06:12 Hct 27.3 % (41.0-60) L 02/06/18 06:12 MCV 88.0 fl (80-99) 02/06/18 06:12 MCH 31.0 pg (26.0-30.0) H 02/06/18 06:12 MCHC Differential 35.3 pg (28.0-36.0) 02/06/18 06:12 RDW 15.2 % (11.5-20.0) 02/06/18 06:12 Plt Count 295 Th/cmm (150-400) 02/06/18 06:12 MPV 9.2 fl 02/06/18 06:12 Neutrophils % [employer] 02/06/18 06:12 Band Neutrophils % 2 % (0-10) 02/06/18 06:12 Lymphocytes % [employer] 02/06/18 06:12 Monocytes % [employer] 02/06/18 06:12 Eosinophils % [employer] 02/06/18 06:12 Basophils % [employer] 02/06/18 06:12 Neutrophils (Manual) 78 % (40-80) 02/06/18 06:12 Lymphocytes 10 % (20-50) L 02/06/18 06:12 Monocytes 8 % (2-10) 02/06/18 06:12 Eosinophils 2 % (0-5) 02/06/18 06:12 Basophils 0 % (0-3) 02/05/18 05:40 Platelet Estimate ADEQUATE (NORMAL) 02/06/18 06:12 Poikilocytosis 1+ 01/25/18 05:57 Anisocytosis 1+ 01/25/18 05:57 Ovalocytes 1+ 02/04/18 05:05 Schistocytes 1+ 02/04/18 05:05 PT 17.8 SECONDS (9.5-11.5) H 01/28/18 04:20 INR 1.66 (0.5-1.4) H 01/28/18 04:20 PTT (Actin FS) 45.6 SECONDS (26.0-38.0) H 01/28/18 04:20 Plt Function Studies 106 01/28/18 08:05 Specimen Source Arterial 01/31/18 11:10 Sample Site Left Radial 01/31/18 11:10 pH 7.42 (7.35-7.45) 01/31/18 11:10 pCO2 32.0 mmHg (35.0-45.0) L 01/31/18 11:10 pO2 62.0 mmHg (80.0-100.0) L 01/31/18 11:10 HCO3 22.5 mEq/L (20.0-26.0) 01/31/18 11:10 Base Excess -2.9 mEq/L (-3.0-3.0) 01/31/18 11:10 O2 Saturation 92.0 % (92.0-100.0) 01/31/18 11:10 Zac Test YES 01/31/18 11:10 Vent Rate NA 01/31/18 11:10 Inspired O2 21 01/31/18 11:10 Tidal Volume NA 01/31/18 11:10 PEEP NA 01/31/18 11:10 Pressure (ins/psv/peep) NA 01/31/18 11:10 Critical Value E.MATHEW 01/31/18 11:10 Sodium 144 mEq/L (136-145) 02/06/18 06:12 Potassium 3.3 mEq/L (3.5-5.1) L 02/06/18 06:12 Chloride 109 mEq/L (98-107) H 02/06/18 06:12 Carbon Dioxide 25.6 mEq/L (21.0-31.0) 02/06/18 06:12 Anion Gap 12.7 (7.0-16.0) 02/06/18 06:12 BUN 13 mg/dL (7-25) 02/06/18 06:12 Creatinine 1.7 mg/dL (0.7-1.3) H 02/06/18 06:12 Est GFR ( Amer) 53.0 ml/min (>90) 02/06/18 06:12 Est GFR (Non-Af Amer) 43.8 ml/min 02/06/18 06:12 BUN/Creatinine Ratio 7.6 02/06/18 06:12 Glucose 93 mg/dL (70-105) 02/06/18 06:12 POC Glucose 87 MG/DL (70 - 105) 01/28/18 05:32 Hemoglobin A1c % 4.9 % (4.0-6.0) 01/20/18 16:40 Whole Bld Lactic Acid 1.32 mmol/L (0.60-1.99) 01/20/18 16:40 Uric Acid 8.7 mg/dL (4.4-7.6) H 01/31/18 05:30 Calcium 7.9 mg/dL (8.6-10.3) L 02/06/18 06:12 Total Bilirubin 0.4 mg/dL (0.3-1.0) 02/05/18 05:40 AST 11 U/L (13-39) L 02/05/18 05:40 ALT 9 U/L (7-52) 02/05/18 05:40 Alkaline Phosphatase 98 U/L (34-104) 02/05/18 05:40 Ammonia 53 umol/L (16-53) 01/31/18 15:32 Creatine Kinase 32 U/L (30-223) 01/20/18 16:40 Troponin I 0.01 ng/mL (0.01-0.05) 01/20/18 16:40 Total Protein 5.4 gm/dL (6.0-8.3) L 02/05/18 05:40 Albumin 2.6 gm/dL (4.2-5.5) L 02/05/18 05:40 Globulin 2.8 gm/dL 02/05/18 05:40 Albumin/Globulin Ratio 0.9 (1.0-1.8) L 02/05/18 05:40 Triglycerides 69 mg/dL (<150) 01/27/18 05:45 Cholesterol 79 mg/dL (<200) 01/27/18 05:45 LDL Cholesterol Direct 37 mg/dL (75-193) L 01/27/18 05:45 HDL Cholesterol 32 mg/dL (23-92) 01/27/18 05:45 Urine Source RANDOM 02/02/18 22:00 Urine Color YELLOW 02/02/18 22:00 Urine Clarity CLEAR (CLEAR) 02/02/18 22:00 Urine pH 6.0 (4.6 - 8.0) 02/02/18 22:00 Ur Specific [place] <= 1.005 (1.005-1.030) 02/02/18 22:00 Urine Protein NEGATIVE mg/dL (NEGATIVE) 02/02/18 22:00 Urine Glucose (UA) NEGATIVE mg/dL (NEGATIVE) 02/02/18 22:00 Urine Ketones NEGATIVE mg/dL (NEGATIVE) 02/02/18 22:00 Urine Blood MODERATE (NEGATIVE) H 02/02/18 22:00 Urine Nitrate NEGATIVE (NEGATIVE) 02/02/18 22:00 Urine Bilirubin NEGATIVE (NEGATIVE) 02/02/18 22:00 Urine Urobilinogen 0.2 E.U./dL (0.2 - 1.0) 02/02/18 22:00 Ur Leukocyte Esterase NEGATIVE (NEGATIVE) 02/02/18 22:00 Urine RBC 5-10 /hpf (0-5) H 02/02/18 22:00 Urine WBC 0-2 /hpf (0-5) 02/02/18 22:00 Ur Epithelial Cells OCCASIONAL /lpf (FEW) 02/02/18 22:00 Urine Bacteria FEW /hpf (NONE SEEN) 02/02/18 22:00 Ur Random Sodium 94 mmol/L 02/02/18 22:00 Urine Creatinine 25.0 mg/dl (39.0-259.0) L 02/02/18 22:00 Vancomycin Trough 28.2 ug/mL (5-10) H 01/25/18 09:00 Random Vancomycin 30.6 ug/mL (5.0-40.0) 01/26/18 06:00 - Physical Exam Vitals and I&O: Vital Signs Temp 98.2 F 02/07/18 00:00 Pulse 82 02/07/18 00:00 Resp 18 02/07/18 00:00 BP 105/63 02/07/18 00:00 Pulse Ox 95 02/07/18 00:00 Intake & Output 02/06/18 02/06/18 02/07/18 06:59 18:59 06:59 Intake Total 2800 100 1000 Output Total 4400 1400 Balance -1600 100 -400 Weight (lbs) 93.44 kg 93.44 kg 93.44 kg Intake: Intake, IV Amount 1100 100 D5W w/20 mEq KCL 1,000 ml 1000 @ 125 mls/hr IV .Q8H [facility] Rx#:[id number] metroNIDAZOLE 500mg/NS 100 100 100mL 500 mg In 100 ml @ 100 mls/hr IV Q12H [facility] Rx #:[id number] Oral 1700 1000 Output: Urine 4400 1400 Other: # Voids 1,300 # Bowel Movements 0 0 Weight Source Bedscale Bedscale Bedscale Active Medications: Current Medications Acetaminophen (Tylenol) 650 mg PO Q6H PRN PRN Reason: HEADACHE/TEMP ABOVE 100F Stop: 03/21/18 19:07 Last Admin: 01/20/18 23:17 Dose: 650 mg Acetaminophen/Hydrocodone Bitart ([place] 10 Mg/325 Mg) 1 tab PO Q6H PRN PRN Reason: mild pain Stop: 03/22/18 10:31 Last Admin: 02/04/18 13:21 Dose: 1 tab Acetaminophen/Hydrocodone Bitart ([place] 10 Mg/325 Mg) 1 tab PO Q4H PRN PRN Reason: Pain (Moderate) Stop: 03/31/18 21:39 Albuterol/Ipratropium (Duoneb Neb) 3 ml HHN Q4HRT [facility] Stop: 03/21/18 19:59 Last Admin: 02/06/18 23:54 Dose: 3 ml Amiodarone HCl (Cordarone) 100 mg GT DAILY [facility] Stop: 03/22/18 08:59 Last Admin: 02/06/18 09:11 Dose: 100 mg Amlodipine Besylate (Norvasc) 10 mg GT DAILY [facility] Stop: 03/22/18 08:59 Last Admin: 02/06/18 09:10 Dose: 10 mg Aspirin (Aspirin Chewable) 81 mg GT DAILY [facility] Stop: 03/22/18 08:59 Last Admin: 02/06/18 09:12 Dose: 81 mg Atorvastatin Calcium (Lipitor) 40 mg GT HS [facility] Stop: 03/25/18 20:59 Last Admin: 02/06/18 21:32 Dose: 40 mg Diphenhydramine HCl (Benadryl 50 Mg/Ml) 50 mg IVP Q8H PRN PRN Reason: rash, itchiness Stop: 03/30/18 08:49 Docusate Sodium (Colace) 100 mg PO BID PRN PRN Reason: Constipation Stop: 03/21/18 19:07 Last Admin: 02/01/18 10:25 Dose: 100 mg Famotidine (Pepcid) 40 mg PO DAILY [facility] Stop: 03/30/18 08:59 Last Admin: 02/06/18 09:12 Dose: 40 mg Hydromorphone HCl (Dilaudid) 4 mg IVP Q4HR PRN PRN Reason: Severe Pain Stop: 03/29/18 12:35 Last Admin: 02/06/18 23:04 Dose: 4 mg Magnesium Sulfate (Magnesium Sulfate Premix) 2 gm in 50 mls @ 25 mls/hr IV DAILY PRN PRN Reason: Magnesium level less than 1.6 Stop: 03/21/18 19:07 Metronidazole (Flagyl) 500 mg in 100 mls @ 100 mls/hr IV Q12H [facility] Stop: 03/27/18 14:59 Last Infusion: 02/06/18 16:40 Dose: Infused Ceftriaxone Sodium 1 gm/ (Dextrose) 50 mls @ 100 mls/hr IV Q24H [facility] Stop: 03/30/18 14:59 Last Admin: 02/06/18 15:36 Dose: 100 mls/hr Potassium Chloride/Dextrose (D5w W/20 Meq Kcl) 1,000 mls @ 125 mls/hr IV .Q8H [facility] Stop: 04/05/18 12:44 Last Infusion: 02/05/18 20:57 Dose: Infused Lactobacillus Rhamnosus (Culturelle 15b) 1 each PO DAILY [facility] Stop: 03/23/18 08:59 Last Admin: 02/06/18 09:09 Dose: 1 each Lorazepam (Ativan) 1 mg PO Q6H PRN; Protocol PRN Reason: Agitation Stop: 03/31/18 21:43 Last Admin: 02/06/18 21:32 Dose: 1 mg Magnesium Oxide (Mag-Oxide) 400 mg PO BID PRN PRN Reason: Mg less than 1.9 Stop: 03/21/18 19:07 Metoprolol Tartrate (Lopressor) 50 mg GT Q8H [facility] Stop: 03/21/18 19:14 Last Admin: 02/06/18 18:38 Dose: 50 mg Miscellaneous (Probiotic Screen) 1 ea MC PRN PRN PRN Reason: PROTOCOL Stop: 03/22/18 09:59 Miscellaneous (Clinical Monitoring) 1 ea MC DAILY PRN PRN Reason: RENAL Stop: 04/04/18 16:38 Ondansetron HCl (Zofran) 4 mg IV Q4H PRN PRN Reason: Nausea / Vomiting Stop: 03/27/18 09:59 Last Admin: 02/05/18 16:23 Dose: 4 mg Potassium Chloride (Klor-Con) 40 meq PO DAILY PRN PRN Reason: k level less than 3.5 Stop: 03/21/18 19:07 Last Admin: 02/05/18 07:02 Dose: 40 meq Rivaroxaban (Xarelto) 20 mg PO DAILY [facility] Stop: 04/08/18 08:59 Simethicone (Mylicon) 80 mg PO Q8H [facility] Stop: 03/27/18 10:14 Last Admin: 02/06/18 21:31 Dose: Not Given Tamsulosin HCl (Flomax) 0.4 mg PO DAILY [facility] Stop: 03/28/18 08:59 Last Admin: 02/06/18 09:11 Dose: 0.4 mg General: no acute distress, well developed, well nourished HEENT: atraumatic, normocephalic, PERRLA Neck: supple, no thyromegaly, no lymphadenopathy Cardiovascular: S1S2, regular Lungs: clear to auscultation bilaterally, clear to percussion Abdomen: soft, no tender, no distended, no mass, no rebound, no hepatomegaly Extremities: no cyanosis, no clubbing, no edema Neurological: awake, alert, oriented Skin: intact - Procedures Procedures: Procedures Procedure Code Date INSPECTION OF GALLBLADDER, PERCUTANEOUS ENDOSCOPIC APPROACH [id number] 01/20/18 RELEASE OMENTUM, OPEN APPROACH [id number] 01/20/18 RESECTION OF GALLBLADDER, OPEN APPROACH [id number] 01/20/18 Infectious Disease Assmt/Plan - Problem List Patient Problems: All Active Problems GASTRIC TUBE AND CORAL REMOVAL (Acute) - Assessment Assessment: 1. Leukocytosis worse, most likely postsurgical. If WBC count remains elevated , we will consider indium scan. 2. Right lower lobe infiltrate, suspect aspiration pneumonia. 3. UTI. 4. MRSA colonization. 5. Hypertension. 6. Hyperlipidemia. 7. Aortic dissection, repair of aortic dissection at [facility]. 8. Acute kidney injury. Resolving. 9. Dysphagia resolved. He is taking his medication by mouth. 10. Vomiting. 11. Cholelithiasis. 12. Status post open cholecystectomy. - Plan Plan: Change flagyl 500 mg iv twice/day, Continue Rocephin for 5 days. As patient continues to have high WBC Count consider WBC Scan. may get Dr Awad , Hematology/oncology consult. Indium scan. Nutritional Asmnt/Malnutr-PDOC - Dietary Evaluation Malnutrition Findings (Please click <Entered> for more info): Nutritional Asmnt/Malnutrition Start: 01/24/18 17: 29 Text: Status: Complete Freq: Protocol: Document 01/24/18 17:29 LCHENG (Rec: 01/24/18 17:38 [email or web address] [id number]) Nutritional Asmnt/Malnutrition Patient General Information Nutritional Screening Moderate Risk Diagnosis aspiration PNA Pertinent Medical Hx/Surgical Hx cardiac tampondade s/p surgery , aortic dissection, Gtube ( now removed) Subjective Information Per H&P pt had Gtube removed and started oral diet for about one month. Pt stated he still have some stomach issue, vomiting. Pt consumed cream of wheat and ceream for breakfast this morning, not very comfortable with solid food at this time.Per nurse note, pt had loose stool last night. Per EMR, PO intake 50- 75%. Current Diet Order/ Nutrition Support cardiac Pertinent Medications colace, culturelle, zofran, piperacillin, vancomycin Pertinent Labs 01/24 cl 108, glucose 76 01/20 A1c 4.9 Nutritional Hx/Data Height 1.91 m Height (Calculated Centimeters) 190.5 Current Weight (lbs) 92.079 kg Weight (Calculated Kilograms) 92.1 Weight (Calculated Grams) 20820.3 [place] Body Weight 196 Body Mass Index (BMI) 25.3 Weight Status Overweight GI Symptoms GI Symptoms None Last BM 01/24 Difficult in: None Skin Integrity/Comment: intact Current %PO Fair (50-74%) Estimated Nutritional Goals BEE in Kcals: Using Current wt Calories/Kcals/Kg 25-30 Kcals Calculated 5483-3789 Protein: Using Current wt Protein g/k Protein Calculated 92 Fluid: ml 2300-2760ml (1ml/kcal) Nutritional Problem No current Nutrition Prob Problem N/A Malnutrition Alert Is there a minimum of two criteria No selected? Query Text:Check all the applicable criteria. A minimum of two criteria are recommended for diagnosis of either severe or non-severe malnutrition. Malnutrition Related to Morbid Obesity Malnutrition related to morbid obesity No Intervention/Recommendation Comments 1. Continue with current diet as ordered. Offered food alternatives if pt not able to take his meals. 2. Monitor PO intake, GI function, wt, labs and skin integrity 3. F/U as moderate risk in 3-5 days, 01/27-01/29 Expected Outcomes/Goals Expected Outcomes/Goals 1. PO intake to meet at least 75% of nutritional needs. 2. Wt stability, GI function to improve, skin to remain intact, labs to approach WNL.
[2018-02-07] MEDS: metroNIDAZOLE 500mg/NS 100mL 500 MG/100 ML BAG IV SCH ×2 (03:24→15:04)
[2018-02-07] MEDS: D5W w/20 mEq KCL 1,000 ML IV SCH ×2 (03:35→10:15)
[2018-02-07] MEDS: Albuterol/Ipratropium Neb 3 ML AERS HHN SCH ×4 (03:40→14:19)
--- NOTE | 2018-02-07 04:27 | Progress Notes ---
DATE: SUBJECTIVE: The patient is seen resting comfortably in bed, does not appear to be in acute pain or distress at this time. His white blood cell count continues ranging between 18 and 19. ID has ordered an indium scan with the radioactive tracer to find a possible underlying cause, other than the patient's gallbladder. The patient is tolerating oral intake; however, he admits to some nausea and vomiting when he eats too much food. OBJECTIVE: VITAL SIGNS: 97.6, 129/80, 16, and 64. GENERAL: NAD. HEENT: PERRLA, EOMI. NECK: Supple. Trachea midline. CARDIOVASCULAR: Regular rate and rhythm. No S3. RESPIRATORY: CTA bilaterally. No wheezes, rales, or rhonchi. ABDOMEN: A large surgical incision is intact without surrounding erythema or drainage. MUSCULOSKELETAL: Muscle strength to the bilateral upper and lower extremities 4/5. SKIN: No rashes or open wounds. ASSESSMENT AND PLAN: Status post open cholecystectomy, right upper extremity edema, sepsis, aspiration pneumonia, hypokalemia. Has a history of right upper extremity DVT, resolved; dysphagia, resolved; atrial fibrillation; anemia; severe malnutrition; hyponatremia; history of aortic dissection, cardiac tamponade, status post surgery at [facility]. ID, General Surgery to follow and continue with the indium scan. A PICC line has to be placed, because they are unable to draw enough blood to do the scan. Continue IV antibiotics, pain medication. The patient will require physical therapy after his discharge. [facility]# [id number]
--- NOTE | 2018-02-07 04:43 | Progress Notes ---
DATE: 02/05/2018 SUBJECTIVE: The patient is resting comfortably in bed, does not appear to be in acute pain or distress at this time. He is tolerating some oral intake. He states that if he eats too much, his stomach starts to hurt and then he vomits. Complains of right upper extremity swelling and overall malaise. OBJECTIVE: VITAL SIGNS: Temperature 97.6, BP 128/90, respirations 16 and pulse 82. GENERAL: NAD. HEENT: PERRLA. EOMI. NECK: Supple. Trachea midline. CARDIOVASCULAR: Regular rate and rhythm. RESPIRATORY: CTA bilaterally. No wheezes, rales or rhonchi. ABDOMEN: Large surgical incision is intact without surrounding erythema or drainage. MUSCULOSKELETAL: Muscle strength testing in bilateral upper and lower extremities 4/5. SKIN: No rash, no open wounds. EXTREMITIES: Right upper extremity is swollen. ASSESSMENT: Status post open cholecystectomy; right upper extremity edema; sepsis; aspiration pneumonia; hypokalemia; history of deep venous thrombosis, right upper extremity has resolved; dysphagia, resolved; atrial fibrillation; anemia; severe malnutrition; hyponatremia; history of aortic dissection and cardiac tamponade, status post surgery, Dr. Elias. PLAN: Continue IV antibiotics. Cardio, ID and General Surgery are following. ID has ordered an indium scan and they will draw blood for the test to be performed. Continue Kai. JOB# [id number]
[2018-02-07] MEDS: HYDROmorphone 2 mg/mL 1mL Vial IVP PRN ×3 (06:46→14:53)
--- NOTE | 2018-02-07 08:18 | General Progress Note ---
Subjective - Review of Systems Service Date: 02/07/18 Subjective: Comfortable this AM, denies complaints Objective - Results Result Diagrams: 02/06/18 06:12 02/06/18 06:12 Recent Labs: Laboratory Last Values WBC 17.4 Th/cmm (4.8-10.8) H 02/06/18 06:12 Corrected WBC (auto) Th/cmm 02/01/18 05:52 RBC 3.11 Mil/cmm (4.30-5.70) L 02/06/18 06:12 Hgb 9.6 gm/dL (12-16) L 02/06/18 06:12 Hct 27.3 % (41.0-60) L 02/06/18 06:12 MCV 88.0 fl (80-99) 02/06/18 06:12 MCH 31.0 pg (26.0-30.0) H 02/06/18 06:12 MCHC Differential 35.3 pg (28.0-36.0) 02/06/18 06:12 RDW 15.2 % (11.5-20.0) 02/06/18 06:12 Plt Count 295 Th/cmm (150-400) 02/06/18 06:12 MPV 9.2 fl 02/06/18 06:12 Neutrophils % MANAGEMENT AIDE 02/06/18 06:12 Band Neutrophils % 2 % (0-10) 02/06/18 06:12 Lymphocytes % MANAGEMENT AIDE 02/06/18 06:12 Monocytes % MANAGEMENT AIDE 02/06/18 06:12 Eosinophils % MANAGEMENT AIDE 02/06/18 06:12 Basophils % MANAGEMENT AIDE 02/06/18 06:12 Neutrophils (Manual) 78 % (40-80) 02/06/18 06:12 Lymphocytes 10 % (20-50) L 02/06/18 06:12 Monocytes 8 % (2-10) 02/06/18 06:12 Eosinophils 2 % (0-5) 02/06/18 06:12 Basophils 0 % (0-3) 02/05/18 05:40 Platelet Estimate ADEQUATE (NORMAL) 02/06/18 06:12 Poikilocytosis 1+ 01/25/18 05:57 Anisocytosis 1+ 01/25/18 05:57 Ovalocytes 1+ 02/04/18 05:05 Schistocytes 1+ 02/04/18 05:05 PT 17.8 SECONDS (9.5-11.5) H 01/28/18 04:20 INR 1.66 (0.5-1.4) H 01/28/18 04:20 PTT (Actin FS) 45.6 SECONDS (26.0-38.0) H 01/28/18 04:20 Plt Function Studies 106 01/28/18 08:05 Specimen Source Arterial 01/31/18 11:10 Sample Site Left Radial 01/31/18 11:10 pH 7.42 (7.35-7.45) 01/31/18 11:10 pCO2 32.0 mmHg (35.0-45.0) L 01/31/18 11:10 pO2 62.0 mmHg (80.0-100.0) L 01/31/18 11:10 HCO3 22.5 mEq/L (20.0-26.0) 01/31/18 11:10 Base Excess -2.9 mEq/L (-3.0-3.0) 01/31/18 11:10 O2 Saturation 92.0 % (92.0-100.0) 01/31/18 11:10 Zac Test YES 01/31/18 11:10 Vent Rate NA 01/31/18 11:10 Inspired O2 21 01/31/18 11:10 Tidal Volume NA 01/31/18 11:10 PEEP NA 01/31/18 11:10 Pressure (ins/psv/peep) NA 01/31/18 11:10 Critical Value E.MATHEW 01/31/18 11:10 Sodium 144 mEq/L (136-145) 02/06/18 06:12 Potassium 3.3 mEq/L (3.5-5.1) L 02/06/18 06:12 Chloride 109 mEq/L (98-107) H 02/06/18 06:12 Carbon Dioxide 25.6 mEq/L (21.0-31.0) 02/06/18 06:12 Anion Gap 12.7 (7.0-16.0) 02/06/18 06:12 BUN 13 mg/dL (7-25) 02/06/18 06:12 Creatinine 1.7 mg/dL (0.7-1.3) H 02/06/18 06:12 Est GFR ( Amer) 53.0 ml/min (>90) 02/06/18 06:12 Est GFR (Non-Af Amer) 43.8 ml/min 02/06/18 06:12 BUN/Creatinine Ratio 7.6 02/06/18 06:12 Glucose 93 mg/dL (70-105) 02/06/18 06:12 POC Glucose 87 MG/DL (70 - 105) 01/28/18 05:32 Hemoglobin A1c % 4.9 % (4.0-6.0) 01/20/18 16:40 Whole Bld Lactic Acid 1.32 mmol/L (0.60-1.99) 01/20/18 16:40 Uric Acid 8.7 mg/dL (4.4-7.6) H 01/31/18 05:30 Calcium 7.9 mg/dL (8.6-10.3) L 02/06/18 06:12 Total Bilirubin 0.4 mg/dL (0.3-1.0) 02/05/18 05:40 AST 11 U/L (13-39) L 02/05/18 05:40 ALT 9 U/L (7-52) 02/05/18 05:40 Alkaline Phosphatase 98 U/L (34-104) 02/05/18 05:40 Ammonia 53 umol/L (16-53) 01/31/18 15:32 Creatine Kinase 32 U/L (30-223) 01/20/18 16:40 Troponin I 0.01 ng/mL (0.01-0.05) 01/20/18 16:40 Total Protein 5.4 gm/dL (6.0-8.3) L 02/05/18 05:40 Albumin 2.6 gm/dL (4.2-5.5) L 02/05/18 05:40 Globulin 2.8 gm/dL 02/05/18 05:40 Albumin/Globulin Ratio 0.9 (1.0-1.8) L 02/05/18 05:40 Triglycerides 69 mg/dL (<150) 01/27/18 05:45 Cholesterol 79 mg/dL (<200) 01/27/18 05:45 LDL Cholesterol Direct 37 mg/dL (75-193) L 01/27/18 05:45 HDL Cholesterol 32 mg/dL (23-92) 05/28/18 05:45 Urine Source RANDOM 02/02/18 22:00 Urine Color YELLOW 02/02/18 22:00 Urine Clarity CLEAR (CLEAR) 02/02/18 22:00 Urine pH 6.0 (4.6 - 8.0) 02/02/18 22:00 Ur Specific [place] <= 1.005 (1.005-1.030) 02/02/18 22:00 Urine Protein NEGATIVE mg/dL (NEGATIVE) 02/02/18 22:00 Urine Glucose (UA) NEGATIVE mg/dL (NEGATIVE) 02/02/18 22:00 Urine Ketones NEGATIVE mg/dL (NEGATIVE) 02/02/18 22:00 Urine Blood MODERATE (NEGATIVE) H 02/02/18 22:00 Urine Nitrate NEGATIVE (NEGATIVE) 02/02/18 22:00 Urine Bilirubin NEGATIVE (NEGATIVE) 02/02/18 22:00 Urine Urobilinogen 0.2 E.U./dL (0.2 - 1.0) 02/02/18 22:00 Ur Leukocyte Esterase NEGATIVE (NEGATIVE) 02/02/18 22:00 Urine RBC 5-10 /hpf (0-5) H 02/02/18 22:00 Urine WBC 0-2 /hpf (0-5) 02/02/18 22:00 Ur Epithelial Cells OCCASIONAL /lpf (FEW) 02/02/18 22:00 Urine Bacteria FEW /hpf (NONE SEEN) 02/02/18 22:00 Ur Random Sodium 94 mmol/L 02/02/18 22:00 Urine Creatinine 25.0 mg/dl (39.0-259.0) L 02/02/18 22:00 Vancomycin Trough 28.2 ug/mL (5-10) H 01/25/18 09:00 Random Vancomycin 30.6 ug/mL (5.0-40.0) 01/26/18 06:00 - Physical Exam Vitals and I&O: Vital Signs Temp 97.2 F 02/07/18 04:00 Pulse 79 02/07/18 07:54 Resp 18 02/07/18 07:54 BP 102/69 02/07/18 04:00 Pulse Ox 96 02/07/18 07:54 Intake & Output 02/06/18 02/07/18 02/07/18 18:59 06:59 18:59 Intake Total 100 2540 Output Total 5500 Balance 100 -2960 Weight (lbs) 93.44 kg 93.44 kg Intake: Intake, IV Amount 100 metroNIDAZOLE 500mg/NS 100 100mL 500 mg In 100 ml @ 100 mls/hr IV Q12H [facility] Rx #:[id number] Oral 2500 Other 40 Output: Urine 5500 Other: # Bowel Movements 0 Weight Source Bedscale Bedscale Active Medications: Current Medications Acetaminophen (Tylenol) 650 mg PO Q6H PRN PRN Reason: HEADACHE/TEMP ABOVE 100F Stop: 03/21/18 19:07 Last Admin: 01/20/18 23:17 Dose: 650 mg Acetaminophen/Hydrocodone Bitart ([place] 10 Mg/325 Mg) 1 tab PO Q6H PRN PRN Reason: mild pain Stop: 03/22/18 10:31 Last Admin: 02/04/18 13:21 Dose: 1 tab Acetaminophen/Hydrocodone Bitart ([place] 10 Mg/325 Mg) 1 tab PO Q4H PRN PRN Reason: Pain (Moderate) Stop: 03/31/18 21:39 Albuterol/Ipratropium (Duoneb Neb) 3 ml HHN Q4HRT [facility] Stop: 03/21/18 19:59 Last Admin: 02/07/18 07:53 Dose: 3 ml Amiodarone HCl (Cordarone) 100 mg GT DAILY [facility] Stop: 03/22/18 08:59 Last Admin: 02/06/18 09:11 Dose: 100 mg Amlodipine Besylate (Norvasc) 10 mg GT DAILY [facility] Stop: 03/22/18 08:59 Last Admin: 02/06/18 09:10 Dose: 10 mg Aspirin (Aspirin Chewable) 81 mg GT DAILY [facility] Stop: 03/22/18 08:59 Last Admin: 02/06/18 09:12 Dose: 81 mg Atorvastatin Calcium (Lipitor) 40 mg GT HS [facility] Stop: 03/25/18 20:59 Last Admin: 02/06/18 21:32 Dose: 40 mg Diphenhydramine HCl (Benadryl 50 Mg/Ml) 50 mg IVP Q8H PRN PRN Reason: rash, itchiness Stop: 03/30/18 08:49 Docusate Sodium (Colace) 100 mg PO BID PRN PRN Reason: Constipation Stop: 03/21/18 19:07 Last Admin: 02/01/18 10:25 Dose: 100 mg Famotidine (Pepcid) 40 mg PO DAILY [facility] Stop: 03/30/18 08:59 Last Admin: 02/06/18 09:12 Dose: 40 mg Hydromorphone HCl (Dilaudid) 4 mg IVP Q4HR PRN PRN Reason: Severe Pain Stop: 03/29/18 12:35 Last Admin: 02/07/18 06:46 Dose: 4 mg Magnesium Sulfate (Magnesium Sulfate Premix) 2 gm in 50 mls @ 25 mls/hr IV DAILY PRN PRN Reason: Magnesium level less than 1.6 Stop: 03/21/18 19:07 Metronidazole (Flagyl) 500 mg in 100 mls @ 100 mls/hr IV Q12H [facility] Stop: 03/27/18 14:59 Last Admin: 02/07/18 03:24 Dose: 100 mls/hr Ceftriaxone Sodium 1 gm/ (Dextrose) 50 mls @ 100 mls/hr IV Q24H [facility] Stop: 03/30/18 14:59 Last Admin: 02/06/18 15:36 Dose: 100 mls/hr Potassium Chloride/Dextrose (D5w W/20 Meq Kcl) 1,000 mls @ 125 mls/hr IV .Q8H [facility] Stop: 04/05/18 12:44 Last Admin: 02/07/18 03:35 Dose: 125 mls/hr Lactobacillus Rhamnosus (Culturelle 15b) 1 each PO DAILY [facility] Stop: 03/23/18 08:59 Last Admin: 02/06/18 09:09 Dose: 1 each Lorazepam (Ativan) 1 mg PO Q6H PRN; Protocol PRN Reason: Agitation Stop: 03/31/18 21:43 Last Admin: 02/06/18 21:32 Dose: 1 mg Magnesium Oxide (Mag-Oxide) 400 mg PO BID PRN PRN Reason: Mg less than 1.9 Stop: 03/21/18 19:07 Metoprolol Tartrate (Lopressor) 50 mg GT Q8H [facility] Stop: 03/21/18 19:14 Last Admin: 02/07/18 03:40 Dose: Not Given Miscellaneous (Probiotic Screen) 1 ea PRN PRN PRN Reason: PROTOCOL Stop: 03/22/18 09:59 Miscellaneous (Clinical Monitoring) 1 ea MC DAILY PRN PRN Reason: RENAL Stop: 04/04/18 16:38 Ondansetron HCl (Zofran) 4 mg IV Q4H PRN PRN Reason: Nausea / Vomiting Stop: 03/27/18 09:59 Last Admin: 02/05/18 16:23 Dose: 4 mg Potassium Chloride (Klor-Con) 40 meq PO DAILY PRN PRN Reason: k level less than 3.5 Stop: 03/21/18 19:07 Last Admin: 02/05/18 07:02 Dose: 40 meq Rivaroxaban (Xarelto) 20 mg PO DAILY [facility] Stop: 04/08/18 08:59 Simethicone (Mylicon) 80 mg PO Q8H [facility] Stop: 03/27/18 10:14 Last Admin: 02/07/18 03:33 Dose: 80 mg Tamsulosin HCl (Flomax) 0.4 mg PO DAILY [facility] Stop: 03/28/18 08:59 Last Admin: 02/06/18 09:11 Dose: 0.4 mg General: Alert, Cooperative, Other (acutely confused, AAO 2) HEENT: Atraumatic, PERRLA, EOMI Neck: Supple, +2 carotid pulse wo bruit, LAD, no JVD Cardiovascular: Regular rate, Normal S1, Normal S2, Other (s/p rt axillary art repair and dvt) Lungs: Other (has rales and congestion) Abdomen: Bowel sounds, Soft, Tender (s/p abd surgery), Other (surgical incision is intact) Extremities: Other (right upper extremity +3 edema), no Cyanosis Neurological: Normal speech Skin: no Rash - Procedures Procedures: Procedures Procedure Code Date INSPECTION OF GALLBLADDER, PERCUTANEOUS ENDOSCOPIC APPROACH [id number] 01/20/18 RELEASE OMENTUM, OPEN APPROACH [id number] 01/20/18 RESECTION OF GALLBLADDER, OPEN APPROACH [id number] 01/20/18 Assessment/Plan - Problem List Patient Problems: All Active Problems GASTRIC TUBE AND CORAL REMOVAL (Acute) - Assessment Assessment: SARAH with former HD status Hypernatremia S/p cholecystectomy Persistent leukocytosis - Plan Plan: SARAH largely stable in CKD 4 range, however suspect hypernatremia and slow Cr rise due to extrinsic free water losses in excess of intake add 1/2 NS @ 50cc x 24 hours, encourage PO intake ID input noted regarding indium scan will follow Nutritional Asmnt/Malnutr-PDOC - Dietary Evaluation Malnutrition Findings (Please click <Entered> for more info): Nutritional Asmnt/Malnutrition Start: 01/24/18 17: 29 Text: Status: Complete Freq: Protocol: Document 01/24/18 17:29 [id number] (Rec: 01/24/18 17:38 [id number] [id number]) Nutritional Asmnt/Malnutrition Patient General Information Nutritional Screening Moderate Risk Diagnosis aspiration PNA Pertinent Medical Hx/Surgical Hx cardiac tampondade s/p surgery , aortic dissection, Gtube ( now removed) Subjective Information Per H&P pt had Gtube removed and started oral diet for about one month. Pt stated he still have some stomach issue, vomiting. Pt consumed cream of wheat and ceream for breakfast this morning, not very comfortable with solid food at this time.Per nurse note, pt had loose stool last night. Per EMR, PO intake 50- 75%. Current Diet Order/ Nutrition Support cardiac Pertinent Medications colace, culturelle, zofran, piperacillin, vancomycin Pertinent Labs 01/24 cl 108, glucose 76 01/20 A1c 4.9 Nutritional Hx/Data Height 1.91 m Height (Calculated Centimeters) 190.5 Current Weight (lbs) 92.079 kg Weight (Calculated Kilograms) 92.1 Weight (Calculated Grams) 24663.3 [place] Body Weight 196 Body Mass Index (BMI) 25.3 Weight Status Overweight GI Symptoms GI Symptoms None Last BM 01/24 Difficult in: None Skin Integrity/Comment: intact Current %PO Fair (50-74%) Estimated Nutritional Goals BEE in Kcals: Using Current wt Calories/Kcals/Kg 25-30 Kcals Calculated 3727-5414 Protein: Using Current wt Protein g/k Protein Calculated 92 Fluid: ml 2300-2760ml (1ml/kcal) Nutritional Problem No current Nutrition Prob Problem N/A Malnutrition Alert Is there a minimum of two criteria No selected? Query Text:Check all the applicable criteria. A minimum of two criteria are recommended for diagnosis of either severe or non-severe malnutrition. Malnutrition Related to Morbid Obesity Malnutrition related to morbid obesity No Intervention/Recommendation Comments 1. Continue with current diet as ordered. Offered food alternatives if pt not able to take his meals. 2. Monitor PO intake, GI function, wt, labs and skin integrity 3. F/U as moderate risk in 3-5 days, 01/27-01/29 Expected Outcomes/Goals Expected Outcomes/Goals 1. PO intake to meet at least 75% of nutritional needs. 2. Wt stability, GI function to improve, skin to remain intact, labs to approach WNL.
[2018-02-07] MEDS ORDERED: Sodium Chloride 0.45% 1,000 ML IV SCH (08:30)
--- NOTE | 2018-02-07 09:53 | Diagnostic Imaging Report ---
CHEST X-RAY: AP view INDICATION: PICC line placement COMPARISON: 01/30/2018 FINDINGS: Left PICC line is seen with tip in the cavoatrial junction. Congestive changes seen with small effusions. Right basal atelectasis is noted. Cardiomegaly is noted. Postsurgical changes are noted. IMPRESSION: Interval left PICC line placement with tip in the cavoatrial junction. Congestive changes and small effusions. There is probable pneumonia of the left lung.
[2018-02-07] MEDS: Lactobacillus Rhamnosus GG 15 Billion CFU CAP.SPRINK PO SCH (10:25)
[2018-02-07] MEDS: Aspirin 81mg Chewable Tab GT SCH (10:26)
[2018-02-07] MEDS ORDERED: Potassium Chloride 20 mEq ER Tab PO ONE (14:16)
--- NOTE | 2018-02-07 15:35 | General Progress Note ---
Subjective - Review of Systems Service Date: 02/07/18 Events since last encounter: Indium scan ordered Objective - Results Result Diagrams: 02/06/18 06:12 02/06/18 06:12 Recent Labs: Laboratory Last Values WBC 17.4 Th/cmm (4.8-10.8) H 02/06/18 06:12 Corrected WBC (auto) Th/cmm 02/01/18 05:52 RBC 3.11 Mil/cmm (4.30-5.70) L 02/06/18 06:12 Hgb 9.6 gm/dL (12-16) L 02/06/18 06:12 Hct 27.3 % (41.0-60) L 02/06/18 06:12 MCV 88.0 fl (80-99) 02/06/18 06:12 MCH 31.0 pg (26.0-30.0) H 02/06/18 06:12 MCHC Differential 35.3 pg (28.0-36.0) 02/06/18 06:12 RDW 15.2 % (11.5-20.0) 02/06/18 06:12 Plt Count 295 Th/cmm (150-400) 02/06/18 06:12 MPV 9.2 fl 02/06/18 06:12 Neutrophils % COLLECTIONS AND ARCHIVES DIRECTOR 02/06/18 06:12 Band Neutrophils % 2 % (0-10) 02/06/18 06:12 Lymphocytes % COLLECTIONS AND ARCHIVES DIRECTOR 02/06/18 06:12 Monocytes % COLLECTIONS AND ARCHIVES DIRECTOR 02/06/18 06:12 Eosinophils % COLLECTIONS AND ARCHIVES DIRECTOR 02/06/18 06:12 Basophils % COLLECTIONS AND ARCHIVES DIRECTOR 02/06/18 06:12 Neutrophils (Manual) 78 % (40-80) 02/06/18 06:12 Lymphocytes 10 % (20-50) L 02/06/18 06:12 Monocytes 8 % (2-10) 02/06/18 06:12 Eosinophils 2 % (0-5) 02/06/18 06:12 Basophils 0 % (0-3) 02/05/18 05:40 Platelet Estimate ADEQUATE (NORMAL) 02/06/18 06:12 Poikilocytosis 1+ 01/25/18 05:57 Anisocytosis 1+ 01/25/18 05:57 Ovalocytes 1+ 02/04/18 05:05 Schistocytes 1+ 02/04/18 05:05 PT 17.8 SECONDS (9.5-11.5) H 01/28/18 04:20 INR 1.66 (0.5-1.4) H 01/28/18 04:20 PTT (Actin FS) 45.6 SECONDS (26.0-38.0) H 01/28/18 04:20 Plt Function Studies 106 01/28/18 08:05 Specimen Source Arterial 01/31/18 11:10 Sample Site Left Radial 01/31/18 11:10 pH 7.42 (7.35-7.45) 01/31/18 11:10 pCO2 32.0 mmHg (35.0-45.0) L 01/31/18 11:10 pO2 62.0 mmHg (80.0-100.0) L 01/31/18 11:10 HCO3 22.5 mEq/L (20.0-26.0) 01/31/18 11:10 Base Excess -2.9 mEq/L (-3.0-3.0) 01/31/18 11:10 O2 Saturation 92.0 % (92.0-100.0) 01/31/18 11:10 Zac Test YES 01/31/18 11:10 Vent Rate NA 01/31/18 11:10 Inspired O2 21 01/31/18 11:10 Tidal Volume NA 01/31/18 11:10 PEEP NA 01/31/18 11:10 Pressure (ins/psv/peep) NA 01/31/18 11:10 Critical Value E.MATHEW 01/31/18 11:10 Sodium 144 mEq/L (136-145) 02/06/18 06:12 Potassium 3.3 mEq/L (3.5-5.1) L 02/06/18 06:12 Chloride 109 mEq/L (98-107) H 02/06/18 06:12 Carbon Dioxide 25.6 mEq/L (21.0-31.0) 02/06/18 06:12 Anion Gap 12.7 (7.0-16.0) 02/06/18 06:12 BUN 13 mg/dL (7-25) 02/06/18 06:12 Creatinine 1.7 mg/dL (0.7-1.3) H 02/06/18 06:12 Est GFR ( Amer) 53.0 ml/min (>90) 02/06/18 06:12 Est GFR (Non-Af Amer) 43.8 ml/min 02/06/18 06:12 BUN/Creatinine Ratio 7.6 02/06/18 06:12 Glucose 93 mg/dL (70-105) 02/06/18 06:12 POC Glucose 87 MG/DL (70 - 105) 01/28/18 05:32 Hemoglobin A1c % 4.9 % (4.0-6.0) 01/20/18 16:40 Whole Bld Lactic Acid 1.32 mmol/L (0.60-1.99) 01/20/18 16:40 Uric Acid 8.7 mg/dL (4.4-7.6) H 01/31/18 05:30 Calcium 7.9 mg/dL (8.6-10.3) L 02/06/18 06:12 Total Bilirubin 0.4 mg/dL (0.3-1.0) 02/05/18 05:40 AST 11 U/L (13-39) L 02/05/18 05:40 ALT 9 U/L (7-52) 02/05/18 05:40 Alkaline Phosphatase 98 U/L (34-104) 02/05/18 05:40 Ammonia 53 umol/L (16-53) 01/31/18 15:32 Creatine Kinase 32 U/L (30-223) 01/20/18 16:40 Troponin I 0.01 ng/mL (0.01-0.05) 01/20/18 16:40 Total Protein 5.4 gm/dL (6.0-8.3) L 02/05/18 05:40 Albumin 2.6 gm/dL (4.2-5.5) L 02/05/18 05:40 Globulin 2.8 gm/dL 02/05/18 05:40 Albumin/Globulin Ratio 0.9 (1.0-1.8) L 02/05/18 05:40 Triglycerides 69 mg/dL (<150) 01/27/18 05:45 Cholesterol 79 mg/dL (<200) 01/27/18 05:45 LDL Cholesterol Direct 37 mg/dL (75-193) L 01/27/18 05:45 HDL Cholesterol 32 mg/dL (23-92) 05/28/18 05:45 Urine Source RANDOM 02/02/18 22:00 Urine Color YELLOW 02/02/18 22:00 Urine Clarity CLEAR (CLEAR) 02/02/18 22:00 Urine pH 6.0 (4.6 - 8.0) 02/02/18 22:00 Ur Specific [place] <= 1.005 (1.005-1.030) 02/02/18 22:00 Urine Protein NEGATIVE mg/dL (NEGATIVE) 02/02/18 22:00 Urine Glucose (UA) NEGATIVE mg/dL (NEGATIVE) 02/02/18 22:00 Urine Ketones NEGATIVE mg/dL (NEGATIVE) 02/02/18 22:00 Urine Blood MODERATE (NEGATIVE) H 02/02/18 22:00 Urine Nitrate NEGATIVE (NEGATIVE) 02/02/18 22:00 Urine Bilirubin NEGATIVE (NEGATIVE) 02/02/18 22:00 Urine Urobilinogen 0.2 E.U./dL (0.2 - 1.0) 02/02/18 22:00 Ur Leukocyte Esterase NEGATIVE (NEGATIVE) 02/02/18 22:00 Urine RBC 5-10 /hpf (0-5) H 02/02/18 22:00 Urine WBC 0-2 /hpf (0-5) 02/02/18 22:00 Ur Epithelial Cells OCCASIONAL /lpf (FEW) 02/02/18 22:00 Urine Bacteria FEW /hpf (NONE SEEN) 02/02/18 22:00 Ur Random Sodium 94 mmol/L 02/02/18 22:00 Urine Creatinine 25.0 mg/dl (39.0-259.0) L 02/02/18 22:00 Vancomycin Trough 28.2 ug/mL (5-10) H 01/25/18 09:00 Random Vancomycin 30.6 ug/mL (5.0-40.0) 01/26/18 06:00 - Physical Exam Vitals and I&O: Vital Signs Temp 97.8 F 02/07/18 12:49 Pulse 82 02/07/18 14:20 Resp 18 02/07/18 14:20 BP 118/65 02/07/18 13:16 Pulse Ox 96 02/07/18 14:20 Intake & Output 02/06/18 02/07/18 02/07/18 18:59 06:59 18:59 Intake Total 150 2540 933.333 Output Total 5500 Balance 150 -2960 933.333 Weight (lbs) 93.44 kg 93.44 kg Intake: Intake, IV Amount 150 933.333 D5W w/20 mEq KCL 1,000 ml 833.333 @ 125 mls/hr IV .Q8H [facility] Rx#:[id number] cefTRIAXone 1 gm In 50 Dextrose 5% 50 ml @ 100 mls/hr IV Q24H [facility] Rx#: [id number] metroNIDAZOLE 500mg/NS 100 100 100mL 500 mg In 100 ml @ 100 mls/hr IV Q12H [facility] Rx #:[id number] Oral 2500 Other 40 Output: Urine 5500 Other: # Bowel Movements 0 Weight Source Bedscale Bedscale Active Medications: Current Medications Acetaminophen (Tylenol) 650 mg PO Q6H PRN PRN Reason: HEADACHE/TEMP ABOVE 100F Stop: 03/21/18 19:07 Last Admin: 01/20/18 23:17 Dose: 650 mg Acetaminophen/Hydrocodone Bitart ([place] 10 Mg/325 Mg) 1 tab PO Q6H PRN PRN Reason: mild pain Stop: 03/22/18 10:31 Last Admin: 02/04/18 13:21 Dose: 1 tab Albuterol/Ipratropium (Duoneb Neb) 3 ml HHN Q4HRT [facility] Stop: 03/21/18 19:59 Last Admin: 02/07/18 14:19 Dose: 3 ml Amiodarone HCl (Cordarone) 100 mg GT DAILY [facility] Stop: 03/22/18 08:59 Last Admin: 02/07/18 10:25 Dose: 100 mg Amlodipine Besylate (Norvasc) 10 mg GT DAILY [facility] Stop: 03/22/18 08:59 Last Admin: 02/07/18 10:25 Dose: 10 mg Aspirin (Aspirin Chewable) 81 mg GT DAILY [facility] Stop: 03/22/18 08:59 Last Admin: 02/07/18 10:26 Dose: 81 mg Atorvastatin Calcium (Lipitor) 40 mg GT HS [facility] Stop: 03/25/18 20:59 Last Admin: 02/06/18 21:32 Dose: 40 mg Diphenhydramine HCl (Benadryl 50 Mg/Ml) 50 mg IVP Q8H PRN PRN Reason: rash, itchiness Stop: 03/30/18 08:49 Docusate Sodium (Colace) 100 mg PO BID PRN PRN Reason: Constipation Stop: 03/21/18 19:07 Last Admin: 02/01/18 10:25 Dose: 100 mg Famotidine (Pepcid) 40 mg PO DAILY [facility] Stop: 03/30/18 08:59 Last Admin: 02/07/18 10:24 Dose: 40 mg Hydromorphone HCl (Dilaudid) 4 mg IVP Q4HR PRN PRN Reason: Severe Pain Stop: 03/29/18 12:35 Last Admin: 02/07/18 14:53 Dose: 4 mg Magnesium Sulfate (Magnesium Sulfate Premix) 2 gm in 50 mls @ 25 mls/hr IV DAILY PRN PRN Reason: Magnesium level less than 1.6 Stop: 03/21/18 19:07 Metronidazole (Flagyl) 500 mg in 100 mls @ 100 mls/hr IV Q12H [facility] Stop: 03/27/18 14:59 Last Admin: 02/07/18 15:04 Dose: 100 mls/hr Ceftriaxone Sodium 1 gm/ (Dextrose) 50 mls @ 100 mls/hr IV Q24H [facility] Stop: 03/30/18 14:59 Last Admin: 02/07/18 14:53 Dose: 100 mls/hr Potassium Chloride/Dextrose (D5w W/20 Meq Kcl) 1,000 mls @ 125 mls/hr IV .Q8H [facility] Stop: 04/05/18 12:44 Last Admin: 02/07/18 10:15 Dose: 125 mls/hr Sodium Chloride (Nacl 0.45%) 1,000 mls @ 50 mls/hr IV .Q20H [facility] Stop: 02/08/18 12:00 Lactobacillus Rhamnosus (Culturelle 15b) 1 each PO DAILY [facility] Stop: 03/23/18 08:59 Last Admin: 02/07/18 10:25 Dose: 1 each Magnesium Oxide (Mag-Oxide) 400 mg PO BID PRN PRN Reason: Mg less than 1.9 Stop: 03/21/18 19:07 Metoprolol Tartrate (Lopressor) 50 mg GT Q8H [facility] Stop: 03/21/18 19:14 Last Admin: 02/07/18 13:16 Dose: 50 mg Miscellaneous (Probiotic Screen) 1 ea MC PRN PRN PRN Reason: PROTOCOL Stop: 03/22/18 09:59 Miscellaneous (Clinical Monitoring) 1 ea MC DAILY PRN PRN Reason: RENAL Stop: 04/04/18 16:38 Ondansetron HCl (Zofran) 4 mg IV Q4H PRN PRN Reason: Nausea / Vomiting Stop: 03/27/18 09:59 Last Admin: 02/05/18 16:23 Dose: 4 mg Potassium Chloride (Klor-Con) 40 meq PO DAILY PRN PRN Reason: k level less than 3.5 Stop: 03/21/18 19:07 Last Admin: 02/05/18 07:02 Dose: 40 meq Rivaroxaban (Xarelto) 20 mg PO DAILY [facility] Stop: 04/08/18 08:59 Last Admin: 02/07/18 10:24 Dose: 20 mg Simethicone (Mylicon) 80 mg PO Q8H [facility] Stop: 03/27/18 10:14 Last Admin: 02/07/18 10:26 Dose: 80 mg Tamsulosin HCl (Flomax) 0.4 mg PO DAILY [facility] Stop: 03/28/18 08:59 Last Admin: 02/07/18 10:26 Dose: 0.4 mg General: Alert, Cooperative, Other (acutely confused, AAO 2) HEENT: Atraumatic, PERRLA, EOMI Neck: Supple, +2 carotid pulse wo bruit, LAD, no JVD Cardiovascular: Regular rate, Normal S1, Normal S2, Other (s/p rt axillary art repair and dvt) Lungs: Other (has rales and congestion) Abdomen: Bowel sounds, Soft, Tender (s/p abd surgery), Other (surgical incision is intact) Extremities: Other (right upper extremity +3 edema), no Cyanosis Neurological: Normal speech Skin: no Rash - Procedures Procedures: Procedures Procedure Code Date INSPECTION OF GALLBLADDER, PERCUTANEOUS ENDOSCOPIC APPROACH [id number] 01/20/18 RELEASE OMENTUM, OPEN APPROACH [id number] 01/20/18 RESECTION OF GALLBLADDER, OPEN APPROACH [id number] 01/20/18 Assessment/Plan - Problem List Patient Problems: All Active Problems GASTRIC TUBE AND CORAL REMOVAL (Acute) Nutritional Asmnt/Malnutr-PDOC - Dietary Evaluation Malnutrition Findings (Please click <Entered> for more info): Nutritional Asmnt/Malnutrition Start: 01/24/18 17: 29 Text: Status: Complete Freq: Protocol: Document 01/24/18 17:29 [email or web address] (Rec: 01/24/18 17:38 [id number]) Nutritional Asmnt/Malnutrition Patient General Information Nutritional Screening Moderate Risk Diagnosis aspiration PNA Pertinent Medical Hx/Surgical Hx cardiac tampondade s/p surgery , aortic dissection, Gtube ( now removed) Subjective Information Per H&P pt had Gtube removed and started oral diet for about one month. Pt stated he still have some stomach issue, vomiting. Pt consumed cream of wheat and ceream for breakfast this morning, not very comfortable with solid food at this time.Per nurse note, pt had loose stool last night. Per EMR, PO intake 50- 75%. Current Diet Order/ Nutrition Support cardiac Pertinent Medications colace, culturelle, zofran, piperacillin, vancomycin Pertinent Labs 01/24 cl 108, glucose 76 01/20 A1c 4.9 Nutritional Hx/Data Height 1.91 m Height (Calculated Centimeters) 190.5 Current Weight (lbs) 92.079 kg Weight (Calculated Kilograms) 92.1 Weight (Calculated Grams) 11929.3 [place] Body Weight 196 Body Mass Index (BMI) 25.3 Weight Status Overweight GI Symptoms GI Symptoms None Last BM 01/24 Difficult in: None Skin Integrity/Comment: intact Current %PO Fair (50-74%) Estimated Nutritional Goals BEE in Kcals: Using Current wt Calories/Kcals/Kg 25-30 Kcals Calculated 5661-4150 Protein: Using Current wt Protein g/k Protein Calculated 92 Fluid: ml 2300-2760ml (1ml/kcal) Nutritional Problem No current Nutrition Prob Problem N/A Malnutrition Alert Is there a minimum of two criteria No selected? Query Text:Check all the applicable criteria. A minimum of two criteria are recommended for diagnosis of either severe or non-severe malnutrition. Malnutrition Related to Morbid Obesity Malnutrition related to morbid obesity No Intervention/Recommendation Comments 1. Continue with current diet as ordered. Offered food alternatives if pt not able to take his meals. 2. Monitor PO intake, GI function, wt, labs and skin integrity 3. F/U as moderate risk in 3-5 days, 01/27-01/29 Expected Outcomes/Goals Expected Outcomes/Goals 1. PO intake to meet at least 75% of nutritional needs. 2. Wt stability, GI function to improve, skin to remain intact, labs to approach WNL.
--- NOTE | 2018-02-08 03:21 | Progress Notes ---
DATE: 02/07/2018 SUBJECTIVE: The patient is resting comfortably in bed, does not appear to be in acute pain or distress at this time. He states that he still continues to have some abdominal pain, nausea, but he denies vomiting. He continues to have persistently elevated white blood cell count. An indium scan has been ordered for further evaluation due to persistent leukocytosis with continued abdominal pain and nausea. OBJECTIVE: VITAL SIGNS: 97.2, 80, 20 and 102/69. GENERAL: Appears to be in mild pain and distress. HEENT: PERRLA, EOMI. NECK: Supple. Trachea midline. CARDIOVASCULAR: Regular rate and rhythm. RESPIRATORY: CTA bilaterally. No wheezes or rhonchi. ABDOMEN: Soft, tender to palpation in the right upper quadrant. Surgical incision is intact without surrounding erythema or drainage. Normoactive bowel sounds. SKIN: Warm and dry. MUSCULOSKELETAL: Muscle strength testing in bilateral upper and lower extremities 4/5. LABORATORY DATA: White blood cell count 17.4, hemoglobin is 9.6. Sodium is 144, potassium is 3.3, calcium is 7.9, albumin is 2.6. ASSESSMENT AND PLAN: Status post open cholecystectomy; right upper extremity edema; sepsis; aspiration pneumonia; hypokalemia; right upper extremity deep venous thrombosis, resolved; dysphagia, resolved; atrial fibrillation; anemia of chronic illness; severe malnutrition; hyponatremia; history of aortic dissection, cardiac tamponade, status post surgery at [facility]. ID and General Surgery to follow up and indium scan has been ordered by ID. A PICC line will be inserted so that way they can draw enough blood for him to perform the indium scan. A LTAC evaluation will be placed at this time. Continue IV antibiotics. Encourage oral intake as tolerated. as needed for mild pain or fever. Zofran as needed for nausea and vomiting. JOB# [id number]
--- NOTE | 2018-02-09 14:21 | Discharge Summary ---
DATE OF DISCHARGE: 02/07/2018 ADMITTING DIAGNOSES: Sepsis, aspiration pneumonia, right upper extremity DVT, AFib, anemia of chronic illness, marked malnutrition, and hyponatremia. DISCHARGE DIAGNOSES: Status post open cholecystectomy secondary to calculus, cholecystitis with lysis of adhesions; sepsis, aspiration pneumonia, hypokalemia, resolved; right upper extremity deep venous thrombosis, resolved; dysphagia, resolved; AFib, anemia of chronic illness, severe malnutrition, hyponatremia, history of aortic dissection, cardiac tamponade status post surgery at [facility]. HISTORY OF PRESENT ILLNESS: This is a patient of mine from [facility], presented to the hospital with the chief complaint of shortness of breath and abdominal pain. Chest x-ray revealed that the patient had aspiration pneumonia. We started her on IV antibiotics. Pulmonary and ID consult were consulted at that time. The patient's respiratory status improved with antibiotics, bronchodilators as well as supplemental oxygenation. His sepsis resolved with antibiotics as well as IV fluids. During the hospitalization, his right upper extremity became swollen likely secondary to IV infiltration. He previously had a DVT in that arm and so there is a concern that might have returned. Ultrasound of the right upper extremity revealed that there was no DVT and the IV was switched to left arm and the swelling started to resolve. His AFib was controlled during the hospitalization. The patient started to complain of abdominal pain. A CT revealed that the patient had cholelithiasis; however, due to the patient's numerous abdominal surgeries in the past and he had mesh in his abdomen, to remove his gallbladder, it would have to be an open procedure. We had a long discussion with the patient at bedside and explained that they cannot do it laparoscopically. The patient understood this and the son move forward with surgery. The patient tolerated the procedure well without complication and he was able to tolerate oral intake. Shortly afterwards, he started having abdominal pain, nausea, and vomiting. Infectious Disease was concerned for a nidus of infection somewhere so they wanted to order an indium scan. However, at that time, the patient's insurance called [facility] and stated they wanted to transfer the patient over to [place] because it is the contracted hospital. Prior to him leaving, a PICC line was successfully placed, so that way he could have a large quantity of blood drawn for the indium scan and the patient was transferred over to [facility]. COMPLICATIONS: None. PROCEDURE: Open cholecystectomy with lysis of adhesions. MEDICATIONS: Reviewed and reconciled. VITAL SIGNS: 97.6, 120/80, 16 and 94. DIET: As tolerated. ACTIVITY: As tolerated. DISPOSITION: Transfer to [place] for continued workup. Follow up with Dr. Alejandra upon arrival. JOB# [id number]
== END 2018-02-07 18:00 | disposition short-term general hospital (02) | DRG 853 ==
LOC: ER 14:50 → TELE 19:50 → MSI 01-24 15:49
PROVIDERS: ADMIT General Practice; ATTEND General Practice
PROC: 0DP63UZ Removal of Feeding Device from Stomach, Percutaneous Approach (ICD-10-PCS; 2018-01-22)
PROC: 05PY33Z Removal of Infusion Device from Upper Vein, Percutaneous Approach (ICD-10-PCS; 2018-01-22)
PROC: 0FT40ZZ Resection of Gallbladder, Open Approach (ICD-10-PCS; principal; 2018-01-28)
PROC: 0FJ44ZZ Inspection of Gallbladder, Percutaneous Endoscopic Approach (ICD-10-PCS; 2018-01-28)
PROC: 0DNU0ZZ Release Omentum, Open Approach (ICD-10-PCS; 2018-01-28)
PROC: 02HV33Z Insertion of Infusion Device into Superior Vena Cava, Percutaneous Approach (ICD-10-PCS; 2018-02-07)
DX: A41.9 Sepsis, unspecified organism (principal); J69.0 Pneumonitis due to inhalation of food and vomit; N18.6 End stage renal disease; J96.90 Respiratory failure, unspecified, unspecified whether with hypoxia or hypercapnia; G93.41 Metabolic encephalopathy; N17.0 Acute kidney failure with tubular necrosis; E43 Unspecified severe protein-calorie malnutrition; I12.0 Hypertensive chronic kidney disease with stage 5 chronic kidney disease or end stage renal disease; E87.1 Hypo-osmolality and hyponatremia; I82.621 Acute embolism and thrombosis of deep veins of right upper extremity; K80.10 Calculus of gallbladder with chronic cholecystitis without obstruction; E87.0 Hyperosmolality and hypernatremia; E78.5 Hyperlipidemia, unspecified; I48.91 Unspecified atrial fibrillation; D63.8 Anemia in other chronic diseases classified elsewhere; E87.6 Hypokalemia; I25.9 Chronic ischemic heart disease, unspecified; R13.10 Dysphagia, unspecified; D50.9 Iron deficiency anemia, unspecified; G89.29 Other chronic pain; Z68.25 Body mass index [BMI] 25.0-25.9, adult; Z22.322 Carrier or suspected carrier of Methicillin resistant Staphylococcus aureus
CPT/HCPCS: 36415-UA; 36600-90; 70450-TC; 71045-TC; 71250-TC; 76700-TC; 78806-TC; 80048-TC; 80053-TC; 80061-TC; 80202-TC; 81001-TC; 82140-TC; 82550-TC; 82570-TC; 82803-TC; 82948-90; 83036-90; 83605; 84300-TC; 84484-TC; 84550-TC; 85007-TC; 85025-TC; 85027-TC; 85610-TC; 85730-TC; 85999-90; 87070-90; 87086-90; 87230-TC; 88300-TC; 90799; 93005; 93970-TC-50; 93971-TC-RT; 94760; 96372; 97530; A9521; J0696; J1170; J1200; J1956; J2001; J2060; J2250; J2405; J2543; J2704; J2710; J2765; J3010; J3370; J3480; J7030; J7040; V2790; X3904; X6258; Z7610